=== PATIENT | male | born 1970 | race Caucasian/White ===

== ENCOUNTER 2022-03-02 10:39 | Inpatient (IN) | payer OTHER, SELFPAY ==
[2022-03-02] VITALS (14 sets, daily range): BP systolic 88–133; BP diastolic 62–82; PULSE 95–111; RESP 15–23; TEMP 36.1–37.2; O2SAT 92–97; BMI 29.5
--- NOTE | 2022-03-02 10:46 | W.ED.AMS ---
HPI - Altered Mental Status General: Stated Complaint: AMS Time Seen by Provider: 03/02/22 10:45 Discharge Plan Discharge Condition: Stable Prescriptions: No Action lorazepam 1 mg tablet 1 mg PO TID PRN (Reason: anxiety) Qty: 90 1RF Referrals: Troy Ambrosio DO [Primary Care Provider] - Coding Level of Care Code ED Director Of Curriculum And Instruction for [place]
--- NOTE | 2022-03-02 10:47 | CT_ITS ---
WS: [id number] CT HEAD TECHNIQUE: Noncontrast CT of the head obtained from the skullbase to the vertex. CLINICAL INFORMATION: ams COMPARISON: None. DLP: 1379.[address] scans at [facility] use at least one of these dose optimization techniques: automated e xposure control; mA and/or kV adjustment per patient size (includes targeted exams where dose is matc hed to clinical indication); or iterative reconstruction. FINDINGS: No evidence of intracranial hemorrhage or mass effect. Ventricular system and basal cisterns are briseno nt. Mild parenchymal volume loss. Espinoza-white differentiation appears preserved. No significant edema. No hydrocephalus. Mild cavernous carotid calcification. Mastoid air cells well aerated. Paranasal sinuses are well aerated. Retention cyst LEFT sphenoid sinu s measuring [address]/CT head wo con* [id number] IMPRESSION: 1. No evidence of intracranial hemorrhage or mass effect. 2. Mild parenchymal volume loss. 3. Espinoza-white differentiation appears preserved. No significant edema. No hydr ocephalus. 4. Mild cavernous carotid calcification. 5. Small 11 mm retention cyst LEFT sphenoid sinus. 6. No other acute findings.
--- NOTE | 2022-03-02 10:47 | XR_ITS ---
WS: [id number] Portable AP semiupright chest, 03/02/2022 Clinical Data: ams Comparison: PA and lateral chest, 10/30/2017. Findings: No nodules, masses or effusions are seen. The heart is normal. The pulmonary vascularity is not increased. No pneumonia or pneumothorax is seen. The right diaphragm is moderately elevated and there is minimal atelectasis over the surface. Monitor leads are on the chest wall. There is osteoart hritis of the left glenohumeral articulation. XR/XR chest 1V portable [id number] Impression: Negative chest.
--- NOTE | 2022-03-02 10:48 | ECG_ITS ---
[facility] Test Date: 2022-03-02 Pat Name: Dustin De Leon Department: Room: Gender: Male Health Information Specialist: : 1970 Requested By: Jeanie Martines Order Number: [id number] Kalpana MD: Dieudonne Cooper M.D. Measurements Intervals [place] Rate: 109 P: 54 SC: 153 QRS: -5 QRSD: 96 T: 80 QT: 314 QTc: 423 Interpretive Statements SINUS TACHYCARDIA LEFT ATRIAL ENLARGEMENT [-0.15mV P-WAVE IN V1/V2] LEFT VENTRICULAR HYPERTROPHY AND ST-T CHANGE [VOLTAGE CRITERIA PLUS ST/T ABNORMALITY] No previous ECG available for comparison Electronically Signed On 03-02-2022 19:44:51 CDT by Dieudonne Cooper M.D. [id number]
--- NOTE | 2022-03-02 10:58 | W.ED.GENADLT ---
HPI - General Adult General: Chief complaint: Altered Mental Status Stated complaint: AMS Time Seen by Provider: 03/02/22 10:45 History of Present Illness: Patient is a 51-year-old male with history alcohol dependence presenting to the emergency room after patient was found down since Monday. Patient rolled his bed since Monday has been on the ground. Patient's father checked on him and noticed patient was still on the ground decide to call EMS. She has been on the ground since Monday. On arrival, patient has been that he can move his arms or legs. Patient denies any pain anywhere. Patient is AAO x1, confused, oriented only to self. Rest of hx limited. Onset:2 days ago Duration:2 days Location:home Severity:severe Review of Systems General: Reports: ROS unobtainable due to mental status Musc: Reports: other (+weakness in the arms and legs b/l) Neuro: Reports: other (+confusion) [facility] ED PFSH: Medical History Alcohol dependence Social History Smoking and tobacco status: never smoked Alcohol intake: current Substance/Drug Use: never Physical Exam Const: COMMON NORMALS: alert HENMT: COMMON NORMALS: atraumatic HEAD & SCALP: atraumatic MOUTH: moist mucous membranes abnormal Eye: COMMON NORMALS: EOMs intact bilaterally and conjunctivae normal CONJUNCTIVA: Yes conjunctivae normal Neck/C-Spine: COMMON NORMALS: full ROM and supple Resp: COMMON NORMALS: normal respiratory effort and clear to auscultation bilaterally AUSCULTATION: clear to auscultation bilaterally Cardio: COMMON NORMALS: regular rate RATE: regular rate GI: COMMON NORMALS: Soft to palpation and non-tender PALPATION: Yes Soft to palpation OTHER: No focal TTP. NO guarding rebound, guarding, rigidity. No CVA tenderness to percussion. Neg Martinez/Neg McBurney's point tenderness, no suprabupic tenderness to palpation. Extremity: OTHER: +occasional movements of the extremities Neuro: SENSORIUM/ORIENTATION: Yes alert OTHER: AAOx1 (self only), confused, occasionally answering questions, occasionally moving all extremities, +unable to fully assess neurological exam Psych: COMMON NORMALS: speech normal SPEECH: Yes normal speech MOOD & AFFECT: Yes euthymic mood Course Vital Signs: Vital signs: Vital Signs Temperature 97.0 F L 03/02/22 15:35 Pulse Rate 108 H 03/02/22 16:45 Respiratory Rate 22 H 03/02/22 16:45 Blood Pressure 99/69 03/02/22 16:45 Pulse Oximetry 95 03/02/22 16:45 Oxygen Delivery Me thod 03/02/22 16:45 Oxygen Flow Rate 2 03/02/22 11:46 MDM - General Adult Medical Decision Making Patient is a 51-year-old male with history alcohol dependence presenting to the emergency room after patient was found down since Monday. On arrival, patient is confused and altered. Patient reports that he can move his arms or legs. Patient has intermittent movements of the arms or legs. No focal midline back tenderness to palpation. Patient received 500 mg of IV thiamine with IVF and now is more awake and alert. Patient noted to be mildly tachycardic on arrival. Lab work-up showed white count 28.5. Creatinine of 5 with troponin of 8.82. Patient still able to make urine with [place]. Consulted Dr. Borges who will follow patient for kidney failure. Lactic acid blood culture sent. CPK pending. Patient received vancomycin and cefepime in the ER. MRI of the back negative for any acute findings. Tachycardia and AMS improving. Disposition: admisison Lab Data : 03/02/22 11:15 03/02/22 15:14 Radiology Impressions Chest X-Ray 03/02/22 10:47 Impression: Negative chest. Head CT 03/02/22 10:47 IMPRESSION: 1. No evidence of intracranial hemorrhage or mass effect. 2. Mild parenchymal volume loss. 3. Espinoza-white differentiation appears preserved. No significant edema. No hydrocephalus. 4. Mild cavernous carotid calcification. 5. Small 11 mm retention cyst LEFT sphenoid sinus. 6. No other acute findings. Cervical Spine MRI 03/02/22 11:52 IMPRESSION: 1. Abnormal signal with enhancement involving the C6-7 vertebral body and facets with soft tissues edema and mild enhancement surrounding the nerve roots. On the prior MRI the cervical spine there is probably very small T2 lesion in the C6-7 LEFT facet. This has significantly increased in size. This is a mildly expansile bone lesion. May not be related to the patient's trauma and clinical presentation. This should be further evaluated by bone scan and possible CT. Benign bone lesion versus metastatic lesion. No cord compression. 2. No epidural abscess. 3. Increased T2 signal surrounding the soft tissues of the RIGHT shoulder may be due to poor fat suppression. Lumbar Spine MRI 03/02/22 11:52 IMPRESSION: 1. No epidural abscess or encroachment upon the conus. 2. Mild LEFT foraminal narrowing at L3-4 with disc contact on the exiting L3 nerve root. 3. Moderate RIGHT foraminal stenosis and mild LEFT foraminal stenosis at L4-5 due to disc disease. Disc contacts the traversing L5 nerve root on the RIGHT. 4. Mild bilateral foraminal stenosis at L5-S1. 5. Mild inflammatory changes involving the RIGHT L5 and S1 posterior elements with facet joint fluid. No enhancement. Consistent with synovitis and a small amount of marrow edema. Thoracic Spine MRI 03/02/22 11:52 IMPRESSION: 1. Limited evaluation of the thoracic spine. Motion artifact and lack of contrast. Patient was unable to tolerate postcontrast imaging. 2. Mild compression fractures at T2, T3, T4 and T6. Very small amount of increased T2 signal within the compression fractures. May be subacute. No retropulsion. 3. Indeterminate for very tiny focus of increased signal in the RIGHT lateral thoracic cord. This is likely external to the cord. 4. No cord compression. Laboratory Results WBC 28.5 10^3/uL (4.0-10.0) H 03/02/22 11:15 RBC 5.07 10^6/uL (4.1-5.3) 03/02/22 11:15 Hgb 16.2 g/dL (11.7-16.6) 03/02/22 11:15 Hct 45.4 % (42.0-52.0) 03/02/22 11:15 MCV 89.5 fl (80-94) 03/02/22 11:15 MCH 32.0 pg (28.0-34.0) 03/02/22 11:15 MCHC 35.7 g/dL (30.0-36.0) 03/02/22 11:15 RDW 13.2 % (12.1-15.1) 03/02/22 11:15 Plt Count 273 10^3/cmm (130-400) 03/02/22 11:15 MPV 9.1 fL (7.4-10.4) 03/02/22 11:15 Neut % (Auto) Environmental Emergencies Planner 03/02/22 11:15 Lymph % (Auto) Environmental Emergencies Planner 03/02/22 11:15 Dawes % (Auto) Environmental Emergencies Planner 03/02/22 11:15 Eos % (Auto) Environmental Emergencies Planner 03/02/22 11:15 Baso % (Auto) Environmental Emergencies Planner 03/02/22 11:15 Neut # (Auto) Environmental Emergencies Planner 03/02/22 11:15 Lymph # (Auto) Environmental Emergencies Planner 03/02/22 11:15 Dawes # (Auto) Environmental Emergencies Planner 03/02/22 11:15 Eos # (Auto) Environmental Emergencies Planner 03/02/22 11:15 Baso # (Auto) Environmental Emergencies Planner 03/02/22 11:15 Nucleated RBC % (auto) Environmental Emergencies Planner 03/02/22 11:15 Total Counted 100 (0-100) 03/02/22 11:15 Atypical Lymphs % 0.0 % (0-5) 03/02/22 11:15 Absolute Neutrophils 25.7 10^3/cmm (1.4-6.5) H 03/02/22 11:15 Segmented Neutrophils 90 % 03/02/22 11:15 Abs Segm Neuts (Man) 25.7 10/cmm (1.6-7.1) H 03/02/22 11:15 Band Neutrophils 0.0 % 03/02/22 11:15 Abs Band Neuts (Man) 0.0 10^3/cmm (0.0-1.2) 03/02/22 11:15 Absolute Lymphocytes 1.1 10^3/cmm (1.2-3.4) L 03/02/22 11:15 Lymphocytes (Manual) 4 % 03/02/22 11:15 Monocytes (Manual) 6.0 % 03/02/22 11:15 Absolute Monocytes 1.7 10^3/cmm (0.1-0.6) H 03/02/22 11:15 Eosinophils (Manual) 0 % 03/02/22 11:15 Absolute Eosinophils 0.0 10^3/cmm (0.0-0.7) 03/02/22 11:15 Basophils (Manual) 0.0 % 03/02/22 11:15 Absolute Basophils 0.0 10^3/cmm (0.0-0.2) 03/02/22 11:15 Nucleated RBCs # Environmental Emergencies Planner 03/02/22 11:15 Platelet Estimate Normal (Normal) 03/02/22 11:15 Sodium 123 mmol/L (136-145) L 03/02/22 15:14 Potassium 3.4 mmol/L (3.5-5.1) L 03/02/22 15:14 Chloride 80 mmol/L (98-107) L 03/02/22 15:14 Carbon Dioxide 20 mmol/L (22-29) L 03/02/22 15:14 Anion Gap 26.4 (5-19) H 03/02/22 15:14 BUN 34 mg/dL (6-20) H 03/02/22 15:14 Creatinine 5.0 mg/dL (0.7-1.2) H 03/02/22 15:14 GFR Calculation 12.2 mL/min (90-130) L 03/02/22 15:14 Glucose 125 mg/dL (65-115) H 03/02/22 15:14 Calculated Osmolality 265 mOsm/kg (285-295) L 03/02/22 15:14 Lactate 3.4 mmol/L (0.5-2.2) H 03/02/22 11:17 Calcium 8.2 mg/dL (8.5-10.5) L 03/02/22 15:14 Total Bilirubin 1.5 mg/dL (0.15-1.2) H 03/02/22 15:14 AST 109 U/L (0-40) H 03/02/22 15:14 ALT 30 U/L (0-41) 03/02/22 15:14 Alkaline Phosphatase 74 U/L (40-130) 03/02/22 15:14 Ammonia 41 umol/L (16-60) 03/02/22 11:15 Creatine Kinase Cancelled 03/02/22 11:15 Troponin T Baseline 82 ng/L (0-15) H 03/02/22 11:15 Troponin T 120 Minute 108.7 ng/L (0-15) H 03/02/22 15:14 Delta Troponin T 26.7 ABS# (0-10) H* 03/02/22 15:14 Total Protein 6.8 g/dL (6.6-8.7) 03/02/22 15:14 Albumin 3.8 g/dL (3.5-5.2) 03/02/22 15:14 Globulin 3.0 g/dL (1.3-4.6) 03/02/22 15:14 Lipase Cancelled 03/02/22 11:15 Urine Color Yellow (Yellow) 03/02/22 12:40 Urine Appearance Clear (CLEAR) 03/02/22 12:40 Urine pH 5 (5-7) 03/02/22 12:40 Ur Specific [place] 1.015 (1.005-1.030) 03/02/22 12:40 Urine Protein 1+ (Negative) H 03/02/22 12:40 Urine Glucose (UA) Norm (Normal) 03/02/22 12:40 Urine Ketones 1+ (Negative) H 03/02/22 12:40 Urine Blood Trace (Negative) H 03/02/22 12:40 Urine Nitrate Negative (Negative) 03/02/22 12:40 Urine Bilirubin 1+ (Negative) H 03/02/22 12:40 Urine Urobilinogen 1 mg/dL (Negative) H 03/02/22 12:40 Ur Leukocyte Esterase Negative (Negative) 03/02/22 12:40 Urine RBC 0-4 /hpf (0-2) H 03/02/22 12:40 Urine WBC 0-4 /hpf (0-5) H 03/02/22 12:40 Ur Squamous Epith Cells 0-4 /hpf (0-5) H 03/02/22 12:40 Amorphous Sediment Not Reportable 03/02/22 12:40 Urine Bacteria None /hpf (NONE) 03/02/22 12:40 Hyaline Casts 0-4 /lpf H 03/02/22 12:40 Salicylates Cancelled 03/02/22 11:15 Urine Opiates Screen Negative ng/mL (Negative) 03/02/22 12:40 Acetaminophen Cancelled 03/02/22 11:15 Ur Barbiturates Screen Negative ng/mL (Negative) 03/02/22 12:40 Ur Phencyclidine Scrn Negative ng/mL (Negative) 03/02/22 12:40 Ur Amphetamines Screen Negative ng/mL (Negative) 03/02/22 12:40 U Benzodiazepines Scrn Positive ng/mL (Negative) H 03/02/22 12:40 Urine Cocaine Screen Negative ng/mL (Negative) 03/02/22 12:40 U Marijuana (THC) Screen Negative ng/mL (Negative) 03/02/22 12:40 Imaging Data Other Imaging: Radiologist's impression: [facility] [address] [place] [address] Magnetic Resonance Report Signed Patient: Dustin De Leon Unit #: [id number] : 1970 Age/Sex: 51 / M ADM Date: 03/02/22 Loc: ER Room/Bed: Attending Dr: Ordering Provider/Ordering MD: Jeanie Martines MD Date of Service: 03/02/22 Procedure(s): MR thoracic spin wo con* [id number] Accession Number(s): [id number] Report Number: [id number] WS: [email or web address] MRI THORACIC SPINE noncontrast. HISTORY: possible epidural COMPARISON: None available. TECHNIQUE: Multiplanar sequences are performed in sagittal and axial planes. Patient was unable to complete postcontrast evaluation. Study is limited by motion artifact. Mild anterior wedging of T2, T3, T4 and T6. There is limited increased T2 and FLAIR signal within the T2, T4 and T6 vertebral bodies. May be subacute fractures. No contact on the thoracic cord. Very subtle area of increased T2 signal at the T4 level? which may be within the thoracic cord. Vertebral body fractures do not appear acute. MR/MR thoracic spin wo con* [id number] IMPRESSION: ? 1.? Limited evaluation of the thoracic spine. Motion artifact and lack of contrast. Patient was unable to tolerate postcontrast imaging. 2.? Mild compression fractures at T2, T3, T4 and T6. Very small amount of increased T2 signal within the compression fractures. May be subacute. No retropulsion. 3.? Indeterminate for very tiny focus of increased signal in the RIGHT lateral thoracic cord. This is likely external to the cord. 4.? No cord compression. ? Dictated By: Gisela Martinez DO Signed By: Gisela Martinez DO Signed Date/Time: 03/02/22 1628 DD/ 1551 [facility] [address] [place] [address] Magnetic Resonance Report Signed Patient: Dustin De Leon Unit #: [id number] : 1970 [id number] Age/Sex: 51 / M ADM Date: 03/02/22 Loc: ER Room/Bed: Attending Dr: Ordering Provider/Ordering MD: Jeanie Martines MD Date of Service: 03/02/22 Procedure(s): MR lumbar spine wo/w con [id number] Accession Number(s): [id number] Report Number: [id number] WS: [email or web address] MRI LUMBAR SPINE WITH AND WITHOUT CONTRAST HISTORY: Possible epidural abscess. Bowel and urinary incontinence. COMPARISON: 12/28/2009 TECHNIQUE: Sagittal and axial multisequence imaging is submitted. Sagittal and axial T1 fat sat sequences post-MultiHance 20 cc IV. Lumbar vertebral bodies are normally aligned. Stable hemangioma within L2. No acute fracture or marrow edema. Mild loss of the superior endplate of L2. Increased T1 and T2 signal lesion in the T12 LEFT posterior lateral vertebral body extending into the pedicle. This does not enhance and was present in 2009 consistent with a hemangioma. No compression upon the thecal sac. Nerve roots are well distributed in the thecal sac. No epidural abscess. No vertebral body enhancement. No paravertebral areas of inflammation. There is a small amount of edema in the RIGHT L5 pedicle and lamina and also the posterior RIGHT S1 vertebral body and posterior elements. No significant enhancement. There is fluid in the facet joint. Conus terminates normally at L1-2 disc level. L1-L2: Normal. L2-L3: Mild asymmetric disc bulging slightly greater to the LEFT with no stenosis. L3-L4: Mild asymmetric disc bulging. LEFT foraminal disc osteophyte and fissure. There is mild encroachment and narrowing of the LEFT foramen and contact on the exiting LEFT L3 nerve root. L4-L5: Mild facet arthritis. Mild disc contact on the RIGHT traversing L5 nerve root. Moderate RIGHT foraminal stenosis. Mild LEFT foraminal stenosis. L5-S1: Mild annular disc bulging resulting in mild foraminal stenosis, RIGHT greater than LEFT. Paravertebral soft tissues are normal. MR/MR lumbar spine wo/w con [id number] IMPRESSION: ? 1.? No epidural abscess or encroachment upon the conus. 2.? Mild LEFT foraminal narrowing at L3-4 with disc contact on the exiting L3 nerve root. 3.? Moderate RIGHT foraminal stenosis and mild LEFT foraminal stenosis at L4-5 due to disc disease. Disc contacts the traversing L5 nerve root on the RIGHT. 4.? Mild bilateral foraminal stenosis at L5-S1. 5.? Mild inflammatory changes involving the RIGHT L5 and S1 posterior elements with facet joint fluid. No enhancement. Consistent with synovitis and a small amount of marrow edema. ? Dictated By: Gisela Martinez DO Signed By: Gisela Martinez DO Signed Date/Time: 03/02/22 1539 DD/ 1521 [place] [address] Magnetic Resonance Report Signed Patient: Dustin De Leon Unit #: [id number] : 1970 Age/Sex: 51 / M ADM Date: 03/02/22 Loc: ER Room/Bed: Attending Dr: Ordering Provider/Ordering MD: Jeanie Martines MD Date of Service: 03/02/22 Procedure(s): MR cervical spine wo/w [id number] Accession Number(s): [id number] Report Number: [id number] WS: [email or web address] MRI CERVICAL SPINE? with and without contrast. HISTORY: Possible epidural abscess. Pain. COMPARISON: 11/04/2010 Technique: Multiplanar, multisequence noncontrast imaging of the cervical spine. Post contrast imaging with 20 cc MultiHance. Normal cervical alignment with no compression fracture or significant disc space narrowing. Stable hemangioma C4. Disc spaces are well preserved. Signal within the cervical cord is normal. Visualized posterior fossa is unremarkable. Craniocervical junction, C1 and C2 relationship, odontoid process and soft tissues are normal. Limited evaluation of the cervical spine. There is no significant encroachment or compromise of the central canal. Disc spaces are mildly narrowed. Incidental note is made of mild anterior wedging of T2 and T3. This will be further evaluated on follow-up exams. There is a small amount of fluid and increased T2 signal at the C6-7 disc level surrounding the nerve roots and extending into the foramina. There is also increased T2 signal in the soft tissues of the RIGHT shoulder surrounding the muscles. This abnormal signal involving the RIGHT shoulder and the soft tissues is incompletely visualized. On the postcontrast images there is abnormal signal with enhancement involving the C7 LEFT lateral vertebral body extending into the superior and inferior articular facets. This is the same location where there is abnormal enhancement involving the facet joints and paravertebral soft tissues. Mild bony expansion. Nonaggressive in appearance. Area of abnormal signal on the LEFT measures approximately 4.5 x 2.7 cm and a smaller area of similar abnormal signal on the RIGHT. MR/MR cervical spine wo/w [id number] IMPRESSION: ? 1.? Abnormal signal with enhancement involving the C6-7 vertebral body and facets with soft tissues edema and mild enhancement surrounding the nerve roots. On the prior MRI the cervical spine there is probably very small T2 lesion in the C6-7 LEFT facet. This has significantly increased in size. This is a mildly expansile bone lesion. May not be related to the patient's trauma and clinical presentation. This should be further evaluated by bone scan and possible CT.? Benign bone lesion versus metastatic lesion. No cord compression. 2.? No epidural abscess. 3.? Increased T2 signal surrounding the soft tissues of the RIGHT shoulder may be due to poor fat suppression. ? Dictated By: Gisela Martinez DO Signed By: Gisela Martinez DO Signed Date/Time: 03/02/22 162 DD/ 1539 [place] [address] CT Scan Report Signed Patient: Dustin De Leon Unit #: [id number] : 1970 Age/Sex: 51 / M ADM Date: 03/02/22 Loc: ER Room/Bed: Attending Dr: Ordering Provider/Ordering MD: Jeanie Martines MD Date of Service: 03/02/22 Procedure(s): CT head wo con* [id number] Accession Number(s): [id number] Report Number: [id number] WS: [email or web address] CT HEAD TECHNIQUE: Noncontrast CT of the head obtained from the skullbase to the vertex. CLINICAL INFORMATION: ams COMPARISON: None. DLP: 1379.[address] scans at [facility] use at least one of these dose optimization techniques: automated exposure control; mA and/or kV adjustment per patient size (includes targeted exams where dose is matched to clinical indication); or iterative reconstruction. FINDINGS: No evidence of intracranial hemorrhage or mass effect. Ventricular system and basal cisterns are patent. Mild parenchymal volume loss. Espinoza-white differentiation appears preserved. No significant edema. No hydrocephalus. Mild cavernous carotid calcification. Mastoid air cells well aerated. Paranasal sinuses are well aerated. Retention cyst LEFT sphenoid sinus measuring [address]/CT head wo con* [id number] IMPRESSION: ? 1.? No evidence of intracranial hemorrhage or mass effect. 2.? Mild parenchymal volume loss. 3.? Espinoza-white differentiation appears preserved. No significant edema. No hydrocephalus. 4.? Mild cavernous carotid calcification. 5.? Small 11 mm retention cyst LEFT sphenoid sinus. 6.? No other acute findings. ? ? Dictated By: Edinson Ba MD Signed By: Edinson Ba MD Signed Date/Time: 03/02/22 1202 DD/ [address] [address] XRay Report Signed Patient: Dustin De Leon Unit #: [id number] : 1970 Age/Sex: 51 / M ADM Date: 03/02/22 Loc: ER Room/Bed: Attending Dr: Ordering Provider/Ordering MD: Jeanie Martines MD Date of Service: 03/02/22 Procedure(s): XR chest 1V portable [id number] Accession Number(s): [id number] Report Number: [id number] WS: [email or web address] Portable AP semiupright chest, 03/02/2022 Clinical Data: ams Comparison: PA and lateral chest, 10/30/2017. Findings: No nodules, masses or effusions are seen. The heart is normal. The pulmonary vascularity is not increased. No pneumonia or pneumothorax is seen. The right diaphragm is moderately elevated and there is minimal atelectasis over the surface. Monitor leads are on the chest wall. 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 XR/XR chest 1V portable [id number] Impression: Negative chest. ? Dictated By: Betina Sosa MD Signed By: Betina Sosa MD Signed Date/Time: 03/02/22 1139 DD/ 1137 Discharge Plan Discharge Patient Disposition: Admitted As Inpatient Clinical Impression: Altered mental status Condition: Stable Coding Level of Care Code ED Distributor Of Directories for Chg Fwd Exam Comprehensive
[2022-03-02] MEDS: sodium chloride 0.9% 1,000 ML 999 ML IV ×2 (11:22→15:29)
[2022-03-02 11:26] LABS: Hematocrit 45.4 % (42.0-52.0); Hemoglobin 16.2 g/dL (11.7-16.6); Mean Corpuscular HGB Conc 35.7 g/dL (30.0-36.0); Mean Corpuscular Volume 89.5 fl (80-94); Mean Platelet Volume 9.1 fL (7.4-10.4); Platelet Count 273 10^3/cmm (130-400); Red Blood Count 5.07 10^6/uL (4.1-5.3); Red Cell Distribution Width 13.2 % (12.1-15.1); White Blood Count 28.5 10^3/uL (4.0-10.0)
--- NOTE | 2022-03-02 11:26 | PC.NURSE ---
Patient here after being found down in his bedroom by his dad, unknown down time, per dad patient had sent text to his mom Monday am and no one he usually talks to had heard from him. Patient lives alone. He does have a 16 year old son that lives with him Monday through Monday. Patient awake, [place], poor historian, no recall of events, does know he is in [place] [facility]
--- NOTE | 2022-03-02 11:32 | PC.NURSE ---
Per patient's dad patient did have a doctor's appointment with Dr. Ambrosio but it is unknown if he kept the appointment, per dad patient had been sick to his stomach over the weekend.
--- NOTE | 2022-03-02 11:36 | PC.PHAR ---
unable to verify medications with pt or with pts family that was in the room-medications entered are meds that ext med history shows has been filled recently
[2022-03-02 11:42] LABS: Troponin(5th) Baseline 82 ng/L (0-15)
--- NOTE | 2022-03-02 11:52 | MR_ITS ---
WS: [id number] MRI CERVICAL SPINE with and without contrast. HISTORY: Possible epidural abscess. Pain. COMPARISON: 11/04/2010 Technique: Multiplanar, multisequence noncontrast imaging of the cervical spine. Post contrast imagin g with 20 cc MultiHance. Normal cervical alignment with no compression fracture or significant disc space narrowing. Stable he mangioma C4. Disc spaces are well preserved. Signal within the cervical cord is normal. Visualized posterior fossa is unremarkable. Craniocervical junction, C1 and C2 relationship, odontoid process and soft tissues are normal. Limited evaluation of the cervical spine. There is no significant encroachment or compromise of the c entral canal. Disc spaces are mildly narrowed. Incidental note is made of mild anterior wedging of T2 and T3. This will be further evaluated on follow-up exams. There is a small amount of fluid and increased T2 signal at the C6-7 disc level surrounding the nerve roots and extending into the foramina. There is also increased T2 signal in the soft tissues of the RIGHT shoulder surrounding the muscles. This abnormal signal involving the RIGHT shoulder and the sof t tissues is incompletely visualized. On the postcontrast images there is abnormal signal with enhancement involving the C7 LEFT lateral ve rtebral body extending into the superior and inferior articular facets. This is the same location whe re there is abnormal enhancement involving the facet joints and paravertebral soft tissues. Mild bony expansion. Nonaggressive in appearance. Area of abnormal signal on the LEFT measures approximately 4.5 x 2.7 cm and a smaller area of similar abnormal signal on the RIGHT. MR/MR cervical spine wo/w [id number] IMPRESSION: 1. Abnormal signal with enhancement involving the C6-7 vertebral body and face ts with soft tissues edema and mild enhancement surrounding the nerve roots. On the prior MRI the cervical spine there is probably very small T2 lesion in the C6-7 LEFT facet. This has significantly increased in size. This is a mildly ex pansile bone lesion. May not be related to the patient's trauma and clinical pr esentation. This should be further evaluated by bone scan and possible CT. Adithya ign bone lesion versus metastatic lesion. No cord compression. 2. No epidural abscess. 3. Increased T2 signal surrounding the soft tissues of the RIGHT shoulder may be due to poor fat suppression.
--- NOTE | 2022-03-02 11:52 | MR_ITS ---
WS: [id number] MRI THORACIC SPINE noncontrast. HISTORY: possible epidural COMPARISON: None available. TECHNIQUE: Multiplanar sequences are performed in sagittal and axial planes. Patient was unable to co mplete postcontrast evaluation. Study is limited by motion artifact. Mild anterior wedging of T2, T3, T4 and T6. There is limited increased T2 and FLAIR signal within the T2, T4 and T6 vertebral bodies. May be subacute fractures. No contact on the thoracic cord. Very subtle area of increased T2 signal at the T4 level which may be within the thoracic cord. Verte bral body fractures do not appear acute. MR/MR thoracic spin wo con* [id number] IMPRESSION: 1. Limited evaluation of the thoracic spine. Motion artifact and lack of contr ast. Patient was unable to tolerate postcontrast imaging. 2. Mild compression fractures at T2, T3, T4 and T6. Very small amount of incre ased T2 signal within the compression fractures. May be subacute. No retropulsi on. 3. Indeterminate for very tiny focus of increased signal in the RIGHT lateral thoracic cord. This is likely external to the cord. 4. No cord compression.
--- NOTE | 2022-03-02 11:52 | MR_ITS ---
WS: [id number] MRI LUMBAR SPINE WITH AND WITHOUT CONTRAST HISTORY: Possible epidural abscess. Bowel and urinary incontinence. COMPARISON: 12/28/2009 TECHNIQUE: Sagittal and axial multisequence imaging is submitted. Sagittal and axial T1 fat sat seque nces post-MultiHance 20 cc IV. Lumbar vertebral bodies are normally aligned. Stable hemangioma within L2. No acute fracture or marro w edema. Mild loss of the superior endplate of L2. Increased T1 and T2 signal lesion in the T12 LEFT posterior lateral vertebral body extending into the pedicle. This does not enhance and was present in 2009 consistent with a hemangioma. No compression upon the thecal sac. Nerve roots are well distributed in the thecal sac. No epidural a bscess. No vertebral body enhancement. No paravertebral areas of inflammation. There is a small amoun t of edema in the RIGHT L5 pedicle and lamina and also the posterior RIGHT S1 vertebral body and post erior elements. No significant enhancement. There is fluid in the facet joint. Conus terminates normally at L1-2 disc level. L1-L2: Normal. L2-L3: Mild asymmetric disc bulging slightly greater to the LEFT with no stenosis. L3-L4: Mild asymmetric disc bulging. LEFT foraminal disc osteophyte and fissure. There is mild encroa chment and narrowing of the LEFT foramen and contact on the exiting LEFT L3 nerve root. L4-L5: Mild facet arthritis. Mild disc contact on the RIGHT traversing L5 nerve root. Moderate RIGHT foraminal stenosis. Mild LEFT foraminal stenosis. L5-S1: Mild annular disc bulging resulting in mild foraminal stenosis, RIGHT greater than LEFT. Paravertebral soft tissues are normal. MR/MR lumbar spine wo/w con [id number] IMPRESSION: 1. No epidural abscess or encroachment upon the conus. 2. Mild LEFT foraminal narrowing at L3-4 with disc contact on the exiting L3 n erve root. 3. Moderate RIGHT foraminal stenosis and mild LEFT foraminal stenosis at L4-5 due to disc disease. Disc contacts the traversing L5 nerve root on the RIGHT. 4. Mild bilateral foraminal stenosis at L5-S1. 5. Mild inflammatory changes involving the RIGHT L5 and S1 posterior elements with facet joint fluid. No enhancement. Consistent with synovitis and a small a mount of marrow edema.
[2022-03-02 12:13] LABS: Lactate (Lactic Acid level) 3.4 mmol/L (0.5-2.2)
[2022-03-02] MEDS: cefepime 1,000 MG in sodium chloride 0.9% (plus) 50 ML 100 MG IV (12:22)
[2022-03-02 12:27] LABS: Absolute Neutrophil 25.7 10^3/cmm (1.4-6.5); Absolute Segmented Neutrophil 25.7 10/cmm (1.6-7.1); Eosinophils 0 %; Lymphocytes 4 %; Lymphocytes Absolute 1.1 10^3/cmm (1.2-3.4); Monocytes Absolute 1.7 10^3/cmm (0.1-0.6); Platelet Estimate Normal (Normal); Segmented Neutrophils 90 %; Total Cells Counted 100 (0-100)
[2022-03-02] MEDS: vancomycin 1,000 MG in sodium chloride 0.9% 250 ML 250 MG IV (12:35)
[2022-03-02 12:36] LABS: Ammonia 41 umol/L (16-60)
[2022-03-02] MEDS: morphine 4 mg/mL SDV 1 mL IVP (12:42)
--- NOTE | 2022-03-02 12:47 | PC.NURSE ---
San cath placed, patient tolerated well, BC's drawn and antibiotics started, patient to MRI att
--- NOTE | 2022-03-02 12:48 | ECG_ITS ---
[facility] Test Date: 2022-03-02 Pat Name: Dustin De Leon Department: Room: Gender: Male Afterschool: : 1970 Requested By: Jeanie Martines Order Number: [id number] Kalpana MD: Dieudonne Cooper M.D. Measurements Intervals Joaquin Rate: 108 P: 32 CT: 132 QRS: -10 QRSD: 96 T: 71 QT: 338 QTc: 454 Interpretive Statements SINUS TACHYCARDIA LEFT ATRIAL ENLARGEMENT [-0.15mV P-WAVE IN V1/V2] LEFT VENTRICULAR HYPERTROPHY AND ST-T CHANGE [VOLTAGE CRITERIA PLUS ST/T ABNORMALITY] Compared to ECG 03/02/2022 11:46:04 No significant changes Electronically Signed On 03-02-2022 19:51:06 CDT by Dieudonne Cooper M.D. [email or web address]
[2022-03-02 13:01] LABS: Amphetamines Screen Urine Negative (Negative); Barbiturates Screen Urine Negative (Negative); Benzodiazepines Screen Urine Positive (Negative); Cocaine Screen Urine Negative (Negative); Opiate Screen Urine Negative (Negative); PCP Screen Urine Negative (Negative); THC Screen Urine Negative (Negative)
[2022-03-02 13:04] LABS: Bilirubin Urine 1+ (Negative); Blood Urine Trace (Negative); Glucose Urine UA Norm (Normal); Ketones Urine 1+ (Negative); Nitrate Urine Negative (Negative); Protein Urine 1+ (Negative); Specific Gravity, Urine 1.015 (1.005-1.030); Urine Appearance Clear (CLEAR); Urine Color Yellow (Yellow); Urobilinogen Urine 1 mg/dL (Negative); pH Urine 5 (5-7)
[2022-03-02 13:05] LABS: Add Urine Culture? No; Add Urine Microscopic? YES; Hyaline Casts Urine 0-4 /lpf; Leukocyte Esterase Urine Negative (Negative); RBC Urine 0-4 /hpf (0-2); Squamous Epithelial Cell Urine 0-4 /hpf (0-5); WBC Urine 0-4 /hpf (0-5)
[2022-03-02] MEDS: gadobenate dimeglumine 20 mL vial IV (14:57)
[2022-03-02 15:50] LABS: Troponin 5 2HR 108.7 ng/L (0-15); Troponin 5 2HR Delta 26.7 ABS# (0-10)
[2022-03-02 16:12] LABS: Alanine Aminotransferase 30 U/L (0-41); Albumin Level 3.8 g/dL (3.5-5.2); Alkaline Phosphatase 74 U/L (40-130); Anion Gap 26.4 (5-19); Aspartate Amino Transferase 109 U/L (0-40); Blood Urea Nitrogen 34 mg/dL (6-20); Calcium 8.2 mg/dL (8.5-10.5); Carbon Dioxide 20 mmol/L (22-29); Chloride 80 mmol/L (98-107); Glomerular Filtration Rate 12.2 mL/min (90-130); Glucose 125 mg/dL (65-115); Osmolality Calculated 265 mOsm/kg (285-295); Potassium 3.4 mmol/L (3.5-5.1); Sodium 123 mmol/L (136-145); Total Bilirubin 1.5 mg/dL (0.15-1.2); Total Protein 6.8 g/dL (6.6-8.7)
--- NOTE | 2022-03-02 16:59 | PM.CONSULT ---
Providers/Reason For Consult Consulting Physician/Specialty*: pati pardo md / telenephrology Reason for Consult*: august, hyponatremia, hypokalemia, inc AGMA Requesting Physician: Dr Martines Primary Care Provider: Troy Ambrosio DO History of Present Illness History of Present Illness Dustin De Leon is a 51 year old male h/o htn and ETOH use. pt has been feeling sick and weak this past weekend. not eating well and diarrhea, also AMS/ confusion. family has not been able to get in touch w/ him for 2 days. This am- EMS went to house and found him on floor, confused, in feces and urine. Pt denies drug use or using anything to hurt himself. pt is confused, but knows that he is in ER and knows his father. Review of Systems Narrative: weak, confused, leg pain. no aguilar. +poor hearing, no aguilar. + diarrhea, no swelling. denies urinary complaints. no cp. + abd pain Medications/Allergies Home Medications Medication Instructions Recorded Confirmed Last Taken Type lorazepam 1 mg tablet 1 mg PO TID PRN anxiety #90 tabs 02/27/22 03/02/22 Unknown Rx metoprolol tartrate 50 mg tablet 50 mg PO BID 03/02/22 03/02/22 Unknown History valsartan 320 1 tab PO DAILY 03/02/22 03/02/22 Unknown History mg-hydrochlorothiazide 25 mg tablet Allergies Allergy/AdvReac Type Severity Reaction Status Date / Time No Known Allergies Allergy Verified 01/25/22 16:50 Current Medications Generic Name Dose Route Start Last Admin Trade Name Freq PRN Reason Stop Dose Admin Sodium Chloride 1,000 mls @ 999 mls/hr 03/02/22 15:15 03/02/22 16:50 Sodium Chloride 0.9% IV 03/02/22 17:15 Not Given .Q1H1M ISAAC PFSH Acute PFSH: Medical History Alcohol dependence Social History Smoking and tobacco status: never smoked Alcohol intake: current Substance/Drug Use: never Vitals/I&O/Wt Last Vital Signs Temp 97.0 F L 03/02/22 15:35 Pulse 108 H 03/02/22 16:45 Resp 22 H 03/02/22 16:45 BP 99/69 03/02/22 16:45 Pulse Ox 95 03/02/22 16:45 O2 Del Method 03/02/22 16:45 O2 Flow Rate 2 03/02/22 11:46 03/02/22 03/02/22 03/02/22 06:59 14:59 22:59 Intake Total 1300 / 1300 1000 / 2300 Balance 1300 / 1300 1000 / 2300 Physical Exam Narrative: confused in bed, hypotensive, weak vs noted hent- nc/at, eomi neck supple lungs clear heart reg, no rub abd soft, nt, nd, + 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 AMS, leukocytosis, and viral symptoms- agree w/ infection eval. please check for COVID-19 -cervical MRI- ? Abnormal signal with enhancement involving the C6-7 vertebral body and facets with soft tissues edema and mild enhancement surrounding the nerve roots. On the prior MRI the cervical spine there is probably very small T2 lesion in the C6-7 LEFT facet. This has significantly increased in size. This is a mildly expansile bone lesion. May not be related to the patient's trauma and clinical presentation. This should be further evaluated by bone scan and possible CT.? Benign bone lesion versus metastatic lesion. No cord compression 2. AUGUST- u/a 1+ prot, 1+ ketone -check ur na, osm, cr, pr -check renal us -agree w/ ivf check ck check hep serologies -check covid test -bp low, on ARB and hctz at home- inc risk for ATN 3. hyponatremia- check ur lytes and tsh 4. hypokalemia- gentle repletion w/ august 5. inc AGMA- lactate 3.4 and AUGUST, and + urine ketons- Q starvation keto acidosis -check osm and ethylene glycol levle- though unlikely -check abg 6. monitor for ETOH withdrawal will follow w/ you seen and examined w/ rN -telehealth visist time spent 55 min informed consent for telehealth and HD obtained from pt and his father Status: Acute Plan see above Consult Attestations Medical Necessity Statement: august, ams, electrolytes abnormalities, ETOH use Time Spent in Patient Care: Greater than 35 minutes (>than 50% of time spent in counselling and/or direct pt care on unit). Coding Level of Care Code Acute Safety Spec for [place] Diagnoses AUGUST (acute kidney injury) N17.9
--- NOTE | 2022-03-02 17:14 | USR_ITS ---
PROCEDURE INFORMATION: Exam: US Retroperitoneal; Complete; Kidneys and Bladder Exam date and time: 03/02/2022 5:38 PM Age: 51 years old Clinical indication: Condition or disease; Other: Anam TECHNIQUE: Imaging protocol: Real-time ultrasound of the retroperitoneum with image documentation. Complete exam focused on the kidneys and bladder. COMPARISON: MR thoracic spin wo con* [id number] 03/02/2022 2:39 PM FINDINGS: Right kidney: Normal. No stones. No hydronephrosis. Left kidney: Normal. No stones. No hydronephrosis. Urinary bladder: San catheter in the urinary bladder. US/US renal BI* [id number] IMPRESSION: 1. Unremarkable kidneys and bladder. 2. San catheter in the urinary bladder.
[2022-03-02 18:36] LABS: Lactate (Lactic Acid level) 1.5 mmol/L (0.5-2.2)
[2022-03-02] MEDS: multivitamin therapeutic Tablet 1 TAB PO (18:38)
[2022-03-02] MEDS: thiamine 100 mg Tablet PO (18:38)
[2022-03-02] MEDS: lactated ringers 1,000 ML 999 ML IV ×2 (18:38→22:34)
[2022-03-02 18:57] LABS: Creatine Phosphokinase 2759 U/L (39-308)
--- NOTE | 2022-03-02 19:17 | PM.HP ---
Providers/Chief Complaint Admitting Physician: eliud mac Primary Care Provider: Troy Ambrosio DO Chief Complaint: AMS History of Present Illness Dustin De Leon is a 51 year old male with history of alcoholism has been drinking heavily for about 5 years. He states he drinks 12 beers such as natural light and half a bottle of wine daily. He was last known to be awake and on his feet Monday. Today his dad went by to check on him and found him laying on his left side stuck between a corner of the wall in bed patient had been down a long time with incontinence of stool and urine and ambulance was called. Brought to the hospital he had acute renal failure and significant weakness MRI of the cervical thoracic and lumbar spine was done with some abnormalities but not clearly operative problems. 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 Additionally he had told his mother that all he was taking was ibuprofen for his pain few days ago they anticipate that he has been down since Monday Review of Systems Narrative: No fevers chills weight gain weight loss Cardiovascular no chest pain palpitations or edema Respiratory no shortness of breath cough wheezing GI no nausea vomiting diarrhea constipation melena hematochezia no dysuria hematuria incontinence Neuro no history of seizures or stroke Heme no history of bleeding or bruising problems Malignancy negative Psych negative Medications/Allergies Home Medications Medication Instructions Recorded Confirmed Last Taken Type lorazepam 1 mg tablet 1 mg PO TID PRN anxiety #90 tabs 02/27/22 03/02/22 Unknown Rx metoprolol tartrate 50 mg tablet 50 mg PO BID 03/02/22 03/02/22 Unknown History valsartan 320 1 tab PO DAILY 03/02/22 03/02/22 Unknown History mg-hydrochlorothiazide 25 mg tablet Allergies Allergy/AdvReac Type Severity Reaction Status Date / Time No Known Allergies Allergy Verified 01/25/22 16:50 PFSH Acute PFSH: Medical History (Updated 03/02/22 @ 19:27 by Eliud Mac MD) Alcohol dependence (~01/2017) Altered mental status Social History Smoking and tobacco status: never smoked Alcohol intake: current Substance/Drug Use: never Vitals/I&O/Wt Last Vital Signs Temp 97.0 F L 03/02/22 15:35 Pulse 108 H 03/02/22 16:45 Resp 22 H 03/02/22 16:45 BP 99/69 03/02/22 16:45 Pulse Ox 95 03/02/22 16:45 O2 Del Method 03/02/22 16:45 O2 Flow Rate 2 03/02/22 11:46 03/02/22 03/02/22 03/02/22 06:59 14:59 22:59 Intake Total 1300 / 1300 1000 / 2300 Balance 1300 / 1300 1000 / 2300 Physical Exam Narrative: General well-developed well-nourished male in no acute cardiopulmonary stress he is alert and oriented to person place CV regular rate and rhythm with a 4/6 systolic ejection murmur best heard at the left sternal Lungs clear to auscultation bilaterally Abdomen positive bowel sounds soft nontender no ascites no liver tenderness or enlargement Calves no tenderness there is trace edema Motor patient with poor control and weakness of his extremities but he does move all his extremities. On flexion extension the ankle he had to be coached multiple times General musculoskeletal survey he is without obvious gross deformity or angulation of bone general palpation diffusely mildly tender no point tenderness Oral Mallampati 2 Mood and affect appropriate Urinary Catheter Management: 2-way Urethral: Cath Placed During This Visit: yes Urinary Catheter Date of Insertion: 03/02/22 Urinary Catheter Time of Insertion: 12:45 Data : 03/02/22 11:15 03/02/22 15:14 Micro: Microbiology 03/02/22 12:17 Blood Culture - Preliminary Blood SPECIMEN COLLECTED 03/02/22 12:10 Blood Culture - Preliminary Blood SPECIMEN COLLECTED A&P Assessment and plan (1) Rhabdomyolysis: CPK only 2759 patient was dehydrated also alcoholic, septic and recently taking NSAID Hydrate and maintain urine output greater than 50 cc an hour Status: Acute (2) JUANCHO (acute kidney injury): Continue with hydration Status: Acute (3) Alcohol dependence: [facility] protocol Status: Acute (4) Altered mental status: Improved patient is a poor historian Status: Acute Attestations Medical Necessity Statement*: Patient will likely need to be in the hospital for 4 days Time Spent in Patient Care: 70 minutes spent in evaluation coronation care for this patient today Coding Level of Care Code Acute Assistant Branch Operations Manager for Maggieg Fwjohann History Comprehensive Exam Comprehensive Medical Decision Making High Complexity Diagnoses Rhabdomyolysis M62.82 JUANCHO (acute kidney injury) N17.9 Alcohol dependence F10.20 Altered mental status R41.82
[2022-03-02 19:26] LABS: Anion Gap 21.3 (5-19); Blood Urea Nitrogen 34 mg/dL (6-20); Calcium 7.3 mg/dL (8.5-10.5); Carbon Dioxide 20 mmol/L (22-29); Chloride 88 mmol/L (98-107); Glomerular Filtration Rate 13.1 mL/min (90-130); Glucose 106 mg/dL (65-115); Osmolality Calculated 270 mOsm/kg (285-295); Potassium 3.3 mmol/L (3.5-5.1); Sodium 126 mmol/L (136-145)
[2022-03-02 19:56] LABS: Magnesium 2.2 mg/dL (1.7-2.3); Phosphorus 6.5 mg/dL (2.5-4.5)
[2022-03-02 19:58] LABS: Potassium, Radom Urine 50 mmol/L
[2022-03-02 19:59] LABS: Urine Random Chloride 16 mmol/L; Urine Random Sodium 15 mmol/L
[2022-03-02 20:03] LABS: D Dimer 2.52 ug/mIFEU (0-0.59)
--- NOTE | 2022-03-02 20:31 | USCV_ITS ---
Dustin DeL eon Age: 51 Gender: M : 1970 Exam Date: 03/02/2022 22:02 Ordering Phys: Edinson Mac MD Technologist: KARRIE Exam Location: [facility] [place] Indication: heart murmur; elevated WBD, lactic acidosis. No history of cardiac intervention per patient. BP: 108 / 68 HR: 107 Rhythm: Sinus tachycardia Technical Quality: Adequate MEASUREMENTS (Male / Female) Normal Values 2D ECHO LV Diastolic Diameter PLAX 3.7 cm 4.2 - 5.9 / 3.9 - 5.3 cm LV Systolic Diameter PLAX 2.4 cm IVS Diastolic Thickness 2.0 cm 0.6 - 1.0 / 0.6 - 0.9 cm IVS Systolic Thickness 2.0 cm LVPW Diastolic Thickness 1.6 cm 0.6 - 1.0 / 0.6 - 0.9 cm LVPW Systolic Thickness 2.0 cm LVOT Diameter 2.1 cm LV Ejection Fraction 2D Teich 64.7 % LV Ejection Fraction MOD 2C 67.9 % LV Ejection Fraction 2C AL 68.1 % LA Diameter 3.8 cm LA Width 3.7 cm LA Height 5.6 cm RA Width 2.5 cm RA Height 3.8 cm Aorta at Sinotubular Diameter 3.3 cm IVC Diameter 0.9 cm M-MODE Aortic Annulus Diameter 3.6 cm LA Ao Ratio MM 1.1 MV E Point Septal Separation 0.6 cm DOPPLER AV Peak Velocity 169.0 cm/s LVOT Peak Velocity 108.0 cm/s AV Area Cont Eq vti 2.1 cm squared AV Area Cont Eq pk 2.2 cm squared MV Area PHT 4.4 cm squared Mitral E to A Ratio 1.0 MV E' Velocity 56.5 cm/s Mitral E to MV E' Ratio 12.2 Mitral E to LV E' Lateral Ratio 10.4 Mitral E to LV E' Septal Ratio 14.9 TR Peak Velocity 205.0 cm/s TR Peak Gradient 16.8 mmHg TV Peak E Velocity 50.0 cm/s Right Atrial Pressure 5.0 mmHg Pulmonary Artery Systolic Pressu 21.8 mmHg PV Peak Velocity 130.0 cm/s RV Acceleration Time 0.1 s RV Ejection Time 0.3 s RV AcT/ET 0.3 FINDINGS Left Ventricle Normal left ventricular size, systolic function and wall thickness, with no regional wall motion abnormalities. Left ventricular ejection fraction is estimated at 70 %. Grade II diastolic dysfunction, moderately elevated filling pressures. Right Ventricle Normal right ventricular size and systolic function. Right ventricular systolic pressure 21.8 mmHg. Right Atrium Normal right atrial size. Left Atrium Upper normal leaft atrial size. Mitral Valve Structurally normal mitral valve. No mitral valve stenosis. Trace mitral valve regurgitation. Aortic Valve Structurally normal trileaflet aortic valve. No aortic valve stenosis. No aortic valve regurgitation. Tricuspid Valve Structurally normal tricuspid valve. No tricuspid valve stenosis. Trace tricuspid valve regurgitation. Pulmonic Valve Pulmonic valve not well visualized. Pericardium No pericardial effusion. Aorta Normal size aortic root and proximal ascending aorta. IVC Inferior vena cava not visualized. CONCLUSIONS 1. Normal left ventricular size, systolic function and wall thickness, with no regional wall motion abnormalities. Left ventricular ejection fraction is estimated at 70 %. Grade II diastolic dysfunction, moderately elevated filling pressures. 2. Normal right ventricular size and systolic function. 3. No significant valvular abnormality. 4. Normal pulmonary artery pressure. 5. When compared to previous study dated 04/14/17, mitral regurgitation seems to have improved. Zully Medina MD (Electronically Signed) Final Date: 03 March 2022 14:22 S
[2022-03-02] MEDS: morphine 4 mg/mL SDV 1 mL 2 MG IVP (20:54)
[2022-03-02] MEDS: famotidine 20 mg/2 mL INJ IVP (20:54)
[2022-03-02 20:58] LABS: SARS Covid-2 Antigen Negative (Negative)
[2022-03-02 21:10] LABS: Hepatitis C Virus Antibody Non-Reactive (Nonreactive)
[2022-03-02 21:20] LABS: Thyroid Stimulating Hormone 2.34 uIU/mL (0.27-4.20)
[2022-03-02] MEDS: dextrose 5%-ns + KCl 20 20 MEQ/1,000 ML BAG 125 MEQ IV (23:06)
[2022-03-03] VITALS (8 sets, daily range): BP systolic 120–157; BP diastolic 68–82; PULSE 78–111; RESP 16–20; TEMP 36.7–37.3; O2SAT 93–97
[2022-03-03 02:31] LABS: Basophils % 0.1 %; Hematocrit 32.9 % (42.0-52.0); Hemoglobin 11.6 g/dL (11.7-16.6); Lymphocytes # 1.1 10^3/uL (0.8-4.8); Lymphocytes % 6.2 %; Mean Corpuscular HGB Conc 35.3 g/dL (30.0-36.0); Mean Corpuscular Hemoglobin 31.8 pg (28.0-34.0); Mean Corpuscular Volume 90.1 fl (80-94); Monocytes # 1.5 10^3/uL (0.2-0.9); Monocytes % 8.2 %; Neutrophils # 15.42 10^3/uL (1.8-7.7); Neutrophils % 84.7 %; Nucleated Red Blood Cells % 0 %; Platelet Count 200 10^3/cmm (130-400); Red Blood Count 3.65 10^6/uL (4.1-5.3); Red Cell Distribution Width 13.1 % (12.1-15.1); White Blood Count 18.2 10^3/uL (4.0-10.0)
[2022-03-03 02:54] LABS: Ammonia 47 umol/L (16-60)
[2022-03-03 02:57] LABS: Troponin T (5th) Once 85 ng/L (0-15)
[2022-03-03] MEDS: HYDROcodone-acetaminophen 5-325 mg Tablet 1 TAB PO ×3 (04:24→15:48)
[2022-03-03 06:21] LABS: Alanine Aminotransferase 26 U/L (0-41); Albumin Level 3.1 g/dL (3.5-5.2); Alkaline Phosphatase 58 U/L (40-130); Anion Gap 19.8 (5-19); Aspartate Amino Transferase 103 U/L (0-40); Blood Urea Nitrogen 37 mg/dL (6-20); Calcium 7.2 mg/dL (8.5-10.5); Carbon Dioxide 18 mmol/L (22-29); Chloride 84 mmol/L (98-107); Globulin 2.3 g/dL (1.3-4.6); Glomerular Filtration Rate 15.3 mL/min (90-130); Glucose 110 mg/dL (65-115); Osmolality Calculated 257 mOsm/kg (285-295); Phosphorus 5.2 mg/dL (2.5-4.5); Total Bilirubin 1.1 mg/dL (0.15-1.2); Total Protein 5.4 g/dL (6.6-8.7)
[2022-03-03 06:22] LABS: Calcium 7.2 mg/dL (8.5-10.5)
[2022-03-03 06:29] LABS: Parathyroid Hormone 220.6 pg/mL (15-65)
[2022-03-03 06:33] LABS: Potassium 2.8 mmol/L (3.5-5.1); Sodium 119 mmol/L (136-145)
[2022-03-03 06:37] LABS: 25 Hydroxy Vitamin D 16 ng/mL (30-100)
[2022-03-03] MEDS: dextrose 5%-ns + KCl 20 20 MEQ/1,000 ML BAG 125 MEQ IV (06:42)
[2022-03-03] MEDS: famotidine 20 mg/2 mL INJ IVP ×2 (06:46→18:23)
[2022-03-03 07:49] LABS: Creatine Phosphokinase 2827 U/L (39-308)
--- NOTE | 2022-03-03 08:58 | PM.PN ---
Subjective Subjective: ore awake. back pain and limited back mobility. no n/v/d/cp/aguilar/sob. + edema Medications: Reviewed: Yes Medication Review Details: Current Medications Hydrocodone Bitart/Acetaminophen (Hydrocodone-Acetaminophen 5-325 Mg Tablet) 1 tab PO Q4H PRN PRN Reason: MODERATE TO SEVERE PAIN Last Admin: 03/03/22 04:24 Dose: 1 tab Famotidine (Famotidine 20 Mg/2 Ml Inj) 20 mg IVP Q12H ISAAC Last Admin: 03/03/22 06:46 Dose: 20 mg Folic Acid (Folic Acid 1 Mg Tablet) 1 mg PO DAILY [facility] Potassium Chloride/Dextrose/Sod Cl (Dextrose 5%-Ns + Kcl 20) 20 meq in 1,000 mls @ 125 mls/hr IV .Q8H [facility] Last Admin: 03/03/22 06:42 Dose: 125 mls/hr Lorazepam (Lorazepam 2 Mg/Ml Inj 1 Ml) 2 mg IM Q4H PRN; Protocol PRN Reason: ALCOWD Lorazepam (Lorazepam 2 Mg/Ml Inj 1 Ml) 2 mg IVP PRN PRN; Protocol PRN Reason: WITHDRAWAL Lorazepam (Lorazepam 2 Mg Tablet) 2 mg PO Q4H PRN; Protocol PRN Reason: WITHDRAWAL Lorazepam (Lorazepam 1 Mg Tablet) 1 mg PO TID PRN PRN Reason: anxiety Morphine Sulfate (Morphine 4 Mg/Ml Sdv 1 Ml) 2 mg IVP Q4H PRN PRN Reason: SEVERE PAIN Last Admin: 03/02/22 20:54 Dose: 2 mg Multivitamins Therapeutic (Multivitamin Therapeutic Tablet) 1 tab PO DAILY [facility] Ondansetron HCl (Ondansetron 2 Mg/Ml Sdv 2 Ml) 4 mg IVP Q8H PRN PRN Reason: vomiting, or N/V if npo Potassium Chloride (Potassium Chloride Er 20 Meq Tablet) 40 meq PO Q6H [facility] Stop: 03/03/22 14:16 Thiamine Mononitrate (Thiamine 100 Mg Tablet) 100 mg PO DAILY [facility] Vitals/I&O/Wt Last Vital Signs Temp 98.4 F 03/03/22 08:00 Pulse 78 03/03/22 08:30 Resp 18 03/03/22 08:00 BP 142/72 03/03/22 08:00 Pulse Ox 95 03/03/22 08:30 O2 Del Method 03/03/22 08:30 O2 Flow Rate 2 03/02/22 18:00 03/02/22 03/03/22 03/03/22 22:59 06:59 14:59 Intake Total 2240 / 3540 4830 / 8370 Output Total 700 / 700 Balance 2240 / 3540 4130 / 7670 Weight last 48 hrs Weight 98.94 kg Weight 90.52 kg Physical Exam Narrative: obese man, comfortable in bed,NARD vs noted hent- nc/at, eomi neck supple lungs clear heart reg, no rub abd soft, nt, nd, + bs ext 1+ edema skin no rash poor pulses poor hearing neuro- a,a, o x 2, limited mobility Urinary Catheter Management: 2-way Urethral: Cath Placed During This Visit: yes Reason for Continuing Indwelling Catheter: Acute Urinary Retention or Obstruction Urinary Catheter Date of Insertion: 03/02/22 Urinary Catheter Time of Insertion: 12:45 Data : 03/03/22 02:09 03/03/22 02:09 Micro: Microbiology 03/02/22 12:17 Blood Culture - Preliminary Blood SPECIMEN COLLECTED 03/02/22 12:10 Blood Culture - Preliminary Blood SPECIMEN COLLECTED A&P Assessment and plan (1) JUANCHO (acute kidney injury): 51 yr old man who per family was sick for a few days and then was found down and w/ AMS 1. AMS, leukocytosis, and viral symptoms- agree w/ infection eval. please check for COVID-19 -cervical MRI- ? Abnormal signal with enhancement involving the C6-7 vertebral body and facets with soft tissues edema and mild enhancement surrounding the nerve roots. On the prior MRI the cervical spine there is probably very small T2 lesion in the C6-7 LEFT facet. This has significantly increased in size. This is a mildly expansile bone lesion. May not be related to the patient's trauma and clinical presentation. This should be further evaluated by bone scan and possible CT.? Benign bone lesion versus metastatic lesion. No cord compression -has difficulty moving back per medicine -consider a neuro consult -benzos + in urine 2. JUANCHO- u/a 1+ prot, 1+ ketone -low ur na- c/w prerenal and cr improving w/ ivf -normal renal us -agree w/ ivf ck 2827- monitor w/ ivf- ck not high enough to cause JUANCHO hepc ab neg. await hep b serologies -bp low, on ARB and hctz at home- inc risk for ATN 3. hyponatremia- low ur na, normal tsh -free water restrict and give ns ivf 4. hypokalemia- replete and monitor -given juancho, hyponatremia and hypokalemia- check bnp, mag q 8 hrs 5. inc AGMA- lactate improved to 1.5- AG remains 17 -await serum osm and ethylene glycol levels- though unlikely cause -check abg 6. monitor for ETOH withdrawal 7. pth 220- c/w ckd- repeat in 4 weeks -vit d 16- replete will follow w/ you seen and examined w/ rN -telehealth visist time spent 30 min informed consent for telehealth and HD obtained from pt and his father Status: Acute Plan see above Attestations Medical Necessity Statement*: juancho, back pain, hyponatremia and hypokalemia, ams Time Spent in Patient Care: 16 - 35 minutes (>than 50% of time spent in counselling and/or direct pt care on unit). 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
[2022-03-03] MEDS: ergocalciferol (vitamin D2) 50,000 Unit Capsule 50000 UNIT PO (09:56)
[2022-03-03] MEDS: potassium chloride ER 20 mEq Tablet 40 MEQ PO ×2 (09:56→14:27)
[2022-03-03] MEDS: folic acid 1 mg Tablet PO (09:56)
[2022-03-03] MEDS: multivitamin therapeutic Tablet 1 TAB PO (09:56)
[2022-03-03] MEDS: thiamine 100 mg Tablet PO (09:57)
[2022-03-03] MEDS: dextrose 5%-ns + KCl 20 20 MEQ/1,000 ML BAG 150 MEQ IV ×3 (09:58→23:34)
--- NOTE | 2022-03-03 10:14 | PC.CHAP ---
Pastoral Care Encounter/Spiritual Assessment Type of Contact [r] Declined township supervisor visit [] Patient/Family/Request visit [] Outpatient visit [] Follow-up visit [] Physician referral [] Code/Alert [] Routine visit [] Staff referral [] Actively dying [] Patient sleeping [] Family support [] [] Out of room [] Palliative care [] [] Receiving care in room [] Pre-surgical visit [] Trauma [] Long length of stay [] ICU visit [] Other: Relational/Emotional Strength [] Patient feels connected with others/family/visitors/staff [] Distress [] Loneliness/isolation [] Abandonment Spirituality of Patient [] Person of Abigail [] Attends Zoroastrianism of their Abigail [] Believes in Prayer [] Reads Bible or Gnosticism materials [] There are Spiritual issues to be addressed Assembly Supervisor Interventions [] Prayer [] Active listening [] Non-anxious presence [] Spiritual/emotional support [] Crisis/trauma care [] Spiritual counseling [] Bereavement support [] Provided bereavement packet [] Provided Bible/devotional materials [] Provided toy/stuffed animal, coloring book to patient or family member [] Provided Communion [] Anointing/[place] [] Salvation [] Completed spiritual assessment [] Other: Impact on Illness or Injury [] Angry [] Fearful [] Anxious [] Often cries [] Exhaustion [] Unable to work [] Unable to attend adventism [] Unable to walk/stand [] Unable to read [] Unable to drive [] Unable to eat/drink [] Unable to sleep [] Unable to be with family [] Patient intubated [] Other: Summary Declined township supervisor visit Time spent with patient 5 mins
[2022-03-03 10:36] LABS: Hepatitis B Surface Antigen Non-Reactive (Nonreactive)
[2022-03-03 11:08] LABS: Hepatitis B Surface AB > 1000.0 (11.5-1000)
--- NOTE | 2022-03-03 11:48 | XR_ITS ---
WS: [id number] Left shoulder, AP view, 03/03/2022 Clinical Data: pain and not able to raise arm passive or active Comparison: None. Findings: There is a fracture through the left humeral head. The humeral head remains in position adjacent to t he glenoid fossa. The AC joint is normal. The adjacent left clavicle, scapula and ribs are unremarkab le. There is a monitor lead on the left chest. XR/XR shoulder LT 1V [id number] Impression: Fracture of the left humeral head.
[2022-03-03 11:50] LABS: Basophils % 0.1 %; Hematocrit 31.1 % (42.0-52.0); Hemoglobin 11.2 g/dL (11.7-16.6); Lymphocytes # 0.9 10^3/uL (0.8-4.8); Lymphocytes % 5.3 %; Mean Corpuscular Volume 88.9 fl (80-94); Mean Platelet Volume 8.6 fL (7.4-10.4); Monocytes # 1.3 10^3/uL (0.2-0.9); Monocytes % 7.7 %; Neutrophils # 14.21 10^3/uL (1.8-7.7); Neutrophils % 86.2 %; Nucleated Red Blood Cells % 0 %; Platelet Count 186 10^3/cmm (130-400); Red Cell Distribution Width 13.1 % (12.1-15.1); White Blood Count 16.5 10^3/uL (4.0-10.0)
--- NOTE | 2022-03-03 11:50 | PM.PN ---
Subjective Subjective: Overnight the patient is more alert and oriented. He tells me he remembers taking ibuprofen 3-5 a day for back pain but denies taking up to 10 a day. He states they are [id number] medications not prescription strength Additionally he did ask about his blood pressure medications noticing that they have been skipped today. I explained this is due to lab abnormality Medications: Reviewed: Yes Vitals/I&O/Wt Last Vital Signs Temp 99.1 F 03/03/22 11:33 Pulse 111 H 03/03/22 11:33 Resp 18 03/03/22 11:33 BP 126/70 03/03/22 11:33 Pulse Ox 94 03/03/22 11:33 O2 Del Method 03/03/22 11:33 O2 Flow Rate 2 03/02/22 18:00 03/02/22 03/03/22 03/03/22 22:59 06:59 14:59 Intake Total 2240 / 3540 4830 / 8370 240 / 240 Output Total 700 / 700 Balance 2240 / 3540 4130 / 7670 240 / 240 Weight last 48 hrs Weight 98.94 kg Weight 90.52 kg Physical Exam Narrative: General well-developed well-nourished male in no acute cardiopulmonary stress he is alert and oriented to person place CV regular rate and rhythm with a 4/6 to 5/6 systolic murmur best heard at the left sternal border Lungs clear to auscultation bilaterally Abdomen positive bowel sounds soft nontender Calves and arms puffy but without pitting edema Skin is warm Right arm he is able to raise with help and then can hold it up. Left arm he has pain within the shoulder joint both with attempted active and passive range of motion puffy prominent left proximal humerus Range of motion of the neck actively and passively are nontender Gross sensation of the left arm patient reports mildly numb compared to right he states both arms are weak left when he favors and does not move due to pain Urinary Catheter Management: 2-way Urethral: Cath Placed During This Visit: yes Reason for Continuing Indwelling Catheter: Acute Urinary Retention or Obstruction Urinary Catheter Date of Insertion: 03/02/22 Urinary Catheter Time of Insertion: 12:45 Data : 03/03/22 02:09 03/03/22 02:09 Micro: Microbiology 03/02/22 12:17 Blood Culture - Preliminary Blood SPECIMEN COLLECTED 03/02/22 12:10 Blood Culture - Preliminary Blood SPECIMEN COLLECTED A&P Assessment and plan (1) Rhabdomyolysis: CPK only 2759 patient was dehydrated also alcoholic, septic and recently taking NSAID but not excessive doses based on his recollection 3-5 200 mg tablets daily Hydrate and maintain urine output greater than 50 cc an hour Repeat CPK was not done Status: Acute (2) JUANCHO (acute kidney injury): Continue with hydration. Sodium is low. Repeat every 6 hours labs were somehow not done I ordered stat lab. If hyponatremic based on patient's puffiness we will loop diuretic Status: Acute (3) Alcohol dependence: CIWA protocol Patient is alert oriented not tremulous Status: Acute (4) Altered mental status: Improved patient is a poor historian Mentation seems to be clearing Status: Acute (5) Cervical disc disease: As above. X-rays to look at left shoulder and proximal humerus for fracture dislocation Cervical imaging shows no surgical need however he did lay in awkward position for greater than 24 hours Status: Acute Attestations Medical Necessity Statement*: Patient being treated for rhabdomyolysis acute renal failure and work-up for left shoulder pain Time Spent in Patient Care: 35 minutes spent in evaluation coronation care for this patient today care plan also discussed with patient and physical therapist Coding Level of Care Code Acute Patient Safety Coordinator for [facility] Fwd History Comprehensive Exam Comprehensive Medical Decision Making High Complexity Diagnoses Rhabdomyolysis M62.82 JUANCHO (acute kidney injury) N17.9 Alcohol dependence F10.20 Altered mental status R41.82 Cervical disc disease M50.90
[2022-03-03 12:15] LABS: Troponin T (5th) Once 71 ng/L (0-15)
--- NOTE | 2022-03-03 14:09 | CTR_ITS ---
PROCEDURE INFORMATION: Exam: CT Left Upper Extremity Without Contrast, Shoulder Exam date and time: 03/03/2022 4:48 PM Age: 51 years old Clinical indication: Injury or trauma; Fall; Blunt trauma (contusions or hematomas); Shoulder; Left; Additional info: Humeral head fracture/ S/P fall TECHNIQUE: Imaging protocol: Computed tomography of the Left upper extremity without contrast. Exam focused on the shoulder. Radiation optimization: All CT scans at this facility use at least one of these dose optimization techniques: automated exposure control; mA and/or kV adjustment per patient size (includes targeted exams where dose is matched to clinical indication); or iterative reconstruction. COMPARISON: CR XR shoulder LT 1V [id number] 03/03/2022 12:34 PM RADIATION DOSE METRICS: Total DLP (mGy-cm): 769.76 FINDINGS: Bones/joints: Soft tissue density in an expansile mass effect in the area of the left transverse process and facets of C7, with fracture lines in this area not excluded. Comminuted acute fracture of the left humeral head and neck; impaction of the posterior glenoid rim on the somewhat posteriorly subluxed head. Questionable hairline fracture in the inferior glenoid. No apparent acute fracture elsewhere. Soft tissues: Patchy haziness and stranding in the soft tissues of the left shoulder and upper arm. Lymph nodes: Calcified lymph nodes in the mediastinum and left hilum. Lungs: Areas of slight atelectasis in the left lung. CT/CT shoulder LT wo con* [id number] IMPRESSION: 1. Expansile mass effect in the area of the left transverse process and facets of C7, with fracture lines in this area not excluded. 2. Comminuted acute fracture of the left humeral head and neck associated with mild posterior subluxation of the head and impaction of the posterior glenoid rim on the head. Hairline fracture in the inferior glenoid not excluded.
[2022-03-03 15:03] LABS: ABG PCO2 31.9 mmHg (35-45); Arterial Blood Gas Hematocrit 40.7 % (42-52); Blood Gas Allen Test Pos; Blood Gas Operator Identificat ED; Blood Gas Sample Site Radial, left; Blood Gas Sample Type Arterial; Carboxyhemoglobin 1.8 %THgb (0.4-20.1); HCO3 ABG 19.8 mmol/L (22-26); HGB O2 Sat 89.8 % (95-100); Methemoglobin 0.6 % (0.4-1.5); Oxygen Device ROOM AIR; Oxygen Saturation ABG 91.9; PO2 ABG 63.8 mmHg (80.0-100.0); Total Hemoglobin 13.3 g/dL (14-18)
[2022-03-03 17:54] LABS: Anion Gap 13.5 (5-19); Blood Urea Nitrogen 29 mg/dL (6-20); Calcium 7.9 mg/dL (8.5-10.5); Carbon Dioxide 21 mmol/L (22-29); Chloride 94 mmol/L (98-107); Glomerular Filtration Rate 28.5 mL/min (90-130); Glucose 104 mg/dL (65-115); Magnesium 1.9 mg/dL (1.7-2.3); Osmolality Calculated 266 mOsm/kg (285-295); Potassium 3.5 mmol/L (3.5-5.1); Sodium 125 mmol/L (136-145)
[2022-03-03 18:15] LABS: Anion Gap 17.9 (5-19); Blood Urea Nitrogen 35 mg/dL (6-20); Calcium 7.5 mg/dL (8.5-10.5); Carbon Dioxide 17 mmol/L (22-29); Chloride 87 mmol/L (98-107); Glomerular Filtration Rate 23.8 mL/min (90-130); Glucose 108 mg/dL (65-115); Magnesium 1.8 mg/dL (1.7-2.3); Osmolality Calculated 257 mOsm/kg (285-295)
[2022-03-03 18:23] LABS: Potassium 2.9 mmol/L (3.5-5.1); Sodium 119 mmol/L (136-145)
--- NOTE | 2022-03-03 18:38 | PM.CONSULT ---
Providers/Reason For Consult Consulting Physician/Specialty*: Kaur Bobby MD Reason for Consult*: Left shoulder injury Requesting Physician: Dr. Chris Mac Attending Physician: Edinson Mac MD Primary Care Provider: Troy Ambrosio DO History of Present Illness History of Present Illness Dustin De Leon is a 51 year old male who presented to the emergency department yesterday after being found down by his father. Reportedly, the patient has a history of alcoholism and has been drinking quite heavily for approximately 5 years. Per patient history, he drinks approximately 12 beers and a half a bottle of wine each day. The last time he was known to be awake and upright was on February 27 or . He presented to the emergency department on March 02. His dad went by to check on him the day of his admission to the emergency department, and found him laying on his side between a corner wall and the bed. It appeared the patient had been down quite a while as he had incontinence of stool and urine. An ambulance was called and the patient was admitted with a diagnosis of acute renal failure and significant weakness. Today, he complained of pain in the left arm with movement. Patient also states he had a fall a couple weeks ago, and he seems confused as to which arm was sore at that point in time. Review of Systems General: Reports: Other (Patient is only minimally communicative.) Narrative: No fevers chills weight gain weight loss Cardiovascular no chest pain palpitations or edema Respiratory no shortness of breath cough wheezing GI no nausea vomiting diarrhea constipation melena hematochezia no dysuria hematuria incontinence Neuro no history of seizures or stroke Heme no history of bleeding or bruising problems Malignancy negative Psych negative Musc: Reports: other (+weakness in the arms and legs b/l) Neuro: Reports: other (+confusion) Medications/Allergies Home Medications Medication Instructions Recorded Confirmed Last Taken Type lorazepam 1 mg tablet 1 mg PO TID PRN anxiety #90 tabs 02/27/22 03/02/22 Unknown Rx metoprolol tartrate 50 mg tablet 50 mg PO BID 03/02/22 03/02/22 Unknown History valsartan 320 1 tab PO DAILY 03/02/22 03/02/22 Unknown History mg-hydrochlorothiazide 25 mg tablet Allergies Allergy/AdvReac Type Severity Reaction Status Date / Time No Known Allergies Allergy Verified 01/25/22 16:50 Current Medications Generic Name Dose Route Start Last Admin Trade Name Freq PRN Reason Stop Dose Admin Hydrocodone Bitart/Acetaminophen 1 tab 03/02/22 19:04 03/03/22 15:48 Hydrocodone-Acetaminophen 5-325 Mg Tablet PO 1 tab Q4H PRN Administration MODERATE TO SEVERE PAIN Ergocalciferol 50,000 unit 03/03/22 09:30 03/03/22 09:56 Ergocalciferol (Vitamin D2) 50,000 Unit Capsule PO 50,000 unit Q7D ISAAC Administration Famotidine 20 mg 03/02/22 19:15 03/03/22 18:23 Famotidine 20 Mg/2 Ml Inj IVP 20 mg Q12H ISAAC Administration Folic Acid 1 mg 03/03/22 09:00 03/03/22 09:56 Folic Acid 1 Mg Tablet PO 1 mg DAILY ISAAC Administration Potassium Chloride/Dextrose/Sod Cl 20 meq in 1,000 mls @ 150 mls/hr 03/03/22 10:00 03/03/22 15:47 Dextrose 5%-Ns + Kcl 20 IV 150 mls/hr .Q6H40M ISAAC Administration Morphine Sulfate 2 mg 03/02/22 19:04 03/02/22 20:54 Morphine 4 Mg/Ml Sdv 1 Ml IVP 2 mg Q4H PRN Administration SEVERE PAIN Multivitamins Therapeutic 1 tab 03/03/22 09:00 03/03/22 09:56 Multivitamin Therapeutic Tablet PO 1 tab DAILY ISAAC Administration Thiamine Mononitrate 100 mg 03/03/22 09:00 03/03/22 09:57 Thiamine 100 Mg Tablet PO 100 mg DAILY ISAAC Administration Additional Medication Information Current Medications Hydrocodone Bitart/Acetaminophen (Hydrocodone-Acetaminophen 5-325 Mg Tablet) 1 tab PO Q4H PRN PRN Reason: MODERATE TO SEVERE PAIN Last Admin: 03/03/22 04:24 Dose: 1 tab Famotidine (Famotidine 20 Mg/2 Ml Inj) 20 mg IVP Q12H ISAAC Last Admin: 03/03/22 06:46 Dose: 20 mg Folic Acid (Folic Acid 1 Mg Tablet) 1 mg PO DAILY [facility] Potassium Chloride/Dextrose/Sod Cl (Dextrose 5%-Ns + Kcl 20) 20 meq in 1,000 mls @ 125 mls/hr IV .Q8H ISA[facility] Last Admin: 03/03/22 06:42 Dose: 125 mls/hr Lorazepam (Lorazepam 2 Mg/Ml Inj 1 Ml) 2 mg IM Q4H PRN; Protocol PRN Reason: ALCOWD Lorazepam (Lorazepam 2 Mg/Ml Inj 1 Ml) 2 mg IVP PRN PRN; Protocol PRN Reason: WITHDRAWAL Lorazepam (Lorazepam 2 Mg Tablet) 2 mg PO Q4H PRN; Protocol PRN Reason: WITHDRAWAL Lorazepam (Lorazepam 1 Mg Tablet) 1 mg PO TID PRN PRN Reason: anxiety Morphine Sulfate (Morphine 4 Mg/Ml Sdv 1 Ml) 2 mg IVP Q4H PRN PRN Reason: SEVERE PAIN Last Admin: 03/02/22 20:54 Dose: 2 mg Multivitamins Therapeutic (Multivitamin Therapeutic Tablet) 1 tab PO DAILY [facility] Ondansetron HCl (Ondansetron 2 Mg/Ml Sdv 2 Ml) 4 mg IVP Q8H PRN PRN Reason: vomiting, or N/V if npo Potassium Chloride (Potassium Chloride Er 20 Meq Tablet) 40 meq PO Q6H [facility] Stop: 03/03/22 14:16 Thiamine Mononitrate (Thiamine 100 Mg Tablet) 100 mg PO DAILY [facility] PFSH Acute PFSH: Medical History (Updated 03/03/22 @ 18:50 by Kaur Bobby MD) Alcohol dependence (~01/2017) Altered mental status Social History Smoking and tobacco status: never smoked Alcohol intake: current Substance/Drug Use: never Vitals/I&O/Wt Last Vital Signs Temp 98.3 F 03/03/22 15:50 Pulse 109 H 03/03/22 15:50 Resp 18 03/03/22 15:50 BP 129/71 03/03/22 15:50 Pulse Ox 93 03/03/22 15:50 O2 Del Method 03/03/22 15:50 O2 Flow Rate 2 03/02/22 18:00 03/03/22 03/03/22 03/03/22 06:59 14:59 22:59 Intake Total 4830 / 8370 480 / 480 872.5 / 1352.5 Output Total 700 / 700 Balance 4130 / 7670 480 / 480 872.5 / 1352.5 Weight last 48 hrs Weight 218 lb 2 oz Weight 199 lb 9 oz Physical Exam Const: COMMON NORMALS: no acute distress, average body habitus and alert GENERAL APPEARANCE: cooperative and comfortable ORIENTATION/CONSCIOUSNESS: Yes awake HENMT: COMMON NORMALS: normocephalic and atraumatic HEAD & SCALP: normocephalic and atraumatic Eye: GENERAL EYE: appearance normal, both eyes and all related structures Chest: COMMONS NORMALS: normal inspection of the chest Resp: COMMON NORMALS: normal respiratory effort EFFORT & INSPECTION: Yes able to speak in complete sentences and Yes symmetric chest movement Extremity: LEFT UPPER EXTREMITY: Yes shoulder joint (There is some swelling but no ecchymosis about the shoulder) Left shoulder joint: Yes palpation (Minimal tenderness.), Yes ROM (Pain with any range of motion.) and Yes neurovascular exam (Intact distally.) and Yes elbow joint (He is reluctant to move his elbow or hand.) Neuro: SENSORIUM/ORIENTATION: Yes alert Psych: APPEARANCE: Yes grossly normal ATTITUDE: Yes calm ATTENTION/CONCENTRATION: Yes attention grossly intact Skin: COMMON NORMALS: no rashes or lesions noted GENERAL SKIN EXAM: no rashes or lesions noted Urinary Catheter Management: 2-way Urethral: Cath Placed During This Visit: yes Reason for Continuing Indwelling Catheter: Other Urinary Catheter Date of Insertion: 03/02/22 Urinary Catheter Time of Insertion: 12:45 Data : 03/03/22 11:40 03/03/22 17:10 Micro: Microbiology 03/02/22 12:17 Blood Culture - Preliminary Blood NEGATIVE TO DATE 03/02/22 12:10 Blood Culture - Preliminary Blood NEGATIVE TO DATE Xray Ortho: My impression: Patient's shoulder x-ray is evaluated. There does appear to be a humeral head fracture. There is only one image demonstrating this. Other CT: My impression: CT of the shoulder was obtained. There does appear to be posterior subluxation of the humeral head with impaction into the glenoid. The fracture is comminuted. Additionally, radiology notes there is a possible fracture in the transverse process and facets of C7. I have alerted the hospitalist to this finding on my review of the report. A&P Assessment and plan (1) Fracture of humeral head, left, closed: In addition to the patient's multiple concurrent medical issues, he has a comminuted humeral head fracture with impaction on the posterior glenoid. Currently, he is in a shoulder immobilizer. There is also some question of a C7 fracture which will need further evaluation. An MRI will be ordered of the patient's left shoulder to further characterize the age of the fracture and possible other associated fractures. Status: Acute Qualifiers: Encounter type: initial encounter Qualified Code(s): S42.292A - Other displaced fracture of upper end of left humerus, initial encounter for closed fracture Coding Level of Care Code Acute Manager Equity for [facility] Diagnoses Fracture of humeral head, left, closed S42.292A Encounter type: initial encounter
[2022-03-03 18:39] LABS: Creatine Phosphokinase 2612 U/L (39-308)
--- NOTE | 2022-03-03 19:13 | PM.PN ---
Subjective Subjective: Patient found to have left shoulder pain. X-ray followed by CT scan of the patient's shoulder showed expansile process at C7. Patient has intermittent weakness in his body. I interviewed him additionally and it sounds like he had a fall on cement about a week ago prompting him to stop drinking. This may have resulted in additional weakness that resulted in the fall Monday. Vitals/I&O/Wt Last Vital Signs Temp 98.3 F 03/03/22 15:50 Pulse 109 H 03/03/22 15:50 Resp 18 03/03/22 15:50 BP 129/71 03/03/22 15:50 Pulse Ox 93 03/03/22 15:50 O2 Del Method 03/03/22 15:50 O2 Flow Rate 2 03/02/22 18:00 03/03/22 03/03/22 03/03/22 06:59 14:59 22:59 Intake Total 4830 / 8370 480 / 480 1112.5 / 1592.5 Output Total 700 / 700 Balance 4130 / 7670 480 / 480 1112.5 / 1592.5 Weight last 48 hrs Weight 98.94 kg Weight 90.52 kg Physical Exam Urinary Catheter Management: 2-way Urethral: Cath Placed During This Visit: yes Reason for Continuing Indwelling Catheter: Other Urinary Catheter Date of Insertion: 03/02/22 Urinary Catheter Time of Insertion: 12:45 Data : 03/03/22 11:40 03/03/22 17:10 Micro: Microbiology 03/02/22 12:17 Blood Culture - Preliminary Blood NEGATIVE TO DATE 03/02/22 12:10 Blood Culture - Preliminary Blood NEGATIVE TO DATE A&P Assessment and plan (1) Cervical disc disorder: Patient with C7 expansile mass and weakness suspicious for central cord injury. This may have occurred from the fall or from laying in awkward position for 2 days. Mentation was poor yesterday and I also spoke with his mother Monie and father Van both of whom did not mention that the patient has had the fall l 2 weeks ago. Patient was counseled that he will need to be seen by orthospine Dr. Perez. 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
[2022-03-03] MEDS: dexamethasone 10 mg/mL INJ IVP (21:29)
[2022-03-03 23:40] LABS: Anion Gap 11.4 (5-19); Blood Urea Nitrogen 25 mg/dL (6-20); Calcium 7.8 mg/dL (8.5-10.5); Carbon Dioxide 21 mmol/L (22-29); Chloride 96 mmol/L (98-107); Glomerular Filtration Rate 42.4 mL/min (90-130); Glucose 111 mg/dL (65-115); Osmolality Calculated 265 mOsm/kg (285-295); Potassium 3.4 mmol/L (3.5-5.1); Sodium 125 mmol/L (136-145)
[2022-03-04] VITALS (11 sets, daily range): BP systolic 123–184; BP diastolic 71–98; PULSE 72–100; RESP 15–116; TEMP 36.7–37.2; O2SAT 94–97
[2022-03-04] MEDS: HYDROcodone-acetaminophen 5-325 mg Tablet 1 TAB PO ×3 (00:06→21:54)
[2022-03-04] MEDS: potassium chloride ER 20 mEq Tablet 40 MEQ PO (00:31)
[2022-03-04] MEDS: dexamethasone 10 mg/mL INJ IVP ×2 (02:26→11:40)
[2022-03-04 06:11] LABS: Basophils % 0.1 %; Hematocrit 29.5 % (42.0-52.0); Hemoglobin 10.2 g/dL (11.7-16.6); Lymphocytes # 0.3 10^3/uL (0.8-4.8); Lymphocytes % 4.5 %; Mean Corpuscular HGB Conc 34.6 g/dL (30.0-36.0); Mean Corpuscular Hemoglobin 31.7 pg (28.0-34.0); Mean Corpuscular Volume 91.6 fl (80-94); Mean Platelet Volume 8.8 fL (7.4-10.4); Monocytes # 0.2 10^3/uL (0.2-0.9); Monocytes % 2.2 %; Neutrophils # 6.67 10^3/uL (1.8-7.7); Neutrophils % 91.8 %; Nucleated Red Blood Cells % 0 %; Platelet Count 177 10^3/cmm (130-400); Red Blood Count 3.22 10^6/uL (4.1-5.3); White Blood Count 7.3 10^3/uL (4.0-10.0)
[2022-03-04 06:30] LABS: Alanine Aminotransferase 26 U/L (0-41); Albumin Level 3.1 g/dL (3.5-5.2); Alkaline Phosphatase 52 U/L (40-130); Anion Gap 15.5 (5-19); Aspartate Amino Transferase 101 U/L (0-40); Blood Urea Nitrogen 22 mg/dL (6-20); Calcium 8.2 mg/dL (8.5-10.5); Carbon Dioxide 19 mmol/L (22-29); Chloride 96 mmol/L (98-107); Glomerular Filtration Rate 57.7 mL/min (90-130); Glucose 123 mg/dL (65-115); Magnesium 1.8 mg/dL (1.7-2.3); Osmolality Calculated 267 mOsm/kg (285-295); Potassium 4.5 mmol/L (3.5-5.1); Sodium 126 mmol/L (136-145); Total Bilirubin 1.2 mg/dL (0.15-1.2); Total Protein 5.1 g/dL (6.6-8.7)
[2022-03-04] MEDS: famotidine 20 mg/2 mL INJ IVP ×2 (06:47→18:33)
[2022-03-04 07:42] LABS: CKMB 19.8 ng/mL (0-10.4)
[2022-03-04 07:43] LABS: CKMB Relative Index 0.7 % (0.0-5.3)
--- NOTE | 2022-03-04 09:07 | PM.CONSULT ---
Providers/Reason For Consult Consulting Physician/Specialty*: Ortho Spine Reason for Consult*: Mid Back Pain Attending Physician: Edinson Mac MD Primary Care Provider: Troy Ambrosio DO History of Present Illness History of Present Illness Dustin De Leon is a 51 year old male with history presents to [facility] after being found unconscious by his father x-rays have shown compression fractures in the thoracic spine as well as left proximal humerus. Orthopedics spine was consulted for evaluation of the fractures in the upper thoracic. He was evaluated in room 251 with no family present patient was very somnolent with altered mental status but did complain of back and shoulder pain. Reports moving his right arm increases his pain. Movement of his neck increases his pain as well. He denies any low back or leg pain. He describes the pain as sharp stabbing in nature. Movement definitely makes his condition much worse. He is unsure of how long the pain has been present. He denies any pain worse at night denies any night sweats. He is a very poor historian as he frequently is falling asleep during the exam and repeatedly has to be reminded to stay awake. An extensive review of the patient's past medical history, surgical history, allergies, medications, family history, social history, and review of systems was completed Review of Systems General: Reports: Other (Patient is only minimally communicative.) Narrative: No fevers chills weight gain weight loss Cardiovascular no chest pain palpitations or edema Respiratory no shortness of breath cough wheezing GI no nausea vomiting diarrhea constipation melena hematochezia no dysuria hematuria incontinence Neuro no history of seizures or stroke Heme no history of bleeding or bruising problems Malignancy negative Psych negative Musc: Reports: other (+weakness in the arms and legs b/l) Neuro: Reports: other (+confusion) Medications/Allergies Home Medications Medication Instructions Recorded Confirmed Last Taken Type lorazepam 1 mg tablet 1 mg PO TID PRN anxiety #90 tabs 02/27/22 03/02/22 Unknown Rx metoprolol tartrate 50 mg tablet 50 mg PO BID 03/02/22 03/02/22 Unknown History valsartan 320 1 tab PO DAILY 03/02/22 03/02/22 Unknown History mg-hydrochlorothiazide 25 mg tablet Allergies Allergy/AdvReac Type Severity Reaction Status Date / Time No Known Allergies Allergy Verified 01/25/22 16:50 Current Medications Generic Name Dose Route Start Last Admin Trade Name Freq PRN Reason Stop Dose Admin Hydrocodone Bitart/Acetaminophen 1 tab 03/02/22 19:04 03/04/22 00:06 Hydrocodone-Acetaminophen 5-325 Mg Tablet PO 1 tab Q4H PRN Administration MODERATE TO SEVERE PAIN Dexamethasone 10 mg 03/03/22 19:15 03/04/22 02:26 Dexamethasone 10 Mg/Ml Inj IVP 10 mg Q6H ISAAC Administration Ergocalciferol 50,000 unit 03/03/22 09:30 03/03/22 09:56 Ergocalciferol (Vitamin D2) 50,000 Unit Capsule PO 50,000 unit Q7D ISAAC Administration Famotidine 20 mg 03/02/22 19:15 03/04/22 06:47 Famotidine 20 Mg/2 Ml Inj IVP 20 mg Q12H ISAAC Administration Folic Acid 1 mg 03/03/22 09:00 03/03/22 09:56 Folic Acid 1 Mg Tablet PO 1 mg DAILY ISAAC Administration Morphine Sulfate 2 mg 03/02/22 19:04 03/02/22 20:54 Morphine 4 Mg/Ml Sdv 1 Ml IVP 2 mg Q4H PRN Administration SEVERE PAIN Multivitamins Therapeutic 1 tab 03/03/22 09:00 03/03/22 09:56 Multivitamin Therapeutic Tablet PO 1 tab DAILY ISAAC Administration Thiamine Mononitrate 100 mg 03/03/22 09:00 03/03/22 09:57 Thiamine 100 Mg Tablet PO 100 mg DAILY ISAAC Administration PFSH Acute PFSH: Medical History (Updated 03/04/22 @ 09:13 by Larisa Meza DO) Alcohol dependence (~01/2017) Altered mental status Social History Smoking and tobacco status: never smoked Alcohol intake: current Substance/Drug Use: never Vitals/I&O/Wt Last Vital Signs Temp 98.0 F 03/04/22 07:44 Pulse 76 03/04/22 08:04 Resp 15 03/04/22 07:44 BP 148/78 03/04/22 07:44 Pulse Ox 94 03/04/22 08:04 O2 Del Method 03/04/22 08:04 O2 Flow Rate 2 03/02/22 18:00 03/03/22 03/04/22 03/04/22 22:59 06:59 14:59 Intake Total 2232.5 / 2712.5 2062.5 / 4775.0 Output Total 1200 / 1200 Balance 2232.5 / 2712.5 862.5 / 3575.0 Weight last 48 hrs Weight 217 lb 3.2 oz Weight 218 lb 2 oz Weight 199 lb 9 oz Physical Exam Narrative: Patient is very somnolent repeatedly had to be reminded to stay awake and during the exam. He is tender with palpation in the cervical and upper thoracic region he moves his right arm appears to have normal sensation to light touch in the shoulder elbow and wrist. He has a shoulder immobilizer on the left due to proximal humerus fracture. He is able to wiggle his fingers normal sensation to light touch. They are warm to the touch with good cap refill. He wiggles both feet appears to have good sensation in both lower extremities. They are warm to the touch with good cap refill. Does not appear to have palpable pain in the low back. Negative logroll bilaterally. Const: COMMON NORMALS: no acute distress HENMT: COMMON NORMALS: normocephalic and atraumatic HEAD & SCALP: normocephalic and atraumatic Resp: COMMON NORMALS: normal respiratory effort Cardio: COMMON NORMALS: regular rate and regular rhythm RATE: regular rate RHYTHM: regular rhythm GI: COMMON NORMALS: Soft to palpation PALPATION: Yes Soft to palpation : COMMON NORMALS: Yes no CVA tenderness BLADDER/KIDNEY EXAM: Yes no CVA tenderness Back/Pelvis: COMMON NORMALS: no CVA tenderness Psych: OTHER: Patient very somnolent Urinary Catheter Management: 2-way Urethral: Cath Placed During This Visit: yes Reason for Continuing Indwelling Catheter: Other Urinary Catheter Date of Insertion: 03/02/22 Urinary Catheter Time of Insertion: 12:45 Data : 03/04/22 06:00 03/04/22 05:07 Micro: Microbiology 03/02/22 12:17 Blood Culture - Preliminary Blood NEGATIVE TO DATE 03/02/22 12:10 Blood Culture - Preliminary Blood NEGATIVE TO DATE MRI: Radiologist's impression: MR/MR cervical spine wo/w [id number] IMPRESSION: ? 1.? Abnormal signal with enhancement involving the C6-7 vertebral body and facets with soft tissues edema and mild enhancement surrounding the nerve roots. On the prior MRI the cervical spine there is probably very small T2 lesion in the C6-7 LEFT facet. This has significantly increased in size. This is a mildly expansile bone lesion. May not be related to the patient's trauma and clinical presentation. This should be further evaluated by bone scan and possible CT.? Benign bone lesion versus metastatic lesion. No cord compression. 2.? No epidural abscess. 3.? Increased T2 signal surrounding the soft tissues of the RIGHT shoulder may be due to poor fat suppression. MR/MR thoracic spin wo con* [id number] IMPRESSION: ? 1.? Limited evaluation of the thoracic spine. Motion artifact and lack of contrast. Patient was unable to tolerate postcontrast imaging. 2.? Mild compression fractures at T2, T3, T4 and T6. Very small amount of increased T2 signal within the compression fractures. May be subacute. No retropulsion. 3.? Indeterminate for very tiny focus of increased signal in the RIGHT lateral thoracic cord. This is likely external to the cord. 4.? No cord compression. ? MR/MR lumbar spine wo/w con [id number] IMPRESSION: ? 1.? No epidural abscess or encroachment upon the conus. 2.? Mild LEFT foraminal narrowing at L3-4 with disc contact on the exiting L3 nerve root. 3.? Moderate RIGHT foraminal stenosis and mild LEFT foraminal stenosis at L4-5 due to disc disease. Disc contacts the traversing L5 nerve root on the RIGHT. 4.? Mild bilateral foraminal stenosis at L5-S1. 5.? Mild inflammatory changes involving the RIGHT L5 and S1 posterior elements with facet joint fluid. No enhancement. Consistent with synovitis and a small amount of marrow edema. ? A&P Assessment and plan (1) Cervical disc disorder: Status: Acute (2) Fracture of humeral head, left, closed: Status: Acute Qualifiers: Encounter type: initial encounter Qualified Code(s): S42.292A - Other displaced fracture of upper end of left humerus, initial encounter for closed fracture Plan C6-7 vertebral body involvement and thoracic T2-T3-T4 and T6 pathologic fractures and will recommend a CT scan with and without contrast if he is able to tolerate it due to his kidney condition as well as full body bone scan to better identify the vertebral body lesions in the cervical and thoracic spine. Physical therapy to consult for a cervical thoracic support corset with a SOMI extension. We will await the findings of the CT scan and bone scan. More than 50% of the time spent with the patient today involved coordination of care, counseling and discussion of conservative versus surgical treatment options. Total amount of time spent with the patient was 30 minutes. Coding Level of Care Code New Pt Acute Clinical Counselor for g Fwd Patient Type New History Detailed Exam Detailed Medical Decision Making Moderate Complexity Diagnoses Cervical disc disorder M50.90 Fracture of humeral head, left, closed S42.292A Encounter type: initial encounter Time Spent (min) 30
--- NOTE | 2022-03-04 09:10 | P.PN_ITS ---
Subjective Subjective: no new issues Vitals/I&O/Wt Last Vital Signs Temp 98.0 F 03/04/22 07:44 Pulse 76 03/04/22 08:04 Resp 15 03/04/22 07:44 BP 148/78 03/04/22 07:44 Pulse Ox 94 03/04/22 08:04 O2 Del Method 03/04/22 08:04 O2 Flow Rate 2 03/02/22 18:00 03/03/22 03/04/22 03/04/22 22:59 06:59 14:59 Intake Total 2232.5 / 2712.5 2062.5 / 4775.0 Output Total 1200 / 1200 Balance 2232.5 / 2712.5 862.5 / 3575.0 Weight last 48 hrs Weight 98.52 kg Weight 98.94 kg Weight 90.52 kg Physical Exam Const: COMMON NORMALS: no acute distress and alert Neuro: SENSORIUM/ORIENTATION: Yes alert Urinary Catheter Management: 2-way Urethral: Cath Placed During This Visit: yes Reason for Continuing Indwelling Catheter: Other Urinary Catheter Date of Insertion: 03/02/22 Urinary Catheter Time of Insertion: 12:45 Data : 03/04/22 06:00 03/04/22 05:07 Micro: Microbiology 03/02/22 12:17 Blood Culture - Preliminary Blood NEGATIVE TO DATE 03/02/22 12:10 Blood Culture - Preliminary Blood NEGATIVE TO DATE Other data: seen via telehealth with assistance of RN at bedside A&P Assessment and plan (1) Hyponatremia: Status: Acute Plan 1. Hyponatremia, serum sodium stable, I/O + 3L in 24h 2. JUANCHO, improving 3. 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
[2022-03-04 09:37] LABS: Anti-streptolysin O 60 IU/mL (<200)
--- NOTE | 2022-03-04 10:00 | MR_ITS ---
WS: [id number] MRI LEFT SHOULDER HISTORY: Further fracture characterization and age determination COMPARISON: CT shoulder 03/03/2022 TECHNIQUE: Multiplanar sequences of the shoulder joint are submitted. Quality of this examination is markedly suboptimal. Significant motion artifact despite multiple atte mpts at repeating imaging. There is significant increased T2 signal abnormality throughout the muscles surrounding the LEFT shou lder including the muscles of the rotator cuff and also the trapezius and deltoid. There is fluid jacek ng the surface of the deltoid. Findings likely due to rhabdomyolysis. Abnormal appearance of the glenohumeral joint. There is loss of the normal glenohumeral joint with po sterior subluxation of the humeral head. There is impaction of the humeral head upon the posterior gl enoid. There is edema extending through the humeral neck and head from a recent fracture. Complex com minuted fracture. There is still edema along the fracture lines. Biceps tendon appears subluxed also. Humeral head is mildly high riding. This study is inadequate to evaluate the rotator cuff muscles fo r tear. MR/MR shoulder LT wo con* [id number] IMPRESSION: 1. Posterior subluxation of the LEFT humeral head perched upon the posterior g lenoid. 2. Comminuted humeral head fracture with edema still noted along the fracture lines suggesting this is acute to subacute. 3. Extensive soft tissue edema surrounding the muscles and soft tissues of the LEFT shoulder consistent with rhabdomyolysis. 4. Due to the motion artifact this study is inadequate to evaluate the rotator cuff muscles and the labrum.
[2022-03-04] MEDS: multivitamin therapeutic Tablet 1 TAB PO (11:38)
[2022-03-04] MEDS: thiamine 100 mg Tablet PO (11:39)
[2022-03-04] MEDS: folic acid 1 mg Tablet PO (11:40)
[2022-03-04 11:59] LABS: Blood Urea Nitrogen 22 mg/dL (6-20); Calcium 8.3 mg/dL (8.5-10.5); Carbon Dioxide 18 mmol/L (22-29); Chloride 96 mmol/L (98-107); Glomerular Filtration Rate 78.2 mL/min (90-130); Glucose 125 mg/dL (65-115); Magnesium 1.7 mg/dL (1.7-2.3); Osmolality Calculated 265 mOsm/kg (285-295); Sodium 125 mmol/L (136-145)
[2022-03-04 13:12] LABS: Anti-Double Strand DNA AB <1 IU/mL
--- NOTE | 2022-03-04 13:25 | P.PN_ITS ---
Subjective Subjective: 51-year-old male recently abstaining from alcohol for inconsistently reported time of either 2 weeks, 1 week or 4-day. Patient showed an clear history giving that was not consistent with what his father Van who was sober gave on admission. Patient is accompanied by his son Daniele who is at bedside and states that he heard the same story that the patient was missing from contact for 1 to 2 days and was found down in his own house bedroom between mattress and the wall corner. He says he was told this by his grandfather Patient says that additionally the patient told him that he had been moving things to the garage at his father's house and fell few weeks ago decided to stop drinking and fell again. Patient has told me that he had right shoulder pain the first fall and left sh oulder pain the second fall Patient was seen by Dr. Vieyra and is being evaluated for left proximal humerus fracture Patient was seen by Dr. Perez and is being evaluated for C7 fracture versus mass. Patient is being treated with steroids, fluids for acute kidney injury from rhabdomyolysis and dehydration. Medications: Reviewed: Yes Medication Review Details: Current Medications Hydrocodone Bitart/Acetaminophen (Hydrocodone-Acetaminophen 5-325 Mg Tablet) 1 tab PO Q4H PRN PRN Reason: MODERATE TO SEVERE PAIN Last Admin: 03/03/22 04:24 Dose: 1 tab Famotidine (Famotidine 20 Mg/2 Ml Inj) 20 mg IVP Q12H ISAAC Last Admin: 03/03/22 06:46 Dose: 20 mg Folic Acid (Folic Acid 1 Mg Tablet) 1 mg PO DAILY ISAAC Potassium Chloride/Dextrose/Sod Cl (Dextrose 5%-Ns + Kcl 20) 20 meq in 1,000 mls @ 125 mls/hr IV .Q8H ISAAC Last Admin: 03/03/22 06:42 Dose: 125 mls/hr Lorazepam (Lorazepam 2 Mg/Ml Inj 1 Ml) 2 mg IM Q4H PRN; Protocol PRN Reason: ALCOWD Lorazepam (Lorazepam 2 Mg/Ml Inj 1 Ml) 2 mg IVP PRN PRN; Protocol PRN Reason: WITHDRAWAL Lorazepam (Lorazepam 2 Mg Tablet) 2 mg PO Q4H PRN; Protocol PRN Reason: WITHDRAWAL Lorazepam (Lorazepam 1 Mg Tablet) 1 mg PO TID PRN PRN Reason: anxiety Morphine Sulfate (Morphine 4 Mg/Ml Sdv 1 Ml) 2 mg IVP Q4H PRN PRN Reason: SEVERE PAIN Last Admin: 03/02/22 20:54 Dose: 2 mg Multivitamins Therapeutic (Multivitamin Therapeutic Tablet) 1 tab PO DAILY [facility] Ondansetron HCl (Ondansetron 2 Mg/Ml Sdv 2 Ml) 4 mg IVP Q8H PRN PRN Reason: vomiting, or N/V if npo Potassium Chloride (Potassium Chloride Er 20 Meq Tablet) 40 meq PO Q6H ISAAC Stop: 03/03/22 14:16 Thiamine Mononitrate (Thiamine 100 Mg Tablet) 100 mg PO DAILY [facility] Vitals/I&O/Wt Last Vital Signs Temp 98.5 F 03/04/22 12:00 Pulse 77 03/04/22 12:00 Resp 16 03/04/22 12:00 BP 177/84 03/04/22 12:00 Pulse Ox 97 03/04/22 12:00 O2 Del Method 03/04/22 12:00 O2 Flow Rate 2 03/02/22 18:00 03/03/22 03/04/22 03/04/22 22:59 06:59 14:59 Intake Total 2232.5 / 2712.5 2062.5 / 4775.0 120 / 120 Output Total 1200 / 1200 Balance 2232.5 / 2712.5 862.5 / 3575.0 120 / 120 Weight last 48 hrs Weight 98.52 kg Weight 98.94 kg Weight 90.52 kg Physical Exam Narrative: General well-developed well-nourished male in no acute cardiopulmonary stress he is alert and oriented to person place CV regular rate and rhythm with a 4/6 to 5/6 systolic murmur best heard at the left sternal border Lungs clear to auscultation bilaterally Abdomen positive bowel sounds soft nontender Calves and arms puffy but without pitting edema Skin is warm Right arm he is able to raise with help and then can hold it up. Left shoulder in immobilizer Motor strength patient is able to flex and extend his quadriceps and knees he is able to move his right arm independently. Left arm he is able to move his well but is immobilized with a shoulder Gross sensation intact Urinary Catheter Management: 2-way Urethral: Cath Placed During This Visit: yes Reason for Continuing Indwelling Catheter: Other Urinary Catheter Date of Insertion: 03/02/22 Urinary Catheter Time of Insertion: 12:45 Data : 03/04/22 06:00 03/04/22 11:21 Micro: Microbiology 03/02/22 12:17 Blood Culture - Preliminary Blood NEGATIVE TO DATE 03/02/22 12:10 Blood Culture - Preliminary Blood NEGATIVE TO DATE A&P Assessment and plan (1) Cervical disc disorder: Patient with C7 expansile mass and weakness suspicious for central cord injury. This may have occurred from the fall or from laying in awkward position for 2 days. Mentation was poor yesterday and I also spoke with his mother Monie and father Van both of whom did not mention that the patient has had the fall l 2 weeks ago. I have also started him on dexamethasone 10 mg every 6 hours Will decrease steroids to every 6 hours 4 mg. Continue with physical therapy. Further diagnostic work-up and intervention per Dr. Perez as deemed Status: Acute (2) Closed left humeral fracture: MRI done and further treatment plan or surgery as per Dr. Bobby Status: Acute (3) Rhabdomyolysis: Stable elevated CPK and improving renal function Status: Acute (4) Alcohol dependence: Patient's mental status is improving. Continue thiamine Status: Acute (5) Hyponatremia: Sodium 125 and stable changed to BMP every 12 hour Status: Acute (6) JUANCHO (acute kidney injury): Improving Status: Acute Plan Patient gave me permission to speak to his father and gather as well as share any information regarding his health and treatment plan Attestations Medical Necessity Statement*: Patient will need additional 3 days for treatment for his rhabdomyolysis resolution of hyponatremia and physical therapy to determine if surgery is needed or he can recover nonoperatively Time Spent in Patient Care: 45 minutes spent evaluation and coordination of care for this patient today Coding Level of Care Code 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
[2022-03-04] MEDS: FUROsemide 10 mg/mL SDV 2mL 20 MG IVP (14:40)
--- NOTE | 2022-03-04 14:55 | PC.OT ---
OT eval order received. OT eval held this date regarding further tests to diagnose shoulder injury. Will attempt OT eval tomorrow.
[2022-03-04 15:57] LABS: Osmolality Serum 273 mOsm/kg (278-305)
[2022-03-04] MEDS: cloNIDine 0.1 mg Tablet PO ×2 (16:28→21:54)
[2022-03-04] MEDS: metoprolol tartrate 25 mg Tablet PO (16:28)
[2022-03-04] MEDS: dexamethasone 4 mg/mL INJ IVP (18:33)
--- NOTE | 2022-03-04 18:43 | PM.PN ---
Subjective Subjective: Patient was seen and evaluated yesterday, and he remains in his room. He is still reluctant to move his left arm, but he is wearing the shoulder immobilizer. Additionally, he is in a cervical collar secondary to findings on CT of the shoulder. He is also been evaluated by Dr. Perez with regards to his neck. Medications: Reviewed: Yes Medication Review Details: Current Medications Hydrocodone Bitart/Acetaminophen (Hydrocodone-Acetaminophen 5-325 Mg Tablet) 1 tab PO Q4H PRN PRN Reason: MODERATE TO SEVERE PAIN Last Admin: 03/03/22 04:24 Dose: 1 tab Famotidine (Famotidine 20 Mg/2 Ml Inj) 20 mg IVP Q12H ISAAC Last Admin: 03/03/22 06:46 Dose: 20 mg Folic Acid (Folic Acid 1 Mg Tablet) 1 mg PO DAILY ISAAC Potassium Chloride/Dextrose/Sod Cl (Dextrose 5%-Ns + Kcl 20) 20 meq in 1,000 mls @ 125 mls/hr IV .Q8H ISAAC Last Admin: 03/03/22 06:42 Dose: 125 mls/hr Lorazepam (Lorazepam 2 Mg/Ml Inj 1 Ml) 2 mg IM Q4H PRN; Protocol PRN Reason: ALCOWD Lorazepam (Lorazepam 2 Mg/Ml Inj 1 Ml) 2 mg IVP PRN PRN; Protocol PRN Reason: WITHDRAWAL Lorazepam (Lorazepam 2 Mg Tablet) 2 mg PO Q4H PRN; Protocol PRN Reason: WITHDRAWAL Lorazepam (Lorazepam 1 Mg Tablet) 1 mg PO TID PRN PRN Reason: anxiety Morphine Sulfate (Morphine 4 Mg/Ml Sdv 1 Ml) 2 mg IVP Q4H PRN PRN Reason: SEVERE PAIN Last Admin: 03/02/22 20:54 Dose: 2 mg Multivitamins Therapeutic (Multivitamin Therapeutic Tablet) 1 tab PO DAILY ISAAC Ondansetron HCl (Ondansetron 2 Mg/Ml Sdv 2 Ml) 4 mg IVP Q8H PRN PRN Reason: vomiting, or N/V if npo Potassium Chloride (Potassium Chloride Er 20 Meq Tablet) 40 meq PO Q6H ISAAC Stop: 03/03/22 14:16 Thiamine Mononitrate (Thiamine 100 Mg Tablet) 100 mg PO DAILY ISAAC Vitals/I&O/Wt Last Vital Signs Temp 98.0 F 03/04/22 15:29 Pulse 81 03/04/22 15:29 Resp 116 H 03/04/22 15:29 BP 182/96 03/04/22 15:29 Pulse Ox 96 03/04/22 15:29 O2 Del Method 03/04/22 15:29 O2 Flow Rate 2 03/02/22 18:00 03/04/22 03/04/22 03/04/22 06:59 14:59 22:59 Intake Total 2062.5 / 4775.0 120 / 120 Output Total 1200 / 1200 1200 / 1200 Balance 862.5 / 3575.0 -1080 / -1080 Weight last 48 hrs Weight 217 lb 3.2 oz Weight 218 lb 2 oz Weight 199 lb 9 oz Physical Exam Const: COMMON NORMALS: no acute distress, average body habitus and alert GENERAL APPEARANCE: cooperative and comfortable ORIENTATION/CONSCIOUSNESS: Yes awake HENMT: COMMON NORMALS: normocephalic and atraumatic HEAD & SCALP: normocephalic and atraumatic Eye: GENERAL EYE: appearance normal, both eyes and all related structures Neck/C-Spine: OTHER: Patient is in a cervical collar. Chest: COMMONS NORMALS: normal inspection of the chest Resp: COMMON NORMALS: normal respiratory effort EFFORT & INSPECTION: Yes able to speak in complete sentences and Yes symmetric chest movement Extremity: LEFT UPPER EXTREMITY: Yes shoulder joint (Complains of pain in the shoulder with any range of motion throughout the a) Left shoulder joint: Yes inspection (No significant ecchymosis.) and Yes ROM (Unable to move the shoulder without significant pain) Neuro: SENSORIUM/ORIENTATION: Yes alert Psych: APPEARANCE: Yes grossly normal ATTITUDE: Yes calm ATTENTION/CONCENTRATION: Yes attention grossly intact Skin: COMMON NORMALS: no rashes or lesions noted GENERAL SKIN EXAM: no rashes or lesions noted Urinary Catheter Management: 2-way Urethral: Cath Placed During This Visit: yes Reason for Continuing Indwelling Catheter: Other Urinary Catheter Date of Insertion: 03/02/22 Urinary Catheter Time of Insertion: 12:45 Data : 03/04/22 06:00 03/04/22 11:[address]: My impression: CT of the patient's left shoulder was obtained yesterday afternoon. This CT identified a comminuted acute fracture of the left humeral head and neck associated with posterior subluxation and impaction on the posterior glenoid. I have personally reviewed these images and agree with that finding. Additionally, the radiologist noted an expansile mass-effect in the area of the left transverse process and facets of C7 with fracture lines unable to be excluded based on the shoulder CT. MRI: My impression: Shoulder MRI was ordered to supplement findings from the CT scan. There continues to be posterior subluxation of the left humeral head with a comminuted humeral head fracture. There is noted to be edema still noted along the fracture line suggesting acute to subacute. There is also extensive soft tissue edema consistent with rhabdomyolysis. A&P Assessment and plan (1) Fracture of humeral head, left, closed: With regard to the patient's fracture dislocation of the left humeral head, I have discussed treatment plans with the patient and with his father. I have recommended open reduction with a limited arthrotomy. I discussed with them the possibility of open reduction with internal fixation, but I am not recommending this or prosthetic replacement at this time. They understand that given the patient's overall health and the type of fracture, he may require eventual prosthesis. Currently, sodium is still low precluding surgical intervention. He is on fluid restriction and this will be rechecked tomorrow. I will discuss with the family their preferred manner in proceeding forward. Status: Acute Qualifiers: Encounter type: initial encounter Qualified Code(s): S42.292A - Other displaced fracture of upper end of left humerus, initial encounter for closed fracture (2) Cervical disc disorder: Evaluated by Dr. Perez Status: Acute Attestations Medical Necessity Statement*: Patient continues to require inpatient hospitalization for medical treatment and per the medical service. 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
[2022-03-05] VITALS (11 sets, daily range): BP systolic 140–159; BP diastolic 79–89; PULSE 67–76; RESP 12–18; TEMP 36.7–36.9; O2SAT 95–98
[2022-03-05] MEDS: dexamethasone 4 mg/mL INJ IVP ×3 (00:04→09:37)
[2022-03-05 05:18] LABS: Basophils % 0.1 %; Hematocrit 32.8 % (42.0-52.0); Hemoglobin 10.7 g/dL (11.7-16.6); Lymphocytes # 0.7 10^3/uL (0.8-4.8); Lymphocytes % 7.6 %; Mean Corpuscular HGB Conc 32.6 g/dL (30.0-36.0); Mean Corpuscular Hemoglobin 31.1 pg (28.0-34.0); Mean Corpuscular Volume 95.3 fl (80-94); Monocytes # 0.6 10^3/uL (0.2-0.9); Monocytes % 6.7 %; Neutrophils # 7.73 10^3/uL (1.8-7.7); Neutrophils % 84.1 %; Nucleated Red Blood Cells % 0 %; Platelet Count 230 10^3/cmm (130-400); Red Blood Count 3.44 10^6/uL (4.1-5.3); Red Cell Distribution Width 12.8 % (12.1-15.1); White Blood Count 9.2 10^3/uL (4.0-10.0)
[2022-03-05 05:36] LABS: Alanine Aminotransferase 34 U/L (0-41); Albumin Level 3.1 g/dL (3.5-5.2); Alkaline Phosphatase 53 U/L (40-130); Anion Gap 16.8 (5-19); Aspartate Amino Transferase 86 U/L (0-40); Blood Urea Nitrogen 29 mg/dL (6-20); Calcium 9.1 mg/dL (8.5-10.5); Carbon Dioxide 23 mmol/L (22-29); Chloride 95 mmol/L (98-107); Globulin 3.1 g/dL (1.3-4.6); Glomerular Filtration Rate 88.3 mL/min (90-130); Glucose 113 mg/dL (65-115); Magnesium 1.6 mg/dL (1.7-2.3); Osmolality Calculated 279 mOsm/kg (285-295); Phosphorus 3.3 mg/dL (2.5-4.5); Potassium 3.8 mmol/L (3.5-5.1); Sodium 131 mmol/L (136-145); Total Bilirubin 1.1 mg/dL (0.15-1.2); Total Protein 6.2 g/dL (6.6-8.7)
[2022-03-05] MEDS: famotidine 20 mg/2 mL INJ IVP ×2 (06:26→21:23)
[2022-03-05] MEDS: folic acid 1 mg Tablet PO (09:35)
[2022-03-05] MEDS: cloNIDine 0.1 mg Tablet PO ×3 (09:36→21:10)
[2022-03-05] MEDS: metoprolol tartrate 25 mg Tablet PO ×2 (09:36→21:10)
[2022-03-05] MEDS: multivitamin therapeutic Tablet 1 TAB PO (09:36)
[2022-03-05] MEDS: thiamine 100 mg Tablet PO (09:36)
--- NOTE | 2022-03-05 10:00 | CTR_ITS ---
PROCEDURE INFORMATION: Exam: CT Thoracic Spine Without and With Contrast Exam date and time: 03/05/2022 3:37 PM Age: 51 years old Clinical indication: Injury or trauma; Fall; Blunt trauma (contusions or hematomas); Additional info: Vertebral body lesions t2-6 TECHNIQUE: Imaging protocol: Computed tomography of the thoracic spine without and with contrast. Radiation optimization: All CT scans at this facility use at least one of these dose optimization techniques: automated exposure control; mA and/or kV adjustment per patient size (includes targeted exams where dose is matched to clinical indication); or iterative reconstruction. Contrast material: OMNI 350; Contrast volume: 50 ml; Contrast route: INTRAVENOUS (IV); COMPARISON: MR thoracic spin wo con* [id number] 03/02/2022 2:39 PM RADIATION DOSE METRICS: Total DLP (mGy-cm): 2235.8 FINDINGS: Bones/joints: Again seen are compression fractures of T2, T3, T4 and T6, similar to recent MRI exam without retropulsion of bony fragments. C7 vertebral body lytic bony lesion with a sclerotic margin measuring up to 15 mm extending to the left pedicle and transverse process which demonstrates some bony expansion, as seen on comparison MRI cervical spine from 03/02/2022, finding is potentially concerning for a focus of mixed lytic and sclerotic metastatic disease especially given the bony expansion, a nuclear medicine bone scan could further characterize this. T1-T2: No significant disc protrusion. No severe spinal canal stenosis. No significant neural foraminal narrowing. T2-T3: No significant disc protrusion. No severe spinal canal stenosis. No significant neural foraminal narrowing. T3-T4: No significant disc protrusion. No severe spinal canal stenosis. No significant neural foraminal narrowing. T4-T5: No significant disc protrusion. No severe spinal canal stenosis. No significant neural foraminal narrowing. T5-T6: No significant disc protrusion. No severe spinal canal stenosis. No significant neural foraminal narrowing. T6-T7: No significant disc protrusion. No severe spinal canal stenosis. No significant neural foraminal narrowing. T7-T8: No significant disc protrusion. No severe spinal canal stenosis. No significant neural foraminal narrowing. T8-T9: No significant disc protrusion. No severe spinal canal stenosis. No significant neural foraminal narrowing. T9-T10: No significant disc protrusion. No severe spinal canal stenosis. No significant neural foraminal narrowing. T10-T11: No significant disc protrusion. No severe spinal canal stenosis. No significant neural foraminal narrowing. T11-T12: No significant disc protrusion. No severe spinal canal stenosis. No significant neural foraminal narrowing. T12-L1: No significant disc protrusion. No severe spinal canal stenosis. No significant neural foraminal narrowing. Heart: Cardiomegaly. Lungs: Bilateral dependent atelectasis. Vasculature: Coronary artery atherosclerotic calcifications. CT/CT thoracic spine wo/w [id number] IMPRESSION: 1. Again seen are compression fractures of T2, T3, T4 and T6, similar to recent MRI exam without retropulsion of bony fragments. 2. C7 vertebral body lytic bony lesion with a sclerotic margin measuring up to 15 mm extending to the left pedicle and transverse process which demonstrates some bony expansion, as seen on comparison MRI cervical spine from 03/02/2022, finding is potentially concerning for a focus of mixed lytic and sclerotic metastatic disease especially given the bony expansion, a nuclear medicine bone scan could further characterize this. 3. Bilateral dependent atelectasis. 4. Cardiomegaly. 5. Coronary artery atherosclerotic calcifications.
--- NOTE | 2022-03-05 10:00 | CTR_ITS ---
PROCEDURE INFORMATION: Exam: CT Cervical Spine Without and With Contrast Exam date and time: 03/05/2022 3:37 PM Age: 51 years old Clinical indication: Injury or trauma; Fall; Blunt trauma; Additional info: Cervical spine lesion TECHNIQUE: Imaging protocol: Computed tomography of the cervical spine without and with contrast. Radiation optimization: All CT scans at this facility use at least one of these dose optimization techniques: automated exposure control; mA and/or kV adjustment per patient size (includes targeted exams where dose is matched to clinical indication); or iterative reconstruction. Contrast material: OMNI 350; Contrast volume: 50 ml; Contrast route: INTRAVENOUS (IV); COMPARISON: MR cervical spine wo/w [id number] 03/02/2022 2:27 PM RADIATION DOSE METRICS: Total DLP (mGy-cm): 654.1 FINDINGS: Bones/joints: C7 vertebral body lytic bony lesion with a sclerotic margin measuring up to 15 mm extending to the left pedicle and transverse process which demonstrates some bony expansion, as seen on comparison MRI cervical spine from 03/02/2022, finding is potentially concerning for a focus of mixed lytic and sclerotic metastatic disease especially given the bony expansion, a nuclear medicine bone scan could further characterize this. C2-C3: No significant disc protrusion. No severe spinal canal stenosis. No significant neural foraminal narrowing. C3-C4: No significant disc protrusion. No severe spinal canal stenosis. No significant neural foraminal narrowing. C4-C5: No significant disc protrusion. No severe spinal canal stenosis. No significant neural foraminal narrowing. C5-C6: No significant disc protrusion. No severe spinal canal stenosis. No significant neural foraminal narrowing. C6-C7: No significant disc protrusion. No severe spinal canal stenosis. No significant neural foraminal narrowing. C7-T1: No significant disc protrusion. No severe spinal canal stenosis. No significant neural foraminal narrowing. Paranasal sinuses: Paranasal sinus opacifications Lungs: Lung apices are normal. Soft tissues: Unremarkable. CT/CT cervical spine wo/w [id number] IMPRESSION: 1. C7 vertebral body lytic bony lesion with a sclerotic margin measuring up to 15 mm extending to the left pedicle and transverse process which demonstrates some bony expansion, as seen on comparison MRI cervical spine from 03/02/2022, finding is potentially concerning for a focus of mixed lytic and sclerotic metastatic disease especially given the bony expansion, a nuclear medicine bone scan could further characterize this. 2. Please for to same-day CT thoracic spine for findings in this region.
--- NOTE | 2022-03-05 11:15 | P.PN_ITS ---
Subjective Subjective: now wearing rigid neck collar Vitals/I&O/Wt Last Vital Signs Temp 98.3 F 03/05/22 07:40 Pulse 76 03/05/22 07:40 Resp 16 03/05/22 07:40 BP 159/85 03/05/22 09:36 Pulse Ox 97 03/05/22 07:40 O2 Del Method 03/05/22 04:00 O2 Flow Rate 2 03/02/22 18:00 03/04/22 03/05/22 03/05/22 22:59 06:59 14:59 Intake Total 120 / 240 Output Total 1999 / 3200 Balance 120 / -960 -2000 / -2960 Weight last 48 hrs Weight 97.704 kg Weight 98.52 kg Physical Exam Urinary Catheter Management: 2-way Urethral: Cath Placed During This Visit: yes Reason for Continuing Indwelling Catheter: Other Urinary Catheter Date of Insertion: 03/02/22 Urinary Catheter Time of Insertion: 12:45 Data : 03/05/22 04:10 03/05/22 04:10 Other data: seen via telehealth with assistance of RN at bedside A&P Assessment and plan (1) Hyponatremia: seen via telehealth with assistance of RN at bedside Status: Acute Plan 1. Hyponatremia, serum sodium improved 2. 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
--- NOTE | 2022-03-05 11:45 | PC.OT ---
OT orders received to evaluate and treat. Pt. declines to move to edge of bed. OT evaluation to be attempted when pt. is more willing to participate in the evaluation process.
--- NOTE | 2022-03-05 12:11 | PM.PN ---
Subjective Subjective: I spoke with the patient and his family by phone. We discussed the surgical intervention that is planned. We discussed the possibility of surgery tomorrow as his sodium has corrected. They are in agreement and consents will be signed. I spoke with the patient and his family by phone. We discussed the surgical intervention that is planned. We discussed the possibility of surgery tomorrow as his sodium has corrected. They are in agreem Medications: Reviewed: Yes Medication Review Details: Current Medications Hydrocodone Bitart/Acetaminophen (Hydrocodone-Acetaminophen 5-325 Mg Tablet) 1 tab PO Q4H PRN PRN Reason: MODERATE TO SEVERE PAIN Last Admin: 03/03/22 04:24 Dose: 1 tab Famotidine (Famotidine 20 Mg/2 Ml Inj) 20 mg IVP Q12H ISAAC Last Admin: 03/03/22 06:46 Dose: 20 mg Folic Acid (Folic Acid 1 Mg Tablet) 1 mg PO DAILY ISAAC Potassium Chloride/Dextrose/Sod Cl (Dextrose 5%-Ns + Kcl 20) 20 meq in 1,000 mls @ 125 mls/hr IV .Q8H ISAAC Last Admin: 03/03/22 06:42 Dose: 125 mls/hr Lorazepam (Lorazepam 2 Mg/Ml Inj 1 Ml) 2 mg IM Q4H PRN; Protocol PRN Reason: ALCOWD Lorazepam (Lorazepam 2 Mg/Ml Inj 1 Ml) 2 mg IVP PRN PRN; Protocol PRN Reason: WITHDRAWAL Lorazepam (Lorazepam 2 Mg Tablet) 2 mg PO Q4H PRN; Protocol PRN Reason: WITHDRAWAL Lorazepam (Lorazepam 1 Mg Tablet) 1 mg PO TID PRN PRN Reason: anxiety Morphine Sulfate (Morphine 4 Mg/Ml Sdv 1 Ml) 2 mg IVP Q4H PRN PRN Reason: SEVERE PAIN Last Admin: 03/02/22 20:54 Dose: 2 mg Multivitamins Therapeutic (Multivitamin Therapeutic Tablet) 1 tab PO DAILY ISAAC Ondansetron HCl (Ondansetron 2 Mg/Ml Sdv 2 Ml) 4 mg IVP Q8H PRN PRN Reason: vomiting, or N/V if npo Potassium Chloride (Potassium Chloride Er 20 Meq Tablet) 40 meq PO Q6H ISAAC Stop: 03/03/22 14:16 Thiamine Mononitrate (Thiamine 100 Mg Tablet) 100 mg PO DAILY ISAAC Vitals/I&O/Wt Last Vital Signs Temp 98.1 F 03/05/22 11:39 Pulse 67 03/05/22 11:39 Resp 18 03/05/22 11:39 BP 140/79 03/05/22 11:39 Pulse Ox 95 03/05/22 11:39 O2 Del Method 03/05/22 04:00 O2 Flow Rate 2 03/02/22 18:00 03/04/22 03/05/22 03/05/22 22:59 06:59 14:59 Intake Total 120 / 240 Output Total 1999 / 3200 Balance 120 / -960 -2000 / -2960 Weight last 48 hrs Weight 215 lb 6.4 oz Weight 217 lb 3.2 oz Physical Exam Urinary Catheter Management: 2-way Urethral: Cath Placed During This Visit: yes Reason for Continuing Indwelling Catheter: Other Urinary Catheter Date of Insertion: 03/02/22 Urinary Catheter Time of Insertion: 12:45 Data : 03/05/22 04:10 03/05/22 04:10 A&P Assessment and plan (1) Fracture of humeral head, left, closed: With regard to the patient's fracture dislocation of the left humeral head, I discussed treatment plans with the patient and with his father last evening. Today, I also spoke with his son in the room on speakerphone with the father and the patient there. As previously discussed, I have recommended open reduction with a limited arthrotomy. I discussed with them the possibility of open reduction with internal fixation, but I am not recommending this or prosthetic replacement at this time. They understand that given the patient's overall health and the type of fracture, he may require eventual prosthesis. Patient sodium has corrected, and I have spoken with anesthesia. We will plan for surgical intervention tomorrow at 8 AM. Surgical consent including rest and complications as discussed over the phone a Status: Acute Qualifiers: Encounter type: initial encounter Qualified Code(s): S42.292A - Other displaced fracture of upper end of left humerus, initial encounter for closed fracture (2) Cervical disc disorder: Evaluated by Dr. Perez Status: Acute Plan Patient sodium has corrected, and I have spoken with anesthesia. We will plan for surgical intervention tomorrow at 8 AM. Surgical consent including rest and complications as discussed over the phone and will be obtained by Nursing. 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
--- NOTE | 2022-03-05 14:53 | PM.PN ---
Subjective Subjective: 51-year-old admitted with rhabdomyolysis acute kidney injury, hyponatremia found to have left proximal humerus fracture and also C7 fracture as well as T2-3-4 compression fractures. The patient has been long-term alcoholic and not a good historian regarding when the past falls happen or if there have been past falls with injury . He had told me that he fell in the father's garage however father told me that he had fallen in his own room and today the patient tells me that he had been confused and that is what happened. I spoke with the patient earlier today and he told me that he had more imaging to be done for his back. I explained to him that the imaging for the back and spine fracture is separate from the imaging already done for his shoulder. I told him that his sodium is now corrected enough for him to go to surgery in the morning. Patient then expressed to the nurses that he did not want to do his CAT scan and that he did not want to do the surgery either reporting that he is upset that he was put off from surgery this morning. I explained to him that the family discussion was to occur this morning but the surgery was always planned for tomorrow morning with Dr. Bobby. Earlier today I counseled the patient that he should go to alcohol rehab and he was agreeable stating that he and his father are both seeking to get that done. Vitals/I&O/Wt Last Vital Signs Temp 98.1 F 03/05/22 11:39 Pulse 67 03/05/22 11:39 Resp 18 03/05/22 11:39 BP 140/79 03/05/22 11:39 Pulse Ox 95 03/05/22 11:39 O2 Del Method 03/05/22 04:00 O2 Flow Rate 2 03/02/22 18:00 03/04/22 03/05/22 03/05/22 22:59 06:59 14:59 Intake Total 120 / 240 Output Total 1999 / 3200 Balance 120 / -960 -2000 / -2960 Weight last 48 hrs Weight 97.704 kg Weight 98.52 kg Physical Exam Narrative: General well-developed well-nourished overweight male in no acute cardiopulmonary stress he is alert and oriented to person place but not exact date CV regular rate and rhythm Lungs clear to auscultation bilaterally Abdomen positive bowel sounds soft Calves no tenderness pedal edema Motor strength 5/5 bilateral handgrips he is able to flex and extend both legs and raise them off the bed. The left elbow he does not bend much states that trying to flex at his elbow causes pain in the upper arm Urinary Catheter Management: 2-way Urethral: Cath Placed During This Visit: yes Reason for Continuing Indwelling Catheter: Other Urinary Catheter Date of Insertion: 03/02/22 Urinary Catheter Time of Insertion: 12:45 Data : 03/05/22 04:10 03/05/22 04:10 A&P Assessment and plan (1) Closed left humeral fracture: Patient to undergo reduction of the posterior displacement the left proximal humerus fracture will likely heal by sling and immobilized sedation Hyponatremia improved so that proceeding with anesthesia is appropriate for planned surgery in the Status: Acute (2) Cervical disc disorder: Cervical and thoracic CT scan has been ordered by Dr. Perez and I counseled the patient that this is a separate problem and needs to be evaluated for appropriate diagnosis and treatment plan. Patient continues to voice refusal to go to CT scan at this time. He says this was decided by he and his father this morning but I am not sure. I think he is confused but patient states he is not confused simply making a choice Due to good neurologic function and patient's agitation and when to stop the Decadron. Status: Acute (3) Hyponatremia: Sodium 131 IV fluids stopped Status: Acute (4) Rhabdomyolysis: Status: Acute (5) Alcohol dependence: Continue with CIWA Continue with clonidine Recommend the patient be given the as needed lorazepam Status: Acute (6) JUANCHO (acute kidney injury): Much improved creatinine down to 0.9 GFR calculated 88.3 today Status: Acute Plan Stop steroids continue to orientate patient continue with clonidine and lorazepam proceed with surgery as patient allows Attestations Medical Necessity Statement*: Patient remains in the hospital for planned surgical treatment regarding his left shoulder dislocation and proximal humerus fracture Time Spent in Patient Care: 40 minutes spent in evaluation and coordination of care for this patient today 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
[2022-03-05] MEDS: iohexol 350 mg/mL 100 mL Btl IV ×2 (16:00→16:08)
[2022-03-06] VITALS (23 sets, daily range): BP systolic 104–175; BP diastolic 66–96; PULSE 67–90; RESP 12–20; TEMP 36.1–37.2; O2SAT 92–100
[2022-03-06] MEDS: acetaminophen 1,000 MG/100 ML PIGGYBACK 400 MG IV ×3 (05:29→20:15)
[2022-03-06] MEDS: ceFAZolin 2,000 MG in sodium chloride 0.9% (plus) 50 ML 100 MG IV ×2 (06:02→18:07)
[2022-03-06] MEDS: CELEcoxib 200 mg Capsule 400 MG PO (06:05)
[2022-03-06] MEDS: sodium chloride 0.9% 1,000 ML 30 ML IV (07:30)
[2022-03-06] MEDS: ceFAZolin 2,000 mg SDV 2000 MG IVP (08:25)
--- NOTE | 2022-03-06 08:35 | P.ANESASSM_ITS ---
Pre-Anesthetic Assessment Height/Weight: Height 1.75 m Weight 92.533 kg Temp Pulse Resp BP Pulse Ox O2 Del Method O2 Flow Rate 97.9 F 72 18 145/84 98 2 03/06/22 07:18 03/06/22 07:18 03/06/22 07:18 03/06/22 07:18 03/06/22 07:18 03/06/22 07:18 03/02/22 18:00 Preop Diagnosis: Closed Fracture Dislocation Left Humeral Head Operation Date: 03/06/22 08:10 Proposed Procedures p Closed Reduction Shoulder possible ORIF Proximal Humerus(Left) - Kaur Bobby MD Familial anesthetic complications: None Was Beta Gurwinder taken within 24 hours: Yes Was Clonidine taken within 24 hours: N/A Last intake: Intake Last Liquid Date 03/05/22 Last Liquid Time 23:45 Last Solid Date 03/05/22 Last Solid Time 18:00 Social Alcohol and No tobacco Exam alert, oriented x 3, clear to auscultation bilaterally and regular rate & rhythm Airway Submandibular: within normal limits Cervical ROM: Other (C-collar in place) Mallampati: Class III Dentition: chipped CV/HEM Hypertension EF 70% on recent Echo Acute renal insuff, rhabdo Metabolic Morbid Obesity hyponatremia Musc/skel Lower Back Pain cervical spine abnormalities (not unstable), thoracic compression frxs--left hum eral frx Neuropsych Anxiety and Dementia Anesthetic Plan ASA status: 3 Anesthesia: General Other: Given C-collar in place, but c-spine stable (per surgeon) will plan in-line stabilization and glide scope intubation Medications/Allergies Home Medications Medication Instructions Recorded Confirmed Last Taken Type lorazepam 1 mg tablet 1 mg PO TID PRN anxiety #90 tabs 02/27/22 03/02/22 Unknown Rx metoprolol tartrate 50 mg tablet 50 mg PO BID 03/02/22 03/02/22 Unknown History valsartan 320 1 tab PO DAILY 03/02/22 03/02/22 Unknown History mg-hydrochlorothiazide 25 mg tablet Allergies Allergy/AdvReac Type Severity Reaction Status Date / Time No Known Allergies Allergy Verified 01/25/22 16:50 Current Medications Generic Name Dose Route Start Last Admin Trade Name Freq PRN Reason Stop Dose Admin Hydrocodone Bitart/Acetaminophen 1 tab 03/02/22 19:04 03/04/22 21:54 Hydrocodone-Acetaminophen 5-325 Mg Tablet PO 1 tab Q4H PRN Administration MODERATE TO SEVERE PAIN Clonidine HCl 0.1 mg 03/04/22 15:35 03/05/22 21:10 Clonidine 0.1 Mg Tablet PO 0.1 mg TID ISAAC Administration Ergocalciferol 50,000 unit 03/03/22 09:30 03/03/22 09:56 Ergocalciferol (Vitamin D2) 50,000 Unit Capsule PO 50,000 unit Q7D ISAAC Administration Famotidine 20 mg 03/02/22 19:15 03/05/22 21:23 Famotidine 20 Mg/2 Ml Inj IVP 20 mg Q12H ISAAC Administration Folic Acid 1 mg 03/03/22 09:00 03/05/22 09:35 Folic Acid 1 Mg Tablet PO 1 mg DAILY ISAAC Administration Sodium Chloride 1,000 mls @ 30 mls/hr 03/06/22 08:00 03/06/22 07:30 Sodium Chloride 0.9% IV 03/07/22 07:59 30 mls/hr .Q24H ISAAC Administration Metoprolol Tartrate 25 mg 03/04/22 15:35 03/05/22 21:10 Metoprolol Tartrate 25 Mg Tablet PO 25 mg BID@0900,2100 ISAAC Administration Morphine Sulfate 2 mg 03/02/22 19:04 03/02/22 20:54 Morphine 4 Mg/Ml Sdv 1 Ml IVP 2 mg Q4H PRN Administration SEVERE PAIN Multivitamins Therapeutic 1 tab 03/03/22 09:00 03/05/22 09:36 Multivitamin Therapeutic Tablet PO 1 tab DAILY ISAAC Administration Thiamine Mononitrate 100 mg 03/03/22 09:00 03/05/22 09:36 Thiamine 100 Mg Tablet PO 100 mg DAILY ISAAC Administration [facility] Anesthesia Medical History (Updated 03/04/22 @ 13:30 by Edinson Mac MD) Alcohol dependence (~01/2017) Altered mental status Social History Smoking and tobacco status: never smoked Alcohol intake: current Substance/Drug Use: never Data Anesthesia : 03/05/22 04:10 03/05/22 04:10 Short CBC 03/05/22 Range/Units 04:10 WBC 9.2 (4.0-10.0) 10^3/uL Hgb 10.7 L (11.7-16.6) g/dL Hct 32.8 L (42.0-52.0) % MCV 95.3 H (80-94) fl Plt Count 230 (130-400) 10^3/cmm Neut % (Auto) 84.1 % Neut # (Auto) 7.73 H (1.8-7.7) 10^3/uL BMP 03/04/22 03/05/22 11:21 04:10 Sodium 125 L 131 L Potassium 4.0 3.8 Chloride 96 L 95 L Carbon Dioxide 18 L 23 BUN 22 H 29 H Creatinine 1.0 0.9 Glucose 125 H 113 Calcium 8.3 L 9.1 Liver Function 03/05/22 Range/Units 04:10 Total Bilirubin 1.1 (0.15-1.2) mg/dL AST 86 H (0-40) U/L ALT 34 (0-41) U/L Alkaline Phosphatase 53 (40-130) U/L Albumin 3.1 L (3.5-5.2) g/dL Cardiac Studies: Echocardiogram 03/02/22
[2022-03-06] MEDS: ceFAZolin 1,000 mg SDV 1000 MG IRRIGATION (09:29)
--- NOTE | 2022-03-06 11:22 | PM.OP ---
Operative Report Date of procedure: March 06, 2022 Pre-op diagnosis: Left humeral head fracture dislocation with fracture of left humeral anatomic neck Post-op diagnosis: Left humeral head fracture dislocation with fracture of left humeral anatomic neck Post-op findings: Posteriorly dislocated humeral head with intra head fracturing and comminution. Procedure done: Attempted closed reduction followed by open reduction and internal fixation left humeral head fracture dislocation, biceps tenotomy Implants: FiberWire fixation of humeral head to neck Specimens removed/disposition: Intra-articular bony fragment with cartilage Surgeon: Kaur Bobby Manager Linux: [facility] operating room technicians Anesthesia: General (Intubated, ASA 3) Estimated blood loss (mL): 200 IV fluids (mL): 1,200 Urine output (mL): 50 Complications: None Findings: Severely comminuted left humeral head fracture with posterior dislocation impacted on the posterior glenoid. Condition: stable Disposition: PACU (Then return to floor for postoperative care) Brief History: Dustin De Leon is a 51 year old male who presented to the emergency department 03/02 after being found down by his father.? Reportedly, the patient has a history of alcoholism and has been drinking quite heavily for approximately 5 years.? Per patient history, he drinks approximately 12 beers and a half a bottle of wine each day.? The last time he was known to be awake and upright was on February 27 or .? He presented to the emergency department on March 02. His father further notes that he has been able to work routinely and was working on the Monday prior to presentation. His dad went by to check on him the day of his admission to the emergency department, and found him laying on his side between a corner wall and the bed.? It appeared the patient had been down quite a while as he had incontinence of stool and urine.? An ambulance was called and the patient was admitted with a diagnosis of acute renal failure and significant weakness.? At the time of my consultation, he complained of pain in the left arm with movement.? He was also unable to externally rotate. Patient also states he had a fall a couple weeks ago, and he seems confused as to which arm was sore at that point in time. As noted, however, the patient has been working even following this event a couple weeks ago. Extended discussions were undertaken with the patient, separately with his father, via conference call primarily with his son, and the results of these conversations was a plan for surgical intervention in the form of the attempted closed reduction followed by open reduction if necessary. We had discussed the possibility of internal fixation with metal hardware, however, I had concerns about the viability of that. He was not felt to be a candidate for immediate prosthetic replacement. Procedure: The patient was brought to the operating theater and underwent general, intubated, ASA 3 anesthesia. Prior to positioning, the patient's neck collar remained in position with the vest being removed. Shoulder immobilizer was also removed. Following this, the patient was placed in a beachchair position and subsequently the left upper extremity was prepped and draped in the usual fashion utilizing DuraPrep. The arm was draped free. A surgical pause was performed prior to commencement of the surgical procedure. At the time of the surgical pause, we confirmed the site and side of surgery as well as administration of appropriate preoperative antibiotics, Ancef 2 g. Prior to prepping and draping, but following surgical pause, attempted closed reduction under fluoroscopic guidance was made. It was obvious that the posteriorly dislocated humeral head was fixed and unable to be closed reduced or manipulated. Therefore, the decision was made to proceed with open reduction. We were hoping to avoid internal fixation with hardware. At this point,, an incision was made at approximately the level of the interval between the coracoid and acromion consistent with a deltopectoral type incision, and this was extended distally as necessary. Dissection continued through skin and soft tissues using a scalpel. Hemostasis was obtained using electrocautery. The deltopectoral groove was identified and was split. Retractors were placed. The anterior aspect of the joint capsule was identified along with the anterior rotator cuff. This was noted to be quite attenuated, and inferiorly as well as superiorly, there were defects into the shoulder joint. Suture was placed on each side of the arthrotomy incision. This arthrotomy incision was made and it was evidence of the biceps tendon was with in the fracture. There was no way to maintain it in a nonsubluxed position. Therefore, a biceps tenotomy was accomplished. Following this, the subscapularis interval was extended, and inferiorly, we also extended incision along the lower subscapularis to allow access to the shoulder joint. Upon entry into the shoulder joint there were multiple fragments of bone impacted into the proximal humerus. There was 1 large fragment which was removed and sent to pathology. Palpation of the joint at that time demonstrated that the humeral head was indeed impacted behind the glenoid. It initially was immobile and had to be mobilized with elevators etc. We were able to mobilize the humeral head out of the pocket posteriorly. We were then able to position it in the glenoid. Any range of motion of the shoulder at this point caused the humeral head to pop back posteriorly into a pocket which gave concern for previous posterior dislocations. Once we had brought the humeral head back into the glenoid, it was evident that it was not going to stay without some sort of fixation. Initially, an anchor style fixation was attempted, but the anchor pulled right out of the bone indicating that it also would likely not be sufficient for holding metal hardware and would cause significant complication. Therefore, I elected to tie the head back onto the proximal humerus utilizing FiberWire. This did put the head in a more inferior position, but there was cancellous bone to cancellous bone to possibly allow healing and hopefully level of functionality from the shoulder. Shoulder was placed through gentle range of motion once it was tied in place. It did appear stable. Intraoperative imaging demonstrated that the humeral head sat very low on the proximal humeral shaft, but this was felt to be the only position that could be maintained due to the bone loss in the area. The rotator cuff and capsule reattached with 0 Ethibond. The intervals developed to allow access to the shoulder joint were also closed with 0 Ethibond. Once again, fluoroscopy was utilized and the shoulder was felt to be located. I was able to externally rotate to 90 without dislocation. Range of motion was not pushed beyond this secondary to the tenuous nature of the internal fixation and repair of the rotator cuff. At that point, plans were made for closure. The wound was irrigated and closure was accomplished with 0 Vicryl in the deltoid. 2-0 Monocryl was used to close the subcutaneous tissues followed by 4-0 Monocryl subcuticular closure. This was followed by Mic Arrington.. The patient was placed back in his shoulder immobilizer and was returned to the recovery room in satisfactory condition. Patient will return to the floor for further medical care. Related Problem List Diagnoses (1) Fracture of humeral head, left, closed: (2) Dislocation of left shoulder joint: (3) Fracture of anatomical neck of humerus:
--- NOTE | 2022-03-06 11:36 | SUR.PHASEI ---
1100 [facility] and working.
--- NOTE | 2022-03-06 11:42 | PC.OT ---
OT order to evaluate and tx still active; however, pt. had surgery today. Evaluation to be attempted at a later date.
--- NOTE | 2022-03-06 12:19 | ANE.PACU2 ---
Inpatient post-anesthesia follow up: Airway intact: Yes Vital signs: Temperature 97.5 F Pulse Rate 74 Respiratory Rate 12 Blood Pressure 138/68 Pulse Oximetry 93 Oxygen Delivery Me thod [ Room Air Current Rate & Del gabriele] Oxygen Delivery Me thod Room Air Oxygen Flow Rate 6 Fraction of Inspir ed Oxygen Hydration adequate: Yes Nausea and vomiting: No Pain level: 4 Mental status: Baseline
[2022-03-06] MEDS: cholecalciferol (vitamin D3) 1,000 unit Tablet 1000 UNIT PO (14:27)
[2022-03-06] MEDS: cloNIDine 0.1 mg Tablet PO ×2 (14:27→20:16)
--- NOTE | 2022-03-06 14:27 | PM.PN ---
Subjective Subjective: 51-year-old admitted with rhabdomyolysis acute kidney injury, hyponatremia found to have left proximal humerus fracture and also C7 fracture as well as T2-3-4 compression fractures. The patient has been long-term alcoholic and not a good historian regarding when the past falls happen or if there have been past falls with injury On day 3 patient had told me that he fell in the father's garage however father told me that he had fallen in his own room and today the patient tells me that he had been confused and that is what happened but day 4 he told me that that never happened. With steroids for C-spine 7 swelling and history of alcoholism patient was irritable and spent some time yesterday refusing thoracic CT spine and also verbally refused surgery for morning 03/06/2022. I stopped the steroids and he calmed down and did the C-spine and thoracic spine studies for Dr. Perez and also proceeded with his shoulder surgery with Dr. Bobby this morning 03/06/2022 Patient is accompanied by his sons Daniele, Karl and Talat. Talat says he last saw Bo's father on Monday morning and at that time he was doing fine Medications: Reviewed: Yes Vitals/I&O/Wt Last Vital Signs Temp 97.8 F 03/06/22 13:40 Pulse 73 03/06/22 13:40 Resp 16 03/06/22 13:40 BP 130/76 03/06/22 13:40 Pulse Ox 97 03/06/22 13:40 O2 Del Method 03/06/22 13:40 O2 Flow Rate 6 03/06/22 11:07 03/05/22 03/06/22 03/06/22 22:59 06:59 14:59 Intake Total 240 / 240 150 / 390 1300 / 1300 Output Total 1650 / 1650 850 / 2500 300 / 300 Balance -1410 / -1410 -700 / -2110 1000 / 1000 Weight last 48 hrs Weight 92.533 kg Weight 97.704 kg Physical Exam Narrative: General well-developed well-nourished overweight male in no acute cardiopulmonary stress he is alert and oriented to person place but not exact date. Patient was sleeping no signs of apnea and no significant snoring he awakens and is appropriate and conversant CV regular rate and rhythm Lungs clear to auscultation bilaterally Abdomen positive bowel sounds soft Calves no tenderness pedal edema Motor strength 5/5 left handgrip he is able to flex and extend both legs at the knee Urinary Catheter Management: 2-way Urethral: Cath Placed During This Visit: yes Reason for Continuing Indwelling Catheter: Acute Urinary Retention or Obstruction Urinary Catheter Date of Insertion: 03/02/22 Urinary Catheter Time of Insertion: 12:45 Data : 03/05/22 04:10 03/05/22 04:10 A&P Assessment and plan (1) Closed left humeral fracture: Patient to undergo reduction of the posterior displacement the left proximal humerus fracture will likely heal by sling and immobilized sedation Hyponatremia improved so that proceeding with anesthesia is appropriate for planned surgery in the Status: Acute (2) Cervical disc disorder: Cervical and thoracic CT scan has been ordered by Dr. Perez and were completed though patient had agitation and temporary refusal yesterday thought to be in part due to alcohol withdrawal and Decadron Decadron was stopped 03/05/2022 Status: Acute (3) Hyponatremia: Repeat morning labs Status: Acute (4) Rhabdomyolysis: Repeat CPK Status: Acute (5) Alcohol dependence: Continue with CIWA Continue with clonidine Recommend the patient be given the as needed lorazepam Status: Acute (6) JUANCHO (acute kidney injury): Resolved Status: Acute Plan Stop steroids continue to orientate patient continue with clonidine and lorazepam proceed with surgery as patient allows Attestations Medical Necessity Statement*: Patient is in the postoperative recovery. For his left shoulder surgery. 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
[2022-03-06] MEDS: calcium carbonate 500 mg Chew Tablet 1000 MG PO (18:08)
[2022-03-06] MEDS: mupirocin oint 22 gm 1 APPLIC NASAL (18:08)
[2022-03-06] MEDS: sennosides-docusate Tablet 2 TAB PO (18:09)
[2022-03-06] MEDS: iron polysaccharide complex 150 mg Capsule PO (18:09)
[2022-03-06] MEDS: chlorhexidine gluconate 0.12% Btl 473 mL 30 ML MUCOUS MEM ×2 (18:14→20:39)
[2022-03-06] MEDS: metoprolol tartrate 25 mg Tablet PO (20:16)
[2022-03-06] MEDS: famotidine 20 mg/2 mL INJ IVP (20:16)
[2022-03-07] VITALS (10 sets, daily range): BP systolic 134–164; BP diastolic 72–85; PULSE 69–83; RESP 16–20; TEMP 36.7–37; O2SAT 95–99
[2022-03-07] MEDS: ceFAZolin 2,000 MG in sodium chloride 0.9% (plus) 50 ML 100 MG IV ×2 (01:25→09:36)
[2022-03-07] MEDS: HYDROcodone-acetaminophen 5-325 mg Tablet 1 TAB PO ×3 (01:32→15:22)
[2022-03-07] MEDS: oxyCODONE 5 mg IR Tab/Cap PO ×2 (04:06→20:39)
--- NOTE | 2022-03-07 04:15 | PC.NURSE ---
Dr. Martinez notified of exceeding Tylenol dose for third post-op dose of Tylenol. Ordered to not give third dose that is due at this time.
[2022-03-07 05:10] LABS: Basophils % 0.1 %; Eosinophils % 0.2 %; Hematocrit 27.8 % (42.0-52.0); Hemoglobin 9.6 g/dL (11.7-16.6); Lymphocytes # 1.4 10^3/uL (0.8-4.8); Lymphocytes % 12.7 %; Mean Corpuscular HGB Conc 34.5 g/dL (30.0-36.0); Mean Corpuscular Hemoglobin 31.7 pg (28.0-34.0); Mean Corpuscular Volume 91.7 fl (80-94); Mean Platelet Volume 8.8 fL (7.4-10.4); Monocytes # 1.3 10^3/uL (0.2-0.9); Monocytes % 11.3 %; Neutrophils # 8.33 10^3/uL (1.8-7.7); Neutrophils % 74.8 %; Nucleated Red Blood Cells % 0 %; Platelet Count 251 10^3/cmm (130-400); Red Blood Count 3.03 10^6/uL (4.1-5.3); Red Cell Distribution Width 12.6 % (12.1-15.1); White Blood Count 11.1 10^3/uL (4.0-10.0)
[2022-03-07 05:25] LABS: Alanine Aminotransferase 43 U/L (0-41); Albumin Level 3.1 g/dL (3.5-5.2); Alkaline Phosphatase 51 U/L (40-130); Anion Gap 11.3 (5-19); Aspartate Amino Transferase 50 U/L (0-40); Blood Urea Nitrogen 28 mg/dL (6-20); Calcium 8.3 mg/dL (8.5-10.5); Carbon Dioxide 26 mmol/L (22-29); Chloride 93 mmol/L (98-107); Globulin 2.1 g/dL (1.3-4.6); Glucose 88 mg/dL (65-115); Osmolality Calculated 269 mOsm/kg (285-295); Potassium 3.3 mmol/L (3.5-5.1); Sodium 127 mmol/L (136-145); Total Bilirubin 0.9 mg/dL (0.15-1.2); Total Protein 5.2 g/dL (6.6-8.7)
--- NOTE | 2022-03-07 06:48 | P.PN_ITS ---
Subjective Subjective: Patient more alert this morning. Further discussion regarding his injury was that he fell out of bed was found 2 or 3 days after the fall. He reports neck and upper back pain along with left shoulder pain. Denies any shortness of breath, chest pain. Vitals/I&O/Wt Last Vital Signs Temp 98.5 F 03/07/22 04:34 Pulse 78 03/07/22 04:34 Resp 20 H 03/07/22 04:34 BP 134/76 03/07/22 04:34 Pulse Ox 99 03/07/22 04:34 O2 Del Method 03/07/22 04:34 O2 Flow Rate 6 03/06/22 11:07 03/06/22 03/06/22 03/07/22 14:59 22:59 06:59 Intake Total 1300 / 1300 1170 / 2470 50 / 2520 Output Total 300 / 300 1625 / 1925 Balance 1000 / 1000 1170 / 2170 -1575 / 595 Weight last 48 hrs Weight 217 lb 6.4 oz Weight 204 lb Physical Exam Narrative: He is alert orient x3 has good general appearance normal mood and affect. He has a thoracic corset with a SOMI extension. He is moving his right upper extremity over his head without any complaints of pain. He has good sensation light touch with good motor strength. He has no palpable pain in the shoulder elbow or wrist. Fingers are warm good cap refill. Radial pulses palpable. Left upper extremity has a shoulder immobilizer present with a dressing from a repair on the left humeral head fracture. He is wiggling his fingers on the left hand he has good sensation light touch they are warm to the touch radial pulses are palpable. He is wiggling both lower extremities negative logroll bilaterally normal station light touch in his feet. Dorsalis pedis and posterior tibial pulses are palpable. HENMT: COMMON NORMALS: normocephalic and atraumatic HEAD & SCALP: normocephalic and atraumatic Resp: COMMON NORMALS: normal respiratory effort Cardio: COMMON NORMALS: regular rate and regular rhythm RATE: regular rate RHYTHM: regular rhythm GI: COMMON NORMALS: non-tender : COMMON NORMALS: Yes no CVA tenderness BLADDER/KIDNEY EXAM: Yes no CVA tenderness Back/Pelvis: COMMON NORMALS: no CVA tenderness Psych: COMMON NORMALS: cooperative Urinary Catheter Management: 2-way Urethral: Cath Placed During This Visit: yes, but has since been removed by the nurse Reason for Continuing Indwelling Catheter: Decision to DC Catheter Urinary Catheter Date of Insertion: 03/02/22 Urinary Catheter Time of Insertion: 12:45 Date Urinary Catheter Removed: 03/07/22 Time Urinary Catheter Discontinued: 06:10 Data : 03/07/22 04:07 03/07/22 04:[address]: Radiologist's impression: CT/CT cervical spine wo/w [id number] IMPRESSION: 1. C7 vertebral body lytic bony lesion with a sclerotic margin measuring up to 15 mm extending to the left pedicle and transverse process which demonstrates some bony expansion, as seen on comparison MRI cervical spine from 03/02/2022, finding is potentially concerning for a focus of mixed lytic and sclerotic metastatic disease especially given the bony expansion, a nuclear medicine bone scan could further characterize this. 2. Please for to same-day CT thoracic spine for findings in this region. CT/CT thoracic spine wo/w [id number] IMPRESSION: 1. Again seen are compression fractures of T2, T3, T4 and T6, similar to recent MRI exam without retropulsion of bony fragments. 2. C7 vertebral body lytic bony lesion with a sclerotic margin measuring up to 15 mm extending to the left pedicle and transverse process which demonstrates some bony expansion, as seen on comparison MRI cervical spine from 03/02/2022, finding is potentially concerning for a focus of mixed lytic and sclerotic metastatic disease especially given the bony expansion, a nuclear medicine bone scan could further characterize this. 3. Bilateral dependent atelectasis. 4. Cardiomegaly. 5. Coronary artery atherosclerotic calcifications. A&P Assessment and plan (1) Lesion of cervical vertebra: After reviewing the MRIs and CT scans extensively with Dr. Perez recommendation would be for a full body bone scan. Would also recommend interventional radiology CT-guided bone aspiration. Discussed this at length with the patient. He will continue the thoracic corset with SOMI extension. Following those studies further recommendation of treatment course. Status: Acute (2) Traumatic compression fracture of second thoracic vertebra: Status: Acute (3) Traumatic compression fracture of fourth thoracic vertebra: Status: Acute (4) Traumatic compression fracture of third thoracic vertebra: Status: Acute (5) Traumatic compression fracture of sixth thoracic vertebra: Status: Acute (6) Fracture of anatomical neck of humerus: Status: Acute Qualifiers: Encounter type: initial encounter Fracture type: closed Laterality: left Qualified Code(s): S42.292A - Other displaced fracture of upper end of left humerus, initial encounter for closed fracture Attestations Medical Necessity Statement*: defer to medical team. 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
--- NOTE | 2022-03-07 07:01 | NM_ITS ---
WS: [id number] NUCLEAR MEDICINE BONE SCAN Radiopharmaceutical: 27.3 Tc-99m MDP mCi IV Postinjection imaging delay: 1 hr CLINICAL INFORMATION: C7 lesion with T2, T3, T4, T6 compression fractures COMPARISON: Multiple recent studies including CT cervical spine March 05, 2022 and MRI March 02, 2022 FINDINGS: Bone lesions: Lytic lesion involving C7 posterior elements eccentric to the LEFT does not demonstrate radiotracer uptake on this study. Thoracic vertebral uptake compatible with recent compression fractures previously described at T2, T3 , T4. Degenerative uptake both shoulders and AC joints. Uptake in the LEFT humeral head compatible with pre viously described humeral head fracture dislocation. Single punctate focus of uptake in the RIGHT lower rib approximately T9 nonspecific but likely due to recent trauma. Uptake involving the LEFT scapula tip and about the RIGHT scapula spine. This may be due to recent fa ll with bony/soft tissue contusion and/or rhabdomyolysis. Soft tissue contours: Normal. Kidneys: Normal. Other findings: Degenerative uptake LEFT knee. NM/NM bone scan whole body* [id number] IMPRESSION: 1. Lytic lesion involving the C7 posterior elements eccentric to the LEFT does not demonstrate radiotracer uptake on this study. Consider 2-3 month interval follow-up with cervical spine CT and/or referral for CT-guided bony sampling. 2. Uptake involving the LEFT scapula tip and about the RIGHT scapula spine is nonspecific. This may be due to recent fall with bony/soft tissue contusion and /or rhabdomyolysis. 3. Single punctate focus of uptake in the RIGHT lower rib approximately 9th ri b, nonspecific but likely due to recent trauma.
[2022-03-07] MEDS: multivitamin therapeutic Tablet 1 TAB PO ×2 (09:34→09:49)
[2022-03-07] MEDS: famotidine 20 mg/2 mL INJ IVP ×2 (09:34→20:25)
[2022-03-07] MEDS: sennosides-docusate Tablet 2 TAB PO ×2 (09:34→17:17)
[2022-03-07] MEDS: thiamine 100 mg Tablet PO (09:34)
[2022-03-07] MEDS: calcium carbonate 500 mg Chew Tablet 1000 MG PO ×2 (09:34→17:17)
[2022-03-07] MEDS: iron polysaccharide complex 150 mg Capsule PO ×2 (09:34→17:17)
[2022-03-07] MEDS: cloNIDine 0.1 mg Tablet PO ×3 (09:35→20:25)
[2022-03-07] MEDS: cholecalciferol (vitamin D3) 1,000 unit Tablet 1000 UNIT PO (09:35)
[2022-03-07] MEDS: chlorhexidine gluconate 0.12% Btl 473 mL 30 ML MUCOUS MEM ×3 (09:35→20:25)
[2022-03-07] MEDS: folic acid 1 mg Tablet PO (09:35)
[2022-03-07] MEDS: metoprolol tartrate 25 mg Tablet PO ×2 (09:38→20:24)
[2022-03-07] MEDS: lidocaine 1% 5 ML in potassium chloride premix 100 ML 25 ML IV (09:38)
[2022-03-07] MEDS: mupirocin oint 22 gm 1 APPLIC NASAL ×2 (09:49→17:18)
[2022-03-07 11:33] LABS: Anti-Nuclear Antibody Screen POSITIVE (NEGATIVE); Anti-Nuclear Antibody Titer 1:40 titer
--- NOTE | 2022-03-07 15:05 | PM.PN ---
Subjective Subjective: discussed doing surgery on C7. discussed concerns for futer instability and need for a biopsy with patient. I can do as outpatient or this monday. Patient is going to think about it Vitals/I&O/Wt Last Vital Signs Temp 98.1 F 03/07/22 12:00 Pulse 78 03/07/22 12:00 Resp 16 03/07/22 12:00 BP 153/82 03/07/22 12:00 Pulse Ox 95 03/07/22 12:00 O2 Del Method 03/07/22 12:00 O2 Flow Rate 6 03/06/22 11:07 03/07/22 03/07/22 03/07/22 06:59 14:59 22:59 Intake Total 50 / 2520 155 / 155 Output Total 1625 / 1925 750 / 750 Balance -1575 / 595 -595 / -595 Weight last 48 hrs Weight 217 lb 6.4 oz Weight 204 lb Physical Exam Urinary Catheter Management: 2-way Urethral: Cath Placed During This Visit: yes, but has since been removed by the nurse Reason for Continuing Indwelling Catheter: Decision to DC Catheter Urinary Catheter Date of Insertion: 03/02/22 Urinary Catheter Time of Insertion: 12:45 Date Urinary Catheter Removed: 03/07/22 Time Urinary Catheter Discontinued: 06:10 Data : 03/07/22 04:07 03/07/22 04:07 Micro: Microbiology 03/02/22 12:17 Blood Culture - Final Blood NO GROWTH AFTER 5 DAYS 03/02/22 12:10 Blood Culture - Final Blood NO GROWTH AFTER 5 DAYS Attestations Medical Necessity Statement*: per primary 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
[2022-03-07] MEDS: acetaminophen 500 mg Tablet 1000 MG PO ×2 (15:22→20:24)
--- NOTE | 2022-03-07 15:33 | P.PN_ITS ---
Subjective Subjective: Patient was seen and examined this morning, he was complaining chest pain, which is spontaneously resolved, spine surgeon is on board, for possible C7 surgery and need for biopsy, it can be done either outpatient, or this Monday. Patient is thinking about it. Medications: Reviewed: Yes Medication Review Details: Generic Name Dose Route Start Last Admin Trade Name Freq PRN Reason Stop Dose Admin Acetaminophen 1,000 mg 03/07/22 14:00 03/07/22 15:22 Acetaminophen 50 0 Mg Tablet PO 1,000 mg Q8H ISAAC Administration Hydrocodone Bitart /Acetaminophen 1 tab 03/02/22 19:04 03/07/22 15:22 Hydrocodone-Acet aminophen 5-325 Mg Tablet PO 1 tab Q4H PRN Administration MODERATE TO SEVER E PAIN Calcium Carbonate 1,000 mg 03/06/22 18:00 03/07/22 09:34 Calcium Carbonat e 500 Mg Chew Tabl et PO 1,000 mg BID ISAAC Administration Chlorhexidine Gluc victoria 30 ml 03/06/22 13:00 03/07/22 13:17 Chlorhexidine Gl uconate 0.12% Btl 473 Ml MUCOUS MEM Not Given QID ISAAC Clonidine HCl 0.1 mg 03/04/22 15:35 03/07/22 15:24 Clonidine 0.1 Mg Tablet PO 0.1 mg TID ISAAC Administration Ergocalciferol 50,000 unit 03/03/22 09:30 03/03/22 09:56 Ergocalciferol ( Vitamin D2) 50,000 Unit Capsule PO 50,000 unit Q7D ISAAC Administration Famotidine 20 mg 03/02/22 19:15 03/07/22 09:34 Famotidine 20 Mg /2 Ml Inj IVP 20 mg Q12H ISAAC Administration Folic Acid 1 mg 03/03/22 09:00 03/07/22 09:35 Folic Acid 1 Mg Tablet PO 1 mg DAILY ISAAC Administration Metoprolol Tartrat e 25 mg 03/04/22 15:35 03/07/22 09:38 Metoprolol Tartr ate 25 Mg Tablet PO 25 mg BID@0900,2100 ISAAC Administration Morphine Sulfate 2 mg 03/02/22 19:04 03/02/22 20:54 Morphine 4 Mg/Ml Sdv 1 Ml IVP 2 mg Q4H PRN Administration SEVERE PAIN Multivitamins Ther apeutic 1 tab 03/03/22 09:00 03/07/22 09:34 Multivitamin The rapeutic Tablet PO 1 tab DAILY ISAAC Administration Multivitamins Ther apeutic 1 tab 03/07/22 09:00 03/07/22 09:49 Multivitamin The rapeutic Tablet PO 1 tab DAILY ISAAC Administration Mupirocin 1 applic 03/06/22 18:00 03/07/22 09:49 Mupirocin Oint 2 2 Gm NASAL 03/11/22 17:59 1 applic BID ISAAC Administration Oxycodone HCl 5 mg 03/06/22 11:49 03/07/22 04:06 Oxycodone 5 Mg I r Tab/Cap PO 5 mg Q4H PRN Administration MODERATE PAIN Polysaccharide Iro n Complex 150 mg 03/06/22 18:00 03/07/22 09:34 Iron Polysacchar tuyet Complex 150 Mg Capsule PO 150 mg BIDWM ISAAC Administration Senna/Docusate Sod ium 2 tab 03/06/22 18:00 03/07/22 09:34 Sennosides-Docus ate Tablet PO 2 tab BID ISAAC Administration Thiamine Mononitra te 100 mg 03/03/22 09:00 03/07/22 09:34 Thiamine 100 Mg Tablet PO 100 mg DAILY ISAAC Administration Vitamin D 1,000 unit 03/06/22 11:49 03/07/22 09:35 Cholecalciferol (Vitamin D3) 1,000 Unit Tablet PO 1,000 unit DAILY ISAAC Administration Vitals/I&O/Wt Last Vital Signs Temp 98.1 F 03/07/22 12:00 Pulse 78 03/07/22 12:00 Resp 16 03/07/22 12:00 BP 153/82 03/07/22 15:24 Pulse Ox 95 03/07/22 12:00 O2 Del Method 03/07/22 12:00 O2 Flow Rate 6 03/06/22 11:07 03/07/22 03/07/22 03/07/22 06:59 14:59 22:59 Intake Total 50 / 2520 155 / 155 Output Total 1625 / 1925 750 / 750 Balance -1575 / 595 -595 / -595 Weight last 48 hrs Weight 98.611 kg Weight 92.533 kg Physical Exam Const: COMMON NORMALS: patient oriented x3 HENMT: COMMON NORMALS: normocephalic and atraumatic HEAD & SCALP: normocephalic and atraumatic Eye: COMMON NORMALS: no scleral icterus GENERAL EYE: appearance normal, both eyes and all related structures Resp: COMMON NORMALS: normal respiratory effort, No retractions, No use of accessory muscles and clear to auscultation bilaterally EFFORT & INSPECTION: Yes symmetric chest movement AUSCULTATION: clear to auscultation bilaterally Cardio: COMMON NORMALS: regular rate, regular rhythm, S1 normal heart sound present, S2 normal heart sound present, No gallops present (Cardio), No murmurs present (Cardio), No rub (Cardio) and Peripheral pulses 2+ throughout RATE: regular rate RHYTHM: regular rhythm HEART SOUNDS: S1 normal heart sound present and S2 normal heart sound present PERIPHERAL PULSES: Peripheral pulses 2+ throughout GI: COMMON NORMALS: Normal to inspection, nondistended, normoactive bowel sounds present, Soft to palpation, non-tender, No hepatosplenomegaly present and no masses AUSCULTATION: Yes normoactive bowel sounds PALPATION: Yes Soft to palpation and Yes No hepatosplenomegaly present RECTAL EXAM: Yes deferred Extremity: COMMON NORMALS: no clubbing, cyanosis or edema and no pedal edema Neuro: COMMON NORMALS: patient oriented x3 Urinary Catheter Management: 2-way Urethral: Cath Placed During This Visit: yes, but has since been removed by the nurse Reason for Continuing Indwelling Catheter: Decision to DC Catheter Urinary Catheter Date of Insertion: 03/02/22 Urinary Catheter Time of Insertion: 12:45 Date Urinary Catheter Removed: 03/07/22 Time Urinary Catheter Discontinued: 06:10 Data : 03/07/22 04:07 03/07/22 04:07 Micro: Microbiology 03/02/22 12:17 Blood Culture - Final Blood NO GROWTH AFTER 5 DAYS 03/02/22 12:10 Blood Culture - Final Blood NO GROWTH AFTER 5 DAYS A&P Assessment and plan (1) Closed left humeral fracture: Patient to undergo reduction of the posterior displacement the left proximal humerus fracture will likely heal by sling and immobilized sedation Hyponatremia improved so that proceeding with anesthesia is appropriate for planned surgery in the Status: Acute (2) Cervical disc disorder: Cervical and thoracic CT scan has been ordered by Dr. Perez and were completed though patient had agitation and temporary refusal yesterday thought to be in part due to alcohol withdrawal and Decadron Decadron was stopped 03/05/2022 Status: Acute (3) Hyponatremia: Repeat morning labs Status: Acute (4) Rhabdomyolysis: Repeat CPK Status: Acute (5) Alcohol dependence: Continue with CIWA Continue with clonidine Recommend the patient be given the as needed lorazepam Status: Acute (6) JUANCHO (acute kidney injury): Resolved Status: Acute Plan Stop steroids continue to orientate patient continue with clonidine and lorazepam proceed with surgery as patient allows Attestations Medical Necessity Statement*: Patient is to be in hospital for management of hyponatremia. Coding Level of Care Code Acute Manufacturing Engineering Intern for g Fwd Diagnoses Closed left humeral fracture S42.302A Cervical disc disorder M50.90 Hyponatremia E87.1 Rhabdomyolysis M62.82 Alcohol dependence F10.20 JUANCHO (acute kidney injury) N17.9
[2022-03-07 15:48] LABS: Ethylene Glycol <10.0 mg/L (***)
--- NOTE | 2022-03-07 16:53 | PM.PN ---
Subjective Subjective: Patient is unavailable as he is in nuclear medicine at the time of my visit. According to nurses, he is able to flex and extend his elbow and move his arm. Medications: Reviewed: Yes Vitals/I&O/Wt Last Vital Signs Temp 98.0 F 03/07/22 16:00 Pulse 82 03/07/22 16:00 Resp 18 03/07/22 16:00 BP 164/85 03/07/22 16:00 Pulse Ox 97 03/07/22 16:00 O2 Del Method 03/07/22 16:00 O2 Flow Rate 6 03/06/22 11:07 03/07/22 03/07/22 03/07/22 06:59 14:59 22:59 Intake Total 50 / 2520 155 / 155 Output Total 1625 / 1925 750 / 750 Balance -1575 / 595 -595 / -595 Weight last 48 hrs Weight 217 lb 6.4 oz Weight 204 lb Physical Exam Urinary Catheter Management: 2-way Urethral: Cath Placed During This Visit: yes, but has since been removed by the nurse Reason for Continuing Indwelling Catheter: Decision to DC Catheter Urinary Catheter Date of Insertion: 03/02/22 Urinary Catheter Time of Insertion: 12:45 Date Urinary Catheter Removed: 03/07/22 Time Urinary Catheter Discontinued: 06:10 Data : 03/07/22 04:07 03/07/22 04:07 Micro: Microbiology 03/02/22 12:17 Blood Culture - Final Blood NO GROWTH AFTER 5 DAYS 03/02/22 12:10 Blood Culture - Final Blood NO GROWTH AFTER 5 DAYS A&P Assessment and plan (1) Fracture of anatomical neck of humerus: Patient is status post closed reduction and suture fixation of humeral head fracture dislocation. He is unavailable today as he is in nuclear medicine for his cervical spine lesion evaluation. Status: Acute Qualifiers: Encounter type: initial encounter Fracture type: closed Laterality: left Qualified Code(s): S42.292A - Other displaced fracture of upper end of left humerus, initial encounter for closed fracture (2) Dislocation of left shoulder joint: Status: Acute Qualifiers: Encounter type: initial encounter Qualified Code(s): S43.005A - Unspecified dislocation of left shoulder joint, initial encounter (3) Closed left humeral fracture: Status: Acute Attestations Medical Necessity Statement*: Ongoing medical care and evaluation for rhabdomyolysis Coding Level of Care Code Acute Party Supply Specialist for [facility] F[facility] Diagnoses Fracture of anatomical neck of humerus S42.292A Encounter type: initial encounter Fracture type: closed Laterality: left Dislocation of left shoulder joint S43.005A Encounter type: initial encounter Closed left humeral fracture S42.302A
[2022-03-07] MEDS: sodium chloride 1 gm Tablet PO (17:17)
[2022-03-08] VITALS (16 sets, daily range): BP systolic 122–154; BP diastolic 75–90; PULSE 60–87; RESP 14–17; TEMP 36.6–37.3; O2SAT 95–100
[2022-03-08] MEDS: oxyCODONE 5 mg IR Tab/Cap PO ×2 (01:53→06:16)
[2022-03-08 02:24] LABS: Basophils % 0.2 %; Eosinophils # 0.1 10^3/uL (0.0-0.8); Eosinophils % 0.6 %; Hematocrit 28.6 % (42.0-52.0); Hemoglobin 9.7 g/dL (11.7-16.6); Lymphocytes # 1.2 10^3/uL (0.8-4.8); Lymphocytes % 8.7 %; Mean Corpuscular HGB Conc 33.9 g/dL (30.0-36.0); Mean Corpuscular Hemoglobin 31.6 pg (28.0-34.0); Mean Corpuscular Volume 93.2 fl (80-94); Mean Platelet Volume 8.8 fL (7.4-10.4); Monocytes # 1.2 10^3/uL (0.2-0.9); Monocytes % 8.7 %; Neutrophils # 10.73 10^3/uL (1.8-7.7); Neutrophils % 80.9 %; Nucleated Red Blood Cells % 0 %; Platelet Count 250 10^3/cmm (130-400); Red Blood Count 3.07 10^6/uL (4.1-5.3); Red Cell Distribution Width 12.8 % (12.1-15.1); White Blood Count 13.3 10^3/uL (4.0-10.0)
[2022-03-08 02:54] LABS: Anion Gap 13.7 (5-19); Blood Urea Nitrogen 18 mg/dL (6-20); Calcium 8.4 mg/dL (8.5-10.5); Carbon Dioxide 24 mmol/L (22-29); Chloride 94 mmol/L (98-107); Glomerular Filtration Rate 140.9 mL/min (90-130); Glucose 77 mg/dL (65-115); Osmolality Calculated 267 mOsm/kg (285-295); Potassium 3.7 mmol/L (3.5-5.1); Sodium 128 mmol/L (136-145)
[2022-03-08] MEDS: acetaminophen 500 mg Tablet 1000 MG PO ×3 (06:16→21:01)
--- NOTE | 2022-03-08 07:39 | PM.PN ---
Subjective Subjective: Patient resting comfortably. Peers in no apparent distress. Patient has no questions regarding his upcoming surgical intervention tomorrow. Vitals/I&O/Wt Last Vital Signs Temp 97.9 F 03/08/22 04:00 Pulse 75 03/08/22 04:24 Resp 16 03/08/22 06:16 BP 138/81 03/08/22 04:00 Pulse Ox 96 03/08/22 04:00 O2 Del Method 03/07/22 16:00 O2 Flow Rate 6 03/06/22 11:07 03/07/22 03/08/22 03/08/22 22:59 06:59 14:59 Intake Total 420 / 575 300 / 875 Output Total 750 / 1500 Balance 420 / -175 -450 / -625 Weight last 48 hrs Weight 215 lb 12.8 oz Weight 217 lb 6.4 oz Physical Exam Narrative: He is alert orient x3 has good general appearance normal mood and affect. Bruising with obvious swelling and ecchymosis over the left shoulder. He is moving the right upper extremity without any limitations. Has good sensation light touch in both hands. Wiggles all digits they are warm to the touch with good cap refill. Radial pulses are palpable. HENMT: COMMON NORMALS: normocephalic HEAD & SCALP: normocephalic Resp: COMMON NORMALS: normal respiratory effort Cardio: COMMON NORMALS: regular rate and regular rhythm RATE: regular rate RHYTHM: regular rhythm GI: COMMON NORMALS: Soft to palpation PALPATION: Yes Soft to palpation : COMMON NORMALS: Yes no CVA tenderness BLADDER/KIDNEY EXAM: Yes no CVA tenderness Back/Pelvis: COMMON NORMALS: no CVA tenderness Psych: COMMON NORMALS: mental status grossly normal and cooperative Urinary Catheter Management: 2-way Urethral: Cath Placed During This Visit: yes, but has since been removed by the nurse Reason for Continuing Indwelling Catheter: Decision to DC Catheter Urinary Catheter Date of Insertion: 03/02/22 Urinary Catheter Time of Insertion: 12:45 Date Urinary Catheter Removed: 03/07/22 Time Urinary Catheter Discontinued: 06:10 Data : 03/08/22 01:34 03/08/22 01:34 Micro: Microbiology 03/02/22 12:17 Blood Culture - Final Blood NO GROWTH AFTER 5 DAYS 03/02/22 12:10 Blood Culture - Final Blood NO GROWTH AFTER 5 DAYS A&P Assessment and plan (1) Lesion of cervical vertebra: Discussed operative intervention with the patient involves a C7 corpectomy with anterior cervical plating from C6-T1. Discussed the risks and benefits of the procedure which include but not limited to bleeding, infection, nerve damage, paralysis, reaction anesthesia, continued neck pain patient understands his risks and wished to proceed. Discussed this at length with Dr. Perez agrees above-stated plan. We will make him n.p.o. after midnight. Status: Acute (2) Traumatic compression fracture of sixth thoracic vertebra: Status: Acute (3) Traumatic compression fracture of third thoracic vertebra: Status: Acute (4) Traumatic compression fracture of fourth thoracic vertebra: Status: Acute (5) Traumatic compression fracture of second thoracic vertebra: Status: Acute Attestations Medical Necessity Statement*: Requires operative intervention on Monday03/09/22 Coding Level of Care Code Acute Supervisor Process Testing for g Fwd Diagnoses Lesion of cervical vertebra M89.9 Traumatic compression fracture of sixth thoracic vertebra S22.050A Traumatic compression fracture of third thoracic vertebra S22.030A Traumatic compression fracture of fourth thoracic vertebra S22.040A Traumatic compression fracture of second thoracic vertebra S22.020A
[2022-03-08] MEDS: calcium carbonate 500 mg Chew Tablet 1000 MG PO ×2 (08:31→17:20)
[2022-03-08] MEDS: famotidine 20 mg/2 mL INJ IVP ×2 (08:31→21:00)
[2022-03-08] MEDS: multivitamin therapeutic Tablet 1 TAB PO ×2 (08:31→08:32)
[2022-03-08] MEDS: cholecalciferol (vitamin D3) 1,000 unit Tablet 1000 UNIT PO (08:31)
[2022-03-08] MEDS: folic acid 1 mg Tablet PO (08:32)
[2022-03-08] MEDS: thiamine 100 mg Tablet PO (08:32)
[2022-03-08] MEDS: sennosides-docusate Tablet 2 TAB PO ×2 (08:32→17:21)
[2022-03-08] MEDS: cloNIDine 0.1 mg Tablet PO ×3 (08:32→20:59)
[2022-03-08] MEDS: iron polysaccharide complex 150 mg Capsule PO ×2 (08:32→17:20)
[2022-03-08] MEDS: sodium chloride 1 gm Tablet PO (08:32)
[2022-03-08] MEDS: chlorhexidine gluconate 0.12% Btl 473 mL 30 ML MUCOUS MEM ×4 (08:33→21:01)
[2022-03-08] MEDS: mupirocin oint 22 gm 1 APPLIC NASAL ×2 (08:34→17:22)
[2022-03-08] MEDS: morphine 4 mg/mL SDV 1 mL 2 MG IVP (08:38)
[2022-03-08] MEDS: metoprolol tartrate 25 mg Tablet PO ×2 (08:39→20:59)
[2022-03-08 12:08] LABS: Vit D 1,25 (Oh)2, Total 37 pg/mL (18-72); Vit D2 1,25 (Oh)2 <8 pg/mL; Vit D3 1,25 (Oh)2 37 pg/mL
[2022-03-08] MEDS: HYDROcodone-acetaminophen 5-325 mg Tablet 1 TAB PO ×2 (13:25→17:28)
--- NOTE | 2022-03-08 14:59 | P.PN_ITS ---
Subjective Subjective: Patient was seen and examined this morning, resting comfortably, due for spine surgery in am. Medications: Reviewed: Yes Medication Review Details: Generic Name Dose Route Start Last Admin Trade Name Linette PRN Reason Stop Dose Admin Acetaminophen 1,000 mg 03/07/22 14:00 03/08/22 13:25 Acetaminophen 50 0 Mg Tablet PO 1,000 mg Q8H ISAAC Administration Hydrocodone Bitart /Acetaminophen 1 tab 03/02/22 19:04 03/08/22 13:25 Hydrocodone-Acet aminophen 5-325 Mg Tablet PO 1 tab Q4H PRN Administration MODERATE TO SEVER E PAIN Calcium Carbonate 1,000 mg 03/06/22 18:00 03/08/22 08:31 Calcium Carbonat e 500 Mg Chew Tabl et PO 1,000 mg BID ISAAC Administration Chlorhexidine Gluc victoria 30 ml 03/06/22 13:00 03/08/22 13:24 Chlorhexidine Gl uconate 0.12% Btl 473 Ml MUCOUS MEM 30 ml QID ISAAC Administration Clonidine HCl 0.1 mg 03/04/22 15:35 03/08/22 08:32 Clonidine 0.1 Mg Tablet PO 0.1 mg TID ISAAC Administration Ergocalciferol 50,000 unit 03/03/22 09:30 03/03/22 09:56 Ergocalciferol ( Vitamin D2) 50,000 Unit Capsule PO 50,000 unit Q7D ISAAC Administration Famotidine 20 mg 03/02/22 19:15 03/08/22 08:31 Famotidine 20 Mg /2 Ml Inj IVP 20 mg Q12H ISAAC Administration Folic Acid 1 mg 03/03/22 09:00 03/08/22 08:32 Folic Acid 1 Mg Tablet PO 1 mg DAILY ISAAC Administration Metoprolol Tartrat e 25 mg 03/04/22 15:35 03/08/22 08:39 Metoprolol Tartr ate 25 Mg Tablet PO 25 mg BID@0900,2100 ISAAC Administration Morphine Sulfate 2 mg 03/02/22 19:04 03/08/22 08:38 Morphine 4 Mg/Ml Sdv 1 Ml IVP 2 mg Q4H PRN Administration SEVERE PAIN Multivitamins Ther apeutic 1 tab 03/03/22 09:00 03/08/22 08:31 Multivitamin The rapeutic Tablet PO 1 tab DAILY ISAAC Administration Multivitamins Ther apeutic 1 tab 03/07/22 09:00 03/08/22 08:32 Multivitamin The rapeutic Tablet PO 1 tab DAILY ISAAC Administration Mupirocin 1 applic 03/06/22 18:00 03/08/22 08:34 Mupirocin Oint 2 2 Gm NASAL 03/11/22 17:59 1 applic BID ISAAC Administration Oxycodone HCl 5 mg 03/06/22 11:49 03/08/22 06:16 Oxycodone 5 Mg I r Tab/Cap PO 5 mg Q4H PRN Administration MODERATE PAIN Polysaccharide Iro n Complex 150 mg 03/06/22 18:00 03/08/22 08:32 Iron Polysacchar tuyet Complex 150 Mg Capsule PO 150 mg BIDWM ISAAC Administration Senna/Docusate Sod ium 2 tab 03/06/22 18:00 03/08/22 08:32 Sennosides-Docus ate Tablet PO 2 tab BID ISAAC Administration Sodium Chloride 1 gm 03/07/22 18:00 03/08/22 08:32 Sodium Chloride 1 Gm Tablet PO 1 gm BID ISAAC Administration Thiamine Mononitra te 100 mg 03/03/22 09:00 03/08/22 08:32 Thiamine 100 Mg Tablet PO 100 mg DAILY ISAAC Administration Vitamin D 1,000 unit 03/06/22 11:49 03/08/22 08:31 Cholecalciferol (Vitamin D3) 1,000 Unit Tablet PO 1,000 unit DAILY ISAAC Administration Vitals/I&O/Wt Last Vital Signs Temp 98.1 F 03/08/22 12:00 Pulse 81 03/08/22 12:00 Resp 14 03/08/22 12:00 BP 154/90 03/08/22 12:00 Pulse Ox 100 03/08/22 12:00 O2 Del Method 03/08/22 12:00 O2 Flow Rate 6 03/08/22 08:00 03/07/22 03/08/22 03/08/22 22:59 06:59 14:59 Intake Total 420 / 575 300 / 875 30 / 30 Output Total 750 / 1500 Balance 420 / -175 -450 / -625 30 / 30 Weight last 48 hrs Weight 97.885 kg Weight 98.611 kg Physical Exam Const: COMMON NORMALS: patient oriented x3 HENMT: COMMON NORMALS: normocephalic and atraumatic HEAD & SCALP: normocephalic and atraumatic Eye: COMMON NORMALS: no scleral icterus GENERAL EYE: appearance normal, both eyes and all related structures Resp: COMMON NORMALS: normal respiratory effort, No retractions, No use of accessory muscles and clear to auscultation bilaterally EFFORT & INSPECTION: Yes symmetric chest movement AUSCULTATION: clear to auscultation bilaterally Cardio: COMMON NORMALS: regular rate, regular rhythm, S1 normal heart sound present, S2 normal heart sound present, No gallops present (Cardio), No murmurs present (Cardio), No rub (Cardio) and Peripheral pulses 2+ throughout RATE: regular rate RHYTHM: regular rhythm HEART SOUNDS: S1 normal heart sound present and S2 normal heart sound present PERIPHERAL PULSES: Peripheral pulses 2+ throughout GI: COMMON NORMALS: Normal to inspection, nondistended, normoactive bowel sounds present, Soft to palpation, non-tender, No hepatosplenomegaly present and no masses AUSCULTATION: Yes normoactive bowel sounds PALPATION: Yes Soft to palpation and Yes No hepatosplenomegaly present RECTAL EXAM: Yes deferred Extremity: COMMON NORMALS: no clubbing, cyanosis or edema and no pedal edema Neuro: COMMON NORMALS: patient oriented x3 Urinary Catheter Management: 2-way Urethral: Cath Placed During This Visit: yes, but has since been removed by the nurse Reason for Continuing Indwelling Catheter: Decision to DC Catheter Urinary Catheter Date of Insertion: 03/02/22 Urinary Catheter Time of Insertion: 12:45 Date Urinary Catheter Removed: 03/07/22 Time Urinary Catheter Discontinued: 06:10 Data : 03/08/22 01:34 03/08/22 01:34 Micro: Microbiology 03/02/22 12:17 Blood Culture - Final Blood NO GROWTH AFTER 5 DAYS 03/02/22 12:10 Blood Culture - Final Blood NO GROWTH AFTER 5 DAYS A&P Assessment and plan (1) Closed left humeral fracture: Patient to undergo reduction of the posterior displacement the left proximal humerus fracture will likely heal by sling and immobilized sedation Hyponatremia improved so that proceeding with anesthesia is appropriate for planned surgery in the Status: Acute (2) Cervical disc disorder: Cervical and thoracic CT scan has been ordered by Dr. Perez and were completed though patient had agitation and temporary refusal yesterday thought to be in part due to alcohol withdrawal and Decadron Decadron was stopped 03/05/2022 Status: Acute (3) Hyponatremia: Repeat morning labs Status: Acute (4) Rhabdomyolysis: Repeat CPK Status: Acute (5) Alcohol dependence: Continue with CIWA Continue with clonidine Recommend the patient be given the as needed lorazepam Status: Acute (6) JUANCHO (acute kidney injury): Resolved Status: Acute Plan Stop steroids continue to orientate patient continue with clonidine and lorazepam proceed with surgery as patient allows Attestations Medical Necessity Statement*: In hospital for spine surgery in am. Coding Level of Care Code Acute Extractor Operator for [facility] Fwd Diagnoses Closed left humeral fracture S42.302A Cervical disc disorder M50.90 Hyponatremia E87.1 Rhabdomyolysis M62.82 Alcohol dependence F10.20 JUANCHO (acute kidney injury) N17.9
[2022-03-08 15:17] LABS: ANCA Screen NEGATIVE (NEGATIVE)
[2022-03-08] MEDS: sodium chloride 1 gm Tablet 2 GM PO (17:21)
--- NOTE | 2022-03-08 21:35 | P.PN_ITS ---
Subjective Subjective: Patient was seen late in the evening. He was resting comfortably in bed. He is still reluctant to move his left upper extremity. He tells me he has surgery scheduled for tomorrow with Dr. Perez. With regards to the shoulder, the dressing is dry and intact. There is no evidence of drainage. Medications: Reviewed: Yes Medication Review Details: Generic Name Dose Route Start Last Admin Trade Name Freq PRN Reason Stop Dose Admin Acetaminophen 1,000 mg 03/07/22 14:00 03/09/22 10:47 Acetaminophen 50 0 Mg Tablet PO 1,000 mg Q8H ISAAC Administration Hydrocodone Bitart /Acetaminophen 1 tab 03/02/22 19:04 03/09/22 07:46 Hydrocodone-Acet aminophen 5-325 Mg Tablet PO 1 tab Q4H PRN Administration MODERATE TO SEVER E PAIN Calcium Carbonate 1,000 mg 03/06/22 18:00 03/09/22 08:42 Calcium Carbonat e 500 Mg Chew Tabl et PO 1,000 mg BID ISAAC Administration Chlorhexidine Gluc victoria 30 ml 03/06/22 13:00 03/09/22 08:43 Chlorhexidine Gl uconate 0.12% Btl 473 Ml MUCOUS MEM 30 ml QID ISAAC Administration Clonidine HCl 0.1 mg 03/04/22 15:35 03/09/22 08:41 Clonidine 0.1 Mg Tablet PO 0.1 mg TID ISAAC Administration Ergocalciferol 50,000 unit 03/03/22 09:30 03/03/22 09:56 Ergocalciferol ( Vitamin D2) 50,000 Unit Capsule PO 50,000 unit Q7D ISAAC Administration Famotidine 20 mg 03/02/22 19:15 03/09/22 08:52 Famotidine 20 Mg /2 Ml Inj IVP 20 mg Q12H ISAAC Administration Folic Acid 1 mg 03/03/22 09:00 03/09/22 08:43 Folic Acid 1 Mg Tablet PO 1 mg DAILY ISAAC Administration Sodium Chloride 1,000 mls @ 30 ml s/hr 03/09/22 10:30 03/09/22 10:48 Sodium Chloride 0.9% IV 03/10/22 10:29 30 mls/hr .Q24H ISAAC Administration Metoprolol Tartrat e 25 mg 03/04/22 15:35 03/09/22 08:42 Metoprolol Tartr ate 25 Mg Tablet PO 25 mg BID@0900,2100 ISAAC Administration Morphine Sulfate 2 mg 03/02/22 19:04 03/08/22 08:38 Morphine 4 Mg/Ml Sdv 1 Ml IVP 2 mg Q4H PRN Administration SEVERE PAIN Multivitamins Ther apeutic 1 tab 03/03/22 09:00 03/09/22 08:42 Multivitamin The rapeutic Tablet PO 1 tab DAILY ISAAC Administration Multivitamins Ther apeutic 1 tab 03/07/22 09:00 03/09/22 08:42 Multivitamin The rapeutic Tablet PO 1 tab DAILY ISAAC Administration Mupirocin 1 applic 03/06/22 18:00 03/09/22 08:43 Mupirocin Oint 2 2 Gm NASAL 03/11/22 17:59 1 applic BID ISAAC Administration Oxycodone HCl 5 mg 03/06/22 11:49 03/08/22 06:16 Oxycodone 5 Mg I r Tab/Cap PO 5 mg Q4H PRN Administration MODERATE PAIN Polysaccharide Iro n Complex 150 mg 03/06/22 18:00 03/09/22 08:42 Iron Polysacchar tuyet Complex 150 Mg Capsule PO 150 mg BIDWM ISAAC Administration Senna/Docusate Sod ium 2 tab 03/06/22 18:00 03/09/22 08:43 Sennosides-Docus ate Tablet PO 2 tab BID ISAAC Administration Sodium Chloride 2 gm 03/08/22 18:00 03/09/22 08:43 Sodium Chloride 1 Gm Tablet PO 2 gm BID ISAAC Administration Thiamine Mononitra te 100 mg 03/03/22 09:00 03/09/22 08:42 Thiamine 100 Mg Tablet PO 100 mg DAILY ISAAC Administration Vitamin D 1,000 unit 03/06/22 11:49 03/09/22 08:41 Cholecalciferol (Vitamin D3) 1,000 Unit Tablet PO 1,000 unit DAILY ISAAC Administration Vitals/I&O/Wt Last Vital Signs Temp 99.1 F 03/08/22 19:44 Pulse 87 03/08/22 19:44 Resp 17 03/08/22 19:44 BP 146/80 03/08/22 20:59 Pulse Ox 95 03/08/22 19:44 O2 Del Method 03/08/22 19:44 O2 Flow Rate 6 03/08/22 08:00 03/08/22 03/08/22 03/08/22 06:59 14:59 22:59 Intake Total 300 / 875 Output Total 750 / 1500 800 / 800 Balance -450 / -625 -800 / -770 Weight last 48 hrs Weight 215 lb 12.8 oz Weight 217 lb 6.4 oz Physical Exam Const: COMMON NORMALS: no acute distress, average body habitus and alert GENERAL APPEARANCE: cooperative and comfortable ORIENTATION/CONSCIOUSNESS: Yes awake HENMT: COMMON NORMALS: normocephalic and atraumatic HEAD & SCALP: normocephalic and atraumatic Eye: GENERAL EYE: appearance normal, both eyes and all related structures Neck/C-Spine: OTHER: Patient is in a cervical collar. Chest: COMMONS NORMALS: normal inspection of the chest Resp: COMMON NORMALS: normal respiratory effort EFFORT & INSPECTION: Yes able to speak in complete sentences and Yes symmetric chest movement Extremity: LEFT UPPER EXTREMITY: Yes shoulder joint (Dressing is dry and i ntact.) Left shoulder joint: Yes inspection (Swelling throughout the left upper extremity which remains unchanged.), Yes ROM (Not evaluated.) and Yes other (Patient remains reluctant to move arm.) Neuro: SENSORIUM/ORIENTATION: Yes alert Psych: APPEARANCE: Yes grossly normal ATTITUDE: Yes calm ATTENTION/CONCENTRATION: Yes attention grossly intact Skin: COMMON NORMALS: no rashes or lesions noted GENERAL SKIN EXAM: no rashes or lesions noted Urinary Catheter Management: 2-way Urethral: Cath Placed During This Visit: yes, but has since been removed by the nurse Reason for Continuing Indwelling Catheter: Decision to DC Catheter Urinary Catheter Date of Insertion: 03/02/22 Urinary Catheter Time of Insertion: 12:45 Date Urinary Catheter Removed: 03/07/22 Time Urinary Catheter Discontinued: 06:10 Data : 03/09/22 02:20 03/09/22 02:20 A&P Assessment and plan (1) Dislocation of left shoulder joint: Patient remains in the shoulder immobilizer. He appears comfortable this evening, but he is reluctant to flex and extend his elbow. He is able to wiggle the fingers. He has some swelling in the arm, but this has been consistent. His dressing is dry and intact. There is no drainage. He is to undergo operative intervention for his cervical spine tomorrow. 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
[2022-03-09] VITALS (24 sets, daily range): BP systolic 103–157; BP diastolic 57–92; PULSE 60–120; RESP 14–25; TEMP 36.5–37.3; O2SAT 92–100
--- NOTE | 2022-03-09 | XR_ITS ---
WS: [id number] XR cervical spine 1V [id number] REASON FOR EXAM: c6-T1 fusion FINDINGS: No lateral view to assist with localization. Presumed posterior pedicle screws C6, C7 and T1, T2. Connecting rods C6-T2. On the limited views it appears that the surgical appliances are in proper position and alignment. XR/XR cervical spine 1V [id number] IMPRESSION: Instrumentation of the cervicothoracic junction as above.
--- NOTE | 2022-03-09 | SCC_ITS ---
Procedure: 1. C5-T2 instrumentation 2. C5-T2 fusion 3. Biopsy C7 lesion 4. use of allograt for fusion 20.9 seconds of fluoroscopic guidance, for a cumulative dose of 6.53 mGy, was provided to Dr. Perez by the radiology department. C-arm images of the cervical spine were saved for the patient's permanent record. [facility]
[2022-03-09 03:24] LABS: Basophils % 0.1 %; Eosinophils # 0.1 10^3/uL (0.0-0.8); Eosinophils % 0.6 %; Hematocrit 28.7 % (42.0-52.0); Hemoglobin 9.6 g/dL (11.7-16.6); Lymphocytes % 5.6 %; Mean Corpuscular HGB Conc 33.4 g/dL (30.0-36.0); Mean Corpuscular Hemoglobin 31.3 pg (28.0-34.0); Mean Corpuscular Volume 93.5 fl (80-94); Mean Platelet Volume 8.7 fL (7.4-10.4); Monocytes # 1.1 10^3/uL (0.2-0.9); Monocytes % 6.4 %; Neutrophils % 86.1 %; Nucleated Red Blood Cells % 0 %; Platelet Count 272 10^3/cmm (130-400); Red Blood Count 3.07 10^6/uL (4.1-5.3); Red Cell Distribution Width 12.7 % (12.1-15.1); White Blood Count 17.4 10^3/uL (4.0-10.0)
[2022-03-09 03:51] LABS: Anion Gap 16.9 (5-19); Blood Urea Nitrogen 14 mg/dL (6-20); Calcium 8.5 mg/dL (8.5-10.5); Carbon Dioxide 22 mmol/L (22-29); Chloride 93 mmol/L (98-107); Glomerular Filtration Rate 140.9 mL/min (90-130); Glucose 77 mg/dL (65-115); Osmolality Calculated 265 mOsm/kg (285-295); Potassium 3.9 mmol/L (3.5-5.1); Sodium 128 mmol/L (136-145)
--- NOTE | 2022-03-09 06:55 | NUR.SHIFT ---
Pt had tylonel scheduled this morning. The MAR said he was over on doseage when I scanned the tylonel. I called pharmacy and he said not to give. Bed is low and locked and call light in reach
[2022-03-09] MEDS: HYDROcodone-acetaminophen 5-325 mg Tablet 1 TAB PO (07:46)
[2022-03-09] MEDS: cloNIDine 0.1 mg Tablet PO ×2 (08:41→20:34)
[2022-03-09] MEDS: cholecalciferol (vitamin D3) 1,000 unit Tablet 1000 UNIT PO (08:41)
[2022-03-09] MEDS: calcium carbonate 500 mg Chew Tablet 1000 MG PO ×2 (08:42→17:31)
[2022-03-09] MEDS: thiamine 100 mg Tablet PO (08:42)
[2022-03-09] MEDS: metoprolol tartrate 25 mg Tablet PO ×2 (08:42→20:34)
[2022-03-09] MEDS: multivitamin therapeutic Tablet 1 TAB PO ×2 (08:42)
[2022-03-09] MEDS: iron polysaccharide complex 150 mg Capsule PO ×2 (08:42→17:31)
[2022-03-09] MEDS: sennosides-docusate Tablet 2 TAB PO ×2 (08:43→17:32)
[2022-03-09] MEDS: folic acid 1 mg Tablet PO (08:43)
[2022-03-09] MEDS: sodium chloride 1 gm Tablet 2 GM PO ×2 (08:43→17:31)
[2022-03-09] MEDS: mupirocin oint 22 gm 1 APPLIC NASAL ×2 (08:43→17:32)
[2022-03-09] MEDS: chlorhexidine gluconate 0.12% Btl 473 mL 30 ML MUCOUS MEM ×3 (08:43→20:36)
[2022-03-09] MEDS: famotidine 20 mg/2 mL INJ IVP ×2 (08:52→20:33)
--- NOTE | 2022-03-09 10:04 | P.ANESASSM_ITS ---
Pre-Anesthetic Assessment Height/Weight: Height 1.75 m Weight 95.527 kg Temp Pulse Resp BP Pulse Ox O2 Del Method O2 Flow Rate 98.0 F 99 15 157/91 96 6 03/09/22 07:57 03/09/22 07:57 03/09/22 07:57 03/09/22 08:41 03/09/22 07:57 03/09/22 07:57 03/08/22 20:00 Preop Diagnosis: Closed Fracture Dislocation Left Humeral Head Operation Date: 03/06/22 08:10 Proposed Procedures p Closed Reduction Shoulder possible ORIF Proximal Humerus(Left) - Kaur Bobby MD Operation Date: 03/09/22 11:30 Proposed Procedures p Cervical Posterior Fusion(Not Applicable) - Addison Perez DO Familial anesthetic complications: None Was Beta Gurwinder taken within 24 hours: Yes Was Clonidine taken within 24 hours: Yes Last intake: Intake Last Liquid Date 03/05/22 Last Liquid Time 23:45 Last Solid Date 03/05/22 Last Solid Time 18:00 Social Alcohol and No tobacco Exam alert, oriented x 3, clear to auscultation bilaterally and regular rate & rhythm Airway Submandibular: within normal limits Cervical ROM: Other (Limited extension ) Mallampati: Class III Dentition: chipped Pulmonary None reported Denies COPD, NORBERT CV/HEM Anemia (Hgb 9.6) and Hypertension Denies CAD Elevated WBC TTE 03/02/22 ?CONCLUSIONS ?1. Normal left ventricular size, systolic function and wall ?thickness, with no regional wall motion abnormalities. Left ?ventricular ejection fraction is estimated at 70 %. Grade II ?diastolic dysfunction, moderately elevated filling pressures. ?2. Normal right ventricular size and systolic function. ?3. No significant valvular abnormality. ?4. Normal pulmonary artery pressure. ?5. When compared to previous study dated 04/14/17, mitral ?regurgitation seems to have improved. EKG 03/02/22 Interpretive Statements SINUS TACHYCARDIA LEFT ATRIAL ENLARGEMENT? [-0.15mV P-WAVE IN V1/V2] LEFT VENTRICULAR HYPERTROPHY AND ST-T CHANGE? [VOLTAGE CRITERIA PLUS ST/T ABNORMALITY] Compared to ECG 03/02/2022 11:46:04 No significant changes Electronically Signed On 03-02-2022 19:51:06 CDT by Dieudonne Cooper M.D. [email or web address] Rhabdomyolysis with JUANCHO Na 128 Chloride 93 Hepatic None reported GI Denies GERD Metabolic None reported [facility] [place] Multiple traumatic fractures Neuropsych None reported Anesthetic Plan ASA status: 3 Anesthesia: Anesthesia Evaluation and General Other: We discussed risk and benefits of general anesthesia including PONV, sore throat (sometimes severe), corneal abrasion, positioning and peripheral nerve injuries, life threatening allergic reaction, post operative ICU admission requiring prolonged intubation, aspiration, stroke, heart attack, , and rare incid ences of recall. Patient consents to proceed with general anesthesia. Plan general with arterial line. Risk of > 500 ml blood loss (7ml/kg in children): Yes, adequate IV access and fluids planned Other Pertinent Information Type and screen ordered pre op Medications/Allergies Home Medications Medication Instructions Recorded Confirmed Last Taken Type lorazepam 1 mg tablet 1 mg PO TID PRN anxiety #90 tabs 02/27/22 03/02/22 Unknown Rx metoprolol tartrate 50 mg tablet 50 mg PO BID 03/02/22 03/02/22 Unknown History valsartan 320 1 tab PO DAILY 03/02/22 03/02/22 Unknown History mg-hydrochlorothiazide 25 mg tablet Allergies Allergy/AdvReac Type Severity Reaction Status Date / Time No Known Allergies Allergy Verified 01/25/22 16:50 Current Medications Generic Name Dose Route Start Last Admin Trade Name Freq PRN Reason Stop Dose Admin Acetaminophen 1,000 mg 03/07/22 14:00 03/09/22 06:46 Acetaminophen 500 Mg Tablet PO Not Given Q8H ISAAC Hydrocodone Bitart/Acetaminophen 1 tab 03/02/22 19:04 03/09/22 07:46 Hydrocodone-Acetaminophen 5-325 Mg Tablet PO 1 tab Q4H PRN Administration MODERATE TO SEVERE PAIN Calcium Carbonate 1,000 mg 03/06/22 18:00 03/09/22 08:42 Calcium Carbonate 500 Mg Chew Tablet PO 1,000 mg BID ISAAC Administration Chlorhexidine Gluconate 30 ml 03/06/22 13:00 03/09/22 08:43 Chlorhexidine Gluconate 0.12% Btl 473 Ml MUCOUS MEM 30 ml QID ISAAC Administration Clonidine HCl 0.1 mg 03/04/22 15:35 03/09/22 08:41 Clonidine 0.1 Mg Tablet PO 0.1 mg TID ISAAC Administration Ergocalciferol 50,000 unit 03/03/22 09:30 03/03/22 09:56 Ergocalciferol (Vitamin D2) 50,000 Unit Capsule PO 50,000 unit Q7D ISAAC Administration Famotidine 20 mg 03/02/22 19:15 03/09/22 08:52 Famotidine 20 Mg/2 Ml Inj IVP 20 mg Q12H ISAAC Administration Folic Acid 1 mg 03/03/22 09:00 03/09/22 08:43 Folic Acid 1 Mg Tablet PO 1 mg DAILY ISAAC Administration Metoprolol Tartrate 25 mg 03/04/22 15:35 03/09/22 08:42 Metoprolol Tartrate 25 Mg Tablet PO 25 mg BID@0900,2100 ISAAC Administration Morphine Sulfate 2 mg 03/02/22 19:04 03/08/22 08:38 Morphine 4 Mg/Ml Sdv 1 Ml IVP 2 mg Q4H PRN Administration SEVERE PAIN Multivitamins Therapeutic 1 tab 03/03/22 09:00 03/09/22 08:42 Multivitamin Therapeutic Tablet PO 1 tab DAILY ISAAC Administration Multivitamins Therapeutic 1 tab 03/07/22 09:00 03/09/22 08:42 Multivitamin Therapeutic Tablet PO 1 tab DAILY ISAAC Administration Mupirocin 1 applic 03/06/22 18:00 03/09/22 08:43 Mupirocin Oint 22 Gm NASAL 03/11/22 17:59 1 applic BID ISAAC Administration Oxycodone HCl 5 mg 03/06/22 11:49 03/08/22 06:16 Oxycodone 5 Mg Ir Tab/Cap PO 5 mg Q4H PRN Administration MODERATE PAIN Polysaccharide Iron Complex 150 mg 03/06/22 18:00 03/09/22 08:42 Iron Polysaccharide Complex 150 Mg Capsule PO 150 mg BIDWM ISAAC Administration Senna/Docusate Sodium 2 tab 03/06/22 18:00 03/09/22 08:43 Sennosides-Docusate Tablet PO 2 tab BID ISAAC Administration Sodium Chloride 2 gm 03/08/22 18:00 03/09/22 08:43 Sodium Chloride 1 Gm Tablet PO 2 gm BID ISAAC Administration Thiamine Mononitrate 100 mg 03/03/22 09:00 03/09/22 08:42 Thiamine 100 Mg Tablet PO 100 mg DAILY [facility] Administration Vitamin D 1,000 unit 03/06/22 11:49 03/09/22 08:41 Cholecalciferol (Vitamin D3) 1,000 Unit Tablet PO 1,000 unit DAILY ISAAC Administration Additional Medication Information Generic Name Dose Route Start Last Admin Trade Name Linette PRN Reason Stop Dose Admin Acetaminophen 1,000 mg 03/07/22 14:00 03/08/22 13:25 Acetaminophen 500 Mg Tablet PO 1,000 mg Q8H ISAAC Administration Hydrocodone Bitart/Acetaminophen 1 tab 03/02/22 19:04 03/08/22 13:25 Hydrocodone-Acetaminophen 5-325 Mg Tablet PO 1 tab Q4H PRN Administration MODERATE TO SEVERE PAIN Calcium Carbonate 1,000 mg 03/06/22 18:00 03/08/22 08:31 Calcium Carbonate 500 Mg Chew Tablet PO 1,000 mg BID [facility] Administration Chlorhexidine Gluconate 30 ml 03/06/22 13:00 03/08/22 13:24 Chlorhexidine Gluconate 0.12% Btl 473 Ml MUCOUS MEM 30 ml QID [facility] Administration Clonidine HCl 0.1 mg 03/04/22 15:35 03/08/22 08:32 Clonidine 0.1 Mg Tablet PO 0.1 mg TID [facility] Administration Ergocalciferol 50,000 unit 03/03/22 09:30 03/03/22 09:56 Ergocalciferol (Vitamin D2) 50,000 Unit Capsule PO 50,000 unit Q7D [facility] Administration Famotidine 20 mg 03/02/22 19:15 03/08/22 08:31 Famotidine 20 Mg/2 Ml Inj IVP 20 mg Q12H [facility] Administration Folic Acid 1 mg 03/03/22 09:00 03/08/22 08:32 Folic Acid 1 Mg Tablet PO 1 mg DAILY [facility] Administration Metoprolol Tartrate 25 mg 03/04/22 15:35 03/08/22 08:39 Metoprolol Tartrate 25 Mg Tablet PO 25 mg BID@0900,2100 [facility] Administration Morphine Sulfate 2 mg 03/02/22 19:04 03/08/22 08:38 Morphine 4 Mg/Ml Sdv 1 Ml IVP 2 mg Q4H PRN Administration SEVERE PAIN Multivitamins Therapeutic 1 tab 03/03/22 09:00 03/08/22 08:31 Multivitamin Therapeutic Tablet PO 1 tab DAILY ISAAC Administration Multivitamins Therapeutic 1 tab 03/07/22 09:00 03/08/22 08:32 Multivitamin Therapeutic Tablet PO 1 tab DAILY ISAAC Administration Mupirocin 1 applic 03/06/22 18:00 03/08/22 08:34 Mupirocin Oint 22 Gm NASAL 03/11/22 17:59 1 applic BID ISAAC Administration Oxycodone HCl 5 mg 03/06/22 11:49 03/08/22 06:16 Oxycodone 5 Mg Ir Tab/Cap PO 5 mg Q4H PRN Administration MODERATE PAIN Polysaccharide Iron Complex 150 mg 03/06/22 18:00 03/08/22 08:32 Iron Polysaccharide Complex 150 Mg Capsule PO 150 mg BIDWM ISAAC Administration Senna/Docusate Sodium 2 tab 03/06/22 18:00 03/08/22 08:32 Sennosides-Docusate Tablet PO 2 tab BID ISAAC Administration Sodium Chloride 1 gm 03/07/22 18:00 03/08/22 08:32 Sodium Chloride 1 Gm Tablet PO 1 gm BID ISAAC Administration Thiamine Mononitrate 100 mg 03/03/22 09:00 03/08/22 08:32 Thiamine 100 Mg Tablet PO 100 mg DAILY ISAAC Administration Vitamin D 1,000 unit 03/06/22 11:49 03/08/22 08:31 Cholecalciferol (Vitamin D3) 1,000 Unit Tablet PO 1,000 unit DAILY ISAAC Administration PFSH Anesthesia Medical History Alcohol dependence (~01/2017) Altered mental status Social History Smoking and tobacco status: never smoked Alcohol intake: current Substance/Drug Use: never Data Anesthesia : 03/09/22 02:20 03/09/22 02:20 Short CBC 03/08/22 03/09/22 Range/Units 01:34 02:20 WBC 13.3 H 17.4 H (4.0-10.0) 10^3/uL Hgb 9.7 L 9.6 L (11.7-16.6) g/dL Hct 28.6 L 28.7 L (42.0-52.0) % MCV 93.2 93.5 (80-94) fl Plt Count 250 272 (130-400) 10^3/cmm Neut % (Auto) 80.9 86.1 % Neut # (Auto) 10.73 H 15.00 H (1.8-7.7) 10^3/uL BMP 03/08/22 03/09/22 01:34 02:20 Sodium 128 L 128 L Potassium 3.7 3.9 Chloride 94 L 93 L Carbon Dioxide 24 22 BUN 18 14 Creatinine 0.6 L 0.6 L Glucose 77 77 Calcium 8.4 L 8.5 Cardiac Studies: 2 Echocardiogram 03/02/22
[2022-03-09] MEDS: acetaminophen 500 mg Tablet 1000 MG PO (10:47)
[2022-03-09] MEDS: sodium chloride 0.9% 1,000 ML 30 ML IV (10:48)
--- NOTE | 2022-03-09 10:48 | W.PM.OPSUD ---
Surgery/Procedure H&P Update DATE OF PROCEDURE: March 09, 2022 DATE H&P PERFORMED: 03/04/22 H&P UPDATE INFORMATION: I have reviewed H&P completed within last 30 days, I have examined patient prior to procedure and No changes to prior documentation PREOP DIAGNOSIS: Lytic lesion C7, traumatic compression fractures T 2, 3, 4, 6 PLANNED PROCEDURE: Operation Date: 03/06/22 08:10 Proposed Procedures p Closed Reduction Shoulder possible ORIF Proximal Humerus(Left) - Kaur Bobby MD Operation Date: 03/09/22 11:30 Proposed Procedures p Cervical Posterior Fusion(Not Applicable) - Addison Perez DO
[2022-03-09] MEDS: ceFAZolin 2,000 MG in sodium chloride 0.9% (plus) 50 ML 100 MG IV ×2 (11:21→20:33)
--- NOTE | 2022-03-09 11:56 | PM.PN ---
Subjective Subjective: Patient is due for spine surgery today. Medications: Reviewed: Yes Medication Review Details: Generic Name Dose Route Start Last Admin Trade Name Freq PRN Reason Stop Dose Admin Acetaminophen 1,000 mg 03/07/22 14:00 03/09/22 10:47 Acetaminophen 50 0 Mg Tablet PO 1,000 mg Q8H ISAAC Administration Hydrocodone Bitart /Acetaminophen 1 tab 03/02/22 19:04 03/09/22 07:46 Hydrocodone-Acet aminophen 5-325 Mg Tablet PO 1 tab Q4H PRN Administration MODERATE TO SEVER E PAIN Calcium Carbonate 1,000 mg 03/06/22 18:00 03/09/22 08:42 Calcium Carbonat e 500 Mg Chew Tabl et PO 1,000 mg BID ISAAC Administration Chlorhexidine Gluc victoria 30 ml 03/06/22 13:00 03/09/22 08:43 Chlorhexidine Gl uconate 0.12% Btl 473 Ml MUCOUS MEM 30 ml QID ISAAC Administration Clonidine HCl 0.1 mg 03/04/22 15:35 03/09/22 08:41 Clonidine 0.1 Mg Tablet PO 0.1 mg TID ISAAC Administration Ergocalciferol 50,000 unit 03/03/22 09:30 03/03/22 09:56 Ergocalciferol ( Vitamin D2) 50,000 Unit Capsule PO 50,000 unit Q7D ISAAC Administration Famotidine 20 mg 03/02/22 19:15 03/09/22 08:52 Famotidine 20 Mg /2 Ml Inj IVP 20 mg Q12H ISAAC Administration Folic Acid 1 mg 03/03/22 09:00 03/09/22 08:43 Folic Acid 1 Mg Tablet PO 1 mg DAILY ISAAC Administration Sodium Chloride 1,000 mls @ 30 ml s/hr 03/09/22 10:30 03/09/22 10:48 Sodium Chloride 0.9% IV 03/10/22 10:29 30 mls/hr .Q24H ISAAC Administration Metoprolol Tartrat e 25 mg 03/04/22 15:35 03/09/22 08:42 Metoprolol Tartr ate 25 Mg Tablet PO 25 mg BID@0900,2100 ISAAC Administration Morphine Sulfate 2 mg 03/02/22 19:04 03/08/22 08:38 Morphine 4 Mg/Ml Sdv 1 Ml IVP 2 mg Q4H PRN Administration SEVERE PAIN Multivitamins Ther apeutic 1 tab 03/03/22 09:00 03/09/22 08:42 Multivitamin The rapeutic Tablet PO 1 tab DAILY ISAAC Administration Multivitamins Ther apeutic 1 tab 03/07/22 09:00 03/09/22 08:42 Multivitamin The rapeutic Tablet PO 1 tab DAILY ISAAC Administration Mupirocin 1 applic 03/06/22 18:00 03/09/22 08:43 Mupirocin Oint 2 2 Gm NASAL 03/11/22 17:59 1 applic BID ISAAC Administration Oxycodone HCl 5 mg 03/06/22 11:49 03/08/22 06:16 Oxycodone 5 Mg I r Tab/Cap PO 5 mg Q4H PRN Administration MODERATE PAIN Polysaccharide Iro n Complex 150 mg 03/06/22 18:00 03/09/22 08:42 Iron Polysacchar tuyet Complex 150 Mg Capsule PO 150 mg BIDWM ISAAC Administration Senna/Docusate Sod ium 2 tab 03/06/22 18:00 03/09/22 08:43 Sennosides-Docus ate Tablet PO 2 tab BID ISAAC Administration Sodium Chloride 2 gm 03/08/22 18:00 03/09/22 08:43 Sodium Chloride 1 Gm Tablet PO 2 gm BID ISAAC Administration Thiamine Mononitra te 100 mg 03/03/22 09:00 03/09/22 08:42 Thiamine 100 Mg Tablet PO 100 mg DAILY ISAAC Administration Vitamin D 1,000 unit 03/06/22 11:49 03/09/22 08:41 Cholecalciferol (Vitamin D3) 1,000 Unit Tablet PO 1,000 unit DAILY ISAAC Administration Vitals/I&O/Wt Last Vital Signs Temp 99.1 F 03/09/22 10:49 Pulse 89 03/09/22 10:49 Resp 18 03/09/22 10:49 BP 139/82 03/09/22 10:49 Pulse Ox 98 03/09/22 10:49 O2 Del Method 03/09/22 10:58 O2 Flow Rate 6 03/09/22 08:00 03/08/22 03/09/22 03/09/22 22:59 06:59 14:59 Output Total 950 / 950 750 / 1700 Balance -950 / -920 -750 / -1670 Weight last 48 hrs Weight 95.527 kg Weight 97.885 kg Physical Exam Const: COMMON NORMALS: patient oriented x3 HENMT: COMMON NORMALS: normocephalic and atraumatic HEAD & SCALP: normocephalic and atraumatic Eye: COMMON NORMALS: no scleral icterus GENERAL EYE: appearance normal, both eyes and all related structures Resp: COMMON NORMALS: normal respiratory effort, No retractions, No use of accessory muscles and clear to auscultation bilaterally EFFORT & INSPECTION: Yes symmetric chest movement AUSCULTATION: clear to auscultation bilaterally Cardio: COMMON NORMALS: regular rate, regular rhythm, S1 normal heart sound present, S2 normal heart sound present, No gallops present (Cardio), No murmurs present (Cardio), No rub (Cardio) and Peripheral pulses 2+ throughout RATE: regular rate RHYTHM: regular rhythm HEART SOUNDS: S1 normal heart sound present and S2 normal heart sound present PERIPHERAL PULSES: Peripheral pulses 2+ throughout GI: COMMON NORMALS: Normal to inspection, nondistended, normoactive bowel sounds present, Soft to palpation, non-tender, No hepatosplenomegaly present and no masses AUSCULTATION: Yes normoactive bowel sounds PALPATION: Yes Soft to palpation and Yes No hepatosplenomegaly present RECTAL EXAM: Yes deferred Extremity: COMMON NORMALS: no clubbing, cyanosis or edema and no pedal edema Neuro: COMMON NORMALS: patient oriented x3 Urinary Catheter Management: 2-way Urethral: Cath Placed During This Visit: yes, but has since been removed by the nurse Reason for Continuing Indwelling Catheter: Decision to DC Catheter Urinary Catheter Date of Insertion: 03/02/22 Urinary Catheter Time of Insertion: 12:45 Date Urinary Catheter Removed: 03/07/22 Time Urinary Catheter Discontinued: 06:10 Data : 03/09/22 02:20 03/09/22 02:20 A&P Assessment and plan (1) Closed left humeral fracture: Patient to undergo reduction of the posterior displacement the left proximal humerus fracture will likely heal by sling and immobilized sedation Hyponatremia improved so that proceeding with anesthesia is appropriate for planned surgery in the Status: Acute (2) Cervical disc disorder: Cervical and thoracic CT scan has been ordered by Dr. Perez and were completed though patient had agitation and temporary refusal yesterday thought to be in part due to alcohol withdrawal and Decadron Decadron was stopped 03/05/2022 Status: Acute (3) Hyponatremia: Repeat morning labs Status: Acute (4) Rhabdomyolysis: Repeat CPK Status: Acute (5) Alcohol dependence: Continue with CIWA Continue with clonidine Recommend the patient be given the as needed lorazepam Status: Acute (6) JUANCHO (acute kidney injury): Resolved Status: Acute Plan Stop steroids continue to orientate patient continue with clonidine and lorazepam proceed with surgery as patient allows Attestations Medical Necessity Statement*: Patient is in hospital for spine surgery. Coding Level of Care Code Acute Hospice Home Health Aide for [facility] Fwd Diagnoses Closed left humeral fracture S42.302A Cervical disc disorder M50.90 Hyponatremia E87.1 Rhabdomyolysis M62.82 Alcohol dependence F10.20 JUANCHO (acute kidney injury) N17.9
[2022-03-09] MEDS: vancomycin 1,000 MG SDV 1000 MG XX (13:12)
--- NOTE | 2022-03-09 14:21 | PM.OP ---
Operative Report Date of procedure: March 09, 2022 Pre-op diagnosis: Preop Diagnosis Lytic lesion C7, traumatic compression fractures T 2, 3, 4, 6 Left humeral head fracture dislocation with fracture of left humeral anatomic neck Post-op diagnosis: same Procedure done: 1. C5-T2 instrumentation 2. C5-T2 fusion 3. Biopsy C7 lesion 4. use of allograt for fusion Surgeon: Addison Perez [employer] Plant Supervisor: Jonathan Orantes Estimated blood loss (mL): 200 Procedure: 1. C5-T2 instrumentation 2. C5-T2 fusion 3. Biopsy C7 lesion 4. use of allograt for fusion Patient is brought to the operative suite after undergoing anesthesia was placed in the prone position. All areas impingement were well-padded. Skin incision was made from C5-T2. Dissection was made down to the cervical fascia. Subperiosteal dissection was made out to the lateral masses of C5-C6 and C7 bilaterally. Subperiosteal dissection was made out to the transverse processes of T1 and T2 as well bilaterally. Once exposure was complete attention was then brought to placing the lateral mass screws. Lateral mass screws were placed at C5 bilaterally and C6 bilaterally. This was done by using a drill bur. And then the drill set to 12 mm and then the pedicle feeler to ensure that the screws are in the prone position. And then the screws placed. For 14 mm screws were placed. Next attention was brought to placing the pedicle screws these were placed at T1 and T2 bilaterally. This is again done by using the drill bur to get starting point confirmed under C-arm. The gearshift awl was then inserted followed by the pedicle feeler and then 30 mm 4 oh pedicle screws were placed from [place]. Once the screws were placed and attention was brought to placing the rods on the right side. Rods were locked into position using the end caps. The rods went from C5 down to T2. Locking with into position. Next attention was brought to getting the biopsy from the C7 lateral mass. The microscope was brought in and a high-speed bur was then used to open up the area where the biopsy or was going to be in the tumor side. Once the opening was made Curette was used to undermine the bone and a Kerrison rongeur was used to open up further the entire lateral mass was opened up and inside was tumor this tumor was then sent for pathology as a fresh section to pathology. Abundance of tumor the tumor tracked anteriorly around the vertebral artery at this point I did not proceed to take any more tumor coagulating bleeding use Surgiflo to help with the bleeding. And then the bobbi was then attached on the left side get end caps were placed from C5-C6 to T1-T2 bilaterally. Rods were torqued and locked in position. Next a high-speed bur was used to decorticate the bone from C5 down to T2. And then the ostium bone graft was then packed along the lamina and lateral masses to help with the fusion. Wound was then irrigated and vancomycin powder was placed was closed in layered fashion with 0 Vicryl 2-0 Vicryl and nylon suture. Sterile dressings were applied patient was placed back in his collar and transferred to the PACU in stable condition.
--- NOTE | 2022-03-09 14:23 | SUR.PHASEI ---
1358 PT TO PACU 5 PT SLEEPING WITH ORAL AND NASAL AIRWAY IN PLACE, GOOD RESP EFFORT NOTED PT WITH C COLLAR WITH CHEST STRAP FOR CHIN IMMOBILIZATION, PT WITH CHEST IMMOBILIZER WELL LT ARM FREE AT THIS TIME, DRESSING TO LT SHOULDER D/I SOME BRUISING TO LT SHOULDER. 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
[2022-03-09] MEDS: fentaNYL 50 mcg/mL INJ 2mL IVP (14:30)
--- NOTE | 2022-03-09 14:39 | SUR.PHASEI ---
1425 PT ON 2LNC SATS 100% , PT AWAKE ALERT, LPT LOG ROLLED TO RT SIDE, DRESSING D/I STILLK, HEMOVAC DRAIN COMPRESSED WITH SMALL AMT RED DRAINAGE. PT C/O OF PAIN NOW SEE PAIN MED GIVEN.
--- NOTE | 2022-03-09 14:54 | SUR.PHASEI ---
ART LINE REMOVED INTACT AND PRESSURE HELD X 10 MINUTES, MONITOR SR NO ECDTOPY NOTED PT DRESSING TO POSTERIOR NECK D/I C COLLAR IN PLACE, PT WITH GOOD RESP NOTED PT AWAKES EASILY, THEN QUICKLY BACK TO SLEEP VSS.
--- NOTE | 2022-03-09 15:13 | PM.MISC ---
Miscellaneous Note Purpose of Documentation: Attempted follow-up in hospital Note: I went to see the patient today, but he was unavailable as he was undergoing spinal surgery. He was seen late last evening and was doing well.
--- NOTE | 2022-03-09 15:35 | SUR.PHASEI ---
1520 PT TO ROOM 251 PT AWAKE ALERT HANDOFF AT BEDSIDE, WITH FLOOR RN, DRESSING D/I C COLLAR IN PLACE, PT MOVES FEET EQUALLY AND STRONGLY, PT REQUESTS SPRITE TO SIP ON, PT FAMILY AT BEDSIDE.CLARK PATENT OF YELLOW URINE IN TUBING AND BAG.
[2022-03-09] MEDS: HYDROcodone-acetaminophen 5-325 mg Tablet PO (15:50)
--- NOTE | 2022-03-09 17:09 | ANE.PACU2 ---
Inpatient post-anesthesia follow up: Airway intact: Yes Vital signs: Temperature 98.8 F Pulse Rate 90 Respiratory Rate 17 Blood Pressure 132/82 Pulse Oximetry 100 Oxygen Delivery Me thod [ Room Air Current Rate & Del gabriele] Oxygen Delivery Me thod Nasal Cannula Oxygen Flow Rate 2 Fraction of Inspir ed Oxygen Hydration adequate: Yes Nausea and vomiting: No Pain level: 5 Mental status: Baseline
[2022-03-09] MEDS: docusate sodium 100 mg Capsule PO (17:31)
[2022-03-10] VITALS (8 sets, daily range): BP systolic 142–152; BP diastolic 76–94; PULSE 89–110; RESP 16–18; TEMP 36.6–38.3; O2SAT 98–100
[2022-03-10] MEDS: lactated ringers 1,000 ML 90 ML IV ×2 (03:32→15:51)
[2022-03-10] MEDS: ceFAZolin 2,000 MG in sodium chloride 0.9% (plus) 50 ML 100 MG IV (03:33)
[2022-03-10] MEDS: acetaminophen 500 mg Tablet 1000 MG PO ×3 (06:16→20:57)
--- NOTE | 2022-03-10 07:40 | P.PN_ITS ---
Subjective Subjective: POD 1 for C-Spine Patient resting comfortably with thoracic corset and so me extension currently on. Denies any arm pain this morning. Denies any headaches, shortness of breath. Reports left shoulder pain. Vitals/I&O/Wt Last Vital Signs Temp 98 F 03/10/22 00:00 Pulse 96 03/10/22 00:00 Resp 16 03/10/22 00:00 BP 142/87 03/10/22 00:00 Pulse Ox 100 03/10/22 00:00 O2 Del Method 03/09/22 18:00 O2 Flow Rate 2 03/09/22 15:00 03/09/22 03/10/22 03/10/22 22:59 06:59 14:59 Intake Total 550 / 1900 50 / 50 Output Total 150 / 550 Balance 550 / 1500 -150 / 1350 50 / 50 Weight last 48 hrs Weight 223 lb 4.8 oz Weight 210 lb 9.6 oz Physical Exam Narrative: Patient is alert and oriented x3 with a good general appearance normal mood and affect. Mildly tender with palpation about the incisional site posteriorly. Incision appears to be lean and dry with Hemovac drain intact. Without signs of erythema or drainage. No signs of infection. Good motor strength throughout right upper extremity. Dressing with ecchymosis over the left proximal humerus. Appears to fire in all motor groups with 5/5 strength in the right upper extremity. Good sensation wiggles all digits in the left fingers and hand. Flex and extends at the wrist on the left. Hands are warm good cap refill in all digits. Normal sensation to light touch in all dermatomal areas. 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 At this point we will have physical therapy evaluate. From our orthopedic spine standpoint can discontinue San catheter after physical therapy there is minimal output less than 75 mL of the Hemovac can be discontinued. We will have consultation with oncology. From orthopedic standpoint can discharge when patient is stable we can follow outpatient in 1 weeks for wound evaluation. Encourage home with incentive sp irometry. Status: Acute (2) Traumatic compression fracture of sixth thoracic vertebra: Status: Acute (3) Traumatic compression fracture of third thoracic vertebra: Status: Acute (4) Traumatic compression fracture of fourth thoracic vertebra: Status: Acute (5) Traumatic compression fracture of second thoracic vertebra: Status: Acute (6) Fracture of anatomical neck of humerus: Status: Acute Qualifiers: Encounter type: initial encounter Fracture type: closed Laterality: left Qualified Code(s): S42.292A - Other displaced fracture of upper end of left humerus, initial encounter for closed fracture Attestations Medical Necessity Statement*: Defer to medical team Coding Level of Care Code 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
[2022-03-10 07:55] LABS: Basophils % 0.2 %; Eosinophils % 0.2 %; Hematocrit 26.8 % (42.0-52.0); Hemoglobin 9.1 g/dL (11.7-16.6); Lymphocytes % 4.9 %; Mean Corpuscular Hemoglobin 31.9 pg (28.0-34.0); Mean Platelet Volume 8.5 fL (7.4-10.4); Monocytes # 1.5 10^3/uL (0.2-0.9); Monocytes % 7.7 %; Neutrophils # 16.69 10^3/uL (1.8-7.7); Neutrophils % 85.3 %; Nucleated Red Blood Cells % 0 %; Platelet Count 330 10^3/cmm (130-400); Red Blood Count 2.85 10^6/uL (4.1-5.3); Red Cell Distribution Width 12.8 % (12.1-15.1); White Blood Count 19.5 10^3/uL (4.0-10.0)
[2022-03-10 08:16] LABS: Blood Urea Nitrogen 14 mg/dL (6-20); Carbon Dioxide 25 mmol/L (22-29); Chloride 96 mmol/L (98-107); Glomerular Filtration Rate 140.9 mL/min (90-130); Glucose 111 mg/dL (65-115); Osmolality Calculated 269 mOsm/kg (285-295); Sodium 129 mmol/L (136-145)
[2022-03-10] MEDS: calcium carbonate 500 mg Chew Tablet 1000 MG PO ×2 (08:57→17:59)
[2022-03-10] MEDS: ergocalciferol (vitamin D2) 50,000 Unit Capsule 50000 UNIT PO (08:57)
[2022-03-10] MEDS: mupirocin oint 22 gm 1 APPLIC NASAL ×2 (08:57→18:10)
[2022-03-10] MEDS: cholecalciferol (vitamin D3) 1,000 unit Tablet 1000 UNIT PO (08:58)
[2022-03-10] MEDS: multivitamin therapeutic Tablet 1 TAB PO ×2 (08:58)
[2022-03-10] MEDS: chlorhexidine gluconate 0.12% Btl 473 mL 30 ML MUCOUS MEM ×3 (08:58→18:00)
[2022-03-10] MEDS: thiamine 100 mg Tablet PO (08:58)
[2022-03-10] MEDS: docusate sodium 100 mg Capsule PO ×2 (08:58→18:00)
[2022-03-10] MEDS: famotidine 20 mg/2 mL INJ IVP ×2 (08:58→20:57)
[2022-03-10] MEDS: iron polysaccharide complex 150 mg Capsule PO ×2 (08:59→17:59)
[2022-03-10] MEDS: metoprolol tartrate 25 mg Tablet PO ×2 (08:59→20:58)
[2022-03-10] MEDS: cloNIDine 0.1 mg Tablet PO ×3 (08:59→20:57)
[2022-03-10] MEDS: sodium chloride 1 gm Tablet 2 GM PO ×2 (08:59→17:59)
[2022-03-10] MEDS: folic acid 1 mg Tablet PO (08:59)
[2022-03-10] MEDS: sennosides-docusate Tablet 2 TAB PO ×2 (09:00→17:59)
[2022-03-10] MEDS: HYDROcodone-acetaminophen 5-325 mg Tablet PO ×2 (09:39→15:51)
[2022-03-10] MEDS: ceFAZolin 2,000 MG in sodium chloride 0.9% (plus) 50 ML 50 MG IV (12:54)
[2022-03-10] MEDS: ketorolac 30 mg/mL INJ IVP (12:55)
--- NOTE | 2022-03-10 13:24 | P.PN_ITS ---
Subjective Subjective: Patient is seen with regards to his shoulder today. Dressing is removed. His wound is benign. He is to mobilize following his surgical intervention yesterday with Dr. Perez. Therapy has not worked with him yet today when he is seen. Medications: Reviewed: Yes Medication Review Details: Generic Name Dose Route Start Last Admin Trade Name Freq PRN Reason Stop Dose Admin Acetaminophen 1,000 mg 03/07/22 14:00 03/09/22 10:47 Acetaminophen 50 0 Mg Tablet PO 1,000 mg Q8H ISAAC Administration Hydrocodone Bitart /Acetaminophen 1 tab 03/02/22 19:04 03/09/22 07:46 Hydrocodone-Acet aminophen 5-325 Mg Tablet PO 1 tab Q4H PRN Administration MODERATE TO SEVER E PAIN Calcium Carbonate 1,000 mg 03/06/22 18:00 03/09/22 08:42 Calcium Carbonat e 500 Mg Chew Tabl et PO 1,000 mg BID ISAAC Administration Chlorhexidine Gluc victoria 30 ml 03/06/22 13:00 03/09/22 08:43 Chlorhexidine Gl uconate 0.12% Btl 473 Ml MUCOUS MEM 30 ml QID ISACA Administration Clonidine HCl 0.1 mg 03/04/22 15:35 03/09/22 08:41 Clonidine 0.1 Mg Tablet PO 0.1 mg TID ISAAC Administration Ergocalciferol 50,000 unit 03/03/22 09:30 03/03/22 09:56 Ergocalciferol ( Vitamin D2) 50,000 Unit Capsule PO 50,000 unit Q7D ISAAC Administration Famotidine 20 mg 03/02/22 19:15 03/09/22 08:52 Famotidine 20 Mg /2 Ml Inj IVP 20 mg Q12H ISAAC Administration Folic Acid 1 mg 03/03/22 09:00 03/09/22 08:43 Folic Acid 1 Mg Tablet PO 1 mg DAILY ISAAC Administration Sodium Chloride 1,000 mls @ 30 ml s/hr 03/09/22 10:30 03/09/22 10:48 Sodium Chloride 0.9% IV 03/10/22 10:29 30 mls/hr .Q24H ISAAC Administration Metoprolol Tartrat e 25 mg 03/04/22 15:35 03/09/22 08:42 Metoprolol Tartr ate 25 Mg Tablet PO 25 mg BID@0900,2100 ISAAC Administration Morphine Sulfate 2 mg 03/02/22 19:04 03/08/22 08:38 Morphine 4 Mg/Ml Sdv 1 Ml IVP 2 mg Q4H PRN Administration SEVERE PAIN Multivitamins Ther apeutic 1 tab 03/03/22 09:00 03/09/22 08:42 Multivitamin The rapeutic Tablet PO 1 tab DAILY ISAAC Administration Multivitamins Ther apeutic 1 tab 03/07/22 09:00 03/09/22 08:42 Multivitamin The rapeutic Tablet PO 1 tab DAILY ISAAC Administration Mupirocin 1 applic 03/06/22 18:00 03/09/22 08:43 Mupirocin Oint 2 2 Gm NASAL 03/11/22 17:59 1 applic BID ISAAC Administration Oxycodone HCl 5 mg 03/06/22 11:49 03/08/22 06:16 Oxycodone 5 Mg I r Tab/Cap PO 5 mg Q4H PRN Administration MODERATE PAIN Polysaccharide Iro n Complex 150 mg 03/06/22 18:00 03/09/22 08:42 Iron Polysacchar tuyet Complex 150 Mg Capsule PO 150 mg BIDWM ISAAC Administration Senna/Docusate Sod ium 2 tab 03/06/22 18:00 03/09/22 08:43 Sennosides-Docus ate Tablet PO 2 tab BID ISAAC Administration Sodium Chloride 2 gm 03/08/22 18:00 03/09/22 08:43 Sodium Chloride 1 Gm Tablet PO 2 gm BID ISAAC Administration Thiamine Mononitra te 100 mg 03/03/22 09:00 03/09/22 08:42 Thiamine 100 Mg Tablet PO 100 mg DAILY ISAAC Administration Vitamin D 1,000 unit 03/06/22 11:49 03/09/22 08:41 Cholecalciferol (Vitamin D3) 1,000 Unit Tablet PO 1,000 unit DAILY ISAAC Administration Vitals/I&O/Wt Last Vital Signs Temp 98.7 F 03/10/22 07:45 Pulse 89 03/10/22 11:52 Resp 18 03/10/22 11:52 BP 151/89 03/10/22 11:52 Pulse Ox 100 03/10/22 11:52 O2 Del Method 03/10/22 11:52 O2 Flow Rate 2 03/10/22 08:00 03/09/22 03/10/22 03/10/22 22:59 06:59 14:59 Intake Total 550 / 1900 50 / 50 Output Total 150 / 550 Balance 550 / 1500 -150 / 1350 50 / 50 Weight last 48 hrs Weight 223 lb 4.8 oz Weight 210 lb 9.6 oz Physical Exam Const: COMMON NORMALS: no acute distress, average body habitus and alert GENERAL APPEARANCE: cooperative and comfortable ORIENTATION/CONSCIOUSNESS: Yes awake HENMT: COMMON NORMALS: normocephalic and atraumatic HEAD & SCALP: normocephalic and atraumatic Eye: GENERAL EYE: appearance normal, both eyes and all related structures Neck/C-Spine: OTHER: Patient is in a cervical collar. Chest: COMMONS NORMALS: normal inspection of the chest Resp: COMMON NORMALS: normal respiratory effort EFFORT & INSPECTION: Yes able to speak in complete sentences and Yes symmetric chest movement Extremity: LEFT UPPER EXTREMITY: Yes shoulder joint (Dressing is dry with no drainage.) Left shoulder joint: Yes inspection (Arm is swollen, but range of motion appears easier for the patient.) and Yes ROM (Patient is willing to move his wrist and elbow today.) Neuro: SENSORIUM/ORIENTATION: Yes alert Psych: APPEARANCE: Yes grossly normal ATTITUDE: Yes calm ATTENTION/CONCENTRATION: Yes attention grossly intact Skin: COMMON NORMALS: no rashes or lesions noted GENERAL SKIN EXAM: no rashes or lesions noted Urinary Catheter Management: 2-way Urethral: Cath Placed During This Visit: yes, but has since been removed by the nurse Reason for Continuing Indwelling Catheter: Not indwelling catheter Urinary Catheter Date of Insertion: 03/09/22 Urinary Catheter Time of Insertion: 11:45 Date Urinary Catheter Removed: 03/07/22 Time Urinary Catheter Discontinued: 06:10 Data : 03/10/22 07:34 03/10/22 07:34 Micro: Microbiology 03/09/22 11:40 Stool Lactoferrin - Final Stool Occult Blood (FIT) - Final A&P Assessment and plan (1) Lesion of cervical vertebra: The patient is seen today with regards to his left shoulder. The left arm remains swollen, but it appears to be improving in pain level and range of motion. The dressing is removed from the patient's shoulder incision. This incision is benign with no evidence of drainage or erythema. The patient will begin to mobilize following his spine surgery yesterday. From the perspective of his shoulder, the patient can be discharged at any time and follow-up with an outpatient. He would need to be seen in 1 to 2 weeks for repeat x-rays in the office. This is discussed with him. He is to limit external rotation to 0. He may work to bring his arm into his stomach. These may be active assisted with his opposite arm. He may range his elbow including pronation supination flexion and extension as well as his wrist and and. Shoulder abduction is limited at this time to essentially 0. Status: Acute (2) Traumatic compression fracture of sixth thoracic vertebra: Status: Acute (3) Traumatic compression fracture of third thoracic vertebra: Status: Acute (4) Traumatic compression fracture of fourth thoracic vertebra: Status: Acute (5) Traumatic compression fracture of second thoracic vertebra: Status: Acute (6) Fracture of anatomical neck of humerus: Status: Acute Qualifiers: Encounter type: initial encounter Fracture type: closed Laterality: left Qualified Code(s): S42.292A - Other displaced fracture of upper end of left humerus, initial encounter for closed fracture Attestations Medical Necessity Statement*: Patient has ongoing care for medical issues, spine and shoulder. 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
[2022-03-10 15:24] LABS: Lymphoma Profile (BBPL) See Report
--- NOTE | 2022-03-10 18:09 | PM.PN ---
Subjective Subjective: Patient was seen and examined this morning overall he is doing fine, post spine surgery, had a large BM today, was black and tarry FOBT was negative, C. difficile was positive, has been started on p.o. vancomycin. Medications: Reviewed: Yes Medication Review Details: Generic Name Dose Route Start Last Admin Trade Name Freq PRN Reason Stop Dose Admin Acetaminophen 1,000 mg 03/07/22 14:00 03/09/22 10:47 Acetaminophen 50 0 Mg Tablet PO 1,000 mg Q8H ISAAC Administration Hydrocodone Bitart /Acetaminophen 1 tab 03/02/22 19:04 03/09/22 07:46 Hydrocodone-Acet aminophen 5-325 Mg Tablet PO 1 tab Q4H PRN Administration MODERATE TO SEVER E PAIN Calcium Carbonate 1,000 mg 03/06/22 18:00 03/09/22 08:42 Calcium Carbonat e 500 Mg Chew Tabl et PO 1,000 mg BID ISAAC Administration Chlorhexidine Gluc victoria 30 ml 03/06/22 13:00 03/09/22 08:43 Chlorhexidine Gl uconate 0.12% Btl 473 Ml MUCOUS MEM 30 ml QID ISAAC Administration Clonidine HCl 0.1 mg 03/04/22 15:35 03/09/22 08:41 Clonidine 0.1 Mg Tablet PO 0.1 mg TID ISAAC Administration Ergocalciferol 50,000 unit 03/03/22 09:30 03/03/22 09:56 Ergocalciferol ( Vitamin D2) 50,000 Unit Capsule PO 50,000 unit Q7D ISAAC Administration Famotidine 20 mg 03/02/22 19:15 03/09/22 08:52 Famotidine 20 Mg /2 Ml Inj IVP 20 mg Q12H ISAAC Administration Folic Acid 1 mg 03/03/22 09:00 03/09/22 08:43 Folic Acid 1 Mg Tablet PO 1 mg DAILY ISAAC Administration Sodium Chloride 1,000 mls @ 30 ml s/hr 03/09/22 10:30 03/09/22 10:48 Sodium Chloride 0.9% IV 03/10/22 10:29 30 mls/hr .Q24H ISAAC Administration Metoprolol Tartrat e 25 mg 03/04/22 15:35 03/09/22 08:42 Metoprolol Tartr ate 25 Mg Tablet PO 25 mg BID@0900,2100 ISAAC Administration Morphine Sulfate 2 mg 03/02/22 19:04 03/08/22 08:38 Morphine 4 Mg/Ml Sdv 1 Ml IVP 2 mg Q4H PRN Administration SEVERE PAIN Multivitamins Ther apeutic 1 tab 03/03/22 09:00 03/09/22 08:42 Multivitamin The rapeutic Tablet PO 1 tab DAILY ISAAC Administration Multivitamins Ther apeutic 1 tab 03/07/22 09:00 03/09/22 08:42 Multivitamin The rapeutic Tablet PO 1 tab DAILY ISAAC Administration Mupirocin 1 applic 03/06/22 18:00 03/09/22 08:43 Mupirocin Oint 2 2 Gm NASAL 03/11/22 17:59 1 applic BID ISAAC Administration Oxycodone HCl 5 mg 03/06/22 11:49 03/08/22 06:16 Oxycodone 5 Mg I r Tab/Cap PO 5 mg Q4H PRN Administration MODERATE PAIN Polysaccharide Iro n Complex 150 mg 03/06/22 18:00 03/09/22 08:42 Iron Polysacchar tuyet Complex 150 Mg Capsule PO 150 mg BIDWM ISAAC Administration Senna/Docusate Sod ium 2 tab 03/06/22 18:00 03/09/22 08:43 Sennosides-Docus ate Tablet PO 2 tab BID ISAAC Administration Sodium Chloride 2 gm 03/08/22 18:00 03/09/22 08:43 Sodium Chloride 1 Gm Tablet PO 2 gm BID ISAAC Administration Thiamine Mononitra te 100 mg 03/03/22 09:00 03/09/22 08:42 Thiamine 100 Mg Tablet PO 100 mg DAILY ISAAC Administration Vitamin D 1,000 unit 03/06/22 11:49 03/09/22 08:41 Cholecalciferol (Vitamin D3) 1,000 Unit Tablet PO 1,000 unit DAILY ISAAC Administration Vitals/I&O/Wt Last Vital Signs Temp 98.7 F 03/10/22 16:00 Pulse 105 H 03/10/22 16:00 Resp 18 03/10/22 16:00 BP 152/88 03/10/22 16:00 Pulse Ox 98 03/10/22 16:00 O2 Del Method 03/10/22 16:00 O2 Flow Rate 2 03/10/22 08:00 03/10/22 03/10/22 03/10/22 06:59 14:59 22:59 Intake Total 1050 / 1050 50 / 1100 Output Total 150 / 550 Balance -150 / 1350 1050 / 1050 50 / 1100 Weight last 48 hrs Weight 101.287 kg Weight 95.527 kg Physical Exam Const: COMMON NORMALS: patient oriented x3 HENMT: COMMON NORMALS: normocephalic and atraumatic HEAD & SCALP: normocephalic and atraumatic Resp: COMMON NORMALS: clear to auscultation bilaterally EFFORT & INSPECTION: Yes symmetric chest movement AUSCULTATION: clear to auscultation bilaterally Cardio: COMMON NORMALS: regular rate, regular rhythm, S1 normal heart sound present, S2 normal heart sound present, No gallops present (Cardio), No murmurs present (Cardio), No rub (Cardio) and Peripheral pulses 2+ throughout RATE: regular rate RHYTHM: regular rhythm HEART SOUNDS: S1 normal heart sound present and S2 normal heart sound present PERIPHERAL PULSES: Peripheral pulses 2+ throughout GI: COMMON NORMALS: Normal to inspection, nondistended, normoactive bowel sounds present, Soft to palpation, non-tender, No hepatosplenomegaly present and no masses AUSCULTATION: Yes normoactive bowel sounds PALPATION: Yes Soft to palpation and Yes No hepatosplenomegaly present RECTAL EXAM: Yes deferred Extremity: COMMON NORMALS: no clubbing, cyanosis or edema and no pedal edema Neuro: COMMON NORMALS: patient oriented x3 Urinary Catheter Management: 2-way Urethral: Cath Placed During This Visit: yes, but has since been removed by the nurse Reason for Continuing Indwelling Catheter: Not indwelling catheter Urinary Catheter Date of Insertion: 03/09/22 Urinary Catheter Time of Insertion: 11:45 Date Urinary Catheter Removed: 03/07/22 Time Urinary Catheter Discontinued: 06:10 Data : 03/10/22 07:34 03/10/22 07:34 Micro: Microbiology 03/09/22 11:40 Stool Lactoferrin - Final Stool Enteric Pathogens (PCR) - Final Parasite Antigen Panel - Final C.difficile Toxin B Gene (PCR) - Final Occult Blood (FIT) - Final A&P Assessment and plan (1) Closed left humeral fracture: Patient to undergo reduction of the posterior displacement the left proximal humerus fracture will likely heal by sling and immobilized sedation Hyponatremia improved so that proceeding with anesthesia is appropriate for planned surgery in the Status: Acute (2) Cervical disc disorder: Cervical and thoracic CT scan has been ordered by Dr. Perez and were completed though patient had agitation and temporary refusal yesterday thought to be in part due to alcohol withdrawal and Decadron Decadron was stopped 03/05/2022 Status: Acute (3) Hyponatremia: Repeat morning labs Status: Acute (4) Rhabdomyolysis: Repeat CPK Status: Acute (5) Alcohol dependence: Continue with CIWA Continue with clonidine Recommend the patient be given the as needed lorazepam Status: Acute (6) JUANCHO (acute kidney injury): Resolved Status: Acute (7) C. difficile diarrhea: Status: Acute Plan Stop steroids continue to orientate patient continue with clonidine and lorazepam proceed with surgery as patient allows Attestations Medical Necessity Statement*: Patient is to be hospital for postop recovery, possible placement. 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 difficile diarrhea A04.72
[2022-03-10] MEDS: LORazepam 1 mg Tablet PO (20:58)
[2022-03-11] VITALS (8 sets, daily range): BP systolic 139–151; BP diastolic 71–84; PULSE 84–102; RESP 11–18; TEMP 36.8–37.5; O2SAT 98–99
[2022-03-11] MEDS: HYDROcodone-acetaminophen 5-325 mg Tablet PO ×3 (02:30→23:37)
[2022-03-11] MEDS: famotidine 20 mg/2 mL INJ IVP ×2 (08:41→21:06)
[2022-03-11] MEDS: cholecalciferol (vitamin D3) 1,000 unit Tablet 1000 UNIT PO (08:42)
[2022-03-11] MEDS: cloNIDine 0.1 mg Tablet PO ×3 (08:42→21:05)
[2022-03-11] MEDS: calcium carbonate 500 mg Chew Tablet 1000 MG PO ×2 (08:42→17:14)
[2022-03-11] MEDS: iron polysaccharide complex 150 mg Capsule PO ×2 (08:42→17:15)
[2022-03-11] MEDS: multivitamin therapeutic Tablet 1 TAB PO ×2 (08:42→08:46)
[2022-03-11] MEDS: sennosides-docusate Tablet 2 TAB PO (08:43)
[2022-03-11] MEDS: folic acid 1 mg Tablet PO (08:43)
[2022-03-11] MEDS: metoprolol tartrate 25 mg Tablet PO ×2 (08:43→21:06)
[2022-03-11] MEDS: sodium chloride 1 gm Tablet 2 GM PO ×2 (08:43→17:15)
[2022-03-11] MEDS: docusate sodium 100 mg Capsule PO (08:43)
[2022-03-11] MEDS: thiamine 100 mg Tablet PO (08:43)
[2022-03-11] MEDS: mupirocin oint 22 gm 1 APPLIC NASAL (08:44)
[2022-03-11] MEDS: chlorhexidine gluconate 0.12% Btl 473 mL 30 ML MUCOUS MEM ×4 (08:44→21:06)
[2022-03-11 10:10] LABS: Basophils % 0.1 %; Eosinophils # 0.1 10^3/uL (0.0-0.8); Eosinophils % 0.6 %; Hematocrit 24.9 % (42.0-52.0); Hemoglobin 8.3 g/dL (11.7-16.6); Lymphocytes % 5.1 %; Mean Corpuscular HGB Conc 33.3 g/dL (30.0-36.0); Mean Corpuscular Hemoglobin 30.6 pg (28.0-34.0); Mean Corpuscular Volume 91.9 fl (80-94); Mean Platelet Volume 8.4 fL (7.4-10.4); Monocytes # 1.4 10^3/uL (0.2-0.9); Monocytes % 6.8 %; Neutrophils # 16.97 10^3/uL (1.8-7.7); Nucleated Red Blood Cells % 0 %; Platelet Count 345 10^3/cmm (130-400); Red Blood Count 2.71 10^6/uL (4.1-5.3)
[2022-03-11 10:17] LABS: Alanine Aminotransferase 21 U/L (0-41); Albumin Level 2.4 g/dL (3.5-5.2); Alkaline Phosphatase 92 U/L (40-130); Anion Gap 11.4 (5-19); Aspartate Amino Transferase 27 U/L (0-40); Blood Urea Nitrogen 9 mg/dL (6-20); Calcium 7.8 mg/dL (8.5-10.5); Carbon Dioxide 25 mmol/L (22-29); Chloride 93 mmol/L (98-107); Globulin 2.5 g/dL (1.3-4.6); Glomerular Filtration Rate 173.9 mL/min (90-130); Glucose 113 mg/dL (65-115); Osmolality Calculated 261 mOsm/kg (285-295); Potassium 3.4 mmol/L (3.5-5.1); Sodium 126 mmol/L (136-145); Total Bilirubin 0.7 mg/dL (0.15-1.2); Total Protein 4.9 g/dL (6.6-8.7)
[2022-03-11] MEDS: acetaminophen 500 mg Tablet 1000 MG PO ×2 (16:04→21:05)
[2022-03-11] MEDS: LORazepam 1 mg Tablet PO (16:11)
--- NOTE | 2022-03-11 17:56 | PM.PN ---
Subjective Subjective: Patient was seen and examined this morning , persistent leukocytosis, hemoglobin is also slowly trending down: Currently it is 8.3, FOBT is positive, possible explanation of persistent leukocytosis could be C. difficile. Patient is currently afebrile.His other vitals and labs have been reviewed. Medications: Reviewed: Yes Medication Review Details: Generic Name Dose Route Start Last Admin Trade Name Daydayq PRN Reason Stop Dose Admin Acetaminophen 1,000 mg 03/07/22 14:00 03/11/22 16:04 Acetaminophen 50 0 Mg Tablet PO 1,000 mg Q8H ISAAC Administration Hydrocodone Bitart /Acetaminophen 1 - 2 tab 03/09/22 13:58 03/11/22 09:50 Hydrocodone-Acet aminophen 5-325 Mg Tablet PO 2 tab Q4H PRN Administration MODERATE TO SEVER E PAIN Calcium Carbonate 1,000 mg 03/06/22 18:00 03/11/22 17:14 Calcium Carbonat e 500 Mg Chew Tabl et PO 1,000 mg BID ISAAC Administration Chlorhexidine Gluc victoria 30 ml 03/06/22 13:00 03/11/22 16:04 Chlorhexidine Gl uconate 0.12% Btl 473 Ml MUCOUS MEM 30 ml QID ISAAC Administration Clonidine HCl 0.1 mg 03/04/22 15:35 03/11/22 16:03 Clonidine 0.1 Mg Tablet PO 0.1 mg TID ISAAC Administration Docusate Sodium 100 mg 03/09/22 18:00 03/11/22 08:43 Docusate Sodium 100 Mg Capsule PO 100 mg BID ISAAC Administration Ergocalciferol 50,000 unit 03/03/22 09:30 03/10/22 08:57 Ergocalciferol ( Vitamin D2) 50,000 Unit Capsule PO 50,000 unit Q7D ISAAC Administration Famotidine 20 mg 03/02/22 19:15 03/11/22 08:41 Famotidine 20 Mg /2 Ml Inj IVP 20 mg Q12H ISAAC Administration Folic Acid 1 mg 03/03/22 09:00 03/11/22 08:43 Folic Acid 1 Mg Tablet PO 1 mg DAILY ISAAC Administration Ketorolac Trometha mine 30 mg 03/09/22 13:58 03/10/22 12:55 Ketorolac 30 Mg/ Ml Inj IVP 30 mg Q6H PRN Administration BREAKTHROUGH PAIN Lorazepam 1 mg 03/02/22 22:10 03/11/22 16:11 Lorazepam 1 Mg T ablet PO 1 mg TID PRN Administration anxiety Metoprolol Tartrat e 25 mg 03/04/22 15:35 03/11/22 08:43 Metoprolol Tartr ate 25 Mg Tablet PO 25 mg BID@0900,2100 ISAAC Administration Morphine Sulfate 2 mg 03/02/22 19:04 03/08/22 08:38 Morphine 4 Mg/Ml Sdv 1 Ml IVP 2 mg Q4H PRN Administration SEVERE PAIN Multivitamins Ther apeutic 1 tab 03/03/22 09:00 03/11/22 08:42 Multivitamin The rapeutic Tablet PO 1 tab DAILY ISAAC Administration Multivitamins Ther apeutic 1 tab 03/07/22 09:00 03/11/22 08:46 Multivitamin The rapeutic Tablet PO 1 tab DAILY ISAAC Administration Mupirocin 1 applic 03/06/22 18:00 03/11/22 08:44 Mupirocin Oint 2 2 Gm NASAL 03/11/22 17:59 1 applic BID ISAAC Administration Oxycodone HCl 5 mg 03/06/22 11:49 03/08/22 06:16 Oxycodone 5 Mg I r Tab/Cap PO 5 mg Q4H PRN Administration MODERATE PAIN Polysaccharide Iro n Complex 150 mg 03/06/22 18:00 03/11/22 17:15 Iron Polysacchar tuyet Complex 150 Mg Capsule PO 150 mg BIDWM ISAAC Administration Senna/Docusate Sod ium 2 tab 03/06/22 18:00 03/11/22 08:43 Sennosides-Docus ate Tablet PO 2 tab BID ISAAC Administration Sodium Chloride 2 gm 03/08/22 18:00 03/11/22 17:15 Sodium Chloride 1 Gm Tablet PO 2 gm BID ISAAC Administration Thiamine Mononitra te 100 mg 03/03/22 09:00 03/11/22 08:43 Thiamine 100 Mg Tablet PO 100 mg DAILY ISAAC Administration Vancomycin HCl 125 mg 03/10/22 17:00 03/11/22 16:03 Vancomycin 1,000 Mg Oral Yolanda (Btl) PO 1.25 ml QID ISAAC Administration Vitamin D 1,000 unit 03/06/22 11:49 03/11/22 08:42 Cholecalciferol (Vitamin D3) 1,000 Unit Tablet PO 1,000 unit DAILY ISAAC Administration Vitals/I&O/Wt Last Vital Signs Temp 98.9 F 03/11/22 16:00 Pulse 93 03/11/22 16:00 Resp 16 03/11/22 16:00 BP 144/74 03/11/22 16:03 Pulse Ox 99 03/11/22 16:00 O2 Del Method 03/11/22 16:00 O2 Flow Rate 2 03/11/22 08:00 03/11/22 03/11/22 03/11/22 06:59 14:59 22:59 Intake Total 60 / 60 Output Total 500 / 700 Balance -500 / 964 60 / 60 Weight last 48 hrs Weight 99.847 kg Weight 101.287 kg Physical Exam Const: COMMON NORMALS: patient oriented x3 HENMT: COMMON NORMALS: normocephalic and atraumatic HEAD & SCALP: normocephalic and atraumatic Eye: COMMON NORMALS: no scleral icterus GENERAL EYE: appearance normal, both eyes and all related structures Resp: COMMON NORMALS: normal respiratory effort, No retractions, No use of accessory muscles and clear to auscultation bilaterally EFFORT & INSPECTION: Yes symmetric chest movement AUSCULTATION: clear to auscultation bilaterally Cardio: COMMON NORMALS: regular rate, regular rhythm, S1 normal heart sound present, S2 normal heart sound present, No gallops present (Cardio), No murmurs present (Cardio), No rub (Cardio) and Peripheral pulses 2+ throughout RATE: regular rate RHYTHM: regular rhythm HEART SOUNDS: S1 normal heart sound present and S2 normal heart sound present PERIPHERAL PULSES: Peripheral pulses 2+ throughout GI: COMMON NORMALS: Normal to inspection, nondistended, normoactive bowel sounds present, Soft to palpation, non-tender, No hepatosplenomegaly present and no masses AUSCULTATION: Yes normoactive bowel sounds PALPATION: Yes Soft to palpation and Yes No hepatosplenomegaly present RECTAL EXAM: Yes deferred Extremity: COMMON NORMALS: no clubbing, cyanosis or edema and no pedal edema Neuro: COMMON NORMALS: patient oriented x3 Urinary Catheter Management: 2-way Urethral: Cath Placed During This Visit: yes, but has since been removed by the nurse Reason for Continuing Indwelling Catheter: Acute Urinary Retention or Obstruction Urinary Catheter Date of Insertion: 03/09/22 Urinary Catheter Time of Insertion: 11:45 Date Urinary Catheter Removed: 03/07/22 Time Urinary Catheter Discontinued: 06:10 Data : 03/11/22 09:48 03/11/22 09:48 Micro: Microbiology 03/10/22 14:02 Occult Blood (FIT) - Final Stool Routine Collection 03/09/22 11:40 Stool Lactoferrin - Final Stool Enteric Pathogens (PCR) - Final Parasite Antigen Panel - Final C.difficile Toxin B Gene (PCR) - Final Occult Blood (FIT) - Final A&P Assessment and plan (1) Closed left humeral fracture: Patient to undergo reduction of the posterior displacement the left proximal humerus fracture will likely heal by sling and immobilized sedation Hyponatremia improved so that proceeding with anesthesia is appropriate for planned surgery in the Status: Acute (2) Cervical disc disorder: Lytic lesion C7, traumatic compression fractures T 2, 3, 4, 6 ?S/P C5-T2 instrumentation, C5-T2 fusion, Biopsy C7 lesion. Status: Acute (3) Hyponatremia: Monitor BMP On fluid restriction Continue salt tablets Status: Acute (4) Rhabdomyolysis: Repeat CPK Status: Acute (5) Alcohol dependence: Continue with CIWA Continue with clonidine Recommend the patient be given the as needed lorazepam Status: Acute (6) JUANCHO (acute kidney injury): Resolved Status: Acute (7) C. difficile diarrhea: p.o. vancomycin 125 mg every 6H. We will continue for 7 days. Status: Acute Plan Disposition: Patient has been accepted at [facility] [place]ating discharge on Monday. Attestations Medical Necessity Statement*: Patient needs to be in hospital for postop recovery, leukocytosis, hemoglobin monitoring. Safe placement. Coding Level of Care Code Acute Solution Design And Analysis Manager for [facility] Fwd Diagnoses Closed left humeral fracture S42.302A Cervical disc disorder M50.90 Hyponatremia E87.1 Rhabdomyolysis M62.82 Alcohol dependence F10.20 JUANCHO (acute kidney injury) N17.9 C. difficile diarrhea A04.72
[2022-03-11] MEDS: potassium chloride oral liq 20 mEq/15 mL UDC 40 MEQ PO (21:04)
[2022-03-12] VITALS (8 sets, daily range): BP systolic 122–143; BP diastolic 75–90; PULSE 84–100; RESP 16–18; TEMP 36.4–37.2; O2SAT 96–99
--- NOTE | 2022-03-12 05:00 | XRR_ITS ---
PROCEDURE INFORMATION: Exam: XR Chest Exam date and time: 03/12/2022 8:02 AM Age: 51 years old Clinical indication: Shortness of breath; Additional info: Persistent leukocytosis TECHNIQUE: Imaging protocol: Radiologic exam of the chest. Views: 1 view. COMPARISON: CR XR chest 1V portable [id number] 03/02/2022 11:15 AM FINDINGS: Lungs: Unremarkable. No consolidation. Pleural spaces: Unremarkable. No pleural effusion. No pneumothorax. Heart/Mediastinum: Unremarkable. No cardiomegaly. Bones/joints: Pedicle screws and rods are present at the cervicothoracic junction from spinal fusion surgery. XR/XR chest 1V portable [id number] IMPRESSION: No acute cardiopulmonary abnormality.
[2022-03-12] MEDS: acetaminophen 500 mg Tablet 1000 MG PO ×2 (05:11→22:01)
[2022-03-12 05:48] LABS: Basophils % 0.1 %; Eosinophils # 0.1 10^3/uL (0.0-0.8); Eosinophils % 0.9 %; Hematocrit 24.1 % (42.0-52.0); Lymphocytes # 0.9 10^3/uL (0.8-4.8); Lymphocytes % 6.5 %; Mean Corpuscular HGB Conc 33.2 g/dL (30.0-36.0); Mean Corpuscular Volume 93.4 fl (80-94); Mean Platelet Volume 8.5 fL (7.4-10.4); Monocytes % 7.5 %; Neutrophils # 11.41 10^3/uL (1.8-7.7); Neutrophils % 81.8 %; Nucleated Red Blood Cells % 0 %; Platelet Count 336 10^3/cmm (130-400); Red Blood Count 2.58 10^6/uL (4.1-5.3); Red Cell Distribution Width 13.1 % (12.1-15.1)
[2022-03-12 06:12] LABS: Alanine Aminotransferase 25 U/L (0-41); Albumin Level 2.3 g/dL (3.5-5.2); Alkaline Phosphatase 102 U/L (40-130); Anion Gap 11.4 (5-19); Aspartate Amino Transferase 27 U/L (0-40); Blood Urea Nitrogen 8 mg/dL (6-20); Calcium 7.9 mg/dL (8.5-10.5); Carbon Dioxide 24 mmol/L (22-29); Chloride 94 mmol/L (98-107); Globulin 2.6 g/dL (1.3-4.6); Glucose 94 mg/dL (65-115); Osmolality Calculated 260 mOsm/kg (285-295); Potassium 3.4 mmol/L (3.5-5.1); Sodium 126 mmol/L (136-145); Total Bilirubin 0.7 mg/dL (0.15-1.2); Total Protein 4.9 g/dL (6.6-8.7)
[2022-03-12] MEDS: sodium chloride 1 gm Tablet 2 GM PO ×2 (09:12→17:59)
[2022-03-12] MEDS: metoprolol tartrate 25 mg Tablet PO ×2 (09:12→21:57)
[2022-03-12] MEDS: docusate sodium 100 mg Capsule PO ×2 (09:12→17:58)
[2022-03-12] MEDS: iron polysaccharide complex 150 mg Capsule PO ×2 (09:12→17:59)
[2022-03-12] MEDS: sennosides-docusate Tablet 2 TAB PO ×2 (09:12→17:59)
[2022-03-12] MEDS: folic acid 1 mg Tablet PO (09:13)
[2022-03-12] MEDS: calcium carbonate 500 mg Chew Tablet 1000 MG PO ×2 (09:13→17:59)
[2022-03-12] MEDS: cholecalciferol (vitamin D3) 1,000 unit Tablet 1000 UNIT PO (09:13)
[2022-03-12] MEDS: thiamine 100 mg Tablet PO (09:13)
[2022-03-12] MEDS: cloNIDine 0.1 mg Tablet PO ×3 (09:13→21:58)
[2022-03-12] MEDS: famotidine 20 mg/2 mL INJ IVP ×2 (09:13→22:00)
[2022-03-12] MEDS: multivitamin therapeutic Tablet 1 TAB PO (09:17)
[2022-03-12] MEDS: chlorhexidine gluconate 0.12% Btl 473 mL 30 ML MUCOUS MEM ×4 (09:18→21:58)
[2022-03-12] MEDS: sodium chloride 0.9% 1,000 ML 100 ML IV (09:33)
[2022-03-12] MEDS: ondansetron 2 mg/ML SDV 2 mL 4 MG IVP (10:27)
[2022-03-12] MEDS: HYDROcodone-acetaminophen 5-325 mg Tablet PO (10:27)
[2022-03-12] MEDS: LORazepam 1 mg Tablet PO (14:16)
[2022-03-12] MEDS: ketorolac 30 mg/mL INJ IVP (14:17)
--- NOTE | 2022-03-12 15:19 | P.PN_ITS ---
Subjective Subjective: Patient was seen and examined this morning, is not complaining of diarrhea, had 1 bowel movement overnight, since the serum sodium has trended down to 126, will give him a liter of normal saline, Will continue to follow repeat BMP, hemoglobin is slowly trending down, likely secondary to postop bleeding White blood cell count is also improving, pain is better controlled. Medications: Reviewed: Yes Medication Review Details: Generic Name Dose Route Start Last Admin Trade Name Freq PRN Reason Stop Dose Admin Acetaminophen 1,000 mg 03/07/22 14:00 03/12/22 14:40 Acetaminophen 50 0 Mg Tablet PO Not Given Q8H ISAAC Hydrocodone Bitart /Acetaminophen 1 - 2 tab 03/09/22 13:58 03/12/22 10:27 Hydrocodone-Acet aminophen 5-325 Mg Tablet PO 1 tab Q4H PRN Administration MODERATE TO SEVER E PAIN Calcium Carbonate 1,000 mg 03/06/22 18:00 03/12/22 09:13 Calcium Carbonat e 500 Mg Chew Tabl et PO 1,000 mg BID ISAAC Administration Chlorhexidine Gluc victoria 30 ml 03/06/22 13:00 03/12/22 14:50 Chlorhexidine Gl uconate 0.12% Btl 473 Ml MUCOUS MEM 30 ml QID ISAAC Administration Clonidine HCl 0.1 mg 03/04/22 15:35 03/12/22 14:49 Clonidine 0.1 Mg Tablet PO 0.1 mg TID ISAAC Administration Docusate Sodium 100 mg 03/09/22 18:00 03/12/22 09:12 Docusate Sodium 100 Mg Capsule PO 100 mg BID ISAAC Administration Ergocalciferol 50,000 unit 03/03/22 09:30 03/10/22 08:57 Ergocalciferol ( Vitamin D2) 50,000 Unit Capsule PO 50,000 unit Q7D ISAAC Administration Famotidine 20 mg 03/02/22 19:15 03/12/22 09:13 Famotidine 20 Mg /2 Ml Inj IVP 20 mg Q12H ISAAC Administration Folic Acid 1 mg 03/03/22 09:00 03/12/22 09:13 Folic Acid 1 Mg Tablet PO 1 mg DAILY ISAAC Administration Sodium Chloride 1,000 mls @ 100 m ls/hr 03/12/22 09:00 03/12/22 09:33 Sodium Chloride 0.9% IV 100 mls/hr .Q10H ISAAC Administration Ketorolac Trometha mine 30 mg 03/09/22 13:58 03/12/22 14:17 Ketorolac 30 Mg/ Ml Inj IVP 30 mg Q6H PRN Administration BREAKTHROUGH PAIN Lorazepam 1 mg 03/02/22 22:10 03/12/22 14:16 Lorazepam 1 Mg T ablet PO 1 mg TID PRN Administration anxiety Metoprolol Tartrat e 25 mg 03/04/22 15:35 03/12/22 09:12 Metoprolol Tartr ate 25 Mg Tablet PO 25 mg BID@0900,2100 ISAAC Administration Morphine Sulfate 2 mg 03/02/22 19:04 03/08/22 08:38 Morphine 4 Mg/Ml Sdv 1 Ml IVP 2 mg Q4H PRN Administration SEVERE PAIN Multivitamins Ther apeutic 1 tab 03/07/22 09:00 03/12/22 09:17 Multivitamin The rapeutic Tablet PO 1 tab DAILY ISAAC Administration Ondansetron HCl 4 mg 03/02/22 19:04 03/12/22 10:27 Ondansetron 2 Mg /Ml Sdv 2 Ml IVP 4 mg Q8H PRN Administration vomiting, or N/V if npo Oxycodone HCl 5 mg 03/06/22 11:49 03/08/22 06:16 Oxycodone 5 Mg I r Tab/Cap PO 5 mg Q4H PRN Administration MODERATE PAIN Polysaccharide Iro n Complex 150 mg 03/06/22 18:00 03/12/22 09:12 Iron Polysacchar tuyet Complex 150 Mg Capsule PO 150 mg BIDWM ISAAC Administration Senna/Docusate Sod ium 2 tab 03/06/22 18:00 03/12/22 09:12 Sennosides-Docus ate Tablet PO 2 tab BID ISAAC Administration Sodium Chloride 2 gm 03/08/22 18:00 03/12/22 09:12 Sodium Chloride 1 Gm Tablet PO 2 gm BID ISAAC Administration Thiamine Mononitra te 100 mg 03/03/22 09:00 03/12/22 09:13 Thiamine 100 Mg Tablet PO 100 mg DAILY ISAAC Administration Vancomycin HCl 125 mg 03/10/22 17:00 03/12/22 14:22 Vancomycin 1,000 Mg Oral Yolanda (Btl) PO 1.25 ml QID ISAAC Administration Vitamin D 1,000 unit 03/06/22 11:49 03/12/22 09:13 Cholecalciferol (Vitamin D3) 1,000 Unit Tablet PO 1,000 unit DAILY ISAAC Administration Vitals/I&O/Wt Last Vital Signs Temp 98.8 F 03/12/22 12:00 Pulse 97 03/12/22 12:00 Resp 16 03/12/22 12:00 BP 125/82 03/12/22 14:49 Pulse Ox 96 03/12/22 12:00 O2 Del Method 03/12/22 12:00 O2 Flow Rate 2 03/11/22 08:00 03/12/22 03/12/22 03/12/22 06:59 14:59 22:59 Intake Total 240 / 300 240 / 240 Output Total 375 / 1175 Balance -135 / -875 240 / 240 Weight last 48 hrs Weight 97.885 kg Weight 99.847 kg Physical Exam Const: COMMON NORMALS: patient oriented x3 HENMT: COMMON NORMALS: normocephalic and atraumatic HEAD & SCALP: normocephalic and atraumatic Eye: COMMON NORMALS: no scleral icterus GENERAL EYE: appearance normal, both eyes and all related structures Resp: COMMON NORMALS: normal respiratory effort, No retractions, No use of accessory muscles and clear to auscultation bilaterally EFFORT & INSPECTION: Yes symmetric chest movement AUSCULTATION: clear to auscultation bilaterally Cardio: COMMON NORMALS: regular rate, regular rhythm, S1 normal heart sound present, S2 normal heart sound present, No gallops present (Cardio), No murmurs present (Cardio), No rub (Cardio) and Peripheral pulses 2+ throughout RATE: regular rate RHYTHM: regular rhythm HEART SOUNDS: S1 normal heart sound present and S2 normal heart sound present PERIPHERAL PULSES: Peripheral pulses 2+ throughout GI: COMMON NORMALS: Normal to inspection, nondistended, normoactive bowel sounds present, Soft to palpation, non-tender, No hepatosplenomegaly present and no masses AUSCULTATION: Yes normoactive bowel sounds PALPATION: Yes Soft to palpation and Yes No hepatosplenomegaly present RECTAL EXAM: Yes deferred Extremity: COMMON NORMALS: no clubbing, cyanosis or edema and no pedal edema Neuro: COMMON NORMALS: patient oriented x3 Urinary Catheter Management: 2-way Urethral: Cath Placed During This Visit: yes, but has since been removed by the nurse Reason for Continuing Indwelling Catheter: Acute Urinary Retention or Obstruction Urinary Catheter Date of Insertion: 03/09/22 Urinary Catheter Time of Insertion: 11:45 Date Urinary Catheter Removed: 03/07/22 Time Urinary Catheter Discontinued: 06:10 Data : 03/12/22 05:25 03/12/22 05:25 Micro: Microbiology 03/12/22 05:30 Blood Culture - Preliminary Blood SPECIMEN COLLECTED 03/12/22 05:25 Blood Culture - Preliminary Blood SPECIMEN COLLECTED A&P Assessment and plan (1) Closed left humeral fracture: Patient to undergo reduction of the posterior displacement the left proximal humerus fracture will likely heal by sling and immobilized sedation Hyponatremia improved so that proceeding with anesthesia is appropriate for planned surgery in the Status: Acute (2) Cervical disc disorder: Lytic lesion C7, traumatic compression fractures T 2, 3, 4, 6 ?S/P C5-T2 instrumentation, C5-T2 fusion, Biopsy C7 lesion. Status: Acute (3) Hyponatremia: Monitor BMP On fluid restriction Continue salt tablets Status: Acute (4) Rhabdomyolysis: Repeat CPK Status: Acute (5) Alcohol dependence: Continue with CIWA Continue with clonidine Recommend the patient be given the as needed lorazepam Status: Acute (6) JUANCHO (acute kidney injury): Resolved Status: Acute (7) C. difficile diarrhea: p.o. vancomycin 125 mg every 6H. We will continue for 7 days. Status: Acute Plan Disposition: Patient has been accepted at [facility] [place] anticipating discharge on Monday. Attestations Medical Necessity Statement*: Patient needs to be in hospital, for postop recovery, awaiting safe discharge. Coding Level of Care Code Acute Convolute Tube Winder for [facility] Fwd Diagnoses Closed left humeral fracture S42.302A Cervical disc disorder M50.90 Hyponatremia E87.1 Rhabdomyolysis M62.82 Alcohol dependence F10.20 JUANCHO (acute kidney injury) N17.9 C. difficile diarrhea A04.72
[2022-03-13] VITALS (8 sets, daily range): BP systolic 120–147; BP diastolic 73–79; PULSE 83–89; RESP 15–18; TEMP 36.4–37.4; O2SAT 98–99
[2022-03-13] MEDS: acetaminophen 500 mg Tablet 1000 MG PO ×2 (04:47→13:24)
[2022-03-13 06:00] LABS: Basophils % 0.3 %; Eosinophils # 0.1 10^3/uL (0.0-0.8); Eosinophils % 1.4 %; Hematocrit 24.7 % (42.0-52.0); Hemoglobin 8.2 g/dL (11.7-16.6); Lymphocytes # 0.9 10^3/uL (0.8-4.8); Lymphocytes % 9.4 %; Mean Corpuscular HGB Conc 33.2 g/dL (30.0-36.0); Mean Corpuscular Hemoglobin 31.1 pg (28.0-34.0); Mean Corpuscular Volume 93.6 fl (80-94); Mean Platelet Volume 8.3 fL (7.4-10.4); Monocytes # 0.9 10^3/uL (0.2-0.9); Monocytes % 9.2 %; Neutrophils # 7.28 10^3/uL (1.8-7.7); Nucleated Red Blood Cells % 0 %; Platelet Count 422 10^3/cmm (130-400); Red Blood Count 2.64 10^6/uL (4.1-5.3); Red Cell Distribution Width 12.9 % (12.1-15.1); White Blood Count 9.8 10^3/uL (4.0-10.0)
[2022-03-13 06:25] LABS: Alanine Aminotransferase 30 U/L (0-41); Albumin Level 2.2 g/dL (3.5-5.2); Alkaline Phosphatase 114 U/L (40-130); Anion Gap 11.3 (5-19); Aspartate Amino Transferase 34 U/L (0-40); Blood Urea Nitrogen 7 mg/dL (6-20); Calcium 7.9 mg/dL (8.5-10.5); Carbon Dioxide 24 mmol/L (22-29); Chloride 97 mmol/L (98-107); Globulin 2.4 g/dL (1.3-4.6); Glomerular Filtration Rate 173.9 mL/min (90-130); Glucose 96 mg/dL (65-115); Osmolality Calculated 266 mOsm/kg (285-295); Potassium 3.3 mmol/L (3.5-5.1); Sodium 129 mmol/L (136-145); Total Bilirubin 0.6 mg/dL (0.15-1.2); Total Protein 4.6 g/dL (6.6-8.7)
[2022-03-13 06:48] LABS: Neutrophils % 79.7 %; Slide Review Slide Review Perform
[2022-03-13] MEDS: famotidine 20 mg/2 mL INJ IVP ×2 (09:25→20:42)
[2022-03-13] MEDS: potassium chloride ER 20 mEq Tablet 40 MEQ PO (09:25)
[2022-03-13] MEDS: sodium chloride 1 gm Tablet 2 GM PO ×2 (09:26→17:22)
[2022-03-13] MEDS: calcium carbonate 500 mg Chew Tablet 1000 MG PO ×2 (09:26→17:22)
[2022-03-13] MEDS: chlorhexidine gluconate 0.12% Btl 473 mL 30 ML MUCOUS MEM ×3 (09:26→17:23)
[2022-03-13] MEDS: thiamine 100 mg Tablet PO (09:27)
[2022-03-13] MEDS: folic acid 1 mg Tablet PO (09:27)
[2022-03-13] MEDS: cloNIDine 0.1 mg Tablet PO ×3 (09:27→20:42)
[2022-03-13] MEDS: multivitamin therapeutic Tablet 1 TAB PO (09:27)
[2022-03-13] MEDS: cholecalciferol (vitamin D3) 1,000 unit Tablet 1000 UNIT PO (09:27)
[2022-03-13] MEDS: docusate sodium 100 mg Capsule PO ×2 (09:27→17:22)
[2022-03-13] MEDS: metoprolol tartrate 25 mg Tablet PO ×2 (09:27→20:42)
[2022-03-13] MEDS: sennosides-docusate Tablet 2 TAB PO ×2 (09:28→17:23)
[2022-03-13] MEDS: iron polysaccharide complex 150 mg Capsule PO ×2 (09:29→17:22)
[2022-03-13] MEDS: ketorolac 30 mg/mL INJ IVP (09:38)
--- NOTE | 2022-03-13 16:20 | PM.PN ---
Subjective Subjective: Patient was seen and examined this morning, working with physical therapy, serum sodium is improved to 129. Potassium supplement done. Medications: Reviewed: Yes Medication Review Details: Generic Name Dose Route Start Last Admin Trade Name Freq PRN Reason Stop Dose Admin Acetaminophen 1,000 mg 03/07/22 14:00 03/13/22 13:24 Acetaminophen 50 0 Mg Tablet PO 1,000 mg Q8H ISAAC Administration Hydrocodone Bitart /Acetaminophen 1 - 2 tab 03/09/22 13:58 03/12/22 10:27 Hydrocodone-Acet aminophen 5-325 Mg Tablet PO 1 tab Q4H PRN Administration MODERATE TO SEVER E PAIN Calcium Carbonate 1,000 mg 03/06/22 18:00 03/13/22 09:26 Calcium Carbonat e 500 Mg Chew Tabl et PO 1,000 mg BID ISAAC Administration Chlorhexidine Gluc victoria 30 ml 03/06/22 13:00 03/13/22 13:23 Chlorhexidine Gl uconate 0.12% Btl 473 Ml MUCOUS MEM 30 ml QID ISAAC Administration Clonidine HCl 0.1 mg 03/04/22 15:35 03/13/22 14:38 Clonidine 0.1 Mg Tablet PO 0.1 mg TID ISAAC Administration Docusate Sodium 100 mg 03/09/22 18:00 03/13/22 09:27 Docusate Sodium 100 Mg Capsule PO 100 mg BID ISAAC Administration Ergocalciferol 50,000 unit 03/03/22 09:30 03/10/22 08:57 Ergocalciferol ( Vitamin D2) 50,000 Unit Capsule PO 50,000 unit Q7D ISAAC Administration Famotidine 20 mg 03/02/22 19:15 03/13/22 09:25 Famotidine 20 Mg /2 Ml Inj IVP 20 mg Q12H ISAAC Administration Folic Acid 1 mg 03/03/22 09:00 03/13/22 09:27 Folic Acid 1 Mg Tablet PO 1 mg DAILY ISAAC Administration Ketorolac Trometha mine 30 mg 03/09/22 13:58 03/13/22 09:38 Ketorolac 30 Mg/ Ml Inj IVP 30 mg Q6H PRN Administration BREAKTHROUGH PAIN Lorazepam 1 mg 03/02/22 22:10 03/12/22 14:16 Lorazepam 1 Mg T ablet PO 1 mg TID PRN Administration anxiety Metoprolol Tartrat e 25 mg 03/04/22 15:35 03/13/22 09:27 Metoprolol Tartr ate 25 Mg Tablet PO 25 mg BID@0900,2100 ISAAC Administration Morphine Sulfate 2 mg 03/02/22 19:04 03/08/22 08:38 Morphine 4 Mg/Ml Sdv 1 Ml IVP 2 mg Q4H PRN Administration SEVERE PAIN Multivitamins Ther apeutic 1 tab 03/07/22 09:00 03/13/22 09:27 Multivitamin The rapeutic Tablet PO 1 tab DAILY ISAAC Administration Ondansetron HCl 4 mg 03/02/22 19:04 03/12/22 10:27 Ondansetron 2 Mg /Ml Sdv 2 Ml IVP 4 mg Q8H PRN Administration vomiting, or N/V if npo Oxycodone HCl 5 mg 03/06/22 11:49 03/08/22 06:16 Oxycodone 5 Mg I r Tab/Cap PO 5 mg Q4H PRN Administration MODERATE PAIN Polysaccharide Iro n Complex 150 mg 03/06/22 18:00 03/13/22 09:29 Iron Polysacchar tuyet Complex 150 Mg Capsule PO 150 mg BIDWM ISAAC Administration Senna/Docusate Sod ium 2 tab 03/06/22 18:00 03/13/22 09:28 Sennosides-Docus ate Tablet PO 2 tab BID ISAAC Administration Sodium Chloride 2 gm 03/08/22 18:00 03/13/22 09:26 Sodium Chloride 1 Gm Tablet PO 2 gm BID ISAAC Administration Thiamine Mononitra te 100 mg 03/03/22 09:00 03/13/22 09:27 Thiamine 100 Mg Tablet PO 100 mg DAILY ISAAC Administration Vancomycin HCl 125 mg 03/10/22 17:00 03/13/22 13:23 Vancomycin 1,000 Mg Oral Yolanda (Btl) PO 1.25 ml QID ISAAC Administration Vitamin D 1,000 unit 03/06/22 11:49 03/13/22 09:27 Cholecalciferol (Vitamin D3) 1,000 Unit Tablet PO 1,000 unit DAILY ISAAC Administration Vitals/I&O/Wt Last Vital Signs Temp 98.4 F 03/13/22 15:53 Pulse 83 03/13/22 15:53 Resp 16 03/13/22 15:53 BP 130/76 03/13/22 15:53 Pulse Ox 99 03/13/22 15:53 O2 Del Method 03/13/22 15:53 O2 Flow Rate 2 03/11/22 08:00 03/13/22 03/13/22 03/13/22 06:59 14:59 22:59 Intake Total 807 / 807 Output Total 475 / 525 225 / 225 Balance -475 / -285 582 / 582 Weight last 48 hrs Weight 97.885 kg Physical Exam Const: COMMON NORMALS: patient oriented x3 HENMT: COMMON NORMALS: normocephalic and atraumatic HEAD & SCALP: normocephalic and atraumatic Eye: COMMON NORMALS: no scleral icterus GENERAL EYE: appearance normal, both eyes and all related structures Resp: COMMON NORMALS: normal respiratory effort, No retractions, No use of accessory muscles and clear to auscultation bilaterally EFFORT & INSPECTION: Yes symmetric chest movement AUSCULTATION: clear to auscultation bilaterally Cardio: COMMON NORMALS: regular rate, regular rhythm, S1 normal heart sound present, S2 normal heart sound present, No gallops present (Cardio), No murmurs present (Cardio), No rub (Cardio) and Peripheral pulses 2+ throughout RATE: regular rate RHYTHM: regular rhythm HEART SOUNDS: S1 normal heart sound present and S2 normal heart sound present PERIPHERAL PULSES: Peripheral pulses 2+ throughout GI: COMMON NORMALS: Normal to inspection, nondistended, normoactive bowel sounds present, Soft to palpation, non-tender, No hepatosplenomegaly present and no masses AUSCULTATION: Yes normoactive bowel sounds PALPATION: Yes Soft to palpation and Yes No hepatosplenomegaly present RECTAL EXAM: Yes deferred Extremity: COMMON NORMALS: no clubbing, cyanosis or edema and no pedal edema Neuro: COMMON NORMALS: patient oriented x3 Urinary Catheter Management: 2-way Urethral: Cath Placed During This Visit: yes, but has since been removed by the nurse Reason for Continuing Indwelling Catheter: Required Immobilization for Trauma or Surgery or Anesthesia Urinary Catheter Date of Insertion: 03/09/22 Urinary Catheter Time of Insertion: 11:45 Date Urinary Catheter Removed: 03/07/22 Time Urinary Catheter Discontinued: 06:10 Data : 03/13/22 05:29 03/13/22 05:29 Micro: Microbiology 03/12/22 05:25 Blood Culture - Preliminary Blood NEGATIVE TO DATE 03/12/22 05:30 Blood Culture - Preliminary Blood NEGATIVE TO DATE A&P Assessment and plan (1) Closed left humeral fracture: Patient to undergo reduction of the posterior displacement the left proximal humerus fracture will likely heal by sling and immobilized sedation Hyponatremia improved so that proceeding with anesthesia is appropriate for planned surgery in the Status: Acute (2) Cervical disc disorder: Lytic lesion C7, traumatic compression fractures T 2, 3, 4, 6 ?S/P C5-T2 instrumentation, C5-T2 fusion, Biopsy C7 lesion. Status: Acute (3) Hyponatremia: Monitor BMP On fluid restriction Continue salt tablets Status: Acute (4) Rhabdomyolysis: Repeat CPK Status: Acute (5) Alcohol dependence: Continue with CIWA Continue with clonidine Recommend the patient be given the as needed lorazepam Status: Acute (6) JUANCHO (acute kidney injury): Resolved Status: Acute (7) C. difficile diarrhea: p.o. vancomycin 125 mg every 6H. We will continue for 7 days. Status: Acute Plan 51-year-old male with past medical history of alcohol abuse he is a heavy drinker drinks around 12 beers a day as well as half a bottle of wine daily, was brought in with chief complaint of after being found down at home by his father, during this hospital stay he was managed for rhabdomyolysis, alcohol withdrawal, hyponatremia secondary to beer proteinemia, as well as dehydration, prerenal JUANCHO, C. difficile infection on p.o. vancomycin , proximal humerus fracture s/p: ?open reduction with a limited arthrotomy: S/p left humeral bone excisional biopsy: Benign bone and fibrocartilage: Negative for malignancy. 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 Patient has oncology appointment as outpatient with Dr. Kwon. Patient will also continue to see Dr. Perez as an outpatient, as well as orthopedic surgery as outpatient. Overall patient has responded well to above medical management, currently he is not in withdrawal. Pertinent imaging studies done during the hospital stay included: CT head wo con: No acute intracranial pathology. MR cervical spine wo/w: 1.? Abnormal signal with enhancement involving the C6-7 vertebral body and facets with soft tissues edema and mild enhancement surrounding the nerve roots. On the prior MRI the cervical spine there is probably very small T2 lesion in the C6-7 LEFT facet. This has significantly increased in size. This is a mildly expansile bone lesion. May not be related to the patient's trauma and clinical presentation. This should be further evaluated by bone scan and possible CT.? Benign bone lesion versus metastatic lesion. No cord compression. 2.? No epidural abscess. 3.? Increased T2 signal surrounding the soft tissues of the RIGHT shoulder may be due to poor fat suppression. MR lumbar spine wo/w con: 1.? No epidural abscess or encroachment upon the conus. 2.? Mild LEFT foraminal narrowing at L3-4 with disc contact on the exiting L3 nerve root. 3.? Moderate RIGHT foraminal stenosis and mild LEFT foraminal stenosis at L4-5 due to disc disease. Disc contacts the traversing L5 nerve root on the RIGHT. 4.? Mild bilateral foraminal stenosis at L5-S1. 5.? Mild inflammatory changes involving the RIGHT L5 and S1 posterior elements with facet joint fluid. No enhancement. Consistent with synovitis and a small amount of marrow edema. : MR thoracic spin wo con 1.? Limited evaluation of the thoracic spine. Motion artifact and lack of contrast. Patient was unable to tolerate postcontrast imaging. 2.? Mild compression fractures at T2, T3, T4 and T6. Very small amount of increased T2 signal within the compression fractures. May be subacute. No retropulsion. 3.? Indeterminate for very tiny focus of increased signal in the RIGHT lateral thoracic cord. This is likely external to the cord. 4.? No cord compression. ? CT shoulder LT wo con: 1. Expansile mass effect in the area of the left transverse process and facets of C7, with fracture lines in this area not excluded. 2. Comminuted acute fracture of the left humeral head and neck associated with mild posterior subluxation of the head and impaction of the posterior glenoid rim on the head. Hairline fracture in the inferior glenoid not excluded. MR shoulder LT wo con: 1.? Posterior subluxation of the LEFT humeral head perched upon the posterior glenoid. 2.? Comminuted humeral head fracture with edema still noted along the fracture lines suggesting this is acute to subacute. 3.? Extensive soft tissue edema surrounding the muscles and soft tissues of the LEFT shoulder consistent with rhabdomyolysis. 4.? Due to the motion artifact this study is inadequate to evaluate the rotator cuff muscles and the labrum. NM bone scan whole body: 1.? Lytic lesion involving the C7 posterior elements eccentric to the LEFT does not demonstrate radiotracer uptake on this study. Consider 2-3 month interval follow-up with cervical spine CT and/or referral for CT-guided bony sampling. 2.? Uptake involving the LEFT scapula tip and about the RIGHT scapula spine is nonspecific. This may be due to recent fall with bony/soft tissue contusion and/or rhabdomyolysis. 3.? Single punctate focus of uptake in the RIGHT lower rib approximately 9th rib, nonspecific but likely due to recent trauma. Disposition: Patient has been accepted at [facility] anticipating discharge on Monday. Attestations Medical Necessity Statement*: Awaiting placement to skilled nursing. Coding Level of Care Code Acute [employer] for [facility] Fwd Diagnoses Closed left humeral fracture S42.302A Cervical disc disorder M50.90 Hyponatremia E87.1 Rhabdomyolysis M62.82 Alcohol dependence F10.20 JUANCHO (acute kidney injury) N17.9 C. difficile diarrhea A04.72
[2022-03-13] MEDS: HYDROcodone-acetaminophen 5-325 mg Tablet PO (17:31)
[2022-03-14] VITALS (7 sets, daily range): BP systolic 120–154; BP diastolic 66–84; PULSE 70–96; RESP 16–18; TEMP 36.4–37.4; O2SAT 94–100
[2022-03-14 04:55] LABS: Basophils % 0.2 %; Eosinophils # 0.1 10^3/uL (0.0-0.8); Eosinophils % 0.9 %; Hematocrit 24.7 % (42.0-52.0); Hemoglobin 8.1 g/dL (11.7-16.6); Lymphocytes # 0.9 10^3/uL (0.8-4.8); Lymphocytes % 9.5 %; Mean Corpuscular HGB Conc 32.8 g/dL (30.0-36.0); Mean Corpuscular Hemoglobin 31.2 pg (28.0-34.0); Mean Platelet Volume 8.1 fL (7.4-10.4); Monocytes # 0.9 10^3/uL (0.2-0.9); Monocytes % 9.7 %; Neutrophils # 6.91 10^3/uL (1.8-7.7); Neutrophils % 73.9 %; Nucleated Red Blood Cells % 0 %; Platelet Count 458 10^3/cmm (130-400); White Blood Count 9.4 10^3/uL (4.0-10.0)
[2022-03-14] MEDS: LORazepam 1 mg Tablet PO ×2 (05:17→15:01)
[2022-03-14] MEDS: acetaminophen 500 mg Tablet 1000 MG PO ×2 (05:17→14:57)
[2022-03-14 05:21] LABS: Alanine Aminotransferase 36 U/L (0-41); Alkaline Phosphatase 129 U/L (40-130); Anion Gap 9.1 (5-19); Aspartate Amino Transferase 37 U/L (0-40); Blood Urea Nitrogen 5 mg/dL (6-20); Calcium 7.5 mg/dL (8.5-10.5); Carbon Dioxide 23 mmol/L (22-29); Chloride 99 mmol/L (98-107); Globulin 2.6 g/dL (1.3-4.6); Glomerular Filtration Rate 173.9 mL/min (90-130); Glucose 105 mg/dL (65-115); Osmolality Calculated 264 mOsm/kg (285-295); Potassium 3.1 mmol/L (3.5-5.1); Sodium 128 mmol/L (136-145); Total Bilirubin 0.8 mg/dL (0.15-1.2); Total Protein 4.6 g/dL (6.6-8.7)
[2022-03-14 05:25] LABS: Slide Review Slide Review Perform
[2022-03-14] MEDS: cloNIDine 0.1 mg Tablet PO ×2 (09:56→14:57)
[2022-03-14] MEDS: famotidine 20 mg/2 mL INJ IVP (09:56)
[2022-03-14] MEDS: iron polysaccharide complex 150 mg Capsule PO (09:57)
[2022-03-14] MEDS: multivitamin therapeutic Tablet 1 TAB PO (09:57)
[2022-03-14] MEDS: sodium chloride 1 gm Tablet 2 GM PO (09:57)
[2022-03-14] MEDS: cholecalciferol (vitamin D3) 1,000 unit Tablet 1000 UNIT PO (09:57)
[2022-03-14] MEDS: calcium carbonate 500 mg Chew Tablet 1000 MG PO (09:57)
[2022-03-14] MEDS: thiamine 100 mg Tablet PO (09:57)
[2022-03-14] MEDS: chlorhexidine gluconate 0.12% Btl 473 mL 30 ML MUCOUS MEM ×2 (09:58→14:58)
[2022-03-14] MEDS: folic acid 1 mg Tablet PO (09:58)
[2022-03-14] MEDS: HYDROcodone-acetaminophen 5-325 mg Tablet PO (10:06)
[2022-03-14] MEDS: metoprolol tartrate 25 mg Tablet PO (10:09)
--- NOTE | 2022-03-14 12:51 | P.DS_ITS ---
Discharge Providers Date of Admission: 03/02/22 17:27 Date of Discharge: March 14, 2022 Attending Provider at Admission: Edinson Mac MD Attending Provider at Discharge: Sofy Ge MD Primary Care Provider: Troy Ambrosio DO Diagnoses at Discharge Discharge Diagnosis (1) Closed left humeral fracture: Status: Acute (2) Cervical disc disorder: Status: Acute (3) Hyponatremia: Status: Acute (4) Rhabdomyolysis: Status: Acute (5) Alcohol dependence: Status: Acute (6) JUANCHO (acute kidney injury): Status: Acute (7) C. difficile diarrhea: Status: Acute (8) Traumatic compression fracture of sixth thoracic vertebra: Status: Acute (9) Osteosarcoma: Status: Acute Reason for Visit Reason for Visit: [facility] Hospital Course Hospital Course 51-year-old male with past medical history of alcohol abuse he is a heavy drinker drinks around 12 beers a day as well as half a bottle of wine daily, was brought in on 03/02/2022 with chief complaint of being found down at home by his father. During this hospital stay he was managed for rhabdomyolysis, alcohol withdrawal, hyponatremia secondary to beer proteinemia, as well as dehydration, prerenal JUANCHO, C. difficile infection on p.o. vancomycin , proximal humerus fracture s/p? open reduction with a limited arthrotomy: S/p left humeral bone excisional biopsy: Benign bone and fibrocartilage: Negative for malignancy. He also had a C7 fracture as well as T2,3-4 compression fractures. 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 Patient has oncology appointment as outpatient with Dr. Kwon for follow up and discuss further treatment options. Patient will also continue to see Dr. Perez and Dr. Bobby as an outpatient. Overall patient has responded well to above medical management, at time of discharge his sodium is improved at 128, from 119 upon admission. His pain is c urrently adequately controlled. He has been afebrile since March 10, 2022. Fever likely thought to be from C. difficile for which she is currently getting treatment with p.o. vancomycin. He is participating with physical therapy. No signs of alcohol withdrawal at the time of discharge. likely to benefit from continued PT in view of decreased endurance, decreased strength. Physical Exam Narrative: General: No acute distress, AO x3 HEENT: PERRLA, pupils bilaterally equal and reactive, pallors not present Chest: Normal vesicular breath sounds, no added sounds, equal good air entry bilaterally CVS: S1-S2 regular, no murmurs, no tachycardia, no gallops, no rubs Abdomen: Soft, nontender, no organomegaly, bowel sounds present Neuro: No focal deficits, no facial deformity, AO x3 Urinary Catheter Management: 2-way Urethral: Cath Placed During This Visit: yes, but has since been removed by the nurse Reason for Continuing Indwelling Catheter: Required Immobilization for Trauma or Surgery or Anesthesia Urinary Catheter Date of Insertion: 03/09/22 Urinary Catheter Time of Insertion: 11:45 Date Urinary Catheter Removed: 03/07/22 Time Urinary Catheter Discontinued: 06:10 Discharge Data Studies Completed and Pending Completed Studies During Hospitalization Category Date Time Status CT cervical spine wo/w 79597 Routine Cat Scan 03/05/22 10:[address] head wo con* [id number] Stat Cat Scan 03/02/22 10:[address] shoulder LT wo con* [id number] Routine Cat Scan 03/03/22 14:[address] thoracic spine wo/w [id number] Routine Cat Scan 03/05/22 10:00 Completed XR cervical spine 1V [id number] Routine Exams 03/09/22 Completed XR chest 1V portable [id number] Routine Exams 03/12/22 05:00 Completed XR chest 1V portable [id number] Stat Exams 03/02/22 10:47 Completed XR shoulder LT 1V [id number] Stat Exams 03/03/22 11:48 Completed MR cervical spine wo/w [id number] Stat MRI 03/02/22 11:52 Completed MR lumbar spine wo/w con [id number] Stat MRI 03/02/22 11:52 Completed MR shoulder LT wo con* [id number] Routine MRI 03/04/22 10:00 Completed MR thoracic spin wo con* [id number] Stat MRI 03/02/22 11:52 Completed NM bone scan whole body* [id number] Routine Nuc Med 03/07/22 07:01 Completed Pathology: Surgical [PTH] Routine Pth 03/06/22 10:54 Completed Pathology: Surgical [PTH] Routine Pth 03/09/22 13:53 Completed US echo complete [CV. echo complete* [id number]] Routine Ultrasound 03/02/22 20:31 Completed US renal BI* [id number] Stat Ultrasound 03/02/22 17:14 Completed Pending at discharge Category Date Time Status Blood Culture AM LABS Lab 03/12/22 05:30 Results stool Ova and Parasite [Enteric Parasite Panel by PCR] Lab 03/13/22 08:30 Received Routine Radiology Impressions Head CT 03/02/22 10:47 IMPRESSION: 1. No evidence of intracranial hemorrhage or mass effect. 2. Mild parenchymal volume loss. 3. Espinoza-white differentiation appears preserved. No significant edema. No hydrocephalus. 4. Mild cavernous carotid calcification. 5. Small 11 mm retention cyst LEFT sphenoid sinus. 6. No other acute findings. Cervical Spine MRI 03/02/22 11:52 IMPRESSION: 1. Abnormal signal with enhancement involving the C6-7 vertebral body and facets with soft tissues edema and mild enhancement surrounding the nerve roots. On the prior MRI the cervical spine there is probably very small T2 lesion in the C6-7 LEFT facet. This has significantly increased in size. This is a mildly expansile bone lesion. May not be related to the patient's trauma and clinical presentation. This should be further evaluated by bone scan and possible CT. Benign bone lesion versus metastatic lesion. No cord compression. 2. No epidural abscess. 3. Increased T2 signal surrounding the soft tissues of the RIGHT shoulder may be due to poor fat suppression. Lumbar Spine MRI 03/02/22 11:52 IMPRESSION: 1. No epidural abscess or encroachment upon the conus. 2. Mild LEFT foraminal narrowing at L3-4 with disc contact on the exiting L3 nerve root. 3. Moderate RIGHT foraminal stenosis and mild LEFT foraminal stenosis at L4-5 due to disc disease. Disc contacts the traversing L5 nerve root on the RIGHT. 4. Mild bilateral foraminal stenosis at L5-S1. 5. Mild inflammatory changes involving the RIGHT L5 and S1 posterior elements with facet joint fluid. No enhancement. Consistent with synovitis and a small amount of marrow edema. Thoracic Spine MRI 03/02/22 11:52 IMPRESSION: 1. Limited evaluation of the thoracic spine. Motion artifact and lack of contrast. Patient was unable to tolerate postcontrast imaging. 2. Mild compression fractures at T2, T3, T4 and T6. Very small amount of increased T2 signal within the compression fractures. May be subacute. No retropulsion. 3. Indeterminate for very tiny focus of increased signal in the RIGHT lateral thoracic cord. This is likely external to the cord. 4. No cord compression. Renal Ultrasound 03/02/22 17:14 IMPRESSION: 1. Unremarkable kidneys and bladder. 2. San catheter in the urinary bladder. Shoulder X-Ray 03/03/22 11:48 Impression: Fracture of the left humeral head. Shoulder CT 03/03/22 14:09 IMPRESSION: 1. Expansile mass effect in the area of the left transverse process and facets of C7, with fracture lines in this area not excluded. 2. Comminuted acute fracture of the left humeral head and neck associated with mild posterior subluxation of the head and impaction of the posterior glenoid rim on the head. Hairline fracture in the inferior glenoid not excluded. Shoulder MRI 03/04/22 10:00 IMPRESSION: 1. Posterior subluxation of the LEFT humeral head perched upon the posterior glenoid. 2. Comminuted humeral head fracture with edema still noted along the fracture lines suggesting this is acute to subacute. 3. Extensive soft tissue edema surrounding the muscles and soft tissues of the LEFT shoulder consistent with rhabdomyolysis. 4. Due to the motion artifact this study is inadequate to evaluate the rotator cuff muscles and the labrum. Cervical Spine CT 03/05/22 10:00 IMPRESSION: 1. C7 vertebral body lytic bony lesion with a sclerotic margin measuring up to 15 mm extending to the left pedicle and transverse process which demonstrates some bony expansion, as seen on comparison MRI cervical spine from 03/02/2022, finding is potentially concerning for a focus of mixed lytic and sclerotic metastatic disease especially given the bony expansion, a nuclear medicine bone scan could further characterize this. 2. Please for to same-day CT thoracic spine for findings in this region. Thoracic Spine CT 03/05/22 10:00 IMPRESSION: 1. Again seen are compression fractures of T2, T3, T4 and T6, similar to recent MRI exam without retropulsion of bony fragments. 2. C7 vertebral body lytic bony lesion with a sclerotic margin measuring up to 15 mm extending to the left pedicle and transverse process which demonstrates some bony expansion, as seen on comparison MRI cervical spine from 03/02/2022, finding is potentially concerning for a focus of mixed lytic and sclerotic metastatic disease especially given the bony expansion, a nuclear medicine bone scan could further characterize this. 3. Bilateral dependent atelectasis. 4. Cardiomegaly. 5. Coronary artery atherosclerotic calcifications. Bone Scan Nuclear Medicine 03/07/22 07:01 IMPRESSION: 1. Lytic lesion involving the C7 posterior elements eccentric to the LEFT does not demonstrate radiotracer uptake on this study. Consider 2-3 month interval follow-up with cervical spine CT and/or referral for CT-guided bony sampling. 2. Uptake involving the LEFT scapula tip and about the RIGHT scapula spine is nonspecific. This may be due to recent fall with bony/soft tissue contusion and/or rhabdomyolysis. 3. Single punctate focus of uptake in the RIGHT lower rib approximately 9th rib, nonspecific but likely due to recent trauma. Cervical Spine X-Ray 03/09/22 00:00 IMPRESSION: Instrumentation of the cervicothoracic junction as above. Chest X-Ray 03/12/22 05:00 IMPRESSION: No acute cardiopulmonary abnormality. Laboratory Results WBC 9.4 10^3/uL (4.0-10.0) 03/14/22 04:45 Corrected WBC Cancelled 03/04/22 05:07 RBC 2.60 10^6/uL (4.1-5.3) L 03/14/22 04:45 Hgb 8.1 g/dL (11.7-16.6) L 03/14/22 04:45 Hct 24.7 % (42.0-52.0) L 03/14/22 04:45 MCV 95.0 fl (80-94) H 03/14/22 04:45 MCH 31.2 pg (28.0-34.0) 03/14/22 04:45 MCHC 32.8 g/dL (30.0-36.0) 03/14/22 04:45 RDW 13.0 % (12.1-15.1) 03/14/22 04:45 Plt Count 458 10^3/cmm (130-400) H 03/14/22 04:45 MPV 8.1 fL (7.4-10.4) 03/14/22 04:45 Gran % Cancelled 03/04/22 05:07 Neut % (Auto) 73.9 % 03/14/22 04:45 Lymph % (Auto) 9.5 % 03/14/22 04:45 Grady % (Auto) 9.7 % 03/14/22 04:45 Eos % (Auto) 0.9 % 03/14/22 04:45 Baso % (Auto) 0.2 % 03/14/22 04:45 Neut # (Auto) 6.91 10^3/uL (1.8-7.7) 03/14/22 04:45 Lymph # (Auto) 0.9 10^3/uL (0.8-4.8) 03/14/22 04:45 Grady # (Auto) 0.9 10^3/uL (0.2-0.9) 03/14/22 04:45 Eos # (Auto) 0.1 10^3/uL (0.0-0.8) 03/14/22 04:45 Baso # (Auto) 0.0 10^3/uL (0.0-0.1) 03/14/22 04:45 Absolute Gran (auto) Cancelled 03/04/22 05:07 Nucleated RBC % (auto) 0 % 03/14/22 04:45 Total Counted 100 (0-100) 03/02/22 11:15 Atypical Lymphs % 0.0 % (0-5) 03/02/22 11:15 Absolute Neutrophils 25.7 10^3/cmm (1.4-6.5) H 03/02/22 11:15 Segmented Neutrophils 90 % 03/02/22 11:15 Abs Segm Neuts (Man) 25.7 10/cmm (1.6-7.1) H 03/02/22 11:15 Band Neutrophils 0.0 % 03/02/22 11:15 Abs Band Neuts (Man) 0.0 10^3/cmm (0.0-1.2) 03/02/22 11:15 Absolute Lymphocytes 1.1 10^3/cmm (1.2-3.4) L 03/02/22 11:15 Lymphocytes (Manual) 4 % 03/02/22 11:15 Monocytes (Manual) 6.0 % 03/02/22 11:15 Absolute Monocytes 1.7 10^3/cmm (0.1-0.6) H 03/02/22 11:15 Eosinophils (Manual) 0 % 03/02/22 11:15 Absolute Eosinophils 0.0 10^3/cmm (0.0-0.7) 03/02/22 11:15 Basophils (Manual) 0.0 % 03/02/22 11:15 Absolute Basophils 0.0 10^3/cmm (0.0-0.2) 03/02/22 11:15 Nucleated RBCs # 0.0 /100WBC 03/14/22 04:45 Platelet Estimate Normal (Normal) 03/02/22 11:15 D-Dimer 2.52 ug/mIFEU (0-0.59) H 03/02/22 18:06 Specimen Type Arterial 03/02/22 17:27 Sample Site Radial, left 03/02/22 17:27 ABG pH 7.40 (7.35-7.45) 03/02/22 17:27 ABG pCO2 31.9 mmHg (35-45) L 03/02/22 17:27 ABG pO2 63.8 mmHg (80.0-100.0) L 03/02/22 17:27 ABG HCO3 19.8 mmol/L (22-26) L 03/02/22 17:27 ABG O2 Saturation 91.9 03/02/22 17:27 ABG Base Excess -4.0 mmol/L (-2.0-2.0) L 03/02/22 17:27 Van Test Pos 03/02/22 17:27 A-a O2 Gradient 6.0 mmHg (5-10) 03/02/22 17:27 Hematocrit 40.7 % (42-52) L 03/02/22 17:27 Hgb O2 Saturation 89.8 % (95-100) L 03/02/22 17:27 Carboxyhemoglobin 1.8 %THgb (0.4-20.1) 03/02/22 17:27 Methemoglobin 0.6 % (0.4-1.5) 03/02/22 17:27 Total Hemoglobin 13.3 g/dL (14-18) L 03/02/22 17:27 Sodium 126.0 mmol/L (131-143) L 03/02/22 17:27 Potassium 3.0 mmol/L (3.5-5.0) L 03/02/22 17:27 Glucose 116.0 mg/dL (70-115) H 03/02/22 17:27 Ionized Calcium 1.0 mmol/L (1.1-1.4) L 03/02/22 17:27 O2 Delivery Device Room air 03/02/22 17:27 FiO2 21.0 % 03/02/22 17:27 Associate Professor Plant Pathology ID Ed 03/02/22 17:27 Sodium 128 mmol/L (136-145) L 03/14/22 04:45 Potassium 3.1 mmol/L (3.5-5.1) L 03/14/22 04:45 Chloride 99 mmol/L (98-107) 03/14/22 04:45 Carbon Dioxide 23 mmol/L (22-29) 03/14/22 04:45 Anion Gap 9.1 (5-19) 03/14/22 04:45 BUN 5 mg/dL (6-20) L 03/14/22 04:45 Creatinine 0.5 mg/dL (0.7-1.2) L 03/14/22 04:45 GFR Calculation 173.9 mL/min (90-130) H 03/14/22 04:45 Glucose 105 mg/dL (65-115) 03/14/22 04:45 Serum Osmolality 273 mOsm/kg (278-305) L 03/02/22 18:10 Calculated Osmolality 264 mOsm/kg (285-295) L 03/14/22 04:45 Lactate 1.5 mmol/L (0.5-2.2) 03/02/22 18:06 Uric Acid 14.0 mg/dL (3.4-7.0) H 03/02/22 18:06 Calcium 7.5 mg/dL (8.5-10.5) L 03/14/22 04:45 Phosphorus 3.3 mg/dL (2.5-4.5) 03/05/22 04:10 Magnesium 1.6 mg/dL (1.7-2.3) L 03/05/22 04:10 Total Bilirubin 0.8 mg/dL (0.15-1.2) 03/14/22 04:45 AST 37 U/L (0-40) 03/14/22 04:45 ALT 36 U/L (0-41) 03/14/22 04:45 Alkaline Phosphatase 129 U/L (40-130) 03/14/22 04:45 Ammonia 47 umol/L (16-60) 03/03/22 02:09 Creatine Kinase 2612 U/L (39-308) H* 03/03/22 11:40 CK-MB (CK-2) 19.8 ng/mL (0-10.4) H 03/03/22 11:40 CK-MB (CK-2) Rel Index 0.7 % (0.0-5.3) 03/03/22 11:40 Troponin T Gen 5 ng/L 71 ng/L (0-15) H 03/03/22 11:40 Troponin T Baseline 82 ng/L (0-15) H 03/02/22 11:15 Troponin T 120 Minute 108.7 ng/L (0-15) H 03/02/22 15:14 Delta Troponin T 26.7 ABS# (0-10) H* 03/02/22 15:14 Total Protein 4.6 g/dL (6.6-8.7) L 03/14/22 04:45 Albumin 2.0 g/dL (3.5-5.2) L 03/14/22 04:45 Globulin 2.6 g/dL (1.3-4.6) 03/14/22 04:45 Lipase Cancelled 03/02/22 11:15 25-OH Vitamin D Total 16 ng/mL (30-100) L 03/03/22 02:09 1,25 Dihydroxy Vit D2 <8 pg/mL 03/02/22 18:06 1,25 Dihydroxy Vit D3 37 pg/mL 03/02/22 18:06 TSH 2.34 uIU/mL (0.27-4.20) 03/02/22 18:06 PTH Intact 220.6 pg/mL (15-65) H 03/03/22 02:09 Calcium (PTH Intact) 7.2 mg/dL (8.5-10.5) L 03/03/22 02:09 Urine Color Yellow (Yellow) 03/02/22 12:40 Urine Appearance Clear (CLEAR) 03/02/22 12:40 Urine pH 5 (5-7) 03/02/22 12:40 Ur Specific [place] 1.015 (1.005-1.030) 03/02/22 12:40 Urine Protein 1+ (Negative) H 03/02/22 12:40 Urine Glucose (UA) Norm (Normal) 03/02/22 12:40 Urine Ketones 1+ (Negative) H 03/02/22 12:40 Urine Blood Trace (Negative) H 03/02/22 12:40 Urine Nitrate Negative (Negative) 03/02/22 12:40 Urine Bilirubin 1+ (Negative) H 03/02/22 12:40 Urine Urobilinogen 1 mg/dL (Negative) H 03/02/22 12:40 Ur Leukocyte Esterase Negative (Negative) 03/02/22 12:40 Urine RBC 0-4 /hpf (0-2) H 03/02/22 12:40 Urine WBC 0-4 /hpf (0-5) H 03/02/22 12:40 Ur Squamous Epith Cells 0-4 /hpf (0-5) H 03/02/22 12:40 Amorphous Sediment Not Reportable 03/02/22 12:40 Urine Bacteria None /hpf (NONE) 03/02/22 12:40 Hyaline Casts 0-4 /lpf H 03/02/22 12:40 Ur Random Sodium 15 mmol/L 03/02/22 19:05 Ur Random Potassium 50 mmol/L 03/02/22 19:05 Ur Random Chloride 16 mmol/L 03/02/22 19:05 Salicylates Cancelled 03/02/22 11:15 Urine Opiates Screen Negative ng/mL (Negative) 03/02/22 12:40 Acetaminophen Cancelled 03/02/22 11:15 Ur Barbiturates Screen Negative ng/mL (Negative) 03/02/22 12:40 Ur Phencyclidine Scrn Negative ng/mL (Negative) 03/02/22 12:40 Ur Amphetamines Screen Negative ng/mL (Negative) 03/02/22 12:40 U Benzodiazepines Scrn Positive ng/mL (Negative) H 03/02/22 12:40 Urine Cocaine Screen Negative ng/mL (Negative) 03/02/22 12:40 U Marijuana (THC) Screen Negative ng/mL (Negative) 03/02/22 12:40 Ethylene Glycol <10.0 mg/L () 03/02/22 18:06 JESSICA Screen Positive (NEGATIVE) A 03/02/22 18:10 JESSICA Titer 1:40 titer H 03/02/22 18:10 JESSICA Pattern A 03/02/22 18:10 ANCA Screen Negative (NEGATIVE) 03/02/22 18:10 ANCA Titer Not Reportable 03/02/22 18:10 Anti-ds DNA IgG Ab <1 IU/mL 03/02/22 18:10 Lymphoma Panel See report 03/09/22 13:05 Hep Bs Antigen Non-reactive (Nonreactive) 03/02/22 18:06 Hep Bs Antibody > 1000.0 (11.5-1000) H 03/02/22 18:06 Hepatitis C Antibody Non-reactive (Nonreactive) 03/02/22 18:06 SARS-CoV-2 Ag (Rapid) Negative (Negative) 03/02/22 20:34 Anti-Streptolysin O Ab 60 IU/mL (<200) 03/02/22 18:06 Vitals Last Vital Signs Temp 97.5 F L 03/14/22 08:00 Pulse 79 03/14/22 08:00 Resp 16 03/14/22 08:00 BP 130/70 03/14/22 09:56 Pulse Ox 100 03/14/22 08:00 O2 Del Method 03/14/22 08:00 O2 Flow Rate 2 03/13/22 20:00 Discharge Plan Discharge Patient Disposition: Xfer SNF Condition: Stable Prescriptions: New hydrocodone-acetaminophen 5-325 mg Tablet 1 tab PO Q4H PRN (Reason: Moderate To Severe Pain) 7 Days Qty: 28 0RF folic acid 1 mg Tablet 1 mg PO DAILY 30 Days Qty: 30 0RF thiamine mononitrate (vit B1) [Vitamin B-1 (mononitrate)] 100 mg Tablet 100 mg PO DAILY 30 Days Qty: 30 0RF ergocalciferol (vitamin D2) [Vitamin D2] 1,250 mcg (50,000 unit) Capsule 50,000 unit PO Q7D 30 Days Qty: 4 0RF cholecalciferol (vitamin D3) 25 mcg (1,000 unit) Tablet 1,000 unit PO DAILY Qty: 0 0RF polysaccharide iron complex [Ferrex 150] 150 mg iron Capsule 150 mg PO BIDWM 30 Days Qty: 30 0RF clonidine HCl 0.1 mg Tablet 0.1 mg PO TID 30 Days Qty: 90 0RF calcium carbonate 200 mg calcium (500 mg) Tablet,Chewable 1,000 mg PO BID Qty: 0 0RF sodium chloride 1 gram Tablet 2 g PO BID 7 Days Qty: 28 0RF vancomycin 125 mg capsule 125 mg PO QID 14 Days Qty: 56 0RF Continued lorazepam 1 mg tablet 1 mg PO TID PRN (Reason: anxiety) Qty: 90 1RF metoprolol tartrate 50 mg tablet 50 mg PO BID Discontinued valsartan-hydrochlorothiazide 320-25 mg tablet 1 tab PO DAILY Discharge Orders: Discharge Order (Routine); Ordered 03/14/22 Ordered By: Sofy Ge Referrals: Addison Perez DO [Physician] - 2 weeks Kaur Bobby MD [Physician] - 2 weeks Troy Ambrosio DO [Primary Care Provider] - Pat Kwon MD [Staff Physician] - 03/16/22 3:00 pm Discharge Diet: Usual diet Discharge Activity: Resume usual activity Activity Restrictions/Additional Instructions: Continue shoulder immobilizer. Do not externally rotate the arm greater than 0. You may internally rotate. Passive and active assisted range of motion exercises are okay. Flex and extend the elbow, wrist, and fingers as tolerated. F/U with Dr. Kwon (Heme/ Onc) on 03/16 check in at 2 pm and appointment is at 3 pm. Thank you for choosing [facility] for your care! The following is a list of instructions, from your provider, to follow upon your discharge to ensure you have the optimal recovery from your recent injury or surgery. Posterior cervical fusion: What to Expect at Home Your Recovery Follow-up care is a ferris part of your treatment and safety. Be sure to make and go to all appointments, and call your doctor if you are having problems. If you do not already have a follow-up appointment made, call office in the next 1-3 days to make follow up appointment for 1 weeks at [phone]. It is also a good idea to know your test results and keep a list of the medicines you take. You can expect your neck to feel stiff or sore after surgery. This should improve in the weeks after surgery. But it may take 4 to 6 months for you to get better completely. You may have trouble sitting or standing in one position for very long and may need pain medicine in the weeks after your surgery. It may take 4 to 6 weeks to get back to your usual activities, but it may depend on what kind of surgery you had. Your throat will feel sore and it may be difficult to swallow for the first 3 days after your surgery. As long as you can get liquids down without difficulty, this should slowly improve, otherwise call our office or seek medical attention if it becomes increasingly difficult to get anything down including liquids. Avoid hot liquids for first 3-5 days. Soothing foods/liquids such as jello, pudding, and luke warm soups are recommended until swallowing improves. Staying elevated will also help, it's advised you keep propped up at while sleeping to help reduce the swelling. You may use an ice pack directly on your incision or around it on the front of your neck, using a cloth to protect your skin; and a heating pad to the back of your neck as needed. Do not use over the counter anti-inflammatory medications (Ibuprofen, Motrin, Aleve, Advil, etc) Taking these meds after having a fusion can delay fusion rates, we recommend you avoid them for the first 3 months after your surgery[address] Dr. Perez may advise you to work with a physical therapist to strengthen the muscles around your neck and back - this will be discussed at your follow - up appointments. The pain or numbness you were having in your arms before surgery should get better or go away completely. This care sheet gives you a general idea about how long it will take for you to recover. But each person recovers at a different pace. Follow the steps below to get better as quickly as possible. How can you care for yourself at home? Activity ? Rest when you feel tired. Getting enough sleep will help you recover. ? Try to walk each day. Start by walking a little more than you did the day before. Bit by bit, increase the amount you walk. Walking boosts blood flow and helps prevent pneumonia and constipation. Walking may also decrease your muscle soreness after surgery. ? No lifting anything that is more that 5 pounds. This may include heavy grocery bags and milk containers, a heavy briefcase or backpack, cat litter or dog food bags, a child, or a vacuum sanitation truck cleaner. ? Avoid strenuous activities, such as bicycle riding, jogging, weightlifting, or aerobic exercise, until your doctor says it is okay. ? Do not drive until your follow-up visit after your surgery, or until your doctor says it isokay. ? Avoid taking long car trips for 2 to 4 weeks after surgery. Your neck may become tired and painful from sitting too long in one position. ? You will probably need to take 4 to 6 weeks off from work. It depends on the type of work you do and how you feel. ? You may have sex as soon as you feel able, but avoid positions that put stress on your neck or cause pain. Diet ? You can eat your normal diet. If your stomach is upset, try bland, low-fat foods like plain rice, broiled chicken, toast, and yogurt ? Drink plenty of fluids. If you have kidney, heart, or liver disease and have to limit fluids, talk with your doctor before you increase the amount of fluids you drink. ? You may notice that your bowel movements are not regular right after your surgery. This is common. Try to avoid constipation and straining with bowel movements. You may want to take a fiber supplement every day. If you have not aguilar d a bowel movement after a couple of days, ask your doctor about taking a mild laxative. Medicines ? Take pain medicines exactly as directed. 1. If Dr. Perez gave you a prescription medicine for pain, take lt as prescribed. 2. Do not take two or more pain medicines at the same time unless the doctor told you to. Many pain medicines have acetaminophen, which is Tylenol. Too much acetaminophen {Tylenol) can be harmful. 3. If you think your pain pill is making you sick to your stomach: 4. Take your pills after meals (unless your doctor has told you not to). 5. Ask your Dr. for a different pain pill. Incisioncare ? Remove your dressing 48 hours after your surgery. Ok to shower and get the incision wet. Do not overtly wash your incision. When done, pad dry, leave open to air thereafter. Avoid creams and ointments directly on your incision. ? Your sutures in the incision will dissolve and fall out on their own. ? Keep the area clean and dry. You may cover it with a gauze bandage if it weeps or rubs against clothing; if you choose to do this, change the dressing everyday. Other instructions ? Use a heating pad, hot water bottle, or gentle massage on your back to reduce stiffness. Avoid putting heat on your incision When should you call for help? ? Call 911 anytime you think you may need emergency care. For example, call if: ? You pass out (lose consciousness). ? You have sudden chest pain and shortness of breath, or you cough upblood. ? You cannot swallow. ? You have severe pain in your neck or back. ? Call your Dr. or seek immediate medical care if: ? You have pain that does not get better after you take pain pills. ? You have loose stitches, or your incision comes open. ? You have blood or fluid draining from the incision. ? You have signs of infection, such as: 1. Increased pain, swelling, warmth, or redness. 2. Red streaks leading from the site. 3. Pus draining from the site. 4. Swollen lymph nodes in your neck or armpits. 5. A fever. ? You have severe pain in your arms. ? You have new or increased weakness or numbness in your arms. ? Watch closely for any changes in your health, and be sure to contact your doctor if: ? You do not have a bowel movement after taking a laxative. Discharge Attestations Time Spent in Discharge Care*: greater than 30 min Quality Metrics Clinical Quality Measures [ No reported AMI, CVA or VTE this stay] Coding Level of Care Code Acute [facility] note Diagnoses Closed left humeral fracture S42.302A Cervical disc disorder M50.90 Hyponatremia E87.1 Rhabdomyolysis M62.82 Alcohol dependence F10.20 JUANCHO (acute kidney injury) N17.9 C. difficile diarrhea A04.72 Traumatic compression fracture of sixth thoracic vertebra S22.050A Osteosarcoma C41.9
[2022-04-05 10:33] LABS: Miscellaneous Test See Scanned Lab Rpt
== END 2022-03-14 17:00 | disposition skilled nursing facility (03) | DRG 457 ==
LOC: ER 11:15 → MEDSURG 19:43
PROVIDERS: Internal Medicine; Internal Medicine Nephrology; Orthopaedic Surgery; Specialist; Admitting Provider Internal Medicine; Emergency Provider Emergency Medicine; PCP Family Medicine; Visit Provider Student in an Organized Health Care Education/Training Program
PROC: 0PSD04Z Reposition Left Humeral Head with Internal Fixation Device, Open Approach (ICD-10-PCS; CPT 23615; principal; 2022-03-06 08:00)
PROC: 0PSD04Z Reposition Left Humeral Head with Internal Fixation Device, Open Approach (ICD-10-PCS; 2022-03-06 08:00)
PROC: 0RG60K1 Fusion of Thoracic Vertebral Joint with Nonautologous Tissue Substitute, Posterior Approach, Posterior Column, Open Approach (ICD-10-PCS; CPT 22600; principal; 2022-03-09 11:20)
DX: C41.2 Malignant neoplasm of vertebral column (principal); A04.72 Enterocolitis due to Clostridium difficile, not specified as recurrent; S42.292A Other displaced fracture of upper end of left humerus, initial encounter for closed fracture; S22.020A Wedge compression fracture of second thoracic vertebra, initial encounter for closed fracture; S22.030A Wedge compression fracture of third thoracic vertebra, initial encounter for closed fracture; S22.040A Wedge compression fracture of fourth thoracic vertebra, initial encounter for closed fracture; S22.050A Wedge compression fracture of T5-T6 vertebra, initial encounter for closed fracture; N17.9 Acute kidney failure, unspecified; F10.239 Alcohol dependence with withdrawal, unspecified; M62.82 Rhabdomyolysis; E87.1 Hypo-osmolality and hyponatremia; W06.XXXA Fall from bed, initial encounter; M48.061 Spinal stenosis, lumbar region without neurogenic claudication; E86.0 Dehydration; I10 Essential (primary) hypertension
CPT/HCPCS: 36415; 36592; 36600; 51702; 70450; 71045; 72020; 72127; 72130; 72146; 72156; 72157; 72158; 73020; 73200; 73221; 76000; 76770; 78306; 80048; 80051; 80053; 80306; 81001; 82140; 82274; 82306; 82310; 82330; 82436; 82550; 82553; 82652; 82693; 82805; 83605; 83630; 83735; 83930; 83970; 84100; 84133; 84300; 84443; 84484; 84550; 85007; 85025; 85378; 86036; 86038; 86060; 86225; 86706; 86803; 87040; 87340; 87426; 87493; 87506; 88184; 88185; 88307; 88311; 88331; 92610; 93005; 93306; 94664; 96365; 96367; 96372; 96375; 96376; 97110; 97116; 97161; 97166; 97168; 97530; 97760; 99285; A9561; A9577; C1713; J0330; J0690; J0692; J1100; J1170; J1885; J1940; J2250; J2270; J2370; J2405; J2704; J2710; J3010; J3370; J3411; J3480; J3490; J7030; J7050; L0174; L3670; Q3014; Q9967

== ENCOUNTER 2022-03-18 18:30 | Outpatient (CLI) | payer OTHER, SELFPAY ==
[2022-03-18 18:42] LABS: Basophils % 0.3 %; Eosinophils # 0.1 10^3/uL (0.0-0.8); Eosinophils % 1.6 %; Lymphocytes % 15.5 %; Mean Corpuscular HGB Conc 33.3 g/dL (30.0-36.0); Mean Corpuscular Hemoglobin 30.1 pg (28.0-34.0); Mean Corpuscular Volume 90.2 fl (80-94); Mean Platelet Volume 7.9 fL (7.4-10.4); Monocytes # 0.7 10^3/uL (0.2-0.9); Monocytes % 9.9 %; Neutrophils # 4.74 10^3/uL (1.8-7.7); Neutrophils % 70.9 %; Nucleated Red Blood Cells % 0 %; Platelet Count 326 10^3/cmm (130-400); Red Blood Count 2.66 10^6/uL (4.1-5.3); Red Cell Distribution Width 13.6 % (12.1-15.1); White Blood Count 6.7 10^3/uL (4.0-10.0)
== END 2022-03-18 18:31 | disposition home or self-care (01) ==
PROVIDERS: Visit Provider Nurse Practitioner Family
DX: I10 Essential (primary) hypertension (principal)
CPT/HCPCS: 85025

== ENCOUNTER → 2022-04-01 11:02 | Outpatient (BNVA) | payer OTHER, SELFPAY | PROVIDERS: PCP Family Medicine; Visit Provider Nurse Practitioner Family | DX: S43.005D Unspecified dislocation of left shoulder joint, subsequent encounter (principal); X58.XXXD Exposure to other specified factors, subsequent encounter; Z98.890 Other specified postprocedural states | CPT/HCPCS: 73030 ==

== ENCOUNTER → 2022-04-19 13:49 | Outpatient (BNVA) | payer OTHER, SELFPAY | PROVIDERS: PCP Family Medicine; Visit Provider Physician Assistant | DX: T84.216A Breakdown (mechanical) of internal fixation device of vertebrae, initial encounter (principal); Z47.89 Encounter for other orthopedic aftercare; Z98.1 Arthrodesis status | CPT/HCPCS: 72040 ==

== ENCOUNTER → 2022-04-26 09:23 | Outpatient (BNVA) | payer OTHER, SELFPAY | PROVIDERS: PCP Family Medicine; Visit Provider Nurse Practitioner Family | DX: Z98.890 Other specified postprocedural states (principal); S42.292D Other displaced fracture of upper end of left humerus, subsequent encounter for fracture with routine healing; X58.XXXD Exposure to other specified factors, subsequent encounter | CPT/HCPCS: 73030 ==

== ENCOUNTER → 2022-04-27 15:46 | Outpatient (BNVA) | payer OTHER, SELFPAY | PROVIDERS: PCP Family Medicine; Visit Provider Family Medicine | DX: H73.90 Unspecified disorder of tympanic membrane, unspecified ear (principal); Z98.1 Arthrodesis status; E87.1 Hypo-osmolality and hyponatremia; C41.9 Malignant neoplasm of bone and articular cartilage, unspecified; A04.72 Enterocolitis due to Clostridium difficile, not specified as recurrent | CPT/HCPCS: 80053 ==

== ENCOUNTER → 2022-05-04 10:48 | Outpatient (BNVA) | payer OTHER, SELFPAY | PROVIDERS: PCP Family Medicine; Visit Provider Family Medicine | DX: E87.6 Hypokalemia (principal) | CPT/HCPCS: 80048 ==

== ENCOUNTER → 2022-05-13 12:00 | Outpatient (BNVA) | payer OTHER, SELFPAY | PROVIDERS: PCP Family Medicine; Visit Provider Family Medicine | DX: E87.1 Hypo-osmolality and hyponatremia (principal); E87.6 Hypokalemia | CPT/HCPCS: 80053 ==

== ENCOUNTER → 2022-05-27 11:36 | Outpatient (BNVA) | payer OTHER, SELFPAY | PROVIDERS: PCP Family Medicine; Visit Provider Family Medicine | DX: E87.6 Hypokalemia (principal) | CPT/HCPCS: 80048 ==

== ENCOUNTER → 2022-05-31 10:23 | Outpatient (BNVA) | payer OTHER, SELFPAY | PROVIDERS: PCP Family Medicine; Visit Provider Orthopaedic Surgery | DX: T84.296A Other mechanical complication of internal fixation device of vertebrae, initial encounter (principal); Z98.1 Arthrodesis status; Z47.89 Encounter for other orthopedic aftercare | CPT/HCPCS: 72040 ==

== ENCOUNTER 2022-06-08 14:10 | Inpatient (IN) | payer OTHER, SELFPAY ==
[2022-06-03 08:44] VITALS: BMI 26.7
--- NOTE | 2022-06-03 09:24 | P.ANESASSM_ITS ---
Pre-Anesthetic Assessment Height/Weight: Height 1.75 m Weight 82.1 kg Preop Diagnosis: Lytic lesion C7, traumatic compression fractures T 2, 3, 4, 6 Operation Date: 06/08/22 09:15 Proposed Procedures p Cervical Posterior Fusion reinsertion of spinal fixation device [id number]/Z98.1(Not Applicable) - Addison Perze, Familial anesthetic complications: none Was Beta Gurwinder taken within 24 hours: Yes Was Clonidine taken within 24 hours: Yes Social No alcohol (long h/o etoh abuse) and No tobacco Exam alert, oriented x 3, clear to auscultation bilaterally and regular rate & rhythm Airway Submandibular: within normal limits Cervical ROM: Other (Very limited next extension) Mallampati: Class III Dentition: chipped CV/HEM Hypertension GI Gastroesophageal Reflux Disease Musc/skel Osteoarthritis/DJD Neuropsych Anxiety and Depression Anesthetic Plan ASA status: 3 Anesthesia: General Medications/Allergies Home Medications Medication Instructions Recorded Confirmed Last Taken Type metoprolol tartrate 50 mg tablet 50 mg PO BID 03/02/22 06/03/22 06/03/22 History hydrocodone 5 mg-acetaminophen 325 1 tab PO BID PRN pain 2 weeks #30 05/19/22 06/03/22 06/02/22 Rx mg tablet tabs lorazepam 1 mg tablet 1 mg PO TID PRN anxiety #90 tabs 05/19/22 06/03/22 06/03/22 Rx clonidine HCl 0.1 mg tablet 0.1 mg PO TID 06/03/22 06/03/22 06/03/22 History folic acid 1 mg tablet 1 mg PO DAILY 06/03/22 06/03/22 06/03/22 History omeprazole 40 mg capsule,delayed 40 mg PO DAILY 06/03/22 06/03/22 06/03/22 History release Allergies Allergy/AdvReac Type Severity Reaction Status Date / Time No Known Allergies Allergy Verified 06/03/22 08:37 [facility] Anesthesia Medical History Alcohol dependence (~01/2017) Altered mental status Cervical disc disease Cervical disc disorder Fracture of humeral head, left, closed Traumatic compression fracture of second thoracic vertebra Family History Father CAD (coronary artery disease) Other Hypertension Denies family history of Diabetes Clotting disorder Dementia Hyperlipidemia Psychiatric illness Chronic kidney disease (CKD) Suicide Anesthesia complication Bleeding disorder Lung disease Cancer Stroke Social History Smoking and tobacco status: never smoked Alcohol intake: current Data Anesthesia Cardiac Studies: Echocardiogram 03/02/22
[2022-06-08] VITALS (36 sets, daily range): BP systolic 117–165; BP diastolic 78–111; PULSE 67–78; RESP 6–23; TEMP 36.1–36.9; O2SAT 92–100
--- NOTE | 2022-06-08 | XR_ITS ---
WS: [id number] INTRAOPERATIVE TECHNIQUE: 4 Spot fluoroscopic images for intraoperative purposes. FLUOROSCOPY TIME: 6.5 seconds CLINICAL INFORMATION: or pic, revision of cervical fusion c3, or c4 extension COMPARISON: None. FINDINGS: Intraoperative changes posterior element fusion C4-C6 and T1-T2 with interconnecting rods. Partially visualized hardware appears in good position. Endotracheal tube. XR/XR cervical spine 3V* [id number] IMPRESSION: Images obtained for intraoperative purposes.
[2022-06-08 06:20] LABS: Basophils % 0.7 %; Eosinophils # 0.2 10^3/uL (0.0-0.8); Eosinophils % 3.9 %; Hematocrit 41.5 % (42.0-52.0); Hemoglobin 12.6 g/dL (11.7-16.6); Lymphocytes # 2.1 10^3/uL (0.8-4.8); Lymphocytes % 37.7 %; Mean Corpuscular HGB Conc 30.4 g/dL (30.0-36.0); Mean Corpuscular Volume 78.9 fl (80-94); Mean Platelet Volume 9.8 fL (7.4-10.4); Monocytes # 0.5 10^3/uL (0.2-0.9); Neutrophils # 2.76 10^3/uL (1.8-7.7); Neutrophils % 48.5 %; Nucleated Red Blood Cells % 0 %; Platelet Count 285 10^3/cmm (130-400); Red Blood Count 5.26 10^6/uL (4.1-5.3); Red Cell Distribution Width 14.9 % (12.1-15.1); White Blood Count 5.7 10^3/uL (4.0-10.0)
[2022-06-08] MEDS: sodium chloride 0.9% 1,000 ML 30 ML IV (06:20)
--- NOTE | 2022-06-08 06:30 | P.ANESUD_ITS ---
Pre-Anesthetic Update Pre-Anesthetic Assessment: Date of Surgery/Procedure: 06/08/22 Preop Shadia gnosis: failed hardware cervical spine Proposed Procedure: Operation Date: 06/08/22 07:00 Proposed Procedures p Cervical Posterior Fusion reinsertion of spinal fixation device [id number]/Z98.1(Not Applicable) - Addison Perez, DO Any changes to Pre-Anesthetic Assessment?: No Last Intake: Intake Last Liquid Date 06/07/22 Last Liquid Time 21:00 Last Solid Date 06/07/22 Last Solid Time 19:00 Labs Last 48hrs: Short CBC 06/08/22 Range/Units 06:15 WBC 5.7 (4.0-10.0) 10^3/ uL Hgb 12.6 (11.7-16.6) g/dL Hct 41.5 L (42.0-52.0) % MCV 78.9 L (80-94) fl Plt Count 285 (130-400) 10^3/c mm Neut % (Auto) 48.5 % Neut # (Auto) 2.76 (1.8-7.7) 10^3/u L Vitals: Temperature 97.3 F L 06/08/22 06:08 Temperature Source Temporal Artery S can 06/08/22 06:08 Pulse Rate 70 06/08/22 06:08 Respiratory Rate 16 06/08/22 06:08 Blood Pressure 149/111 06/08/22 06:08 Blood Pressure Radha n 123 06/08/22 06:08 Pulse Oximetry 98 06/08/22 06:08 Oxygen Delivery Me thod 06/08/22 06:08 Exam: Pre-Anes Outpt Exam: alert, oriented x 3, clear to auscultation bilaterally and regular rate & rhythm Additional Exam Findings (including area of procedure): murmur, no valvular abnormalities on 03/17 echo Cardiac Studies: Echocardiogram 03/02/22
[2022-06-08 06:37] LABS: Anion Gap 13.2 (5-19); Blood Urea Nitrogen 3 mg/dL (6-20); Calcium 8.4 mg/dL (8.5-10.5); Carbon Dioxide 26 mmol/L (22-29); Chloride 99 mmol/L (98-107); Creatinine Clr Calc Pharmacy 112.3674; Glomerular Filtration Rate 100.7 mL/min (90-130); Glucose 83 mg/dL (65-115); Osmolality Calculated 276 mOsm/kg (285-295); Potassium 3.2 mmol/L (3.5-5.1); Sodium 135 mmol/L (136-145)
--- NOTE | 2022-06-08 06:37 | W.PM.OPSUD ---
Surgery/Procedure H&P Update DATE OF PROCEDURE: June 08, 2022 DATE H&P PERFORMED: 05/31/22 H&P UPDATE INFORMATION: I have reviewed H&P completed within last 30 days, I have examined patient prior to procedure and No changes to prior documentation PREOP DIAGNOSIS: failed hardware cervical spine PLANNED PROCEDURE: Operation Date: 06/08/22 07:00 Proposed Procedures p Cervical Posterior Fusion reinsertion of spinal fixation device [id number]/Z98.1(Not Applicable) - Addison Perez DO
[2022-06-08] MEDS: ceFAZolin 2,000 MG in sodium chloride 0.9% (plus) 50 ML 100 MG IV ×3 (07:02→23:27)
[2022-06-08] MEDS: vancomycin 1,000 MG SDV 1000 MG XX (07:49)
--- NOTE | 2022-06-08 08:49 | CTR_ITS ---
PROCEDURE INFORMATION: Exam: CT Cervical Spine Without Contrast Exam date and time: 06/08/2022 11:12 AM Age: 52 years old Clinical indication: Condition or disease; Other: C7 tumor; Prior surgery; Surgery date: Post-operative (0-2 days); Surgery type: Cervical surgery for c7 lesion; Additional info: Check status of c7 tumor TECHNIQUE: Imaging protocol: Computed tomography of the cervical spine without contrast. Radiation optimization: All CT scans at this facility use at least one of these dose optimization techniques: automated exposure control; mA and/or kV adjustment per patient size (includes targeted exams where dose is matched to clinical indication); or iterative reconstruction. COMPARISON: CT cervical spine wo/w [id number] 03/05/2022 3:37 PM RADIATION DOSE METRICS: Total DLP (mGy-cm): 246.8 FINDINGS: Bones/joints: There are posterior fusion rods and pedicle screws from C4 through C6 and at T1 and T2. The rods and screws are adjacent to, but do not course through the C7 lytic lesion. The lytic lesion in the C7 vertebral body extending into the pedicle and transverse process has increased in size in the interval. It currently measures approximately 4.4 x 2.4 cm as seen on coronal image 40 (previously 3.8 x 1.8 cm). There is cortical breakthrough. C2-C3: No significant disc protrusion. No severe spinal canal stenosis. No significant neural foraminal narrowing. C3-C4: No significant disc protrusion. No severe spinal canal stenosis. No significant neural foraminal narrowing. C4-C5: No significant disc protrusion. No severe spinal canal stenosis. No significant neural foraminal narrowing. C5-C6: No significant disc protrusion. No severe spinal canal stenosis. No significant neural foraminal narrowing. C6-C7: No significant disc protrusion. No severe spinal canal stenosis. No significant neural foraminal narrowing. C7-T1: No significant disc protrusion. No severe spinal canal stenosis. No significant neural foraminal narrowing. Lungs: Lung apices are normal. Soft tissues: There is a posterior percutaneous catheter which courses along the left sided posterior fusion bobbi. There is gas and fluid at the operative site. CT/CT cervical spin wo con* [id number] IMPRESSION: In this patient with a lytic lesion at the C7 level, there is postsurgical change without complication.
--- NOTE | 2022-06-08 09:02 | PM.OP ---
Operative Report Date of procedure: June 08, 2022 Pre-op diagnosis: Preop Diagnosis failed hardware cervical spine Post-op diagnosis: same Procedure done: 1. C4-T2 instrumentation 2. C4-T2 fusion 3. Use of allograft 4. removal of hardware Surgeon: Addison Perez [employer] Head: Jonathan Orantes [employer] Head: The surgical services manager, Jonathan Orantes, PAC was needed for his expertise under the microscope. He was important and necessary throughout the procedure to complete in a safe and timely manner. He assisted with patient positioning prepping and draping tissue retraction suctioning of the operative field protection of the dural sac and tissue closure Estimated blood loss (mL): 200 Procedure: 1. C4-T2 instrumentation 2. C4-T2 fusion 3. Use of allograft 4. removal of hardware Patient brought the operative suite after undergoing anesthesia was placed in the prone position. All areas impingement well-padded patient was prepped and draped normal sterile fashion. Skin skin is made using previous skin and incision. Subperiosteal dissection was made out the C4 down to T2. The hardware was identified at C5 and C6. The screws on the right had ripped out. The C5 screw on the left was still present and C6 screw removed. The T1-T2 screws were given. Once the areas were identified the screws were removed. Both the C5-C6 screws bilaterally. And then attention was brought to placing screws in the lateral masses of C4-C5 and C6. There is brought to the left side. The C4 screws made hole was made with a drill followed by the drill for the actual screw. Pedicle feeler was used to reveal the lateral mass. And then a 14 mm x 3 5 screws placed in C4 the hole for C5 was in good shape operative fluoroscopy was used. On this left side. And then we drilled a another hole for the C6 lateral mass on the left. On the right side lateral mass screws were drilled in the same technique using a high-speed bur followed by the drill followed by pedicle feeler. 3 514 mm screws placed at C4 and then the C5 holes were drilled as was the C6 hole. In these were 3 540 mm screws placed here. Next attention was brought to attaching the rods. Rods were attached from a C4-T2 bilaterally. Caps were then torqued in position locked down. Wounds were then irrigated and then the bone was decorticated from C4-T2 and more allograft posterior bone graft was packed in the gutters was then closed in layered fashion with 0 Vicryl 2-0 Vicryl and nylon suture. A deep drain was placed and sterile dressings were applied patient was transferred to the PACU in stable addition.
--- NOTE | 2022-06-08 09:35 | PC.NURSE ---
awake. Airway removed
--- NOTE | 2022-06-08 10:24 | PC.NURSE ---
Van (patient's dad) updated
--- NOTE | 2022-06-08 10:41 | PC.NURSE ---
ice pack to neck
--- NOTE | 2022-06-08 11:00 | PC.NURSE ---
Transporting patient to CT then to GI holding
--- NOTE | 2022-06-08 11:25 | PC.NURSE ---
1122 CT completed and patient taken to GI holding.
[2022-06-08] MEDS: morphine 4 mg/mL SDV 1 mL 2 MG IVP ×4 (11:53→23:38)
[2022-06-08] MEDS: cloNIDine 0.1 mg Tablet PO ×2 (15:07→20:40)
[2022-06-08] MEDS: lactated ringers 1,000 ML 90 ML IV (15:07)
--- NOTE | 2022-06-08 16:31 | ANE.PACU2 ---
Inpatient post-anesthesia follow up: Airway intact: Yes Vital signs: Temperature 97.0 F Pulse Rate 68 Respiratory Rate 18 Blood Pressure 165/107 Pulse Oximetry 100 Oxygen Delivery Me thod Room Air Oxygen Flow Rate 1 Fraction of Inspir ed Oxygen 2 Hydration adequate: Yes Nausea and vomiting: No Pain level: 1 Mental status: Baseline
[2022-06-08] MEDS: metoprolol tartrate 50 mg Tablet PO (16:50)
[2022-06-08] MEDS: LORazepam 1 mg Tablet PO (17:09)
[2022-06-08] MEDS: ketorolac 30 mg/mL INJ IVP (18:19)
[2022-06-09] VITALS: BP 148/87; PULSE 66; RESP 20; TEMP 36.5; O2SAT 100
[2022-06-09] MEDS: lactated ringers 1,000 ML 90 ML IV (02:48)
[2022-06-09 04:00] VITALS: BP 132/86; PULSE 68; RESP 17; TEMP 36.6; O2SAT 100
[2022-06-09] MEDS: ceFAZolin 2,000 MG in sodium chloride 0.9% (plus) 50 ML 100 MG IV (06:22)
[2022-06-09] MEDS: LORazepam 1 mg Tablet PO (06:29)
[2022-06-09] MEDS: ketorolac 30 mg/mL INJ IVP (06:29)
[2022-06-09] MEDS: pantoprazole DR 40 mg Tablet PO (07:53)
[2022-06-09] MEDS: cloNIDine 0.1 mg Tablet PO (07:53)
[2022-06-09] MEDS: folic acid 1 mg Tablet PO (07:53)
[2022-06-09 07:57] VITALS: BP 142/92; PULSE 69; RESP 16; TEMP 36.6; O2SAT 100
[2022-06-09] MEDS: metoprolol tartrate 50 mg Tablet PO (08:00)
--- NOTE | 2022-06-09 08:15 | P.DS_ITS ---
Discharge Providers Date of Admission: 06/08/22 14:10 Date of Discharge: June 09, 2022 Attending Provider at Admission: Addison Perez DO Attending Provider at Discharge: Addison Perez DO Primary Care Provider: Troy Ambrosio DO Reason for Visit Reason for Visit: reinsertion of spinal fixation device [id number]/ Hospital Course Hospital Course Patient was admitted and had some bleeding and surgery 1 to put a drain in at this point patient is doing well will be discharged. Physical Exam Narrative: Patient has 5-5 strength pain is controlled able to ambulate. Urinary Catheter Management: San: Cath Placed During This Visit: yes Reason for Continuing Indwelling Catheter: Other Urinary Catheter Date of Insertion: 06/08/22 Urinary Catheter Time of Insertion: 07:20 Discharge Data Studies Completed and Pending Completed Studies During Hospitalization Category Date Time Status CT cervical spin wo con* [id number] Routine Cat Scan 06/08/22 08:49 Completed Pending at discharge Category Date Time Status C-arm Fluoroscopy [id number] Routine Exams 06/08/22 05:54 Taken XR cervical spine 3V* [id number] Routine Exams 06/08/22 Taken Radiology Impressions Cervical Spine CT 06/08/22 08:49 IMPRESSION: In this patient with a lytic lesion at the C7 level, there is postsurgical change without complication. Laboratory Results WBC 5.7 10^3/uL (4.0-10.0) 06/08/22 06:15 RBC 5.26 10^6/uL (4.1-5.3) 06/08/22 06:15 Hgb 12.6 g/dL (11.7-16.6) 06/08/22 06:15 Hct 41.5 % (42.0-52.0) L 06/08/22 06:15 MCV 78.9 fl (80-94) L 06/08/22 06:15 MCH 24.0 pg (28.0-34.0) L 06/08/22 06:15 MCHC 30.4 g/dL (30.0-36.0) 06/08/22 06:15 RDW 14.9 % (12.1-15.1) 06/08/22 06:15 Plt Count 285 10^3/cmm (130-400) 06/08/22 06:15 MPV 9.8 fL (7.4-10.4) 06/08/22 06:15 Neut % (Auto) 48.5 % 06/08/22 06:15 Lymph % (Auto) 37.7 % 06/08/22 06:15 Baker % (Auto) 9.0 % 06/08/22 06:15 Eos % (Auto) 3.9 % 06/08/22 06:15 Baso % (Auto) 0.7 % 06/08/22 06:15 Neut # (Auto) 2.76 10^3/uL (1.8-7.7) 06/08/22 06:15 Lymph # (Auto) 2.1 10^3/uL (0.8-4.8) 06/08/22 06:15 Baker # (Auto) 0.5 10^3/uL (0.2-0.9) 06/08/22 06:15 Eos # (Auto) 0.2 10^3/uL (0.0-0.8) 06/08/22 06:15 Baso # (Auto) 0.0 10^3/uL (0.0-0.1) 06/08/22 06:15 Nucleated RBC % (auto) 0 % 06/08/22 06:15 Nucleated RBCs # 0.0 /100WBC 06/08/22 06:15 Sodium 135 mmol/L (136-145) L 06/08/22 06:15 Potassium 3.2 mmol/L (3.5-5.1) L 06/08/22 06:15 Chloride 99 mmol/L (98-107) 06/08/22 06:15 Carbon Dioxide 26 mmol/L (22-29) 06/08/22 06:15 Anion Gap 13.2 (5-19) 06/08/22 06:15 BUN 3 mg/dL (6-20) L 06/08/22 06:15 Creatinine 0.8 mg/dL (0.7-1.2) 06/08/22 06:15 GFR Calculation 100.7 mL/min (90-130) 06/08/22 06:15 Glucose 83 mg/dL (65-115) 06/08/22 06:15 Calculated Osmolality 276 mOsm/kg (285-295) L 06/08/22 06:15 Calcium 8.4 mg/dL (8.5-10.5) L 06/08/22 06:15 Vitals Last Vital Signs Temp 97.9 F 06/09/22 07:57 Pulse 69 06/09/22 07:57 Resp 16 06/09/22 07:57 BP 142/92 06/09/22 07:57 Pulse Ox 100 06/09/22 07:57 O2 Del Method 06/09/22 07:57 O2 Flow Rate 3 06/08/22 20:00 FiO2 2 06/08/22 13:24 Discharge Plan Discharge Patient Disposition: Home Condition: Stable Prescriptions: New hydrocodone-acetaminophen 5-325 mg tablet 1 - 2 tab PO .Q4-6H Qty: 40 0RF Continued lorazepam 1 mg tablet 1 mg PO TID PRN (Reason: anxiety) Qty: 90 1RF hydrocodone-acetaminophen 5-325 mg tablet 1 tab PO BID PRN (Reason: pain) 14 Days Qty: 30 0RF (DME) Intraoperative neuromonitoring See Rx Instructions .ROUTE .MEDSUPPLY Qty: 1 0RF Rx Instructions: As directed clonidine HCl 0.1 mg tablet 0.1 mg PO TID omeprazole 40 mg capsule,delayed release(DR/EC) 40 mg PO DAILY folic acid 1 mg Tablet 1 mg PO DAILY metoprolol tartrate 50 mg tablet 50 mg PO BID Discharge Orders: Discharge Order (Routine); Ordered 06/09/22 Ordered By: Addison Perez Discharge Diet: Advance as tolerated Discharge Activity: Limit activity as instructed Patient Instructions: Opioid Safety Activity Restrictions/Additional Instructions: Thank you for choosing [facility] for your care! The following is a list of instructions, from your provider, to follow upon your discharge to ensure you have the optimal recovery from your recent injury or surgery. Anterior Cervical Discectomy and Fusion: What to Expect at Home Your Recovery Follow-up care is a ferris part of your treatment and safety. Be sure to make and go to all appointments, and call your doctor if you are having problems. If you do not already have a follow-up appointment made, call office in the next 1-3 days to make follow up appointment for 2 weeks at [phone]. It is also a good idea to know your test results and keep a list of the medicines you take. You can expect your neck to feel stiff or sore after surgery. This should improve in the weeks after surgery. But it may take 4 to 6 months for you to get better completely. You may have trouble sitting or standing in one position for very long and may need pain medicine in the weeks after your surgery. It may take 4 to 6 weeks to get back to your usual activities, but it may depend on what kind of surgery you had. Your throat will feel sore and it may be difficult to swallow for the first 3 days after your surgery. As long as you can get liquids down without difficulty, this should slowly improve, otherwise call our office or seek medical attention if it becomes increasingly difficult to get anything down including liquids. Avoid hot liquids for first 3-5 days. Soothing foods/liquids such as jello, pudding, and luke warm soups are recommended until swallowing improves. Staying elevated will also help, it's advised you keep propped up at while sleeping to help reduce the swelling. You may use an ice pack directly on your incision or around it on the front of your neck, using a cloth to protect your skin; and a heating pad to the back of your neck as needed. Do not use over the counter anti-inflammatory medications (Ibuprofen, Motrin, Aleve, Advil, etc) Taking these meds after having a fusion can delay fusion rates, we recommend you avoid them for the first 3 [address] after your surgery[address] Dr. Perez may advise you to work with a physical therapist to strengthen the muscles around your neck and back - this will be discussed at your follow - up appointments. The pain or numbness you were having in your arms before surgery should get better or go away completely. This care sheet gives you a general idea about how long it will take for you to recover. But each person recovers at a different pace. Follow the steps below to get better as quickly as possible. How can you care for yourself at home? Activity ? Rest when you feel tired. Getting enough sleep will help you recover. ? Try to walk each day. Start by walking a little more than you did the day before. Bit by bit, increase the amount you walk. Walking boosts blood flow and helps prevent pneumonia and constipation. Walking may also decrease your muscle soreness after surgery. ? No lifting anything that is more that 5 pounds. This may include heavy grocery bags and milk containers, a heavy briefcase or backpack, cat litter or dog food bags, a child, or a vacuum vacuum cleaner mechanic. ? Avoid strenuous activities, such as bicycle riding, jogging, weightlifting, or aerobic exercise, until your doctor says it is okay. ? Do not drive until your follow-up visit after your surgery, or until your doctor says it isokay. ? Avoid taking long car trips for 2 to 4 weeks after surgery. Your neck may become tired and painful from sitting too long in one position. ? You will probably need to take 4 to 6 weeks off from work. It depends on the type of work you do and how you feel. ? You may have sex as soon as you feel able, but avoid positions that put stress on your neck or cause pain. Diet ? You can eat your normal diet. If your stomach is upset, try bland, low-fat foods like plain rice, broiled chicken, toast, and yogurt ? Drink plenty of fluids. If you have kidney, heart, or liver disease and have to limit fluids, talk with your doctor before you increase the amount of fluids you drink. ? You may notice that your bowel movements are not regular right after your surgery. This is common. Try to avoid constipation and straining with bowel movements. You may want to take a fiber supplement every day. If you have not had a bowel movement after a couple of days, ask your doctor about taking a mild laxative. Medicines ? Take pain medicines exactly as directed. 1. If Dr. Perez gave you a prescription medicine for pain, take lt as prescribed. 2. Do not take two or more pain medicines at the same time unless the doctor told you to. Many pain medicines have acetaminophen, which is Tylenol. Too much acetaminophen {Tylenol) can be harmful. 3. If you think your pain pill is making you sick to your stomach: 4. Take your pills after meals (unless your doctor has told you not to). 5. Ask your Dr. for a different pain pill. Incisioncare ? Remove your dressing 48hours after your surgery. Ok to shower and get the incision wet. Do not overtly wash your incision. When done, pad dry, leave open to air thereafter. Avoid creams and ointments directly on your incision. ? Your sutures in the incision will dissolve and fall out on their own. ? Keep the area clean and dry. You may cover it with a gauze bandage if it weeps or rubs against clothing; if you choose to do this, change the dressing everyday. Other instructions ? Use a heating pad, hot water bottle, or gentle massage on your back to reduce stiffness. Avoid putting heat on your incision When should you call for help? ? Call 911 anytime you think you may need emergency care. For example, call if: ? You pass out (lose consciousness). ? You have sudden chest pain and shortness of breath, or you cough upblood. ? You cannot swallow. ? You have severe pain in your neck or back. ? Call your Dr. or seek immediate medical care if: ? You have pain that does not get better after you take pain pills. ? You have loose stitches, or your incision comes open. ? You have blood or fluid draining from the incision. ? You have signs of infection, such as: 1. Increased pain, swelling, warmth, or redness. 2. Red streaks leading from the site. 3. Pus draining from the site. 4. Swollen lymph nodes in your neck or armpits. 5. A fever. ? You have severe pain in your arms. ? You have new or increased weakness or numbness in your arms. ? Watch closely for any changes in your health, and be sure to contact your doctor if: ? You do not have a bowel movement after taking a laxative. Discharge Attestations Time Spent in Discharge Care*: less than 30 min Quality Metrics Clinical Quality Measures [ No reported AMI, CVA or VTE this stay] Coding Level of Care Code Acute g CAROLYN note
--- NOTE | 2022-06-09 09:20 | PC.NURSE ---
Hemovac discontinued per Dr. Perez.
== END 2022-06-09 09:50 | disposition home or self-care (01) | DRG 460 ==
LOC: MEDSURG 14:22
PROVIDERS: Anesthesiology; Admitting Provider Orthopaedic Surgery; PCP Family Medicine; Visit Provider Orthopaedic Surgery
PROC: 0RG Upper Joints, Fusion (ICD-10-PCS; CPT 22600; principal; 2022-06-08 07:00)
DX: T84.226A Displacement of internal fixation device of vertebrae, initial encounter (principal); Y79.1 Therapeutic (nonsurgical) and rehabilitative orthopedic devices associated with adverse incidents; F10.21 Alcohol dependence, in remission; Z79.891 Long term (current) use of opiate analgesic
CPT/HCPCS: 51702; 72040; 72125; 76000; 80048; 85025; 97110; 97161; C1713; C9359; J0330; J0690; J1100; J1170; J1885; J2250; J2270; J2405; J2704; J2710; J3010; J3370; J3490; J7030; J7120

== ENCOUNTER → 2022-06-28 08:57 | Outpatient (BNVA) | payer OTHER, SELFPAY | PROVIDERS: PCP Family Medicine; Visit Provider Nurse Practitioner Family | DX: Z98.890 Other specified postprocedural states (principal); S42.292D Other displaced fracture of upper end of left humerus, subsequent encounter for fracture with routine healing; X58.XXXD Exposure to other specified factors, subsequent encounter | CPT/HCPCS: 73030 ==

== ENCOUNTER → 2022-06-30 08:44 | Outpatient (BNVA) | payer OTHER, SELFPAY | PROVIDERS: PCP Family Medicine; Visit Provider Orthopaedic Surgery | DX: Z47.89 Encounter for other orthopedic aftercare (principal); Z98.1 Arthrodesis status; D49.9 Neoplasm of unspecified behavior of unspecified site | CPT/HCPCS: 72040 ==

== ENCOUNTER 2022-07-07 06:17 | Outpatient (CLI) | payer OTHER, SELFPAY ==
--- NOTE | 2022-07-07 06:15 | USCV_ITS ---
Dustin De Leon Age: 52 Gender: M : 1970 Exam Date: 07/07/2022 06:29 Ordering Phys: Troy Ambrosio DO Technologist: JACKLYN [place] [facility] [place]: WORSENING MURMUR, CHRONIC HEART FAILURE BP: 136 / 84 HR: 38 Rhythm: Sinus Technical Quality: Adequate MEASUREMENTS (Male / Female) Normal Values 2D ECHO LVOT Diameter 2.0 cm LV Ejection Fraction MOD 2C 73.0 % LV Ejection Fraction 2C AL 73.9 % LA Diameter 4.8 cm LA Width 5.3 cm LA Height 6.3 cm RA Width 3.7 cm RA Height 5.3 cm Aorta at Sinotubular Diameter 2.7 cm IVC Diameter 2.3 cm M-MODE Aortic Annulus Diameter 3.6 cm LA Ao Ratio MM 1.4 MV E Point Septal Separation 1.1 cm DOPPLER AV Peak Velocity 120.0 cm/s LVOT Peak Velocity 81.0 cm/s AV Area Cont Eq vti 2.4 cm squared AV Area Cont Eq pk 2.1 cm squared MV Peak Velocity 209.0 cm/s MV Area PHT 3.7 cm squared Mitral E to A Ratio 2.2 MV E' Velocity 99.0 cm/s Mitral E to MV E' Ratio 17.3 Mitral E to LV E' Lateral Ratio 15.4 Mitral E to LV E' Septal Ratio 19.6 TR Peak Velocity 260.8 cm/s TR Peak Gradient 27.2 mmHg TR Mean Velocity 211.2 cm/s TR Mean Gradient 18.3 mmHg TR Velocity Time Integral 110.9 cm TV Peak E Velocity 56.0 cm/s Right Atrial Pressure 8.0 mmHg Pulmonary Artery Systolic Pressu 35.2 mmHg PV Peak Velocity 192.0 cm/s RV Acceleration Time 0.1 s RV Ejection Time 0.3 s RV AcT/ET 0.3 FINDINGS Left Ventricle Normal left ventricular size, systolic function and wall thickness, with no regional wall motion abnormalities. Left ventricular ejection fraction is estimated at 60-65 %. Grade III diastolic dysfunction (restrictive filling pattern), severely elevated filling pressures. Right Ventricle Normal right ventricular size and systolic function. Right ventricular systolic pressure 35.2 mmHg. Right Atrium Normal right atrial size. Left Atrium Moderately increased left atrial size. Mitral Valve Moderately thickened mitral valve. Marked posterior leaflet prolapse. No mitral valve stenosis. Moderate to severe very eccentric anteriorly directed mtral valve ( possiblly underestimated due to coanda effect). Aortic Valve Structurally normal trileaflet aortic valve. No aortic valve stenosis. No aortic valve regurgitation. Tricuspid Valve Structurally normal tricuspid valve. No tricuspid valve stenosis. Trace to mild tricuspid valve regurgitation. Pulmonic Valve Structurally normal pulmonic valve. No pulmonary valve stenosis. Trace pulmonary valve regurgitation. Pericardium No pericardial effusion. Aorta Normal size aortic root and proximal ascending aorta. IVC Dilated IVC with normal respiratory variation. CONCLUSIONS 1. Normal left ventricular size, systolic function and wall thickness, with no regional wall motion abnormalities. Left ventricular ejection fraction is estimated at 60-65 %. Diastolic dysfunction with restrictive filling pattern, severely elevated filling pressures. 2. Marked posterior leaflet prolapse. Moderate to severe very eccentric anteriorly directed mtral valve ( possiblly underestimated due to coanda effect). 3. On the study dated 03/02/2022 mitral regurgitation was not well seen and when compared to JOE dated 07/21/2017; mitral regurgitation seems to have worsened. JOE is recommended for better evaluation of mitral regurgitation. Zully Medina MD (Electronically Signed) Final Date: 12 July 2022 09:27 S
== END 2022-07-07 06:18 | disposition home or self-care (01) ==
LOC: RAD 06:19
PROVIDERS: PCP Family Medicine; Visit Provider Family Medicine
DX: E87.1 Hypo-osmolality and hyponatremia (principal); E87.6 Hypokalemia; R06.00 Dyspnea, unspecified
CPT/HCPCS: 80053; 83880; 85025; 93306

== ENCOUNTER → 2022-07-12 10:32 | Outpatient (BNVA) | payer OTHER, SELFPAY | PROVIDERS: PCP Family Medicine; Visit Provider Family Medicine | DX: R06.00 Dyspnea, unspecified (principal); R60.9 Edema, unspecified; I05.9 Rheumatic mitral valve disease, unspecified; E87.1 Hypo-osmolality and hyponatremia; E87.6 Hypokalemia; S43.005A Unspecified dislocation of left shoulder joint, initial encounter; X58.XXXA Exposure to other specified factors, initial encounter | CPT/HCPCS: 80048; 83880 ==

== ENCOUNTER → 2022-07-21 08:09 | Outpatient (BNVA) | payer OTHER, SELFPAY | PROVIDERS: PCP Family Medicine; Visit Provider Orthopaedic Surgery | DX: Z47.89 Encounter for other orthopedic aftercare (principal); Z98.1 Arthrodesis status | CPT/HCPCS: 72040 ==

== ENCOUNTER → 2022-08-05 10:06 | Outpatient (BNVA) | payer OTHER, SELFPAY | PROVIDERS: PCP Family Medicine; Visit Provider Family Medicine | DX: E87.6 Hypokalemia (principal); E87.1 Hypo-osmolality and hyponatremia | CPT/HCPCS: 80048 ==

== ENCOUNTER → 2022-08-16 13:06 | Outpatient (BNVA) | payer OTHER, SELFPAY | PROVIDERS: PCP Family Medicine; Visit Provider Orthopaedic Surgery | DX: Z47.89 Encounter for other orthopedic aftercare (principal); Z98.1 Arthrodesis status; D49.2 Neoplasm of unspecified behavior of bone, soft tissue, and skin | CPT/HCPCS: 72040 ==

== ENCOUNTER → 2022-08-25 12:36 | Outpatient (BNVA) | payer OTHER, SELFPAY | PROVIDERS: PCP Family Medicine; Visit Provider Family Medicine | DX: I10 Essential (primary) hypertension (principal); E87.6 Hypokalemia; E87.1 Hypo-osmolality and hyponatremia | CPT/HCPCS: 80048 ==

== ENCOUNTER 2022-09-08 14:25 | Outpatient (RCR) | payer OTHER, SELFPAY | END 2022-09-23 23:59 | disposition home or self-care (01) | LOC: SPT 14:25 | PROVIDERS: PCP Family Medicine; Visit Provider Orthopaedic Surgery | DX: Z47.89 Encounter for other orthopedic aftercare (principal) | CPT/HCPCS: 97110; 97161 ==

== ENCOUNTER 2022-09-24 06:00 | Outpatient (RCR) | payer OTHER, SELFPAY | END 2022-10-23 23:59 | disposition home or self-care (01) | LOC: SPT 06:00 | PROVIDERS: PCP Family Medicine; Visit Provider Orthopaedic Surgery | DX: R29.3 Abnormal posture (principal); M62.81 Muscle weakness (generalized); M25.612 Stiffness of left shoulder, not elsewhere classified | CPT/HCPCS: 97110 ==

== ENCOUNTER → 2022-09-27 08:54 | Outpatient (BNVA) | payer OTHER, SELFPAY | PROVIDERS: PCP Family Medicine; Visit Provider Nurse Practitioner Family | DX: S42.292G Other displaced fracture of upper end of left humerus, subsequent encounter for fracture with delayed healing (principal); X58.XXXD Exposure to other specified factors, subsequent encounter | CPT/HCPCS: 73030 ==

== ENCOUNTER → 2022-09-29 13:39 | Outpatient (BNVA) | payer OTHER, SELFPAY | PROVIDERS: PCP Family Medicine; Visit Provider Family Medicine | DX: E87.1 Hypo-osmolality and hyponatremia (principal); E87.6 Hypokalemia; I10 Essential (primary) hypertension | CPT/HCPCS: 80048 ==

== ENCOUNTER 2022-10-24 06:00 | Outpatient (RCR) | payer OTHER, SELFPAY | END 2022-11-23 23:59 | disposition home or self-care (01) | LOC: SPT 06:00 | PROVIDERS: PCP Family Medicine; Visit Provider Orthopaedic Surgery | DX: Z47.89 Encounter for other orthopedic aftercare (principal) | CPT/HCPCS: 97110 ==

== ENCOUNTER → 2022-11-18 11:40 | Outpatient (BNVA) | payer OTHER, SELFPAY | PROVIDERS: PCP Family Medicine; Visit Provider Family Medicine | DX: I10 Essential (primary) hypertension (principal); I05.9 Rheumatic mitral valve disease, unspecified | CPT/HCPCS: 80053 ==

== ENCOUNTER 2022-11-25 11:42 | Outpatient (CLI) | payer OTHER, SELFPAY ==
--- NOTE | 2022-11-25 12:00 | CTR_ITS ---
PROCEDURE INFORMATION: Exam: CT Cervical Spine Without Contrast Exam date and time: 11/25/2022 12:11 PM Age: 52 years old Clinical indication: Mass, lump or swelling in neck; Prior surgery; Surgery date: 6+ months; Surgery type: Cervical; Additional info: Osteosarcoma TECHNIQUE: Imaging protocol: Computed tomography of the cervical spine without contrast. Radiation optimization: All CT scans at this facility use at least one of these dose optimization techniques: automated exposure control; mA and/or kV adjustment per patient size (includes targeted exams where dose is matched to clinical indication); or iterative reconstruction. REPORTING DATA: Count of CT and Cardiac NM exams in prior 12 months: This patient has received 5 known CTs and 0 known cardiac nuclear medicine studies in the 12 months prior to the current study. COMPARISON: CT cervical spin wo con* [id number] 06/08/2022 11:12 AM RADIATION DOSE METRICS: Total DLP (mGy-cm): 143.17 FINDINGS: Bones/joints: There is mild reversal of normal lordosis at the cervicothoracic junction that is progressed from previous exam. There is no spondylolisthesis. There is an osteolytic expansile bone lesion within C7 involving the left lateral aspect of the vertebral body left pedicle and left transverse process not appreciably changed in size measuring approximately 4 x 3 cm in greatest dimension (coronal plane). There are postsurgical changes involving the spinous processes of C6, C7 and T1 unchanged. There are posterolateral spinal instrumentation consisting of transpedicle screws and spinal rods extending from C4 through T2, unchanged. There are progressive osteolytic bone changes involving T1, T2 and T3 vertebral with mild wedge-shaped compression of tree 3 concerning for metastatic disease. Prevertebral and retropharyngeal spaces: There stable postoperative changes posterior to C7. There is no prevertebral soft tissue swelling. There is no soft tissue mass detected. Lungs: Lung apices are normal. Soft tissues: See Prevertebral and retropharyngeal spaces finding. CT/CT cervical spin wo con* [id number] IMPRESSION: 1. Stable appearance of osteolytic bone lesion C7 consistent with history of osteosarcoma and stabilized by posterolateral spinal instrumentation that is unchanged. 2. Progressive osteolytic bone changes involving T1 through T3 vertebral bodies with progressive anterior wedge compression fracture T3 concerning for bone metastasis that could be further assessed on bone scan or MRI exam if clinically warranted.
== END 2022-11-25 11:43 | disposition home or self-care (01) ==
LOC: RAD 11:49
PROVIDERS: PCP Family Medicine; Visit Provider Orthopaedic Surgery
DX: C41.9 Malignant neoplasm of bone and articular cartilage, unspecified (principal); Z98.1 Arthrodesis status; M48.54XA Collapsed vertebra, not elsewhere classified, thoracic region, initial encounter for fracture
CPT/HCPCS: 72125; 80048

== ENCOUNTER 2022-12-23 12:53 | Outpatient (CLI) | payer OTHER, SELFPAY ==
--- NOTE | 2022-12-23 13:00 | MR_ITS ---
WS: [email or web address] MRI CERVICAL SPINE NONCONTRAST TECHNIQUE: Sagittal T1, T2 and STIR imaging. Axial T2, gradient, and fiesta imaging. CLINICAL INFORMATION: neck pain, post op ACDF, osteosarcoma COMPARISON: CT 11/25/2022 and 06/08/2022 FINDINGS: Thoracic kyphosis in the upper thoracic spine. Postoperative changes ACDF C4-T2. Chronic anterior wed ging at T3 and T4. Dorsal interconnecting rods. No high-grade central canal stenosis. Cord signal is normal. Stable lytic lesion C7 vertebral body consistent with history of osteosarcoma. Stable appearing compression fractures T2, T3 and T4 worse at T3 T4 similar to the prior CT. Gadolin ium not administered. No definite evidence of osseous metastasis at these levels with relatively homo geneous bone marrow signal. C2-C3: Mild LEFT and no RIGHT foraminal narrowing. Mild facet arthropathy. C3-C4: Mild facet arthropathy. Mild LEFT greater than RIGHT bony foraminal narrowing. C4-C5: Spinal canal and foramen are patent. C5-C6: Mild LEFT greater than RIGHT bony foraminal narrowing. Spinal canal is patent. C6-C7: Mild LEFT and no significant RIGHT foraminal narrowing. Spinal canal is patent. C7-T1: Normal. Visualized brain stem structures: Normal. Prevertebral soft tissues: Normal. MR/MR cervical spin wo con* [id number] IMPRESSION: 1. Stable appearing osteolytic lesion at T7 vertebral body compatible with his tory of treated osteosarcoma. 2. Compression with anterior wedging at T3 and T4 with anterior wedging and re latively normal bone marrow signal. No evidence of metastasis this level. Gadol inium not administered. 3. Mild compression superior endplate T2 is chronic. 4. Prior postoperative changes posterior element fusion C4-T2 with posterior i nterconnecting rods 5. No significant central canal stenosis. Cord signal is normal.
--- NOTE | 2022-12-23 13:45 | MR_ITS ---
WS: [email or web address] MRI THORACIC SPINE WITHOUT CONTRAST TECHNIQUE: Sagittal T1, T2 and STIR imaging. Axial T2 imaging. Noncontrast imaging obtained. CLINICAL INFORMATION: neck pain, thoracic spine pain, hx of compression fracture COMPARISON: CT March 05, 2022 and MRI March 02, 2022 FINDINGS: Mild thoracic kyphosis in the upper thoracic spine. Chronic appearing compression involving the T2 linda perior endplate and T3 T4 vertebral bodies with anterior wedging. Mild chronic appearing biconcave co mpression at T6. Mild anterior wedging at L1 has a chronic appearance. No acute appearing compression fractures. Cord signal is normal. No significant central canal stenosis. Moderate facet arthropathy lower thorac ic spine. Normal caliber thoracic aorta. Adrenal glands are normal. MR/MR thoracic spin wo con* [id number] IMPRESSION: 1. Compression fractures T2, T3, and T4 similar in appearance to March 02, 2022. Slight more anterior wedging at T3 and T4 compared to previous measuring 1 to 2 mm. 2. Normal bone marrow signal T3 and T4 with endplate fragmentation. No suspici ous bone marrow replacing lesions. 3. Minimal compression T2 superior endplate. 4. Chronic biconcave compression at T6 is unchanged. 5. Cord signal is normal. 6. Mild chronic appearing compression superior endplate L1 appears new since [facility] 2021 but no significant edema.
== END 2022-12-23 12:54 | disposition home or self-care (01) ==
LOC: RAD 12:54
PROVIDERS: PCP Family Medicine; Visit Provider Orthopaedic Surgery
DX: C41.9 Malignant neoplasm of bone and articular cartilage, unspecified (principal); Z98.1 Arthrodesis status; M89.9 Disorder of bone, unspecified; S22.050A Wedge compression fracture of T5-T6 vertebra, initial encounter for closed fracture; S22.030A Wedge compression fracture of third thoracic vertebra, initial encounter for closed fracture; S22.040A Wedge compression fracture of fourth thoracic vertebra, initial encounter for closed fracture; M54.2 Cervicalgia; M54.6 Pain in thoracic spine; X58.XXXA Exposure to other specified factors, initial encounter; Y93.9 Activity, unspecified; Y92.9 Unspecified place or not applicable; Y99.9 Unspecified external cause status
CPT/HCPCS: 72141; 72146

== ENCOUNTER → 2022-12-30 12:46 | Outpatient (BNVA) | payer OTHER, SELFPAY | PROVIDERS: PCP Family Medicine; Visit Provider Family Medicine | DX: E87.6 Hypokalemia (principal); I10 Essential (primary) hypertension; E80.6 Other disorders of bilirubin metabolism; E87.1 Hypo-osmolality and hyponatremia | CPT/HCPCS: 80053 ==

== ENCOUNTER 2023-01-13 09:41 | Oncology outpatient (recurring) (ONCR) | payer OTHER, SELFPAY | END 2023-01-23 23:59 | disposition home or self-care (01) | PROVIDERS: PCP Family Medicine; Visit Provider Internal Medicine Medical Oncology | DX: C41.9 Malignant neoplasm of bone and articular cartilage, unspecified (principal); I05.9 Rheumatic mitral valve disease, unspecified ==

== ENCOUNTER 2023-01-27 14:58 | Outpatient (CLI) | payer OTHER, SELFPAY ==
--- NOTE | 2023-01-27 15:30 | CT_ITS ---
WS: [email or web address] CT chest w con* [id number] HISTORY: osteosarcoma TECHNIQUE: Axial imaging performed through the thorax. Coronal and sagittal reformats are submitted. All CT scans at [facility] use at least one of these dose optimization techniques: automated exposure control; mA and/or kV adjustment per patient size (includes targeted exams where dose is mat ched to clinical indication); or iterative reconstruction. CONTRAST: Omnipaque 350; 100 mL IV. DLP: 275.36 mGy.cm COMPARISON: None available. Lungs and central airway: Lungs are well-aerated. Very small bilateral nodules are identified. The la rgest is 3 mm at the LEFT upper lobe. There is a smaller more subtle nodule RIGHT middle lobe. No mas s. Pleura: Normal. No pleural effusion. Heart and pericardium: Mild cardiac enlargement. No pericardial effusion. Mediastinum and radha: No adenopathy. Vessels: Mild atherosclerosis aorta. Chest wall and lower neck: Postsurgical changes are noted in the cervical thoracic spine. Upper abdomen: Normal. Osseous structures: Postoperative fusion hardware cervical thoracic junction. There are chronic compr ession fractures at T2, T3 and T4 which were recently described. No associated soft tissue mass. Thes e were better evaluated on the prior MRI from 12/23/2022. Additional compression fractures at T6 and L 1. Chronic deformity involving the LEFT humeral head may be from prior fracture. Similar changes were described on 09/27/[address]/CT chest w con* [id number] IMPRESSION: 1. Very small LEFT upper and RIGHT middle lobe nodules. The largest is 3 mm in the LEFT upper lobe. These can be reevaluated in 3-[address] if cli nically thought necessary. 2. No mediastinal or hilar adenopathy. 3. Mild cardiac enlargement. 4. No adrenal mass. 5. Chronic fractures and post operative changes in the cervical and thoracic s pines are stable as compared to the recent MRI from 12/23/2022.
[2023-01-27] MEDS: iohexol 350 mg/mL 500 mL Btl (per mL) IV (15:31)
== END 2023-01-27 14:59 | disposition home or self-care (01) ==
PROVIDERS: PCP Family Medicine; Visit Provider Internal Medicine Medical Oncology
DX: C41.9 Malignant neoplasm of bone and articular cartilage, unspecified (principal); R91.8 Other nonspecific abnormal finding of lung field; M48.53XA Collapsed vertebra, not elsewhere classified, cervicothoracic region, initial encounter for fracture; I51.7 Cardiomegaly
CPT/HCPCS: 71260; Q9967

== ENCOUNTER 2023-02-20 11:37 | Outpatient (CLI) | payer OTHER, SELFPAY ==
--- NOTE | 2023-02-20 11:46 | CT_ITS ---
WS: [email or web address] CT CERVICAL SPINE HISTORY: follow up sarcoma TECHNIQUE: Contiguous 2.0 mm axial imaging performed through the entire cervical spine. Sagittal and coronal reformats also performed. All CT scans at [facility] use at least one of these dose o ptimization techniques: automated exposure control; mA and/or kV adjustment per patient size (include s targeted exams where dose is matched to clinical indication); or iterative reconstruction. DLP: 417.27 mGy.cm COMPARISON: 11/25/2022 Extensive cervical thoracic posterior fusion hardware. Pedicle screws and spinal rods extend from C4- T2. Position of the hardware is unchanged. Lucency surrounding the pedicle screws of C4. Slight rever mariah of the normal cervical thoracic junction similar to the prior study. Slight increase in the upper cervical lordosis. The osteolytic expansile bone lesion within C7 involving the LEFT lateral aspect of the vertebral body and the LEFT pedicle and transverse process is reidentified. No apparent interv al change. Margins of the lytic lesion are sclerotic. No new lytic or destructive areas are identifie d. There is mild asymmetric widening of the LEFT C7-T1 facet joint. Bone graft material is noted surrounding the surgical bed. Slight anterior wedging of T2 and T3. Lung apices are clear. IMPRESSION: 1. Status post posterior cervical thoracic fusion from C4-T2 similar to the prior study. Lucency surr ounding the C4 screws may indicate loosening. No interval change. 2. Lytic expansile bone lesion with sclerotic margins involving the LEFT lateral C7 vertebral body, L EFT pedicle and transverse process reidentified with no obvious progression. No new soft tissue mass is identified. Mild asymmetric widening of the LEFT C7-T1 facet joint. 3. Thoracic spine CT performed on the same date to reevaluate the osteolytic changes in the upper tho racic vertebral bodies.
--- NOTE | 2023-02-20 11:46 | CT_ITS ---
WS: [email or web address] CT THORACIC SPINE HISTORY: follow up TECHNIQUE: 2.0 mm axial images are reviewed to thoracic spine. Images are reformatted in sagittal and coronal planes. All CT scans at [facility] use at least one of these dose optimization techn iques: automated exposure control; mA and/or kV adjustment per patient size (includes targeted exams where dose is matched to clinical indication); or iterative reconstruction. DLP: 504.41 mGy.cm COMPARISON: 03/05/2022, MRI 12/23/2022 Prior cervical thoracic fusion. Pedicle screws and rods extend from C4-T2. Mild variable density with in T2, T3 and T4. Lytic changes within T2 through T4 vertebral bodies. No interval change. T6 biconca ve fracture has slightly increased since 03/05/2022. Similar to the MRI from 12/23/2022. No new or prog ressive bone destruction or lytic changes are identified. Mild increase in the upper thoracic kyphosi s. Normal appearance of the adjacent soft tissues. No progression of mass or compression upon the cord e vident by CT. No pulmonary mass or nodule. Mild dependent changes at the RIGHT lung base. IMPRESSION: 1. Postoperative cervical thoracic fusion appears stable since 11/25/2022. 2. Anterior chronic T2-T4, T6 endplate changes are stable. No new lytic areas or destructive process. No retropulsion or compression upon the cord.
== END 2023-02-20 11:38 | disposition home or self-care (01) ==
PROVIDERS: PCP Family Medicine; Visit Provider Internal Medicine Medical Oncology
DX: C41.9 Malignant neoplasm of bone and articular cartilage, unspecified (principal); Z98.1 Arthrodesis status; M89.9 Disorder of bone, unspecified
CPT/HCPCS: 72125; 72128

== ENCOUNTER 2023-02-23 14:02 | Oncology outpatient (recurring) (ONCR) | payer OTHER, SELFPAY | END 2023-02-23 23:59 | disposition home or self-care (01) | PROVIDERS: PCP Family Medicine; Visit Provider Internal Medicine Medical Oncology | DX: Z53.9 Procedure and treatment not carried out, unspecified reason (principal) ==

== ENCOUNTER 2023-07-24 14:16 | Outpatient (CLI) | payer OTHER, SELFPAY ==
--- NOTE | 2023-07-24 14:25 | XR_ITS ---
WS: [email or web address] SHOULDER LEFT TECHNIQUE: 3 views of the left shoulder CLINICAL INFORMATION: CERVICAL OSTEOSARCOMA COMPARISON: 09/27/2022 FINDINGS: LEFT shoulder is not significantly changed since 09/27/2022. No change in the ununited comminuted fract ure LEFT humeral head. No significant interval healing since 09/27/2022. Persistent foreshortening of t he humeral shaft. Loss of the subacromial space. Stable areas of sclerosis involving the humeral head with chronic callus formation. Partially visualized postoperative changes lower cervical and upper t horacic spine. IMPRESSION: No significant change in the ununited proximal LEFT humeral fracture. No significant interval healing .
--- NOTE | 2023-07-24 14:25 | XR_ITS ---
WS: [email or web address] THORACIC SPINE TECHNIQUE: 3 views of the thoracic spine CLINICAL INFORMATION: CERVICAL OSTEOSARCOMA COMPARISON: CT 02/20/2023 FINDINGS: Partially visualized postoperative changes lower cervical and upper thoracic spine. Thoracolumbar sco liosis convex RIGHT. Cardiomegaly. Chronic compression anterior wedging in the upper thoracic spine s imilar to the prior CT most prominent at T3, T4, and T6. Additional compression with anterior wedging L1 is similar to previous. Osteopenia. No other significant interval changes. Aortic calcification. IMPRESSION: See above
--- NOTE | 2023-07-24 14:25 | XR_ITS ---
WS: [email or web address] CERVICAL SPINE TECHNIQUE: 3 views of the cervical spine CLINICAL INFORMATION: CERVICAL OSTEOSARCOMA COMPARISON: 08/16/2022 FINDINGS: Stable postoperative changes dorsal cervical thoracic fusion from approximately C4-T2. Previously nury cribed bony lesions better visualized on the prior CT.Interconnecting rods and screws appear intact. Slight anterolisthesis C4 on C5. Chronic appearing compression anterior wedging in the upper thoracic spine similar to the prior CT. Stable appearing sclerotic lesion C7. Osteopenia. Visualized lung api obdulia are well aerated. IMPRESSION: 1. Stable postoperative dorsal cervical thoracic fusion from approximately C4-T2 2. Stable appearing sclerotic lesion in C7. This is better evaluated by CT. 3. Slight anterolisthesis C4 on C5. 4. Hardware appears intact. 5. Osteopenia.
== END 2023-07-24 14:17 | disposition home or self-care (01) ==
LOC: RAD 14:19
PROVIDERS: PCP Family Medicine; Visit Provider Dermatology
DX: Z02.71 Encounter for disability determination (principal); C41.2 Malignant neoplasm of vertebral column; Z98.1 Arthrodesis status; M85.88 Other specified disorders of bone density and structure, other site; S42.202K Unspecified fracture of upper end of left humerus, subsequent encounter for fracture with nonunion; X58.XXXD Exposure to other specified factors, subsequent encounter; M41.9 Scoliosis, unspecified; I51.7 Cardiomegaly; M48.55XA Collapsed vertebra, not elsewhere classified, thoracolumbar region, initial encounter for fracture
CPT/HCPCS: 72040; 72070; 73030

== ENCOUNTER 2023-08-07 15:31 | Outpatient (CLI) | payer OTHER, SELFPAY ==
--- NOTE | 2023-08-07 16:00 | CT_ITS ---
WS: [email or web address] CT CERVICAL SPINE, with and without contrast HISTORY: H/O Osteosarcoma - Surveilance TECHNIQUE: Contiguous 2.0 mm axial imaging performed through the entire cervical spine with and witho ut contrast. Sagittal and coronal reformats also performed. All CT scans at [facility] use at least one of these dose optimization techniques: automated exposure control; mA and/or kV adjustment per patient size (includes targeted exams where dose is matched to clinical indication); or iterativ e reconstruction. Omnipaque 350; 95 mL. DLP: 938.37 mGy.cm COMPARISON: 02/20/2023 Reidentified is extensive cervical thoracic posterior fusion hardware. Pedicle screws and spinal rods extend from C4-T2. Reidentified is lucency surrounding the pedicle screws at C4 which is unchanged. No additional lucency. No hardware fracture is identified. Reidentified is mild reversal the normal c ervical at the cervical thoracic junction. Mild anterior wedging of T2 and T3. Reidentified is the osteolytic expansile bone lesion involving C7. Lytic bone destruction with periph eral sclerosis surrounding the lytic lesion beginning within the lateral C7 vertebral body and extend ing into the transverse process and pedicle. There does not appear to be a significant interval root e in the destruction or lucency. There is significant involvement of the LEFT superior and inferior a rticular facet. No pathological fracture. No expansile soft tissue mass outside the bone lesion. Tabitha lar appearance of the LEFT C7-T1 facet joint with slight widening. No cervical chain lymphadenopathy. Lung apices are clear. IMPRESSION: 1. Status post posterior cervical thoracic fusion from C4-T2 is similar to the prior study. No progr ession of the lucency with peripheral sclerosis involving the C7 vertebral body and posterior element . 2. Reidentified is loosening surrounding the C4 pedicle screws which is unchanged. This may indicate loosening. 3. No change in the mild asymmetric widening of the LEFT C7-T1 facet joint.
[2023-08-07] MEDS: iohexol 350 mg/mL 500 mL Btl (per mL) IV (16:04)
== END 2023-08-07 15:32 | disposition home or self-care (01) ==
LOC: RAD 15:32
PROVIDERS: PCP Family Medicine; Visit Provider Internal Medicine Medical Oncology
DX: C41.9 Malignant neoplasm of bone and articular cartilage, unspecified (principal)
CPT/HCPCS: 72127; Q9967

== ENCOUNTER → 2023-08-08 13:57 | Outpatient (BNVA) | payer OTHER, SELFPAY | PROVIDERS: PCP Family Medicine; Visit Provider Family Medicine | DX: Z13.6 Encounter for screening for cardiovascular disorders (principal); F11.90 Opioid use, unspecified, uncomplicated; I10 Essential (primary) hypertension; I05.9 Rheumatic mitral valve disease, unspecified; E87.1 Hypo-osmolality and hyponatremia; C41.9 Malignant neoplasm of bone and articular cartilage, unspecified; E03.9 Hypothyroidism, unspecified; R79.89 Other specified abnormal findings of blood chemistry | CPT/HCPCS: 80053; 80061; 82040; 82607; 84270; 84403; 84443; 85025 ==

== ENCOUNTER 2023-08-31 11:24 | Oncology outpatient (recurring) (ONCR) | payer OTHER, SELFPAY ==
[2023-08-31 11:42] LABS: Basophils # 0.1 10^3/uL (0.0-0.1); Basophils % 0.9 %; Eosinophils # 0.1 10^3/uL (0.0-0.8); Eosinophils % 1.3 %; Hematocrit 48.3 % (37-53); Lymphocytes # 1.4 10^3/uL (0.8-4.8); Mean Corpuscular HGB Conc 34.4 g/dL (30-55); Mean Corpuscular Hemoglobin 31.1 pg (27-33); Mean Corpuscular Volume 90.6 fl (82-101); Mean Platelet Volume 9.5 fL (7.4-10.4); Monocytes # 0.4 10^3/uL (0.2-0.9); Monocytes % 8.1 %; Neutrophils # 3.48 10^3/uL (1.8-7.7); Neutrophils % 64.3 %; Nucleated Red Blood Cells % 0 %; Platelet Count 182 10^3/cmm (157-399); Red Blood Count 5.33 10^6/uL (3.85-5.65); Red Cell Distribution Width 12.5 % (12.1-15.1); White Blood Count 5.41 10^3/uL (3.29-11.43)
[2023-08-31 12:08] LABS: Alanine Aminotransferase 14 U/L (0-41); Alkaline Phosphatase 98 U/L (40-130); Aspartate Amino Transferase 21 U/L (0-40); Blood Urea Nitrogen 6 mg/dL (6-20); Calcium 8.8 mg/dL (8.5-10.5); Carbon Dioxide 28 mmol/L (22-29); Chloride 95 mmol/L (98-107); Globulin 2.9 g/dL (1.3-4.6); Glomerular Filtration Rate 117.1 mL/min (90-130); Glucose 105 mg/dL (65-115); Osmolality Calculated 272 mOsm/kg (285-295); Sodium 132 mmol/L (136-145); Total Bilirubin 1.3 mg/dL (0.15-1.2); Total Protein 6.9 g/dL (6.6-8.7)
[2023-08-31 12:14] LABS: Anion Gap 13.3 (5-19); Potassium 4.3 mmol/L (3.5-5.1)
== END 2023-09-24 23:59 | disposition home or self-care (01) ==
PROVIDERS: PCP Family Medicine; Visit Provider Internal Medicine Medical Oncology
DX: C41.9 Malignant neoplasm of bone and articular cartilage, unspecified (principal)
CPT/HCPCS: 36415; 80053; 85025

== ENCOUNTER 2024-02-22 12:12 | Outpatient (CLI) | payer OTHER, SELFPAY ==
--- NOTE | 2024-02-22 12:30 | CT_ITS ---
WS: [email or web address] CT CERVICAL SPINE with and without contrast HISTORY: surveillance, history of bone cancer. TECHNIQUE: Contiguous 2.0 mm axial imaging performed through the entire cervical spine. Sagittal and coronal reformats also performed. All CT scans at [facility] use at least one of these dose o ptimization techniques: automated exposure control; mA and/or kV adjustment per patient size (include s targeted exams where dose is matched to clinical indication); or iterative reconstruction. Postcontrast imaging Omnipaque 350. DLP: 528.83 mGy.cm COMPARISON: 08/07/2023 Extensive posterior fusion hardware extending from C4-T2. Posterior screws and vertical rods are pres ent. Reidentified is mild lucency surrounding the pedicle screws at C4. No additional lucency identified. Reidentified is the osteolytic bone lesion with sclerotic margins in C7 vertebral body extending into the pedicle and lamina on the LEFT. No interval change in the appearance of the lytic expansile bone lesion. No new lytic changes in the cervical spine. Reidentified is expansion of the LEFT C7/T1 fora men. Osteopenia at T1 and T2. Unchanged compression deformities at T2, T3 and T4. There is extensive artifact from the hardware but no obvious cord compression is identified. No adenopathy is identified along the cervical chain. No new mass or expansion of the lytic disease. CT/CT cervical spine wo/w [id number] IMPRESSION: 1. Previously described expansile bone lesion within the C7 and the posterior elements is reidentified. There is no evidence for progression or improvement s tomas 08/07/[address] 2. There is extensive posterior fusion hardware from C4-T2. 3. No change in the lucency surrounding the C4 facet screws. 4. Osteoporotic compression fractures at T2, T3 and T4 are unchanged.
[2024-02-22] MEDS: iohexol 350 mg/mL 500 mL Btl (per mL) IV (12:34)
== END 2024-02-22 12:13 | disposition home or self-care (01) ==
LOC: RAD 12:13
PROVIDERS: PCP Family Medicine; Visit Provider Nurse Practitioner Family
DX: C41.9 Malignant neoplasm of bone and articular cartilage, unspecified (principal); S22.020D Wedge compression fracture of second thoracic vertebra, subsequent encounter for fracture with routine healing; S14.11 Complete lesion of cervical spinal cord; M43.22 Fusion of spine, cervical region; X58.XXXA Exposure to other specified factors, initial encounter
CPT/HCPCS: 72127; Q9967

== ENCOUNTER 2024-02-28 11:44 | Oncology outpatient (recurring) (ONCR) | payer OTHER, SELFPAY ==
[2024-02-28 11:34] LABS: Basophils % 0.9 %; Eosinophils % 0.5 %; Hematocrit 49.4 % (37-53); Lymphocytes % 45.9 %; Mean Corpuscular HGB Conc 33.6 g/dL (30-55); Mean Corpuscular Hemoglobin 29.8 pg (27-33); Mean Corpuscular Volume 88.7 fl (82-101); Mean Platelet Volume 8.8 fL (7.4-10.4); Monocytes # 0.5 10^3/uL (0.2-0.9); Monocytes % 11.3 %; Neutrophils # 1.82 10^3/uL (1.8-7.7); Neutrophils % 41.2 %; Nucleated Red Blood Cells % 0 %; Platelet Count 170 10^3/cmm (157-399); Red Blood Count 5.57 10^6/uL (3.85-5.65); Red Cell Distribution Width 12.4 % (12.1-15.1); White Blood Count 4.42 10^3/uL (3.29-11.43)
[2024-02-28 11:54] LABS: Alanine Aminotransferase 13 U/L (0-41); Alkaline Phosphatase 108 U/L (40-130); Anion Gap 13.3 (5-19); Aspartate Amino Transferase 21 U/L (0-40); Blood Urea Nitrogen 4 mg/dL (6-20); Calcium 8.7 mg/dL (8.5-10.5); Carbon Dioxide 27 mmol/L (22-29); Chloride 99 mmol/L (98-107); Globulin 2.9 g/dL (1.3-4.6); Glomerular Filtration Rate 100.4 mL/min (90-130); Glucose 97 mg/dL (65-115); Osmolality Calculated 277 mOsm/kg (285-295); Potassium 4.3 mmol/L (3.5-5.1); Sodium 135 mmol/L (136-145); Total Bilirubin 1.1 mg/dL (0.15-1.2); Total Protein 6.9 g/dL (6.6-8.7)
== END 2024-03-25 23:59 | disposition home or self-care (01) ==
PROVIDERS: Nurse Practitioner Family; PCP Family Medicine; Visit Provider Internal Medicine Medical Oncology
DX: C41.9 Malignant neoplasm of bone and articular cartilage, unspecified (principal); Z53.9 Procedure and treatment not carried out, unspecified reason
CPT/HCPCS: 36415; 80053; 85025

== ENCOUNTER → 2024-03-12 14:30 | Outpatient (BNVA) | payer OTHER, SELFPAY | PROVIDERS: PCP Family Medicine; Visit Provider Orthopaedic Surgery | DX: M54.2 Cervicalgia (principal) | CPT/HCPCS: 72050 ==

== ENCOUNTER 2024-09-19 14:00 | Oncology outpatient (recurring) (ONCR) | payer OTHER, SELFPAY ==
--- NOTE | 2024-09-12 15:30 | CTR_ITS ---
PROCEDURE INFORMATION: Exam: CT Cervical Spine Without and With Contrast Exam date and time: 09/12/2024 3:37 PM Age: 54 years old Clinical indication: Condition or disease; Cancer of the cervical vertebrae; Prior surgery; Surgery date: 6+ months; Surgery type: C spine; Follow up bone cancer; Additional info: Surveillance, history of bone cancer TECHNIQUE: Imaging protocol: Computed tomography of the cervical spine without and with contrast. Radiation optimization: All CT scans at this facility use at least one of these dose optimization techniques: automated exposure control; mA and/or kV adjustment per patient size (includes targeted exams where dose is matched to clinical indication); or iterative reconstruction. Contrast material: OMNI 350; Contrast volume: 100 ml; Contrast route: INTRAVENOUS (IV); COMPARISON: CT cervical spin wo con* [id number] 06/08/2022 11:12 AM RADIATION DOSE METRICS: Total DLP (mGy-cm): 482.17 FINDINGS: Bones: Diffuse osteopenia. Moderate right C2-C3 primary facet osteoarthritis. Slight C3-C4 retrolisthesis. Slight C3-C4 retrolisthesis. Posterior bilateral cervicothoracic fixation (C4, C5, C6, T1, T2). Widening of the right C4 screw tract, new. Lytic lesion left C7 vertebral body, transverse process and pedicle, maximal dimensions 2.9 x 1.9 x 4.5 cm, stable. Lungs: Mosaic lung attenuation is present consistent with small airways or small vessels disease. Vasculature: Bilateral carotid atherosclerotic calcifications. Right transverse sinus 7.5 mm intravascular arachnoid granulation, normal variant. Soft tissues: No abnormal enhancement. CT/CT cervical spine wo/w [id number] IMPRESSION: 1. Postoperative changes as above. 2. Widening of the right C4 screw tract, new, suggesting loosening versus infection. Clinical correlation is recommended. 3. Lytic lesion left C7, stable. 4. Possible small airways/small vessels disease.
[2024-09-12] MEDS: iohexol 350 mg/mL 500 mL Btl (per mL) IV (15:57)
[2024-09-19 14:19] LABS: Basophils % 0.8 %; Eosinophils # 0.1 10^3/uL (0.0-0.8); Eosinophils % 1.2 %; Hematocrit 46.5 % (37-53); Lymphocytes # 1.7 10^3/uL (0.8-4.8); Lymphocytes % 33.3 %; Mean Corpuscular HGB Conc 33.5 g/dL (30-55); Mean Corpuscular Hemoglobin 30.3 pg (27-33); Mean Corpuscular Volume 90.3 fl (82-101); Mean Platelet Volume 8.6 fL (7.4-10.4); Monocytes # 0.3 10^3/uL (0.2-0.9); Monocytes % 6.6 %; Neutrophils # 2.98 10^3/uL (1.8-7.7); Neutrophils % 57.7 %; Nucleated Red Blood Cells % 0 %; Platelet Count 175 10^3/cmm (157-399); Red Blood Count 5.15 10^6/uL (3.85-5.65); Red Cell Distribution Width 12.7 % (12.1-15.1); White Blood Count 5.16 10^3/uL (3.29-11.43)
[2024-09-19 14:37] LABS: Alanine Aminotransferase 8 U/L (0-41); Albumin Level 4.4 g/dL (3.5-5.2); Alkaline Phosphatase 81 U/L (40-130); Anion Gap 14.3 (5-19); Aspartate Amino Transferase 17 U/L (0-40); Blood Urea Nitrogen 6 mg/dL (6-20); Carbon Dioxide 27 mmol/L (22-29); Chloride 95 mmol/L (98-107); Glomerular Filtration Rate 87.3 mL/min (90-130); Glucose 110 mg/dL (65-115); Osmolality Calculated 272 mOsm/kg (285-295); Potassium 4.3 mmol/L (3.5-5.1); Sodium 132 mmol/L (136-145); Total Bilirubin 1.3 mg/dL (0.15-1.2); Total Protein 7.4 g/dL (6.6-8.7)
== END 2024-09-23 23:59 | disposition home or self-care (01) ==
PROVIDERS: PCP Family Medicine; Visit Provider Nurse Practitioner Family
DX: Z53.9 Procedure and treatment not carried out, unspecified reason (principal); E87.1 Hypo-osmolality and hyponatremia
CPT/HCPCS: 36415; 72127; 80053; 85025

== ENCOUNTER 2025-02-03 02:26 | Inpatient (IN) | payer MEDICARE, SELFPAY ==
[2025-02-03] VITALS (51 sets, daily range): BP systolic 76–172; BP diastolic 60–98; PULSE 68–107; RESP 13–30; TEMP 36.9–37.3; O2SAT 89–98; BMI 28.8; BMI 27.3
--- NOTE | 2025-02-03 02:39 | ECG_ITS ---
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 Measurements Intervals [place] Rate: 65 P: 45 UT: 161 QRS: -8 QRSD: 102 T: 42 QT: 432 QTc: 450 Interpretive Statements SINUS RHYTHM INCOMPLETE RIGHT BUNDLE BRANCH BLOCK [90+ ms QRS DURATION, TERMINAL R IN V1/V2, 40+ ms S IN I/aVL/V4/V5/V6] POSSIBLE LEFT VENTRICULAR HYPERTROPHY [VOLTAGE CRITERIA PLUS LAE OR QRS WIDENING] TALL T-WAVES, SUGGESTS HYPERKALEMIA Compared to ECG 03/02/2022 15:29:27 Incomplete right bundle-branch block now present Sinus tachycardia no longer present Atrial abnormality no longer present ST (T wave) deviation no longer present Electronically Signed On 02-03-2025 22:45:28 CDT by Estee Kamara M.D. [id number]
--- NOTE | 2025-02-03 02:40 | W.ED.CHESTPA ---
HPI - Chest Pain General: Chief Complaint: Chest Pain Stated Complaint: CHEST PAIN Time Seen by Provider: 02/03/25 02:29 History of Present Illness: 54-year-old male with a history of alcohol use. He also has hypertension history. He presents with significant pain in his chest, radiating into his back, and into his shoulders. He has painful right arm and shoulder as well. It is painful to move. Mild shortness of breath. Nausea. He states that he has had 15 beers in the last 24 hours. Initial blood pressure was low. Related Data Previous Rx's ?Medication ?Instructions ?Recorded metoprolol tartrate 50 mg tablet See Rx Instructions .Route 09/04/24 .COMPLEX #180 tabs clonidine HCl 0.1 mg tablet See Rx Instructions .Route 10/21/24 .COMPLEX #60 tabs lorazepam 1 mg tablet 1 mg PO TID PRN anxiety #90 tabs 12/12/24 hydrocodone 5 mg-acetaminophen 325 1 - 2 tab PO .Q4-6H pain 1 month 02/03/25 mg tablet #240 tabs Allergies Allergy/AdvReac Type Severity Reaction Status Date / Time venom-wasp Allergy Severe ALGY-Swell Verified 12/12/24 11:35 Lip/Tongue/Throat [facility] PFSH: Medical History History of Clostridium difficile colitis Hypertension Osteosarcoma Mitral valve disorder Traumatic compression fracture of second thoracic vertebra Fracture of humeral head, left, closed Cervical disc disease Alcohol dependence (~01/2017) Surgical History Hx of cervical spine surgery (06/08/22) C4-T2 instrumentation and fusion with allograft and removal of hardware Hx of cervical spine surgery (03/09/22) C5-T2 instrumentation and fusion with allograft and biopsy of C7 vertebral body S/P ORIF (open reduction internal fixation) fracture (03/06/22) ORIF of left humeral head fracture dislocation and biceps tenotomy Family History Father CAD (coronary artery disease) Other Hypertension Denies family history of Diabetes Clotting disorder Dementia Hyperlipidemia Psychiatric illness Chronic kidney disease (CKD) Suicide Anesthesia complication Bleeding disorder Lung disease Cancer Stroke Social History Smoking and tobacco/nicotine status: unknown if used tobacco/nicotine Alcohol intake: current Substance/Drug Use: never Physical Exam Const: EXAM LIMITATIONS: altered mental status GENERAL APPEARANCE: cooperative, disheveled, lethargic and ill appearing ORIENTATION/CONSCIOUSNESS: Yes lethargic HENMT: COMMON NORMALS: normocephalic, atraumatic, external ears normal and Normal external nose present HEAD & SCALP: normocephalic and atraumatic; no hematoma NOSE: Normal external nose present EXTERNAL EAR: Yes external ears normal Eye: COMMON NORMALS: Equal, round and reactive pupils present and EOMs intact bilaterally PUPIL: Yes Equal, round and reactive pupils present Neck/C-Spine: COMMON NORMALS: full ROM Chest: CHEST: Yes Symmetrical chest wall rise Resp: COMMON NORMALS: normal respiratory effort and clear to auscultation bilaterally AUSCULTATION: clear to auscultation bilaterally Cardio: COMMON NORMALS: regular rate, regular rhythm and Peripheral pulses 2+ throughout RATE: regular rate RHYTHM: regular rhythm PERIPHERAL PULSES: Peripheral pulses 2+ throughout Neuro: SENSORIUM/ORIENTATION: Yes lethargic Course Vital Signs: Vital signs: Vital Signs Temperature 99.8 F H 02/04/25 19:00 Pulse Rate 72 02/04/25 21:11 Respiratory Rate 27 H 02/04/25 16:00 Blood Pressure 146/88 02/04/25 20:00 Pulse Oximetry 99 02/04/25 20:00 Oxygen Delivery Me thod Nasal Cannula 02/04/25 20:00 Oxygen Flow Rate 4 02/04/25 20:00 MDM - Chest Pain Medical Decision Making Initially the patient was quite hypotensive. This seemed to improve on its own. However, hemoglobin is concentrated at 18. White blood cell count is 15.6. His bicarb level is 16 with an anion gap of 28. With these numbers, we will order 30 mL/kg IV bolus. CT of the head is negative for acute change. His D-dimer is 13. CTA is pending. His alcohol level curiously is nondetectable. CTA of the chest reveals no PE. No infiltrate. There is an incompletely visualized right acute proximal humerus fracture. Also incompletely visualized of the left chronic proximal humerus fracture with evidence of vascular necrosis. Right humerus fracture reveals comminuted slightly displaced proximal humerus fracture. It is in joint on CT scan. Orthopedics has been consulted. Admit for lactic metabolic acidosis, dehydration. Patient's lactate is down in the fours now after fluid bolus. He is somewhat hypertensive at this point. Suspect the patient may have had a seizure to give him the significant lactic acidosis. Lab Data 02/04/25 02:20 02/04/25 02:[address] 02/03/25 02:41 IMPRESSION: 1. No acute abnormality of the brain. 2. Stable mild chronic white matter microangiopathic change. 3. Incidental/nonacute findings are listed in the report. Chest CTA 02/03/25 03:33 IMPRESSION: 1. No definite vascular intraluminal filling defects to suggest large or central acute pulmonary embolism. Nondiagnostic study for possible small or peripheral PE. 2. Mild bilateral atelectasis. 3. Atherosclerotic vascular disease including coronary artery disease. 4. Redemonstrated previous T1-2 posterior fusion with metallic hardware in place and old/chronic T3, T4 and T6 vertebral body compression fractures with superimposed more recent or acute minimal to mild T10, T11 and T12 superior endplate compression fractures. 5. Incompletely visualized recent or possibly acute displaced comminuted right humeral head fracture and old/chronic displaced comminuted left humeral head fracture dislocation. 6. Redemonstrated leftward C7 lytic bone lesion. Humerus X-Ray 02/03/25 05:37 IMPRESSION: Redemonstrated chronic nonunited displaced comminuted proximal left humerus fracture subluxation and associated inferior glenoid Bankart fracture. Abdomen/Pelvis CT 02/03/25 06:28 IMPRESSION: 1. Nonspecific bilateral perinephric fat stranding. Possible pyelonephritis/UTI should be considered. 2. Excreted contrast within distended urinary bladder. 3. Acute or recent minimal to mild T10, T11 and T12 superior endplate compression fractures with superior endplate concavity. 4. Redemonstrated chronic L1 and L2 superior endplate compression fractures with mild L1 anterior wedging. 5. Additional findings as described above. Hip/Pelvis X-Ray 02/03/25 06:28 IMPRESSION: 1. No evidence of acute fracture, dislocation or suspicious bone lesion. 2. Excreted contrast within distended urinary bladder. Cervical Spine CT 02/03/25 06:34 IMPRESSION: 1. Redemonstrated C7 destructive lytic lesion involving the leftward vertebral body, left pedicle, lamina, facet and transverse process. 2. No evidence of superimposed acute fracture or subluxation. 3. Diffuse bony demineralization, cervical spondylosis, multilevel bilateral facet arthrosis and degenerative changes as described. Shoulder CT 02/03/25 10:58 IMPRESSION: 1. Comminuted fracture through the RIGHT humeral head and anatomic neck with impaction. This extends to the greater tuberosity. 2. Inferior subluxation humeral head with joint effusion and soft tissue edema. 3. Chronic scapular fracture. Associated callus formation. 4. Few hazy groundglass opacities in the RIGHT upper lobe likely infectious or inflammatory. 2 visualized subcentimeter nodules measuring 4 to 5 mm. Recommend follow-up chest CT. Chest X-Ray 02/04/25 05:05 IMPRESSION: No acute findings. Laboratory Results WBC 15.63 10^3/uL (3.29-11.43) H 02/03/25 02:20 RBC 5.93 10^6/uL (3.85-5.65) H 02/03/25 02:20 Hgb 17.90 g/dL (11.27-16.99) H 02/03/25 02:20 Hct 51.5 % (37-53) 02/03/25 02:20 MCV 86.8 fl (82-101) 02/03/25 02:20 MCH 30.2 pg (27-33) 02/03/25 02:20 MCHC 34.8 g/dL (30-55) 02/03/25 02:20 RDW 12.7 % (12.1-15.1) 02/03/25 02:20 Plt Count 273 10^3/cmm (157-399) 02/03/25 02:20 MPV 8.8 fL (7.4-10.4) 02/03/25 02:20 Neut % (Auto) 80.9 % 02/03/25 02:20 Lymph % (Auto) 12.5 % 02/03/25 02:20 [place] % (Auto) 5.2 % 02/03/25 02:20 Eos % (Auto) 0.1 % 02/03/25 02:20 Baso % (Auto) 0.3 % 02/03/25 02:20 Neut # (Auto) 12.63 10^3/uL (1.8-7.7) H 02/03/25 02:20 Lymph # (Auto) 2.0 10^3/uL (0.8-4.8) 02/03/25 02:20 [place] # (Auto) 0.8 10^3/uL (0.2-0.9) 02/03/25 02:20 Eos # (Auto) 0.0 10^3/uL (0.0-0.8) 02/03/25 02:20 Baso # (Auto) 0.1 10^3/uL (0.0-0.1) 02/03/25 02:20 Nucleated RBC % (auto) 0 % 02/03/25 02:20 Nucleated RBCs # 0.0 /100WBC 02/03/25 02:20 ESR 2 mm/hr (0-10) 02/03/25 06:31 PT 13.70 SECONDS (12.1-14.9) 02/03/25 02:20 INR 0.98 (0.8-1.2) 02/03/25 02:20 APTT 29.6 SECONDS (23.9-36.7) 02/03/25 02:20 D-Dimer 12.52 ug/mLFEU (0-0.59) H 02/03/25 02:20 Sodium 131 mmol/L (136-145) L 02/03/25 02:20 Potassium 3.4 mmol/L (3.5-5.1) L 02/03/25 02:20 Chloride 90 mmol/L (98-107) L 02/03/25 02:20 Carbon Dioxide 16 mmol/L (22-29) L 02/03/25 02:20 Anion Gap 28.4 (5-19) H 02/03/25 02:20 BUN 3 mg/dL (6-20) L 02/03/25 02:20 Creatinine 0.7 mg/dL (0.7-1.2) 02/03/25 02:20 GFR Calculation 116.7 mL/min (90-130) 02/03/25 02:20 Glucose 114 mg/dL (65-115) 02/03/25 02:20 Estimat Average Glucose 97 02/03/25 06:31 Hemoglobin A1c 5.0 % (4.0-6.0) 02/03/25 06:31 Calculated Osmolality 269 mOsm/kg (285-295) L 02/03/25 02:20 Lactic Acid 9.5 mmol/L (0.5-2.2) H* 02/03/25 02:20 Lactic Acid (Sepsis) 4.4 mmol/L (0.5-2.2) H* 02/03/25 05:45 Calcium 9.9 mg/dL (8.5-10.5) 02/03/25 02:20 Magnesium 2.3 mg/dL (1.7-2.3) 02/03/25 02:20 Total Bilirubin 1.7 mg/dL (0.15-1.2) H 02/03/25 02:20 AST 35 U/L (0-40) 02/03/25 02:20 ALT 20 U/L (0-41) 02/03/25 02:20 Alkaline Phosphatase 86 U/L (40-130) 02/03/25 02:20 Creatine Kinase 161 U/L (39-308) 02/03/25 02:20 Troponin T Baseline 12 ng/L (0-15) 02/03/25 02:20 Troponin T 120 Minute 18.29 ng/L (0-15) H 02/03/25 05:25 Delta Troponin T 6.29 ABS# (0-10) 02/03/25 05:25 C-Reactive Protein 3.0 mg/L (0.0-4.9) 02/03/25 02:20 NT-Pro-B Natriuret Pep 650 pg/mL (0-125) H 02/03/25 02:20 Total Protein 8.6 g/dL (6.6-8.7) 02/03/25 02:20 Albumin 4.6 g/dL (3.5-5.2) 02/03/25 02:20 Globulin 4.0 g/dL (1.3-4.6) 02/03/25 02:20 Triglycerides 94 mg/dL (0-150) 02/03/25 02:20 Cholesterol 177 mg/dL (0-200) 02/03/25 02:20 LDL Cholesterol, Calc 84 mg/dL (50-129) 02/03/25 02:20 HDL Cholesterol 74 mg/dL (60-100) 02/03/25 02:20 LDL/HDL Ratio 1.14 RATIO (0.00-3.22) 02/03/25 02:20 Cholesterol/HDL Ratio 2.39 mg/dL (1.0-5.00) 02/03/25 02:20 Lipase 24 U/L (13-60) 02/03/25 02:20 Vitamin B12 534 pg/mL (232-1245) 02/03/25 02:20 Procalcitonin 0.07 ng/mL (0-0.5) 02/03/25 02:20 TSH 1.71 uIU/mL (0.27-4.20) 02/03/25 02:20 Urine Color Yellow (Yellow) 02/03/25 05:25 Urine Appearance Clear (CLEAR) 02/03/25 05:25 Urine pH 7.0 (5-7) 02/03/25 05:25 Ur Specific [place] 1.030 (1.005-1.030) 02/03/25 05:25 Urine Protein Trace (Negative) A 02/03/25 05:25 Urine Glucose (UA) Negative (Normal) 02/03/25 05:25 Urine Ketones 1+ (Negative) H 02/03/25 05:25 Urine Blood Trace (Negative) A 02/03/25 05:25 Urine Nitrate Negative (Negative) 02/03/25 05:25 Urine Bilirubin Negative (Negative) 02/03/25 05:25 Urine Urobilinogen 1.0 mg/dL (Negative) 02/03/25 05:25 Ur Leukocyte Esterase Negative (Negative) 02/03/25 05:25 Urine RBC 0-2 /hpf (0-2) 02/03/25 05:25 Urine WBC 0-5 /hpf (0-5) 02/03/25 05:25 Ur Squamous Epith Cells 0-5 /hpf (0-5) 02/03/25 05:25 Amorphous Sediment Not Reportable 02/03/25 05:25 Urine Bacteria None seen /hpf (NONE) 02/03/25 05:25 Hyaline Casts 1.65 /lpf 02/03/25 05:25 Urine Opiates Screen Positive ng/mL (Negative) H 02/03/25 05:25 Ur Barbiturates Screen Negative ng/mL (Negative) 02/03/25 05:25 Ur Phencyclidine Scrn Negative ng/mL (Negative) 02/03/25 05:25 Ur Amphetamines Screen Negative ng/mL (Negative) 02/03/25 05:25 U Benzodiazepines Scrn Negative ng/mL (Negative) 02/03/25 05:25 Urine Cocaine Screen Negative ng/mL (Negative) 02/03/25 05:25 U Marijuana (THC) Screen Negative ng/mL (Negative) 02/03/25 05:25 Ethyl Alcohol < 10 mg/dL (0-10) 02/03/25 02:20 All radiology interpretation(s) finalized by discharge Discharge Plan Discharge Patient Disposition: Admitted As Inpatient Admit Provider: Brent Espinoza Clinical Impression: Alcohol dependence, Fracture of proximal end of right humerus, Acidosis, lactic Condition: Stable Coding Level of Care Code ED Senior [employer] for [employer]
--- NOTE | 2025-02-03 02:41 | CTR_ITS ---
PROCEDURE INFORMATION: Exam: CT Head Without Contrast Exam date and time: 02/03/2025 3:28 AM Age: 54 years old Clinical indication: Other: General weakness; Additional info: Gen weakness TECHNIQUE: Imaging protocol: Computed tomography of the head without contrast. Sagittal and coronal reformatted images were also reviewed. Radiation optimization: All CT scans at this facility use at least one of these dose optimization techniques: automated exposure control; mA and/or kV adjustment per patient size (includes targeted exams where dose is matched to clinical indication); or iterative reconstruction. COMPARISON: CT head wo con* [id number] 03/02/2022 11:29 AM RADIATION DOSE METRICS: Total DLP (mGy-cm): 1113.88 FINDINGS: Brain: No acute intracranial hemorrhage. No acute infarct. No intra-axial or extra-axial masses. Espinoza-white matter differentiation is preserved. No cerebral edema. No extra-axial fluid collections. No midline shift. Stable mild cerebral volume loss. Stable mildly decreased attenuation in the deep white matter, consistent with mild chronic microangiopathic change. No evidence for Chiari 1 malformation. Cerebral ventricles: No hydrocephalus. Paranasal sinuses: Visualized sinuses are unremarkable. No fluid levels. Mastoid air cells: Unremarkable as visualized. Bones: Unremarkable. No acute fracture. Soft tissues: The extracranial soft tissues are unremarkable. Vasculature: Atherosclerotic changes in the visualized arteries. CT/CT head wo con* [id number] IMPRESSION: 1. No acute abnormality of the brain. 2. Stable mild chronic white matter microangiopathic change. 3. Incidental/nonacute findings are listed in the report.
--- NOTE | 2025-02-03 02:41 | XRR_ITS ---
PROCEDURE INFORMATION: Exam: XR Chest Exam date and time: 02/03/2025 2:42 AM Age: 54 years old Clinical indication: Chest pressure; Prior surgery; Surgery date: 6+ months; Surgery type: Cervical fusion; C/O chest pain. History of bone cancer. ; Additional info: Cp TECHNIQUE: Imaging protocol: Radiologic exam of the chest. Views: 1 view. COMPARISON: CT chest w con* [id number] 01/27/2023 3:27 PM FINDINGS: Lungs: Mild chronic interstitial change. No consolidation. Pleural spaces: Unremarkable. No pleural effusion. No pneumothorax. Heart/Mediastinum: Unremarkable. No cardiomegaly. Bones/joints: Irregularity right shoulder, suboptimally imaged. XR/XR chest 1V portable [id number] IMPRESSION: No acute cardiopulmonary process seen.
[2025-02-03 02:57] LABS: Hematocrit 51.5 % (37-53); Hemoglobin 17.90 g/dL (11.27-16.99); Mean Corpuscular HGB Conc 34.8 g/dL (30-55); Mean Corpuscular Hemoglobin 30.2 pg (27-33); Mean Corpuscular Volume 86.8 fl (82-101); Nucleated Red Blood Cells % 0 %; Platelet Count 273 10^3/cmm (157-399); Red Blood Count 5.93 10^6/uL (3.85-5.65); White Blood Count 15.63 10^3/uL (3.29-11.43)
[2025-02-03 03:11] LABS: INR 0.98 (0.8-1.2); Prothrombin Time 13.70 SECONDS (12.1-14.9)
[2025-02-03 03:12] LABS: Partial Thromboplastin Time 29.6 SECONDS (23.9-36.7)
[2025-02-03 03:20] LABS: Troponin(5th) Baseline 12 ng/L (0-15)
[2025-02-03 03:23] LABS: Alanine Aminotransferase 20 U/L (0-41); Albumin Level 4.6 g/dL (3.5-5.2); Alcohol Level < 10 mg/dL (0-10); Alkaline Phosphatase 86 U/L (40-130); Anion Gap 28.4 (5-19); Aspartate Amino Transferase 35 U/L (0-40); Blood Urea Nitrogen 3 mg/dL (6-20); Calcium 9.9 mg/dL (8.5-10.5); Carbon Dioxide 16 mmol/L (22-29); Chloride 90 mmol/L (98-107); Creatinine Clr Calc Pharmacy 129.6673; Globulin 4.0 g/dL (1.3-4.6); Glucose 114 mg/dL (65-115); Magnesium 2.3 mg/dL (1.7-2.3); NT Pro B Type Natriuretic Pept 650 pg/mL (0-125); Osmolality Calculated 269 mOsm/kg (285-295); Potassium 3.4 mmol/L (3.5-5.1); Sodium 131 mmol/L (136-145); Total Protein 8.6 g/dL (6.6-8.7)
--- NOTE | 2025-02-03 03:33 | CTR_ITS ---
PROCEDURE INFORMATION: Exam: CTA Chest With Contrast Exam date and time: 02/03/2025 3:37 AM Age: 54 years old Clinical indication: Pain and abnormal findings; Abnormal diagnostic tests; Elevated d-dimer; Chest pressure; Prior surgery; Surgery date: 6+ months; Surgery type: Cervical fusion; C/O chest pain. Hypotensive with dier 12.52. History of bone cancer. TECHNIQUE: Imaging protocol: Computed tomographic angiography of the chest with contrast. Exam focused on the arteries. 3D rendering (Not supervised by radiologist): MIP and/or 3D reconstructed images were created by the technologist. Radiation optimization: All CT scans at this facility use at least one of these dose optimization techniques: automated exposure control; mA and/or kV adjustment per patient size (includes targeted exams where dose is matched to clinical indication); or iterative reconstruction. Contrast material: OMNI 350; Contrast volume: 65 ml; Contrast route: INTRAVENOUS (IV); COMPARISON: CT chest w con* [id number] 01/27/2023 3:27 PM RADIATION DOSE METRICS: Total DLP (mGy-cm): 642.8 FINDINGS: Limitations: Mild motion artifact. Streak artifact. Pulmonary arteries: Suboptimal pulmonary artery opacification with limited enhancement and visualization of the small peripheral pulmonary arteries. No definite vascular intraluminal filling defects to suggest large or central acute pulmonary embolism. Aorta: Atherosclerotic tortuosity of the thoracic aorta. No aortic aneurysm or dissection. Lungs: Mild bilateral atelectasis. No consolidation. Small right upper lobe calcified granuloma. Pleural spaces: No pleural effusion. No pneumothorax. Heart: Heart size upper limits of normal. Coronary arteries: Coronary artery calcifications. Lymph nodes: Calcified mediastinal and hilar lymph nodes. Small nonspecific noncalcified mediastinal lymph nodes. Bones/joints: Redemonstrated previous T1-2 posterior fusion with metallic hardware in place and old/chronic T3, T4 and T6 vertebral body compression fractures with superimposed more recent or acute minimal to mild T10, T11 and T12 superior endplate compression fractures. Incompletely visualized chronic L1 superior endplate compression fracture. Incompletely visualized recent or possibly acute displaced comminuted right humeral head fracture and old/chronic displaced comminuted left humeral head fracture dislocation. Redemonstrated old inferior right scapula fracture with displaced and distracted nonunited fracture fragment. Redemonstrated leftward C7 lytic bone lesion. Soft tissues: No significant soft tissue abnormalities. CT/CT angio chest PE protcl [id number] IMPRESSION: 1. No definite vascular intraluminal filling defects to suggest large or central acute pulmonary embolism. Nondiagnostic study for possible small or peripheral PE. 2. Mild bilateral atelectasis. 3. Atherosclerotic vascular disease including coronary artery disease. 4. Redemonstrated previous T1-2 posterior fusion with metallic hardware in place and old/chronic T3, T4 and T6 vertebral body compression fractures with superimposed more recent or acute minimal to mild T10, T11 and T12 superior endplate compression fractures. 5. Incompletely visualized recent or possibly acute displaced comminuted right humeral head fracture and old/chronic displaced comminuted left humeral head fracture dislocation. 6. Redemonstrated leftward C7 lytic bone lesion.
[2025-02-03] MEDS: iohexol 350 mg/mL 500 mL Btl (per mL) IV (03:49)
[2025-02-03 04:09] LABS: Lactic Sepsis W/Reflex 9.5 mmol/L (0.5-2.2)
[2025-02-03 04:10] LABS: Reflex Lactate Order REFLEX LACTIC ORDERD
[2025-02-03] MEDS: ondansetron 2 mg/ML SDV 2 mL 4 MG IVP (04:48)
[2025-02-03] MEDS: morphine 4 mg/mL SDV 1 mL IVP (04:48)
--- NOTE | 2025-02-03 05:37 | XRR_ITS ---
PROCEDURE INFORMATION: Exam: XR Left Humerus Exam date and time: 02/03/2025 5:42 AM Age: 54 years old Clinical indication: Bilateral humeral head fractures noted on chest cta. History of bone cancer. ; Additional info: Left arm pain TECHNIQUE: Imaging protocol: Radiologic exam of the left humerus. Views: 2 or more views. COMPARISON: 1. CT angio chest PE protcl [id number] 02/03/2025 3:37 AM 2. CR XR shoulder LT min 2V 07/24/2023 2:35 PM 3. NM bone scan whole body* [id number] 03/07/2022 7:01 AM FINDINGS: Bones/joints: Redemonstrated chronic nonunited displaced comminuted proximal left humerus fracture subluxation and associated inferior glenoid Bankart fracture. Left humeral head fragment chronic sclerosis and deformity. No evidence of superimposed acute fracture. Intact mid and distal left humerus and elbow. Soft tissues: No significant soft tissue abnormalities. XR/[place] [id number] IMPRESSION: Redemonstrated chronic nonunited displaced comminuted proximal left humerus fracture subluxation and associated inferior glenoid Bankart fracture.
--- NOTE | 2025-02-03 05:37 | XRR_ITS ---
PROCEDURE INFORMATION: Exam: XR Right Humerus Exam date and time: 02/03/2025 5:45 AM Age: 54 years old Clinical indication: Bilateral humeral head fractures noted on chest cta. History of bone cancer. ; Additional info: Right arm pain TECHNIQUE: Imaging protocol: Radiologic exam of the right humerus. Views: 2 or more views. COMPARISON: NM bone scan whole body* [id number] 03/07/2022 7:01 AM FINDINGS: Bones/joints: Acute or recent displaced comminuted proximal right humerus fracture dislocation with multi segment fractures of the humeral head, greater tuberosity and surgical neck. Intact mid and distal right humerus and elbow. Old inferior right scapula fracture with displaced and distracted nonunited fracture fragment. Soft tissues: Right shoulder soft tissue swelling. XR/[place] [id number] IMPRESSION: 1. Acute or recent displaced comminuted proximal right humerus fracture dislocation with multi segment fractures of the humeral head, greater tuberosity and surgical neck. 2. Intact mid and distal right humerus and elbow. 3. Old inferior right scapula fracture with displaced and distracted nonunited fracture fragment.
[2025-02-03 05:46] LABS: Glucose Urine UA Negative (Normal); Nitrate Urine Negative (Negative); Specific Gravity, Urine 1.030 (1.005-1.030)
[2025-02-03 05:51] LABS: Add Urine Microscopic? YES
[2025-02-03 05:53] LABS: PCP Screen Urine Negative (Negative)
[2025-02-03 06:04] LABS: Troponin 5 2HR 18.29 ng/L (0-15); Troponin 5 2HR Delta 6.29 ABS# (0-10)
[2025-02-03 06:18] LABS: Lactic Acid level (Lactate) 4.4 mmol/L (0.5-2.2)
--- NOTE | 2025-02-03 06:26 | P.HP_ITS ---
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 Redman, history of cervical spine fusion with hardware loosening, medically managed by Dr. Perez, alcoholism, history of alcohol withdrawals, history of anxiety on lorazepam 1 mg p.o. 3 times daily as needed, history of left shoulder surgery, neck surgery, chronic pain, on hydrocodone 5-325 1 to 2 tablets every 4 to 6 hours as needed, last fill of lorazepam 01/08/2025 30 days 90 tablets, of hydrocodone 30 days 240 tablets. Patient presents [facility] due to complaints of diffuse musculoskeletal pain, bilateral shoulder pain, back pain, neck pain, chest pain. Patient tells me that he is on hydrocodone 5 for pain, he continues to have diffuse pain, he has been having severe withdrawals, he takes lorazepam for anxiety but at times he has to take it for his withdrawals, he tells me that sometimes he cannot take the lorazepam for his withdrawals or he will run out, so he thinks he has had a significant withdrawal episode over the last few days, h he has had about 15 beers in the last 24 hours, denies any falls, he is not exactly sure if he is had a seizure, denies prior history of seizures, denies any fevers, no chills. He tells me that what in addition brought him to the hospital with severe substernal chest pain, radiating to the back, no shortness of breath, the pain also radiated to his shoulders, denies any hematemesis, no blood or black stools, no history of esophageal varices, no history of liver cirrhosis, no dysuria, does have bilateral flank pain, does report generalized weakness, no focal weakness, no slurring of her words, no facial droop, no paresthesias Review of Systems 2 Const: Reports: fatigue and malaise Eyes: Denies: change in vision Card: Reports: chest pain Resp: Denies: dyspnea GI: Reports: abdominal pain and nausea; Denies: vomiting or coffee ground emesis : Reports: flank pain Musc: Reports: neck pain, back pain, extremity pain and joint pain Neuro: Reports: weakness in extremities; Denies: headache(s) or numbness in extremities Endo: Denies: polyuria Medications/Allergies Home Medications ?Medication ?Instructions ?Recorded ?Confirmed ?Last Taken ?Type metoprolol tartrate 50 mg tablet See Rx Instructions . Route 09/04/24 10/28/24 Unknown Rx .COMPLEX #180 tabs clonidine HCl 0.1 mg tablet See Rx Instructions .Route 10/21/24 10/28/24 Unknown Rx .COMPLEX #60 tabs lorazepam 1 mg tablet 1 mg PO TID PRN anxiety #90 tabs 12/12/24 12/12/24 Unknown Rx xlivxlth-visjyxywz-vhkdfjrcp 3.5 4 drp otic (ear) Q8H OE 10 days 12/13/24 Unknown Rx mg/mL-10,000 unit/mL-1 % ear #10 mL solution hydrocodone 5 mg-acetaminophen 325 1 - 2 tab PO .Q4-6H pain 1 month 02/03/25 Unknown Rx mg tablet #240 tabs Allergies Allergy/AdvReac Type Severity Reaction Status Date / Time venom-wasp Allergy Severe ALGY-Swell Verified 12/12/24 11:35 Lip/Tongue/Throat PFSH Acute 2 PFSH: Medical History History of Clostridium difficile colitis Hypertension Osteosarcoma Mitral valve disorder Traumatic compression fracture of second thoracic vertebra Fracture of humeral head, left, closed Cervical disc disease Alcohol dependence (~01/2017) Surgical History Hx of cervical spine surgery (06/08/22) C4-T2 instrumentation and fusion with allograft and removal of hardware Hx of cervical spine surgery (03/09/22) C5-T2 instrumentation and fusion with allograft and biopsy of C7 vertebral body S/P ORIF (open reduction internal fixation) fracture (03/06/22) ORIF of left humeral head fracture dislocation and biceps tenotomy Family History Father CAD (coronary artery disease) Other Hypertension Denies family history of Diabetes Clotting disorder Dementia Hyperlipidemia Psychiatric illness Chronic kidney disease (CKD) Suicide Anesthesia complication Bleeding disorder Lung disease Cancer Stroke Social History Smoking and tobacco/nicotine status: unknown if used tobacco/nicotine Alcohol intake: current Substance/Drug Use: never Vitals/I&O/Wt Last Vital Signs Temp 98.4 F 02/03/25 02:27 Pulse 85 02/03/25 04:52 Resp 18 02/03/25 04:52 BP 172/88 02/03/25 04:52 Pulse Ox 97 02/03/25 04:52 O2 Del Method Room Air 02/03/25 02:27 Weight last 48 hrs Weight 88.451 kg Physical Exam 2 Const: COMMON NORMALS: no acute distress and patient oriented x3 HENMT: COMMON NORMALS: normocephalic HEAD & SCALP: normocephalic Eye: COMMON NORMALS: Equal, round and reactive pupils present and EOMs intact bilaterally Neck/C-Spine: COMMON NORMALS: no JVD Resp: COMMON NORMALS: normal respiratory effort, No retractions, No use of accessory muscles and clear to auscultation bilaterally AUSCULTATION: clear to auscultation bilaterally Cardio: COMMON NORMALS: regular rate, regular rhythm, S1 normal heart sound present and S2 normal heart sound present RATE: regular rate RHYTHM: r egular rhythm HEART SOUNDS: S1 normal heart sound present and S2 normal heart sound present GI: COMMON NORMALS: Normal to inspection, nondistended, normoactive bowel sounds present, Soft to palpation and non-tender Extremity: COMMON NORMALS: no calf tenderness and no pedal edema Neuro: COMMON NORMALS: patient oriented x3 Psych: COMMON NORMALS: mental status grossly normal Data 02/03/25 02:20 02/03/25 02:20 A&P Assessment and plan 1. Amplified musculoskeletal pain, diffuse: 2. Fracture of both humeri with delayed healin. Acidosis, lactic: 4. Hypokalemia: 5. Hyperbilirubinemia: 6. Hyponatremia: 7. Hypertension: 8. Alcohol dependence: 9. Alcohol withdrawal seizure: 10. Fracture of proximal end of right humerus: 11. Closed left humeral fracture: 12. Traumatic compression fracture of fourth thoracic vertebra: 13. Traumatic compression fracture of third thoracic vertebra: 14. Traumatic compression fracture of sixth thoracic vertebra: 15. Closed T10 fracture: 16. Closed T11 fracture: 17. T12 vertebral fracture: 18. Chest pain: 19. Alcoholic ketoacidosis: 20. Increased anion gap metabolic acidosis: 21. Alcohol withdrawal: Plan: Bilateral humeral head fracture - Concerns for humeral head fractures bilaterally associated with alcohol withdrawal seizures - Concerns for humeral head fractures associated with falls - Patient has a history of left shoulder humeral head fracture, status post surgery Right humeral head XR/[place] [id number] IMPRESSION: 1. Acute or recent displaced comminuted proximal right humerus fracture dislocation with multi segment fractures of the humeral head, greater tuberosity and surgical neck. 2. Intact mid and distal right humerus and elbow. 3. Old inferior right scapula fracture with displaced and distracted nonunited fracture fragment Left humeral head fracture XR/[place] [id number] IMPRESSION: Redemonstrated chronic nonunited displaced comminuted proximal left humerus fracture subluxation and associated inferior glenoid Bankart fracture. Plan -Case will be discussed with orthopedic service, if this case can be managed here at [facility] versus transferred to tertiary level facility - Orthopedic service on consult - Continue home hydrocodone - Will add on Dilaudid as needed for breakthrough pain Alcohol withdrawals, alcohol withdrawal seizure - Sounds like patient is having alcohol withdrawals, with alcohol withdrawal seizure at some point given bilateral humeral head fractures, falls - He has a high tolerance to benzodiazepine as he is on lorazepam 1 mg p.o. at 3 times daily as needed Plan - Continue home lorazepam - Will add on Librium - Will move patient to the ICU if septic - CIWA protocol - Monitor in the ICU with CIWA protocol Alcoholic ketosis, increased anion gap metabolic acidosis, lactic acidosis -IV fluids Superimposed more recent or acute minimal to mild T10, T11, T12 superior endplate compression fractures - Associate with falls Old/chronic T3, T4, T6 vertebral compression fractures -Likely associate with falls History of T1-T2 posterior fusion, with metallic hardware, with old Diffuse abdominal pain, feeling nauseous -CT abdomen Osteosarcoma, C7 lytic bone lesion, with acute neck pain - Given acute neck pain CT of the neck Chest pain -Serial EKGs, serial troponins, telemetry monitoring -Cardiac echo Full code Lovenox for DVT prophylaxis PDMP PDMP Reviewed: Last Reviewed 02/03/25 06:18 by Brent Espinoza MD Attestations 2 Medical Necessity Statement*: Patient requires hospitalization, inpatient, greater than 2 midnights, for chest pain, bilateral humeral head fracture, T10 fracture, T11 fracture, T12 fracture, alcohol withdrawal, concern for alcohol withdrawal seizure, dehydration, alcoholic ketosis, increased anion gap metabolic acidosis, chest pain Diagnoses Amplified musculoskeletal pain, diffuse M79.18; G89.4 Fracture of both humeri with delayed healing S42.301G; S42.302G Acidosis, lactic E87.20 Hypokalemia E87.6 Hyperbilirubinemia E80.6 Hyponatremia E87.1 Hypertension I10 Alcohol dependence F10.20 Alcohol withdrawal seizure F10.939; R56.9 Fracture of proximal end of right humerus S42.201A Closed left humeral fracture S42.302A Traumatic compression fracture of fourth thoracic vertebra S22.040A Traumatic compression fracture of third thoracic vertebra S22.030A Traumatic compression fracture of sixth thoracic vertebra S22.050A Closed T10 fracture S22.079A Closed T11 fracture S22.089A T12 vertebral fracture S22.089A Chest pain R07.9 Alcoholic ketoacidosis E87.29 Increased anion gap metabolic acidosis E87.29 Alcohol withdrawal F10.939
--- NOTE | 2025-02-03 06:28 | CTR_ITS ---
PROCEDURE INFORMATION: Exam: CT Abdomen And Pelvis Without Contrast Exam date and time: 02/03/2025 6:43 AM Age: 54 years old Clinical indication: Abnormal findings; Abnormal lab test; Elevated wbc; Leukocytosis with elevated lactic acid and bilirubin. Recent falls. History of bone cancer. TECHNIQUE: Imaging protocol: Computed tomography of the abdomen and pelvis without contrast. Radiation optimization: All CT scans at this facility use at least one of these dose optimization techniques: automated exposure control; mA and/or kV adjustment per patient size (includes targeted exams where dose is matched to clinical indication); or iterative reconstruction. COMPARISON: 1. CT angio chest PE protcl [id number] 02/03/2025 3:37 AM 2. NM bone scan whole body* [id number] 03/07/2022 7:[address] chest w con* [id number] 01/27/2023 3:27 PM RADIATION DOSE METRICS: Total DLP (mGy-cm): 779.13 FINDINGS: Limitations: Mild motion artifact. Lungs: Lung bases and chest findings reported separately. Liver: No acute abnormality on noncontrast imaging. Gallbladder and biliary ducts: No acute abnormality. No calcified stones. No ductal dilation. Pancreas: No acute abnormality. No ductal dilation. Spleen: No acute abnormality. Adrenal glands: No significant or acute abnormality. Kidneys and ureters: Excreted contrast within bilateral renal collecting systems and ureters. No hydronephrosis or hydroureter. Nonspecific bilateral perinephric fat stranding. Stomach and bowel: No significant or disproportionate large or small bowel distention. No evidence of diverticulitis. Appendix: Grossly normal nondilated visualized appendix. Intraperitoneal space: No significant fluid collection. No free air. Vasculature: No acute abnormality. No abdominal aortic aneurysm. Lymph nodes: No enlarged lymph nodes. Urinary bladder: Excreted contrast within distended urinary bladder. Reproductive: Unremarkable as visualized. Bones/joints: Diffuse bony demineralization. Acute or recent minimal to mild T10, T11 and T12 superior endplate compression fractures with superior endplate concavity. Redemonstrated chronic L1 and L2 superior endplate compression fractures with mild L1 anterior wedging. Multilevel spondylosis and degenerative bony changes. Soft tissues: No significant soft tissue abnormalities. CT/CT abdomen pelvis wo con [id number] IMPRESSION: 1. Nonspecific bilateral perinephric fat stranding. Possible pyelonephritis/UTI should be considered. 2. Excreted contrast within distended urinary bladder. 3. Acute or recent minimal to mild T10, T11 and T12 superior endplate compression fractures with superior endplate concavity. 4. Redemonstrated chronic L1 and L2 superior endplate compression fractures with mild L1 anterior wedging. 5. Additional findings as described above.
--- NOTE | 2025-02-03 06:28 | XRR_ITS ---
PROCEDURE INFORMATION: Exam: XR Bilateral Hips Exam date and time: 02/03/2025 6:49 AM Age: 54 years old Clinical indication: Hip pain; Bilateral; HX of bone cancer TECHNIQUE: Imaging protocol: Radiologic exam of the bilateral hips. Views: 2 views of hips with pelvis when performed. COMPARISON: 1. CT abdomen pelvis wo con [id number] 02/03/2025 6:[address] angio chest PE protcl [id number] 02/03/2025 3:37 AM FINDINGS: Bones/joints: No acute osseous abnormality. No evidence of acute fracture, dislocation or suspicious bone lesion. Soft tissues: No significant soft tissue abnormalities. Organs: Excreted contrast within distended urinary bladder. XR/XR hip BI 2V wo/w pel [id number] IMPRESSION: 1. No evidence of acute fracture, dislocation or suspicious bone lesion. 2. Excreted contrast within distended urinary bladder.
--- NOTE | 2025-02-03 06:34 | CTR_ITS ---
PROCEDURE INFORMATION: Exam: CT Cervical Spine Without Contrast Exam date and time: 02/03/2025 6:40 AM Age: 54 years old Clinical indication: Prior surgery; Surgery date: 6+ months; Surgery type: Cervical fusion; C/O neck pain. History of osteosarcoma. ; Additional info: History of c7 osteosarcoma, now with neck pain TECHNIQUE: Imaging protocol: Computed tomography of the cervical spine without contrast. Radiation optimization: All CT scans at this facility use at least one of these dose optimization techniques: automated exposure control; mA and/or kV adjustment per patient size (includes targeted exams where dose is matched to clinical indication); or iterative reconstruction. COMPARISON: 1. CT angio chest PE protcl [id number] 02/03/2025 3:[address] cervical spine wo/w [id number] 09/12/2024 3:37 PM RADIATION DOSE METRICS: Total DLP (mGy-cm): 211.87 FINDINGS: Limitations: Mild motion artifact. Spinal hardware metallic streak artifact. Bones: Severe diffuse bony demineralization. Redemonstrated C7 destructive lytic lesion involving the leftward vertebral body, left pedicle, lamina, facet and transverse process. Cervicothoracic stabilization posterior fusion rods and pedicle screws in place C4-T2. Mild lucency along the C4 screw tracks suggestive of chronic loosening. No evidence of superimposed acute fracture or subluxation. Cervical spondylosis and multilevel bilateral facet arthrosis with degenerative bony changes. Chronic appearing mild T2 superior endplate compression deformity. Discs/Spinal canal/Neural foramina: No acute findings. No significant spinal stenosis. Lungs: Lung and chest findings reported separately. Soft tissues: No significant soft tissue abnormalities. CT/CT cervical spin wo con* [id number] IMPRESSION: 1. Redemonstrated C7 destructive lytic lesion involving the leftward vertebral body, left pedicle, lamina, facet and transverse process. 2. No evidence of superimposed acute fracture or subluxation. 3. Diffuse bony demineralization, cervical spondylosis, multilevel bilateral facet arthrosis and degenerative changes as described.
[2025-02-03] MEDS: folic acid 1 MG, multivitamin inj 10 ML, thiamine 100 MG in sodium chloride 0.9% 1,000 ML 252.8 MG IV (07:04)
[2025-02-03] MEDS: HYDROcodone-acetaminophen 5-325 mg Tablet PO ×5 (07:07→22:45)
[2025-02-03] MEDS: pantoprazole 40 mg SDV IVP ×2 (07:07→18:00)
[2025-02-03 07:09] LABS: Procalcitonin 0.07 ng/mL (0-0.5); Thyroid Stimulating Hormone 1.71 uIU/mL (0.27-4.20); Vitamin B12 534 pg/mL (232-1245)
[2025-02-03 07:20] LABS: Cholesterol 177 mg/dL (0-200); HDL Cholesterol 74 mg/dL (60-100); Lipase 24 U/L (13-60); Triglycerides 94 mg/dL (0-150)
[2025-02-03 07:20] LABS: Estmated Average Glucose 97; Hemoglobin A1C 5.0 % (4.0-6.0)
--- NOTE | 2025-02-03 08:15 | PC.NURSE ---
Pt arrived to ICU from ED. Banana bag, NS infusing. into left IV. Right shoulder swollen and tender.
[2025-02-03 08:58] LABS: Troponin 5 6HR 15.15 ng/L (0-15); Troponin 5 6HR Delta 3.15 ng/L (0-12)
[2025-02-03] MEDS: potassium chloride premix 100 ML 25 MEQ IV (09:51)
[2025-02-03] MEDS: multivitamin therapeutic Tablet 1 TAB PO (09:52)
--- NOTE | 2025-02-03 10:01 | ECG_ITS ---
ACTIVE Network Test Date: 2025-02-03 Pat Name: Dustin De Leon Department: Room: [facility] Gender: Male [employer] Dis[employer]: : 1970 Requested By: Kevin Foley Order Number: [id number] Reading MD: FABIAN JACOB Measurements Intervals [place] Rate: 78 P: 63 RI: 184 QRS: -21 QRSD: 102 T: 46 QT: 398 QTc: 456 Interpretive Statements SINUS RHYTHM BORDERLINE LEFT AXIS DEVIATION [QRS AXIS < -20] POSSIBLE RIGHT VENTRICULAR CONDUCTION DELAY [RSR (QR) IN V1/V2] Compared to ECG 03/02/2022 15:29:27 Sinus tachycardia no longer present Atrial abnormality no longer present Left ventricular hypertrophy no longer present ST (T wave) deviation no longer present Electronically Signed On 02-04-2025 20:08:44 CDT by FABIAN JACOB [email or web address]
--- NOTE | 2025-02-03 10:58 | CT_ITS ---
WS: [id number] TECHNIQUE: with coronal and sagittal reformatted images. CLINICAL INFORMATION: Fracture of right shoulder COMPARISON: None. DLP: 340.[address] scans at [facility] use at least one of these dose optimization techniques: automated exposure control; mA and/or kV adjustment per patient size (includes targeted exams where dose is matched to clinical indication); or iterative reconstruction. FINDINGS: Comminuted RIGHT humeral head fracture through the anatomic humeral neck. Soft tissue edema with hematoma and joint effusion with inferior subluxation. Impacted humeral head fracture with lateral subluxation of the proximal component. Fracture extension through the greater tuberosity. Glenoid appears intact. Clavicle appears intact. Partially visualized fusion in the cervical and upper thoracic spine. Visualized humeral shaft otherwise appears intact. Chronic appearing scapular fracture with callus formation. Normal-appearing AC joint. Moderate downsloping the acromion with mild narrowing of the subacromial space. A few hazy opacities in the RIGHT lung partially visualized. A few partially visualized nodules in the RIGHT upper lobe measuring 4 to 5 mm. Recommend follow-up chest CT. Recommend correlation for pneumonitis. CT/CT shoulder RT wo con* [id number] IMPRESSION: 1. Comminuted fracture through the RIGHT humeral head and anatomic neck with i mpaction. This extends to the greater tuberosity. 2. Inferior subluxation humeral head with joint effusion and soft tissue iron a. 3. Chronic scapular fracture. Associated callus formation. 4. Few hazy groundglass opacities in the RIGHT upper lobe likely infectious or inflammatory. 2 visualized subcentimeter nodules measuring 4 to 5 mm. Recommen d follow-up chest CT.
--- NOTE | 2025-02-03 12:04 | P.PN_ITS ---
Subjective 2 Subjective: Some tremors, no significant withdrawal this AM. Shoulder and back pain noted. Vitals/I&O/Wt Last Vital Signs Temp 99.1 F 02/03/25 08:30 Pulse 79 02/03/25 08:37 Resp 18 02/03/25 08:30 BP 157/93 02/03/25 09:52 Pulse Ox 94 02/03/25 09:59 O2 Del Method Room Air 02/03/25 09:59 Weight last 48 hrs Weight 84 kg Weight 88.451 kg Physical Exam 2 Const: COMMON NORMALS: patient oriented x3 HENMT: COMMON NORMALS: normocephalic and atraumatic HEAD & SCALP: n ormocephalic and atraumatic Eye: COMMON NORMALS: Equal, round and reactive pupils present and EOMs intact bilaterally PUPIL: Yes Equal, round and reactive pupils present Neck/C-Spine: COMMON NORMALS: supple Chest: COMMONS NORMALS: normal inspection of the chest Resp: COMMON NORMALS: normal respiratory effort, No retractions and clear to auscultation bilaterally AUSCULTATION: clear to auscultation bilaterally Cardio: COMMON NORMALS: regular rate, regular rhythm, No gallops present (Cardio), No clicks present (Cardio) and No rub (Cardio) RATE: regular rate RHYTHM: regular rhythm GI: COMMON NORMALS: Soft to palpation, non-tender and no masses PALPATION: Yes Soft to palpation Extremity: NARRATIVE EXTREMITY EXAM: Limited ROM especially RUE, mild UE tremor BL. Neuro: COMMON NORMALS: patient oriented x3, no focal motor deficits and no sensory deficits noted SENSORIUM/ORIENTATION: Yes other Data 02/03/25 02:20 02/03/25 02:20 Micro: Microbiology 02/03/25 06:31 Blood Culture - Preliminary Blood SPECIMEN COLLECTED 02/03/25 06:31 Blood Culture - Preliminary Blood SPECIMEN COLLECTED A&P Assessment and plan 1. Alcohol withdrawal: 2. Increased anion gap metabolic acidosis: 3. Alcoholic ketoacidosis: 4. Fracture of both humeri with delayed healin. Alcohol withdrawal seizure: 6. Fracture of proximal end of right humerus: Plan: 54 year old male presenting with diffuse MSK pain with fractures, severe withdrawals from EtOH and benzos, possible withdrawal seizures. 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 - orthopedics consulted - Continue home hydrocodone - Will add on Dilaudid as needed for breakthrough pain Alcohol withdrawals, alcohol withdrawal seizure - patient admits to 15 beers daily and is also on lorazepam for anxiety. - Continue home lorazepam - Librium added - cont. CIWA protocol - Monitor in the ICU with CIWA protocol Alcoholic ketosis, increased anion gap metabolic acidosis, lactic acidosis -IV fluids UTI/Pyelonephritis - start on IV rocephin Superimposed more recent or acute minimal to mild T10, T11, T12 superior endplate compression fractures - Associate with falls - ortho consulted Old/chronic T3, T4, T6 vertebral compression fractures -Likely associate with falls History of T1-T2 posterior fusion, with metallic hardware, with old Diffuse abdominal pain, feeling nauseous -CT abdomen possible UTI/pyelo Osteosarcoma, C7 lytic bone lesion, with acute neck pain - CT of the neck redemonstrated C7 destructive lytic lesions, no acute fractures, diffuse demineralization Chest pain -Serial EKGs, serial troponins, telemetry monitoring -Cardiac echo, he had normal EF in 2022 Full code Lovenox for DVT prophylaxis Disposition - monitor in ICU. PDMP PDMP Reviewed: Not Reviewed Attestations 2 Medical Necessity Statement*: Inpatient > 2 midnights anticipated for EtOH withdrawal, multiple fractures Time Spent in Patient Care: 16 - 35 minutes (>than 50% of time sp ent in counselling and/or direct pt care on unit) . Critical Care Time: > 30 minutes with ICU care for EtOH withdrawal, ketosis, multiple fractures Coding Level of Care Code Acute Code for Chg Fwd Diagnoses Alcohol withdrawal F10.939 Increased anion gap metabolic acidosis E87.29 Alcoholic ketoacidosis E87.29 Fracture of both humeri with delayed healing S42.301G; S42.302G Alcohol withdrawal seizure F10.939; R56.9 Fracture of proximal end of right humerus S42.201A
[2025-02-03] MEDS: HYDROmorphone 0.5 MG/0.5 ML INJ 1 MG IVP (12:05)
--- NOTE | 2025-02-03 12:21 | P.CONIM_ITS ---
Providers/Reason For Consult 2 Consulting Physician/Specialty*: Hospitalist Reason for Consult*: Proximal humerus fracture on the right Attending Physician: Amos Henson MD History of Present Illness History of Present Illness Dustin De Leon is a 54 year old male complaining of neck pain and shoulder pain. Patient's well-known to my service. I did spine surgery on him a couple years ago. He had an incident where he fell and fractured his left shoulder which Dr. Bobby was treating. At this point looks like he has a new fracture of his right shoulder. Patient does not recall injuring the shoulder. At this point I am going to get a CT scan of the shoulder to further evaluate if needs surgery. Review of Systems 2 Const: Reports: fatigue and malaise Eyes: Denies: change in vision Card: Reports: chest pain Resp: Denies: dyspnea GI: Reports: abdominal pain and nausea; Denies: vomiting or coffee ground emesis : Reports: flank pain Musc: Reports: neck pain, back pain, extremity pain and joint pain Neuro: Reports: weakness in extremities; Denies: headache(s) or numbness in extremities Endo: Denies: polyuria Medications/Allergies Home Medications ?Medication ?Instructions ?Recorded ?Confirmed ?Last Taken ?Type metoprolol tartrate 50 mg tablet See Rx Instructions . Route 09/04/24 02/03/25 02/02/25 Rx .COMPLEX #180 tabs clonidine HCl 0.1 mg tablet See Rx Instructions .Route 10/21/24 02/03/25 02/02/25 Rx .COMPLEX #60 tabs lorazepam 1 mg tablet 1 mg PO TID PRN anxiety #90 tabs 12/12/24 02/03/25 01/27/25 Rx hydrocodone 5 mg-acetaminophen 325 1 - 2 tab PO .Q4-6H pain 1 month 02/03/25 02/03/25 02/02/25 Rx mg tablet #240 tabs Allergies Allergy/AdvReac Type Severity Reaction Status Date / Time venom-wasp Allergy Severe ALGY-Swell Verified 12/12/24 11:35 Lip/Tongue/Throat Current Medications Generic Name Dose Route Start Last Admin Trade Name Freq PRN Reason Stop Dose Admin Hydrocodone Bitart/Acetaminophen 1 - 2 tab 02/03/25 06:30 02/03/25 09:51 Hydrocodone-Acetaminophen 5-325 Mg Tablet PO 1 tab Q4H ISAAC Administration Clonidine HCl 0.1 mg 02/03/25 09:00 02/03/25 09:52 Clonidine 0.1 Mg Tablet PO 0.1 mg BID ISAAC Administration Folic Acid 1 mg 02/03/25 09:00 02/03/25 09:52 Folic Acid 1 Mg Tablet PO 1 mg DAILY ISAAC Administration Hydromorphone HCl 1 mg 02/03/25 06:52 02/03/25 12:05 Hydromorphone 0.5 Mg/0.5 Ml Inj IVP 1 mg Q8H PRN Administration severe break trhough pain PAIN Sodium Chloride 1,000 mls @ 125 mls/hr 02/03/25 06:30 02/03/25 07:02 Sodium Chloride 0.9% IV 125 mls/hr .Q8H ISAAC Administration Potassium Chloride 100 mls @ 25 mls/hr 02/03/25 08:55 02/03/25 09:51 K-Jose IV 02/03/25 12:54 25 mls/hr ONCE ONE Administration Metoprolol Tartrate 50 mg 02/03/25 09:00 02/03/25 09:52 Metoprolol Tartrate 50 Mg Tablet PO 50 mg BID ISAAC Administration Multivitamins Therapeutic 1 tab 02/03/25 09:00 02/03/25 09:52 Multivitamin Therapeutic Tablet PO 1 tab DAILY ISAAC Administration Pantoprazole Sodium 40 mg 02/03/25 06:30 02/03/25 07:07 Pantoprazole 40 Mg Sdv IVP 40 mg Q12H ISAAC Administration Thiamine Mononitrate 100 mg 02/03/25 09:00 02/03/25 09:52 Thiamine 100 Mg Tablet PO 100 mg DAILY ISAAC Administration PFSH Acute 2 PFSH: Medical History (Updated 02/03/25 @ 12:23 by Addison Perez DO) History of Clostridium difficile colitis Hypertension Osteosarcoma Mitral valve disorder Traumatic compression fracture of second thoracic vertebra Fracture of humeral head, left, closed Cervical disc disease Alcohol dependence (~01/2017) Surgical History Hx of cervical spine surgery (06/08/22) C4-T2 instrumentation and fusion with allograft and removal of hardware Hx of cervical spine surgery (03/09/22) C5-T2 instrumentation and fusion with allograft and biopsy of C7 vertebral body S/P ORIF (open reduction internal fixation) fracture (03/06/22) ORIF of left humeral head fracture dislocation and biceps tenotomy Family History Father CAD (coronary artery disease) Other Hypertension Denies family history of Diabetes Clotting disorder Dementia Hyperlipidemia Psychiatric illness Chronic kidney disease (CKD) Suicide Anesthesia complication Bleeding disorder Lung disease Cancer Stroke Social History Smoking and tobacco/nicotine status: unknown if used tobacco/nicotine Alcohol intake: current Substance/Drug Use: never Vitals/I&O/Wt Last Vital Signs Temp 99.1 F 02/03/25 08:30 Pulse 79 02/03/25 08:37 Resp 18 02/03/25 08:30 BP 157/93 02/03/25 09:52 Pulse Ox 94 02/03/25 09:59 O2 Del Method Room Air 02/03/25 09:59 Weight last 48 hrs Weight 185 lb 3.013 oz Weight 195 lb Physical Exam 2 Narrative: Alert and oriented x 3 Head is normocephalic atraumatic Respirations are intact No evidence of any rashes or infection 5/5 strength in bilateral upper and lowe r extremities Sensation intact in all extremities Data 02/03/25 02:20 02/03/25 02:20 Micro: Microbiology 02/03/25 06:31 Blood Culture - Preliminary Blood SPECIMEN COLLECTED 02/03/25 06:31 Blood Culture - Preliminary Blood SPECIMEN COLLECTED A&P Assessment and plan 1. Closed fracture of anatomical neck of left humerus with routine healing, subsequent encounter: Will get CT to further determine if patient needs surgery of the right humerus. CT of cervical spine appears to be intact. The left shoulder has what looks like AVN of the shoulder. PDMP PDMP Reviewed: Not Reviewed Coding Level of Care Code Acute Code for Chg Fwd Diagnoses Closed fracture of anatomical neck of left humerus with routine healing, subsequent encounter S42.292D Encounter type: subsequent encounter Fracture type: closed Laterality: left Fracture healing: with routine healing
[2025-02-03] MEDS: cefTRIAXone 1,000 mg SDV 1000 MG IVP (14:42)
--- NOTE | 2025-02-03 17:00 | PC.NURSE ---
Pt used the incontinence brief to urinate in instead of the urinal this afternoon.
--- NOTE | 2025-02-03 18:41 | PC.NURSE ---
Shift summary: Pt has rested in bed this shift. He did go to CT for his shoulder. He has received Potassium IV replacement. IV fluids continue to infusing. Pt has received Hydrocodone /APA scheduled. He stated it seems to be helping his pain level. He did receive IV dilaudid 1 time this shift, prior to going to CT. He stays leaned over to the left in bed. He has decclined most of the repositioning offers. His right arm is elevated on pillow. He decided to just urinate in the incontinence pad instead of the urinal this shift. Discussed with him the urinal would probably hurt less than the repositioning to clean and change him, he agreed. He has ate about half of his meals. HIs parents had been at bedside most of the afternoon. They brought in his left hearing aid.
[2025-02-04] VITALS (28 sets, daily range): BP systolic 111–161; BP diastolic 77–102; PULSE 68–137; RESP 14–27; TEMP 37.1–38.1; O2SAT 88–100
[2025-02-04 02:40] LABS: Hematocrit 40.3 % (37-53); Hemoglobin 13.30 g/dL (11.27-16.99); Mean Corpuscular HGB Conc 33.0 g/dL (30-55); Mean Corpuscular Hemoglobin 30.1 pg (27-33); Mean Corpuscular Volume 91.2 fl (82-101); Nucleated Red Blood Cells % 0 %; Platelet Count 150 10^3/cmm (157-399); Red Blood Count 4.42 10^6/uL (3.85-5.65); White Blood Count 11.36 10^3/uL (3.29-11.43)
[2025-02-04 03:04] LABS: Alanine Aminotransferase 13 U/L (0-41); Albumin Level 3.4 g/dL (3.5-5.2); Alkaline Phosphatase 55 U/L (40-130); Anion Gap 13.0 (5-19); Aspartate Amino Transferase 32 U/L (0-40); Blood Urea Nitrogen 4 mg/dL (6-20); Calcium 8.1 mg/dL (8.5-10.5); Carbon Dioxide 22 mmol/L (22-29); Chloride 98 mmol/L (98-107); Creatinine Clr Calc Pharmacy 147.8167; Globulin 2.5 g/dL (1.3-4.6); Glucose 113 mg/dL (65-115); Magnesium 1.7 mg/dL (1.7-2.3); Osmolality Calculated 266 mOsm/kg (285-295); Potassium 4.0 mmol/L (3.5-5.1); Sodium 129 mmol/L (136-145); Total Protein 5.9 g/dL (6.6-8.7)
[2025-02-04] MEDS: HYDROcodone-acetaminophen 5-325 mg Tablet PO ×6 (03:12→23:02)
[2025-02-04] MEDS: LORazepam 1 MG/0.5 ML injection 2 MG IVP (05:00)
--- NOTE | 2025-02-04 05:05 | XRR_ITS ---
PROCEDURE INFORMATION: Exam: XR Chest Exam date and time: 02/04/2025 5:09 AM Age: 54 years old Clinical indication: Dyspnea; Additional info: Acute congestion TECHNIQUE: Imaging protocol: Radiologic exam of the chest. Views: 1 view. COMPARISON: CT angio chest PE protcl 04200 02/03/2025 3:37 AM FINDINGS: Lungs: Hypoventilatory changes at the left lung base. Pleural spaces: Unremarkable. No pleural effusion. No pneumothorax. Heart/Mediastinum: Borderline cardiomegaly. Bones/joints: Posterior fusion cervical and upper thoracic spine. XR/XR chest 1V portable [id number] IMPRESSION: No acute findings.
[2025-02-04] MEDS: pantoprazole 40 mg SDV IVP ×2 (05:30→17:45)
--- NOTE | 2025-02-04 05:51 | P.PN_ITS ---
Subjective 2 Subjective: 54-year-old male with witnesse d seizure by his nurse patient was stiff and breathing rapidly eyes deviated to the right but not having tonic-clonic jerking. Patient was given 2 mg of lorazepam IV. Lung sounds were coarse and chest x-ray was obtained showing moderate expansion but no infiltrate Patient with urinary incontinence Vitals/I&O/Wt Last Vital Signs Temp 98.8 F 02/04/25 00:00 Pulse 79 02/04/25 04:00 Resp 18 02/04/25 04:00 BP 132/85 02/04/25 04:00 Pulse Ox 97 02/04/25 04:00 O2 Del Method Nasal Cannula 02/04/25 01:00 O2 Flow Rate 2 02/04/25 01:00 02/03/25 02/03/25 02/04/25 14:59 22:59 06:59 Intake Total 1462.5 / 1462.5 2231.2 / 3693.7 Output Total 350 / 350 Balance 1462.5 / 1462.5 2231.2 / 3693.7 -350 / 3343.7 Weight last 48 hrs Weight 84 kg Weight 88.451 kg Physical Exam 2 Narrative: General well-developed muscular male tachypneic and tachycardic at the time of initial examination. This did improve CV regular tachycardic rhythm Lungs coarse inspiratory and expiratory breath sounds with moderate air movement Neuro initially just responding to name 15 minutes later he is aware that he is in a hospital and [place] that he has alcohol withdrawal seizures and is trying to quit alcohol Data 02/04/25 02:20 02/04/25 02:20 Micro: Microbiology 02/03/25 06:31 Blood Culture - Preliminary Blood SPECIMEN COLLECTED 02/03/25 06:31 Blood Culture - Preliminary Blood SPECIMEN COLLECTED A&P Assessment and plan 1. Alcohol withdrawal seizure: Patient given 2 mg of lorazepam. He has history of seizure and heavy drinking now trying to quit. Change Librium to 50 mg 3 times daily routine 2. Alcohol withdrawal: Add as needed lorazepam IV and oral. Continue with thiamine and clonidine 3. Hyponatremia: Add sodium and potassium containing fluid 4. Fracture of both humeri with delayed healing: Managed by Dr. Perez in injury attributed to seizures 5. Fracture of proximal end of right humerus: PDMP PDMP Reviewed: Not Reviewed Attestations 2 Medical Necessity Statement*: Patient leidy in the hospital with CIWA protocol and alcohol withdrawal seizures anticipated to require greater than 3 midnight Coding Level of Care Code 57638 Diagnoses Alcohol withdrawal seizure F10.939; R56.9 Alcohol withdrawal F10.939 Hyponatremia E87.1 Fracture of both humeri with delayed healing S42.301G; S42.302G Fracture of proximal end of right humerus S42.201A Time Spent (min) 40
--- NOTE | 2025-02-04 07:05 | PC.NURSE ---
Into room to get patient temp at approximately 458 am noted patient to be unresponsive with eyes deviated up and to right, no extremities rigidity or tremors noted. Patient with small amount of secretions noted at mouth and rapid rattling breathing. Called out for assistance. suctioned mouth and bag valve mask at bedside. o2 saturations wnl. Call placed to Dr. Mac- emergency ativan given iv with resolution of activity. Patient was noted to be incontinent of urine at that time. Dr. Mac at bedside for evaluation. Patient alert and response to baseline withing 20 minutes. Door and curtain of room left open to improve monitoring as no evidence of sz activity noted on cardiac or vital sign monitor.
[2025-02-04] MEDS: multivitamin therapeutic Tablet 1 TAB PO (08:31)
--- NOTE | 2025-02-04 12:02 | PC.OT ---
OT orders received. Patient is scheduled for surgery tomorrow on his R humeral fracture. Will hold until after surgery.
--- NOTE | 2025-02-04 12:25 | P.PN_ITS ---
Subjective 2 Subjective: Patient's parents are at bedside. Patient is get some bruising of his right shoulder discussed with them doing surgery on his right proximal humerus. He agreed to proceed. Vitals/I&O/Wt Last Vital Signs Temp 100.5 F H 02/04/25 08:00 Pulse 79 02/04/25 09:37 Resp 18 02/04/25 04:00 BP 144/80 02/04/25 08:31 Pulse Ox 96 02/04/25 09:37 O2 Del Method Nasal Cannula 02/04/25 09:37 O2 Flow Rate 2 02/04/25 09:37 02/03/25 02/04/25 02/04/25 22:59 06:59 14:59 Intake Total 2231.2 / 3693.7 360 / 360 Output Total 350 / 350 250 / 250 Balance 2231.2 / 3693.7 -350 / 3343.7 110 / 110 Weight last 48 hrs Weight 184 lb Weight 185 lb 3.013 oz Weight 195 lb Physical Exam 2 Narrative: Right arm is neurovasc intact Data 02/04/25 02:20 02/04/25 02:20 Micro: Microbiology 02/03/25 06:31 Blood Culture - Preliminary Blood NEGATIVE TO DATE 02/03/25 06:31 Blood Culture - Preliminary Blood NEGATIVE TO DATE A&P Assessment and plan 1. Other closed displaced fracture of proximal end of right humerus with routine healing, subsequent encounter: Plan on open reduction internal fixation of right proximal humerus tomorrow. PDMP PDMP Reviewed: Not Reviewed Attestations 2 Medical Necessity Statement*: Per primary service Coding Level of Care Code Acute Code for [facility] Fwd Diagnoses Other closed displaced fracture of proximal end of right humerus with routine healing, subsequent encounter S42.291D Encounter type: subsequent encounter Fracture type: closed Fracture morphology: other fracture Fracture alignment: displaced Fracture healing: with routine healing
[2025-02-04] MEDS: cefTRIAXone 1,000 mg SDV 1000 MG IVP (12:43)
--- NOTE | 2025-02-04 14:04 | P.PN_ITS ---
Subjective 2 Subjective: report of EtOH withdrawal seizure over night. Vitals/I&O/Wt Last Vital Signs Temp 100.5 F H 02/04/25 08:00 Pulse 89 02/04/25 13:00 Resp 20 H 02/04/25 13:00 BP 149/84 02/04/25 13:00 Pulse Ox 93 02/04/25 12:00 O2 Del Method Nasal Cannula 02/04/25 09:37 O2 Flow Rate 2 02/04/25 09:37 02/03/25 02/04/25 02/04/25 22:59 06:59 14:59 Intake Total 2231.2 / 3693.7 1600 / 1600 Output Total 350 / 350 250 / 250 Balance 2231.2 / 3693.7 -350 / 3343.7 1350 / 1350 Weight last 48 hrs Weight 83.461 kg Weight 84 kg Weight 88.451 kg Physical Exam 2 Const: COMMON NORMALS: patient oriented x3 HENMT: COMMON NORMALS: normocephalic and atraumatic HEAD & SCALP: n ormocephalic and atraumatic Eye: COMMON NORMALS: Equal, round and reactive pupils present and EOMs intact bilaterally PUPIL: Yes Equal, round and reactive pupils present Neck/C-Spine: COMMON NORMALS: supple Chest: COMMONS NORMALS: normal inspection of the chest Resp: COMMON NORMALS: normal respiratory effort, No retractions and clear to auscultation bilaterally AUSCULTATION: clear to auscultation bilaterally Cardio: COMMON NORMALS: regular rate, regular rhythm, No gallops present (Cardio), No clicks present (Cardio) and No rub (Cardio) RATE: regular rate RHYTHM: regular rhythm GI: COMMON NORMALS: Soft to palpation, non-tender and no masses PALPATION: Yes Soft to palpation Extremity: NARRATIVE EXTREMITY EXAM: Limited ROM especially RUE with ecchymosis in axilla, mild UE tremor BL. Neuro: COMMON NORMALS: patient oriented x3, no focal motor deficits and no sensory deficits noted SENSORIUM/ORIENTATION: Yes other Data 02/04/25 02:20 02/04/25 02:20 Micro: Microbiology 02/03/25 06:31 Blood Culture - Preliminary Blood NEGATIVE TO DATE 02/03/25 06:31 Blood Culture - Preliminary Blood NEGATIVE TO DATE A&P Assessment and plan 1. Alcohol withdrawal: 2. Alcoholic ketoacidosis: 3. Chest pain: 4. Fracture of both humeri with delayed healing: Plan: 54 year old male presenting with diffuse MSK pain with fractures, severe withdrawals from EtOH and benzos, possible withdrawal seizures. 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 - Continue home hydrocodone - Will add on Dilaudid as needed for breakthrough pain - ortho consulted: plan for ORIF in the AM. Alcohol withdrawals, alcohol withdrawal seizure - patient admits to 15 beers daily and is also on lorazepam for anxiety. - report of repeat withdrawal seizure O/N - Cont. Librium 50 TID - ativan PRN for withdrawal/seizures. - cont. CIWA protocol - Monitor in the ICU with CIWA protocol Alcoholic ketosis, increased anion gap metabolic acidosis, lactic acidosis -IV fluids UTI/Pyelonephritis - start on IV rocephin Superimposed more recent or acute minimal to mild T10, T11, T12 superior endplate compression fractures - Associate with falls - ortho consulted Old/chronic T3, T4, T6 vertebral compression fractures -Likely associate with falls History of T1-T2 posterior fusion, with metallic hardware, with old Diffuse abdominal pain, feeling nauseous -CT abdomen possible UTI/pyelo Osteosarcoma, C7 lytic bone lesion, with acute neck pain - CT of the neck redemonstrated C7 destructive lytic lesions, no acute fractures, diffuse demineralization Chest pain -Serial EKGs, serial troponins, telemetry monitoring -Cardiac echo, he had normal EF in 2022 Full code Lovenox for DVT prophylaxis Disposition - monitor in ICU. PDMP PDMP Reviewed: Not Reviewed Attestations 2 Medical Necessity Statement*: ongoing inpatient for alcohol withdrawal and fractures, ORIF in AM. Time Spent in Patient Care: 16 - 35 minutes (>than 50% of time sp ent in counselling and/or direct pt care on unit) . Coding Level of Care Code Acute Code for Chg Fwd Diagnoses Alcohol withdrawal F10.939 Alcoholic ketoacidosis E87.29 Chest pain R07.9 Fracture of both humeri with delayed healing S42.301G; S42.302G
[2025-02-04] MEDS: HYDROmorphone 0.5 MG/0.5 ML INJ 1 MG IVP (19:51)
[2025-02-05] VITALS (24 sets, daily range): BP systolic 107–187; BP diastolic 66–118; PULSE 64–95; RESP 12–23; TEMP 36.3–36.9; O2SAT 96–100
--- NOTE | 2025-02-05 | XR_ITS ---
WS: [id number] Right arm and humerus, 2 views, C-arm fluoroscopy views, 02/05/2025 Clinical Data: [facility] PICS Comparison: Right arm and humerus, 02/03/2025 Findings: Dr. Perez reduced the comminuted impacted right humeral head and neck fracture with a plate and screws. XR/[place] [id number] Impression: Internal fixation of right humeral head and neck fracture.
[2025-02-05] MEDS: HYDROcodone-acetaminophen 5-325 mg Tablet PO ×5 (01:29→21:56)
--- NOTE | 2025-02-05 02:30 | ANES.PROC ---
Anesthesia Procedures Procedure/Date: 02/05/25 Arterial Line: Time Out Performed: Yes Consent: requested by attending/covering physician Size (Gauge): 20 Technique Used: guide wire technique Post-Procedure: line sutured into place Patient Tolerated Procedure: well Complications: none Site: right and other (axillary) Additional Comments: I was called by Dr. Guevara who was covering ICU requesting assistance with arterial line. Upon arrival, they were having difficulty obtaining a noninvasive BP from patient. All extremities were extremely cold. Initial attempt to place a right radial arterial line with successful placement into right radial artery but no blood return. Decision was then made to place a right axillary arterial line given patient's extreme hypotension and vasopressor requirements. Successful placement into the right axillary artery performed. ABG drawn offline with a PO2 of 23. Pulsatile waveform on monitor however was not giving an accurate BP
[2025-02-05 03:35] LABS: Hematocrit 32.9 % (37-53); Hemoglobin 10.60 g/dL (11.27-16.99); Mean Corpuscular HGB Conc 32.2 g/dL (30-55); Mean Corpuscular Hemoglobin 30.1 pg (27-33); Mean Corpuscular Volume 93.5 fl (82-101); Nucleated Red Blood Cells % 0 %; Platelet Count 142 10^3/cmm (157-399); Red Blood Count 3.52 10^6/uL (3.85-5.65); White Blood Count 8.17 10^3/uL (3.29-11.43)
[2025-02-05 03:52] LABS: Alanine Aminotransferase 10 U/L (0-41); Albumin Level 3.0 g/dL (3.5-5.2); Alkaline Phosphatase 44 U/L (40-130); Anion Gap 12.5 (5-19); Aspartate Amino Transferase 33 U/L (0-40); Blood Urea Nitrogen 5 mg/dL (6-20); Calcium 7.8 mg/dL (8.5-10.5); Carbon Dioxide 23 mmol/L (22-29); Chloride 101 mmol/L (98-107); Creatinine Clr Calc Pharmacy 176.8769; Globulin 2.1 g/dL (1.3-4.6); Glucose 98 mg/dL (65-115); Magnesium 1.7 mg/dL (1.7-2.3); Osmolality Calculated 273 mOsm/kg (285-295); Potassium 3.5 mmol/L (3.5-5.1); Sodium 133 mmol/L (136-145); Total Protein 5.1 g/dL (6.6-8.7)
[2025-02-05] MEDS: pantoprazole 40 mg SDV IVP ×2 (05:40→18:33)
--- OUTSIDE RECORDS SUMMARY | 2025-02-05 08:01 | XMS_ITS | Encounter Summary ---
Author Organization [facility] Address [address] [place] [address] Care Team Providers Care Emc Storage Architect Name Role Phone Non-Staff, Physician Primary Care Provider Unava ilable Encounter Details Date Type Department Care Team (Latest Contact Info) Description 03/03/2003 Outpatient Historical [facility] Dimitri Macdonald Jr., MD [address] [place] [address] HYPERTENSION NOS (Primary Dx); Pure hypercholesterolem; STRESS REACT, EMOTIONAL Social History Tobacco Use Types Packs/Day Years Used Date Smoking Tobacco: Never Assessed Sex and Gender Information Value Date Recorded Sex Assigned at Not on file 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
--- OUTSIDE RECORDS SUMMARY | 2025-02-05 08:01 | XMS_ITS | Encounter Summary ---
Author Organization [facility] Address [address] [place] [address] Care Team Providers Care Communications Systems Engineer Name Role Phone Non-Staff, Physician Primary Care Provider Unava ilable Encounter Details Date Type Department Care Team (Latest Contact Info) Description 04/26/2001 Outpatient Historical [facility] Dimitri Macdonald Jr., MD [address] [place] [address] HYPERTENSION NOS (Primary Dx) Social History Tobacco Use Types Packs/Day Years Used Date Smoking Tobacco: Never Assessed Sex and Gender Information Value Date Recorded Sex Assigned at Not on file 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
--- OUTSIDE RECORDS SUMMARY | 2025-02-05 08:01 | XMS_ITS | Encounter Summary ---
Author Organization [facility] Address [address] [place] [address] Care Team Providers Care Chief Legal Officer Name Role Phone Non-Staff, Physician Primary Care Provider Unava ilable Encounter Details Date Type Department Care Team (Latest Contact Info) Description 07/08/2004 Outpatient Historical [facility] [phone] [place] [address] Shaw Hennessy DO NO ADDRESS ON FILE HYPERTENSION NOS (Primary Dx); ANXIETY STATE NOS Social History Tobacco Use Types Packs/Day Years Used Date Smoking Tobacco: Never Assessed Sex and Gender Information Value Date Recorded Sex Assigned at Not on file 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
--- OUTSIDE RECORDS SUMMARY | 2025-02-05 08:01 | XMS_ITS | Encounter Summary ---
Author Organization [facility] Address [address] [place] [address] Care Team Providers Care Computer Animator Name Role Phone Non-Staff, Physician Primary Care Provider Unava ilable Encounter Details Date Type Department Care Team (Late st Contact Info) Description 06/15/2007 Outpatient Historical [facility] Int [facility] [phone] [place] [address] Shaw Hennessy, DO NO ADDRESS ON FILE Social History Tobacco Use Types Packs/Day Years Used Date Smoking Tobacco: Never Assessed Sex and Gender Information Value Date Recorded Sex Assigned at Not on file 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
--- OUTSIDE RECORDS SUMMARY | 2025-02-05 08:01 | XMS_ITS | Encounter Summary ---
Author Organization [facility] Address [address] [place] [address] Care Team Providers Care Armed Security Officer Name Role Phone Non-Staff, Physician Primary Care Provider Unava ilable Encounter Details Date Type Department Care Team (Latest Contact Info) Description 08/06/2004 Outpatient Historical [facility] [address] [place] [id number] Shaw Hennessy DO NO ADDRESS ON FILE HYPERTENSION NOS (Primary Dx); ANXIETY STATE NOS Social History Tobacco Use Types Packs/Day Years Used Date Smoking Tobacco: Never Assessed Sex and Gender Information Value Date Recorded Sex Assigned at Not on file 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
--- OUTSIDE RECORDS SUMMARY | 2025-02-05 08:01 | XMS_ITS | Clinical Summary ---
Author Organization [facility] Address [address] [place] [address] Care Team Providers Care Body Technician Name Role Phone Non-Staff, Physician Primary Care Provider Unava ilable Allergies No known active allergies Medications TYLENOL PO Take by mouth PRN. Active PEPTO-BISMOL PO Take by mouth PRN. Active candesartan (ATACAND) 32 mg Oral Tab Take 1 Tab by mouth daily. needs to make an appointment to be seen 30 Tab 0 0 Active hydrochlorothia zide (MICROZIDE) 12.5 mg Oral capsule Take 12.5 mg by mouth daily. Unsure of mg Active Salicylic Acid (SALEX) 6 % Shampoo Use daily 177 mL prn 3 Active Betamethasone-C alcipotriene (TACLONEX) 0.005-0.064 % Suspension Apply 1 Gram to affected area daily at bedtime. 60 Gram prn 3 Active Active Problems Problem Noted Date Diagnosed Date Essential hypertension, benign Anxiety state, unspecified Panic disorder without agoraphobia Tobacco use disorder Family History Medical History Relation Name Comments Healthy Brother Healthy Child 1 Healthy Child 2 Other Father cardiovascular disease Hypertension Mother Hypertension Other grandparents Relation Name Status Comments Brother Child 1 Child 2 Father Mother Other Social History Tobacco Use Types Packs/Day Years Used Date Smoking Tobacco: Never Cigarettes Smokeless Tobacco: Current Chew Tobacco Cessation:Ready to Q uit: No; Counseling Given: No Comments:once a day Alcohol Use Standard Drinks/Week Comments Yes 0 (1 standard drink = 0.6 oz pur e alcohol) 6 pack a day Sex and Gender Information Value Date Recorded Sex Assigned at Not on file 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 Gender Identity Not on file Sexual Orientation Not on file Last Filed Vital Signs Vital Sign Reading Time Taken Comments Blood Pressure 169/109 06/13/2013 11:01 AM CABLE REELER Pulse 99 06/13/2013 11:01 AM CABLE REELER Temperature - - Respiratory Rate - - Oxygen Saturation - - Inhaled Oxygen Concentration - - Weight 92.5 kg (204 lb) 06/13/2013 11:01 AM CABLE REELER Height 176.5 cm (5' 9.5 ) 06/13/2013 11:01 AM CS T Body Mass Index 29.69 06/13/2013 11:01 AM CABLE REELER Plan of Treatment Health Maintenance Due Date Last Done Comments DTAP/TDAP/TD VACCINES (1 - Tdap) 1987 HEPATITIS B VACCINES (1 of 3 - 19+ 3-dose series) 12/1986 COLORECTAL SCREENING 2013 Colorectal Cancer Screening 2013 FIT-DNA Q 3 years 2013 FIT/FOBT Q 1 year 2013 Flex Sig/CT Colonography Q 5 years 2013 ZOSTER VACCINE (1 of 2) 2018 INFLUENZA VACCINE (#1) 2025 Care Teams Body Technician Relationship Specialty Start Date End Date Non-Staff, Physician NO ADDRESS ON FILE PCP - General 07/31/09
--- OUTSIDE RECORDS SUMMARY | 2025-02-05 08:01 | XMS_ITS ---
Author Organization [facility] Care Team Providers Care Blood Donor Unit Assistant Name Role Phone Shakila Munroe Unavailable Unavailable Yogesh Segovia Unavailable Unavailable Klarissa Burris Unavailable Unavailable Estephanie Segovia Unavailable Unavailable Jorge Alberto Contreras Unavailable Unavailable Allergies and adverse reactions No Known Allergies Care Team Name Role Address Phone Organization Dates Yogesh Segovia PCP [address] [place], [address], [facility] (Office): : [facility] 03/14/2022 - 04/22/2022 Shakila Munroe [address], [address], [facility] (Office): : [facility] 03/14/2022 - 04/22/2022 Klarissa Burris [address], [address], [facility] (Office): : [facility] 03/14/2022 - 04/22/2022 Estephanie Segovia [address] [place], [address], [facility] (Office): : : [facility] 03/14/2022 - 04/22/2022 Jorge Alberto Davisw [address] [place], [address], [facility] (Office): : : [phone] [facility] 03/14/2022 - 04/22/2022 Immunizations Immunization Status Vaccine Details Vaccine Code CodeSystem Bill e Notes Influenza cancelled Influenza, high-dose, split virus, quadrivalent, injectable, preservative free 197 CVX created date: 05/17/2022 consent date: 05/17/2022 Mental Status Section Date Assessment Total Score Description 04/22/2022 BIMS 15 cognitively int act CAM 0 No delirium ind icated PHQ-9 06 mild depression 03/18/2022 BIMS 15 cognitively int act CAM 0 No delirium ind icated PHQ-9 07 mild depression Problems Problem # Description Date of onset Resolved Date Code CodeSystem Concern Status 1 INSOMNIA, UNSPECIFIED 04/07/[address] active 2 ALLERGIC RHINITIS, UNSPECIFIED 03/21/[address] active 3 GASTRO-ESOPHAGEAL REFLUX DISEASE WITHOUT ESOPHAGITIS 03/21/[address] active 4 MELENA 03/21/[address] active 5 HYPOKALEMIA 03/17/[address] active 6 ACUTE KIDNEY FAILURE, UNSPECIFIED 03/14/[address] active 7 ALCOHOL DEPENDENCE, UNCOMPLICATED 03/14/[address] active 8 ALTERED MENTAL STATUS, UNSPECIFIED 03/14/[address] active 9 ANXIETY DISORDER, UNSPECIFIED 03/14/[address] active 10 CERVICAL DISC DISORDER AT C5-C6 LEVEL WITH RADICULOPATHY 03/14/20243023650 SNOMED CT active 11 CERVICAL DISC DISORDER, UNSPECIFIED, UNSPECIFIED CERVICAL REGION 03/14/[address] active 12 CONSTIPATION, UNSPECIFIED 03/14/[address] active 13 DIFFICULTY IN WALKING, NOT ELSEWHERE CLASSIFIED 03/14/[address] active 14 ENCOUNTER FOR IMMUNIZATION 03/14/[address] active 15 ENTEROCOLITIS DUE TO CLOSTRIDIUM DIFFICILE, NOT SPECIFIED RECURRENT 03/14/20 22 03/14/[address] completed 16 ENTEROCOLITIS DUE TO CLOSTRIDIUM DIFFICILE, RECURRENT 03/14/[address] active 17 ESSENTIAL (PRIMARY) HYPERTENSION 03/14/[address] active 18 FRACTURE OF UNSPECIFIED PART OF NECK OF LEFT FEMUR, SUBSEQUENT ENCOUNTER FOR CLOSED FRACTURE WITH ROUTINE HEALING 03/14/[address] active 19 HYPO-OSMOLALITY AND HYPONATREMIA 03/14/[address] active 20 MALIGNANT NEOPLASM OF BONE AND ARTICULAR CARTILAGE, UNSPECIFIED 03/14/[address] active 21 MUSCLE WEAKNESS (GENERALIZED) 03/14/[address] active 22 NEED FOR ASSISTANCE WITH PERSONAL CARE 03/14/[address] active 23 PAIN, UNSPECIFIED 03/14/[address] active 24 RHABDOMYOLYSIS 03/14/[address] active 25 UNSPECIFIED DISLOCATION OF LEFT SHOULDER JOINT, SUBSEQUENT ENCOUNTER 03/14/[address] active 26 UNSPECIFIED DISPLACED FRACTURE OF SURGICAL NECK OF RIGHT HUMERUS, SUBSEQUENT ENCOUNTER FOR FRACTURE WITH ROUTINE HEALING 03/14/[address] active 27 UNSPECIFIED FRACTURE OF SHAFT OF HUMERUS, LEFT ARM, INITIAL ENCOUNTER FOR CLOSED FRACTURE 03/14/20 22 03/14/[address] completed 28 UNSPECIFIED FRACTURE OF SHAFT OF HUMERUS, LEFT ARM, SUBSEQUENT ENCOUNTER FOR FRACTURE WITH ROUTINE HEALING 03/14/[address] active 29 WEDGE COMPRESSION FRACTURE OF FOURTH THORACIC VERTEBRA, SUBSEQUENT ENCOUNTER FOR FRACTURE WITH ROUTINE HEALING 03/14/[address] active 30 WEDGE COMPRESSION FRACTURE OF SECOND THORACIC VERTEBRA, SUBSEQUENT ENCOUNTER FOR FRACTURE WITH ROUTINE HEALING 03/14/[address] active 31 WEDGE COMPRESSION FRACTURE OF T5-T6 VERTEBRA, INITIAL ENCOUNTER FOR CLOSED FRACTURE 03/14/20 22 03/14/[address] completed 32 WEDGE COMPRESSION FRACTURE OF T5-T6 VERTEBRA, SUBSEQUENT ENCOUNTER FOR FRACTURE WITH ROUTINE HEALING 03/14/[address] active 33 WEDGE COMPRESSION FRACTURE OF THIRD THORACIC VERTEBRA, SUBSEQUENT ENCOUNTER FOR FRACTURE WITH ROUTINE HEALING 03/14/[address] active Reason for Referral No Reasons for Referral Entered Social History Social History Observation Description Start Date End Date Code Code System Current Smoking Status Never smoked tobacco 433734861 SNOMED CT Sex Assigned At Male 1970 20449-5 [facility] Gender Identity Male 60271124825160 [address] Vital Signs Code Code System Vitals Name Values and Units Timing Information 9279-1 [facility] Respiratory Rate Value=18.0 Units=/m in 04/22/2022 8462-4 [facility] Blood Pressure-Diastolic Value=86 Un its=mmHg 04/22/2022 8480-6 [facility] Blood Pressure-Systolic Sgjcw=173 Un its=mmHg 04/22/2022 8310-5 [facility] Body Temperature Value=98.0 Units= F 04/22/2022 8867-4 [facility] Heart rate Value=80.0 Units=/min 09769-3 [facility] O2 % BldC Oximetry Value=97.0 Units= % 04/22/2022 29923-0 [facility] Pain Level Value=5.0 04/22/2022 81968-0 [facility] Weight Qrchy=433.0 Units=Lbs 8302-2 [facility] Height Value=69.0 Units=Inches 03/16/2022
--- OUTSIDE RECORDS SUMMARY | 2025-02-05 08:01 | XMS_ITS | Encounter Summary ---
Author Organization [facility] Address [address] [place] [address] Care Team Providers Care Career Orientation Teacher Name Role Phone Non-Staff, Physician Primary Care Provider Unava ilable Encounter Details Date Type Department Care Team (Latest Contact Info) Description 04/18/2003 Outpatient Historical [facility] Dimitri Macdonald Jr., MD [address] [place] [address] HYPERTENSION NOS (Primary Dx); Inhibited sex excitement Social History Tobacco Use Types Packs/Day Years Used Date Smoking Tobacco: Never Assessed Sex and Gender Information Value Date Recorded Sex Assigned at Not on file 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
--- OUTSIDE RECORDS SUMMARY | 2025-02-05 08:01 | XMS_ITS | Clinical Summary ---
Author Organization [facility] Address [address] Munizn: Epic Prelude ADT [place] [address] Care Team Providers Care Structural Steel Trades Worker Name Role Phone Non-Staff, Physician Primary Care Provider Unava ilable Allergies No known active allergies Active Problems Problem Noted Date Diagnosed Date Anxiety state, unspecified Essential hypertension, benign Tobacco use disorder Panic disorder without agoraphobia Family History Medical History Relation Name Comments Healthy Brother Healthy Child 1 Healthy Child 2 Other Father cardiovascular disease Hypertension Mother Hypertension Other grandparents Relation Name Status Comments Brother Child 1 Child 2 Father Mother Other Social History Tobacco Use Types Packs/Day Years Used Date Smoking Tobacco: Never Smokeless Tobacco: Current Comments:Quit smoking: once a day Alcohol Use Standard Drinks/Week Comments Yes 0 (1 standard drink = 0.6 oz pur e alcohol) Sex and Gender Information Value Date Recorded Sex Assigned at Not on file 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[employer] Gender Identity Not on file Sexual Orientation Not on file Plan of Treatment Health Maintenance Due Date Last Done Comments DTAP/TDAP/TD VACCINES (1 - Tdap) 1987 HEPATITIS B VACCINES (1 of 3 - 19+ 3-dose series) 12/1986 COLORECTAL SCREENING 2013 Colorectal Cancer Screening 2013 FIT-DNA Q 3 years 2013 FIT/FOBT Q 1 year 2013 Flex Sig/CT Colonography Q 5 years 2013 ZOSTER VACCINE (1 of 2) 2018 INFLUENZA VACCINE (#1) 2025 Insurance [employer] [id number] [id number] Care Teams Structural Steel Trades Worker Relationship Specialty Start Date End Date Non-Staff, Physician NO ADDRESS ON FILE PCP - General 07/31/09
--- OUTSIDE RECORDS SUMMARY | 2025-02-05 08:01 | XMS_ITS | Encounter Summary ---
Author Organization [facility] Address [address] [place] [address] Care Team Providers Care Advertising Account Executive Name Role Phone Non-Staff, Physician Primary Care Provider Unava ilable Encounter Details Date Type Department Care Team (Latest Contact Info) Description 01/17/2001 Outpatient Historical [facility] Dimitri Macdonald Jr., MD [address] [place] [address] Unspecified essential hypertension (Primary Dx) Social History Tobacco Use Types Packs/Day Years Used Date Smoking Tobacco: Never Assessed Sex and Gender Information Value Date Recorded Sex Assigned at Not on file 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
--- OUTSIDE RECORDS SUMMARY | 2025-02-05 08:01 | XMS_ITS | Encounter Summary ---
Author Organization [facility] Address [address] [place] [address] Care Team Providers Care Soaker Meat Name Role Phone Non-Staff, Physician Primary Care Provider Unava ilable Encounter Details Date Type Department Care Team (Latest Contact Info) Description 09/29/2000 Outpatient Historical [facility] Dimitri Macdonald Jr., MD [address] [place] [address] Unspecified essential hypertension (Primary Dx); Anxiety state, unspecified Social History Tobacco Use Types Packs/Day Years Used Date Smoking Tobacco: Never Assessed Sex and Gender Information Value Date Recorded Sex Assigned at Not on file 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
--- NOTE | 2025-02-05 08:11 | PC.OT ---
OT evaluation continues to be on hold as patient is having surgery today. Will evaluate tomorrow if appropriate.
[2025-02-05] MEDS: multivitamin therapeutic Tablet 1 TAB PO (08:54)
--- NOTE | 2025-02-05 11:30 | P.PN_ITS ---
Subjective 2 Subjective: ORIF today. Vitals/I&O/Wt Last Vital Signs Temp 99.8 F H 02/04/25 19:00 Pulse 74 02/05/25 11:00 Resp 14 02/05/25 09:00 BP 161/98 02/05/25 11:00 Pulse Ox 100 02/05/25 11:00 O2 Del Method Room Air 02/05/25 10:00 O2 Flow Rate 2 02/05/25 10:00 02/04/25 02/05/25 02/05/25 22:59 06:59 14:59 Intake Total 1240 / 2840 1000 / 3840 60 / 60 Output Total 675 / 925 Balance 565 / 1915 1000 / 2915 60 / 60 Weight last 48 hrs Weight 82.554 kg Weight 83.461 kg Physical Exam 2 Const: COMMON NORMALS: patient oriented x3 HENMT: COMMON NORMALS: normocephalic and atraumatic HEAD & SCALP: n ormocephalic and atraumatic Eye: COMMON NORMALS: Equal, round and reactive pupils present and EOMs intact bilaterally PUPIL: Yes Equal, round and reactive pupils present Neck/C-Spine: COMMON NORMALS: supple Chest: COMMONS NORMALS: normal inspection of the chest Resp: COMMON NORMALS: normal respiratory effort, No retractions and clear to auscultation bilaterally AUSCULTATION: clear to auscultation bilaterally Cardio: COMMON NORMALS: regular rate, regular rhythm, No gallops present (Cardio), No clicks present (Cardio) and No rub (Cardio) RATE: regular rate RHYTHM: regular rhythm GI: COMMON NORMALS: Soft to palpation, non-tender and no masses PALPATION: Yes Soft to palpation Extremity: NARRATIVE EXTREMITY EXAM: Limited ROM especially RUE with ecchymosis in axilla, mild UE tremor BL. Neuro: COMMON NORMALS: patient oriented x3, no focal motor deficits and no sensory deficits noted SENSORIUM/ORIENTATION: Yes other Data 02/05/25 03:02 02/05/25 03:02 Micro: Microbiology 02/03/25 06:31 Blood Culture - Preliminary Blood NEGATIVE TO DATE 02/03/25 06:31 Blood Culture - Preliminary Blood NEGATIVE TO DATE A&P Assessment and plan 1. Alcohol withdrawal: 2. Fracture of both humeri with delayed healin. Amplified musculoskeletal pain, diffuse: Plan: 54 year old male presenting with diffuse MSK pain with fractures, severe withdrawals from EtOH and benzos, possible withdrawal seizures. 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 - Continue home hydrocodone - Will add on Dilaudid as needed for breakthrough pain - ortho consulted: plan for ORIF this AM. Alcohol withdrawals, alcohol withdrawal seizure - patient admits to 15 beers daily and is also on lorazepam for anxiety. - no further seizures, minimal signs of withdrawal this AM. - Cont. Librium 50 TID - ativan PRN for withdrawal/seizures. - cont. CIWA protocol - Monitor in the ICU with CIWA protocol Alcoholic ketosis, increased anion gap metabolic acidosis, lactic acidosis -IV fluids UTI/Pyelonephritis - start on IV rocephin Superimposed more recent or acute minimal to mild T10, T11, T12 superior endplate compression fractures - Associate with falls - ortho consulted Old/chronic T3, T4, T6 vertebral compression fractures -Likely associate with falls History of T1-T2 posterior fusion, with metallic hardware, with old Diffuse abdominal pain, feeling nauseous -CT abdomen possible UTI/pyelo Osteosarcoma, C7 lytic bone lesion, with acute neck pain - CT of the neck redemonstrated C7 destructive lytic lesions, no acute fractures, diffuse demineralization Chest pain -Serial EKGs, serial troponins, telemetry monitoring -Cardiac echo, he had normal EF in 2022 Full code Lovenox for DVT prophylaxis Disposition - monitor in ICU. - ORIF today. PDMP PDMP Reviewed: Not Reviewed Attestations 2 Medical Necessity Statement*: ongoing inpatient need for ORIF, withdrawal Time Spent in Patient Care: 16 - 35 minutes (>than 50% of time sp ent in counselling and/or direct pt care on unit) . Coding Level of Care Code Acute Code for Chg Fwd Diagnoses Alcohol withdrawal F10.939 Fracture of both humeri with delayed healing S42.301G; S42.302G Amplified musculoskeletal pain, diffuse M79.18; G89.4
[2025-02-05] MEDS: cefTRIAXone 1,000 mg SDV 1000 MG IVP (12:27)
--- NOTE | 2025-02-05 12:57 | ANES.PROC ---
Anesthesia Procedures Procedure/Date: 02/05/25 Arterial Line: Time Out Performed: Yes Consent: requested by attending/covering physician Size (Gauge): 20 Technique Used: guide wire technique Post-Procedure: dry sterile dressing placed Patient Tolerated Procedure: well Complications: none Site: left and radial Additional Comments: Left radial arterial line placed per request of Dr. Espinoza.
--- NOTE | 2025-02-05 14:48 | ANES.PREANE2 ---
Pre-Anesthetic Assessment Height/Weight: Height 5 ft 9 in Weight 182 lb Temp Pulse Resp BP Pulse Ox O2 Del Method O2 Flow Rate 98.4 F 82 16 181/93 98 Nasal Cannula 2 02/05/25 12:00 02/05/25 14:00 02/05/25 14:00 02/05/25 14:00 02/05/25 14:00 02/05/25 14:00 02/05/25 14:00 Preop Diagnosis: Humeral fracture Operation Date: 02/05/25 15:15 Proposed Procedures p ORIF Humerus(Right) - Addison Perez, DO Was Beta Gurwinder taken within 24 hours: N/A Was Clonidine taken within 24 hours: N/A Last intake: Intake Last Liquid Date 02/05/25 Last Liquid Time 14:30 Social Alcohol Exam alert, oriented x 3 and regular rate & rhythm Airway Submandibular: within normal limits Cervical ROM: within normal limits Mallampati: Class III Dentition: full Anesthetic Plan ASA status: 4 Anesthesia: General Other: Patient initially admitted for chest pain and alcohol withdrawal Patient has bilateral humeral fractures Per chart review patient had about 15 beers a 24-hour period prior to arrival to the hospital History of hypertension on metoprolol Patient is currently on 2 L O2 with SpO2 of 100%. Breath sounds clear T10-T12 superior endplate compression fractures as well with old T3, T4, T6 vertebral compression fractures Labs reviewed from today, hemoglobin 10.6. Platelet 142. NA 133 Prior echo showing preserved EF with PA pressure of 35 Plan for general anesthesia with preop nerve block Medications/Allergies Home Medications ?Medication ?Instructions ?Recorded ?Confirmed ?Last Taken ?Type metoprolol tartrate 50 mg tablet See Rx Instructions .Route 09/04/24 02/03/25 02/02/25 Rx .COMPLEX #180 tabs clonidine HCl 0.1 mg tablet See Rx Instructions .Route 10/21/24 02/03/25 02/02/25 Rx .COMPLEX #60 tabs lorazepam 1 mg tablet 1 mg PO TID PRN anxiety #90 tabs 12/12/24 02/03/25 01/27/25 Rx hydrocodone 5 mg-acetaminophen 325 1 - 2 tab PO .Q4-6H pain 1 month 02/03/25 02/03/25 02/02/25 Rx mg tablet #240 tabs Allergies Allergy/AdvReac Type Severity Reaction Status Date / Time venom-wasp Allergy Severe ALGY-Swell Verified 12/12/24 11:35 Lip/Tongue/Throat Current Medications Generic Name Dose Route Start Last Admin Trade Name Linette PRN Reason Stop Dose Admin Hydrocodone Bitart/Acetaminophen 1 - 2 tab 02/03/25 06:30 02/05/25 14:38 Hydrocodone-Acetaminophen 5-325 Mg Tablet PO 1 tab Q4H ISAAC Administration Ceftriaxone Sodium 1,000 mg 02/03/25 12:30 02/05/25 12:27 Ceftriaxone 1,000 Mg Sdv IVP 1,000 mg Q24H ISAAC Administration Protocol Chlordiazepoxide 50 mg 02/04/25 05:52 02/05/25 13:59 Chlordiazepoxide 25 Mg Capsule PO 50 mg Q8H ISAAC Administration Protocol Clonidine HCl 0.1 mg 02/04/25 09:00 02/05/25 08:55 Clonidine 0.1 Mg Tablet PO 0.1 mg Q8H ISAAC Administration Enoxaparin Sodium 40 mg 02/03/25 18:00 02/04/25 17:45 Enoxaparin 40 Mg/0.4 Ml Syringe SUBCUT 40 mg Q24H ISAAC Administration Folic Acid 1 mg 02/03/25 09:00 02/05/25 08:54 Folic Acid 1 Mg Tablet PO 1 mg DAILY ISAAC Administration Hydromorphone HCl 1 mg 02/03/25 06:52 02/04/25 19:51 Hydromorphone 0.5 Mg/0.5 Ml Inj IVP 1 mg Q8H PRN Administration severe break trhough pain PAIN Sodium Chloride 1,000 mls @ 125 mls/hr 02/03/25 06:30 02/05/25 12:27 Sodium Chloride 0.9% IV 125 mls/hr .Q8H ISAAC Administration Metoprolol Tartrate 50 mg 02/03/25 09:00 02/05/25 08:55 Metoprolol Tartrate 50 Mg Tablet PO 50 mg BID ISAAC Administration Multivitamins Therapeutic 1 tab 02/03/25 09:00 02/05/25 08:54 Multivitamin Therapeutic Tablet PO 1 tab DAILY ISAAC Administration Pantoprazole Sodium 40 mg 02/03/25 06:30 02/05/25 05:40 Pantoprazole 40 Mg Sdv IVP 40 mg Q12H ISAAC Administration Potassium Phosphate 250 mg 02/04/25 09:00 02/05/25 08:55 Phosphorus 250 Mg Tablet PO 250 mg BID ISAAC Administration Thiamine Mononitrate 100 mg 02/03/25 09:00 02/05/25 08:55 Thiamine 100 Mg Tablet PO 100 mg DAILY ISAAC Administration [facility] Anesthesia Medical History (Updated 02/04/25 @ 12:26 by Addison Perez DO) History of Clostridium difficile colitis Hypertension Osteosarcoma Mitral valve disorder Traumatic compression fracture of second thoracic vertebra Fracture of humeral head, left, closed Cervical disc disease Alcohol dependence (~01/2017) Surgical History Hx of cervical spine surgery (06/08/22) C4-T2 instrumentation and fusion with allograft and removal of hardware Hx of cervical spine surgery (03/09/22) C5-T2 instrumentation and fusion with allograft and biopsy of C7 vertebral body S/P ORIF (open reduction internal fixation) fracture (03/06/22) ORIF of left humeral head fracture dislocation and biceps tenotomy Family History Father CAD (coronary artery disease) Other Hypertension Denies family history of Diabetes Clotting disorder Dementia Hyperlipidemia Psychiatric illness Chronic kidney disease (CKD) Suicide Anesthesia complication Bleeding disorder Lung disease Cancer Stroke Social History Smoking and tobacco/nicotine status: unknown if used tobacco/nicotine Alcohol intake: current Substance/Drug Use: never Data Anesthesia 02/05/25 03:02 02/05/25 03:02 Short CBC 02/04/25 02/05/25 Range/Units 02:20 03:02 WBC 11.36 8.17 (3.29-11.43) 10^3/uL Hgb 13.30 10.60 L (11.27-16.99) g/dL Hct 40.3 32.9 L (37-53) % MCV 91.2 D 93.5 (82-101) fl Plt Count 150 L D 142 L (157-399) 10^3/cmm Neut % (Auto) 85.6 66.8 % Neut # (Auto) 9.73 H 5.45 (1.8-7.7) 10^3/uL BMP 02/04/25 02/05/25 02:20 03:02 Sodium 129 L 133 L Potassium 4.0 3.5 Chloride 98 101 Carbon Dioxide 22 23 BUN 4 L 5 L Creatinine 0.6 L 0.5 L Glucose 113 98 Calcium 8.1 L 7.8 L Liver Function 02/04/25 02/05/25 Range/Units 02:20 03:02 Total Bilirubin 1.5 H 1.2 (0.15-1.2) mg/dL AST 32 33 (0-40) U/L ALT 13 10 (0-41) U/L Alkaline Phosphatase 55 44 (40-130) U/L Albumin 3.4 L 3.0 L (3.5-5.2) g/dL Cardiac Studies: Echocardiogram 07/07/22
--- NOTE | 2025-02-05 15:10 | W.PM.OPSUD ---
Surgery/Procedure H&P Update DATE OF PROCEDURE: February 05, 2025 DATE H&P PERFORMED: 02/03/25 H&P UPDATE INFORMATION: I have reviewed H&P completed within last 30 days, I have examined patient prior to procedure and No changes to prior documentation PREOP DIAGNOSIS: Humeral fracture PLANNED PROCEDURE: Operation Date: 02/05/25 15:15 Proposed Procedures p ORIF Humerus(Right) - Addison Perez DO
--- NOTE | 2025-02-05 15:11 | PC.NURSE ---
Dr. Samuel to bedside, nerve block done to right upper extremity. Tolerated well.
--- NOTE | 2025-02-05 15:14 | ANES.PROC ---
Anesthesia Procedures Procedure/Date: 02/05/25 Right interscalene peripheral nerve block for postoperative pain control Nerve Block ^: Nerve Block 1: Main Anesthesia: other (100 mcg fentanyl and 2 mg Versed) Time Out Performed: Yes Consent: requested by attending/covering physician and from patient Laterality: Right Nerve block location: interscalene Anesthesia monitors applied: pulse oximetry, EKG, BP cuff and oxygen Nerve block position: supine Anesthetic Used: ropivicaine 0.5% Amount of anesthesia used (mL): 30 Ultrasound used to: recognize landmarks Nerve Stimulator Used?: Yes Interscalene/Femoral BLK: other needle (pjunk 4inch) Injection: neg aspiration of heme Patient Tolerated Procedure: well Complications: none
--- NOTE | 2025-02-05 15:22 | PC.NURSE ---
To OR via bed with Dr. Samuel and RN at bedside. V/S stable.
--- NOTE | 2025-02-05 18:23 | ANE.PACU2 ---
Inpatient post-anesthesia follow up: Airway intact: Yes Vital signs: Temperature 98.4 F Pulse Rate 75 Respiratory Rate 23 Blood Pressure 168/99 Pulse Oximetry 100 Oxygen Delivery Me thod [ Nasal Cannula Current Rate & Del gabriele] Oxygen Delivery Me thod Nasal Cannula Oxygen Flow Rate [ Current Rate 2 & Delivery] Oxygen Flow Rate 2 Fraction of Inspir ed Oxygen Hydration adequate: Yes Nausea and vomiting: No Pain level: 1 Mental status: Baseline
--- NOTE | 2025-02-05 18:23 | PM.OP ---
Operative Report Date of procedure: February 05, 2025 Pre-op diagnosis: Right three-part proximal humerus fracture Post-op diagnosis: same Procedure done: Open reduction internal fixation of right three-part proximal humerus fracture Surgeon: Addison Perez DO Estimated blood loss (mL): 150 Procedure: Right three-part proximal humerus fracture open reduction internal fixation Patient brought to the operative suite after undergoing anesthesia patient was placed in the supine position in the beachchair position. All areas impingement well-padded. Patient's prepped and draped in Roso fashion. Skin incisions were made using deltopectoral approach. The greater tuberosity was difficult to expose at this position so I did add mini open incision off the acromion plate. The incision was only couple millimeters long the humerus was identified a fibular strut graft was placed down the center of the fibula left prominent this allowed for me to elevate the articular surface out of the impacted position. And then is able to bring down the tuberosity and pinned in position. Multiple K wires used to hold the fracture is in position. Then FiberWire was suture through the rotator cuff both anteriorly and posteriorly. The plate was then positioned onto the bone. A cortical screw was placed initially in the center hole of the plate to suck it down to bone and then multiple locking screws were placed in the proximal part of the plate. And then cortical screw was placed into the shaft. To suck the plate down to the bone distally and in prop up the joint surface. More locking screws were placed proximally. All the screw holes were filled with locking screws. And then to use cortical screws were placed distally. Sutures were FiberWire sutures were tied to the plate. AP lateral fluoroscopy ensured that the hardware and fracture in good position. Wounds were irrigated and the deltoid on the acromion was repaired. And then the wound was closed in a layered fashion with 2-0 Vicryl and Monocryl suture. Sterile dressings were applied and patient is transferred to the PACU in stable condition.
--- NOTE | 2025-02-05 18:25 | PC.NURSE ---
Returned from OR via bed. Remains sleeping with even and unlabored respirations. Oral airway in place with simple mask with O2 5L NC. No signs or symptoms or pain or discomfort. Dressing clean, dry, and intact to right shoulder. sling/immobilizer inplace to right arm.
--- NOTE | 2025-02-05 20:22 | PC.NURSE ---
Neuro assessment performed, expense clerk to left greater than right secondary to fx and surgical repair.
[2025-02-06] VITALS (20 sets, daily range): BP systolic 133–178; BP diastolic 75–101; PULSE 68–85; RESP 12–28; TEMP 36.6–37; O2SAT 95–100
[2025-02-06] MEDS: HYDROcodone-acetaminophen 5-325 mg Tablet PO ×6 (01:51→21:47)
[2025-02-06 03:59] LABS: Hematocrit 33.7 % (37-53); Hemoglobin 11.00 g/dL (11.27-16.99); Mean Corpuscular HGB Conc 32.6 g/dL (30-55); Mean Corpuscular Hemoglobin 31.3 pg (27-33); Mean Corpuscular Volume 95.7 fl (82-101); Nucleated Red Blood Cells % 0 %; Platelet Count 148 10^3/cmm (157-399); Red Blood Count 3.52 10^6/uL (3.85-5.65); White Blood Count 7.24 10^3/uL (3.29-11.43)
[2025-02-06 04:20] LABS: Anion Gap 13.9 (5-19); Blood Urea Nitrogen 7 mg/dL (6-20); Calcium 7.7 mg/dL (8.5-10.5); Carbon Dioxide 22 mmol/L (22-29); Chloride 101 mmol/L (98-107); Creatinine Clr Calc Pharmacy 220.0380; Glucose 141 mg/dL (65-115); Osmolality Calculated 276 mOsm/kg (285-295); Potassium 3.9 mmol/L (3.5-5.1); Sodium 133 mmol/L (136-145)
[2025-02-06] MEDS: pantoprazole 40 mg SDV IVP ×2 (06:21→17:47)
[2025-02-06] MEDS: multivitamin therapeutic Tablet 1 TAB PO (08:15)
--- NOTE | 2025-02-06 10:28 | P.PN_ITS ---
Subjective 2 Subjective: Patient is doing well is postop day #1 right proximal femur ORIF. Pain is controlled block seems to still be working. Vitals/I&O/Wt Last Vital Signs Temp 98.5 F 02/06/25 08:00 Pulse 72 02/06/25 10:00 Resp 17 02/06/25 10:00 BP 144/92 02/06/25 10:00 Pulse Ox 100 02/06/25 10:00 O2 Del Method Nasal Cannula 02/06/25 10:00 O2 Flow Rate 2 02/06/25 10:00 02/05/25 02/06/25 02/06/25 22:59 06:59 14:59 Intake Total 2540 / 3575 1120 / 4695 400 / 400 Output Total 1250 / 1900 1400 / 3300 Balance 1290 / 1675 -280 / 1395 400 / 400 Weight last 48 hrs Weight 186 lb 4.65 oz Weight 182 lb Physical Exam 2 Narrative: Patient is doing well we will radial ulnar median nerve are intact his hand. He still has numbness over his entire shoulder to touch. Data 02/06/25 03:44 02/06/25 03:44 A&P Assessment and plan 1. Other closed displaced fracture of proximal end of left humerus with routine healing, subsequent encounter: Patient is postop day #1 open reduction internal fixation of left proximal humerus. Discharge planning from orthopedic standpoint PDMP PDMP Reviewed: Not Reviewed Attestations 2 Medical Necessity Statement*: Per primary service Procedures Arterial Line Size (Gauge): 20 Coding Level of Care Code Acute Code for Chg Fwd Diagnoses Other closed displaced fracture of proximal end of left humerus with routine healing, subsequent encounter S42.292D Encounter type: subsequent encounter Humerus Location: proximal Fracture morphology: other fracture Fracture alignment: displaced Fracture healing: with routine healing
--- NOTE | 2025-02-06 11:36 | PC.OT ---
OT evaluation attempted though patient was attempting to use bedpan. Will attempt later when able.
[2025-02-06] MEDS: cefTRIAXone 1,000 mg SDV 1000 MG IVP (12:19)
--- NOTE | 2025-02-06 12:48 | P.PN_ITS ---
Subjective 2 Subjective: s/p ORIF. Vitals/I&O/Wt Last Vital Signs Temp 98.5 F 02/06/25 08:00 Pulse 72 02/06/25 10:00 Resp 17 02/06/25 10:00 BP 144/92 02/06/25 10:00 Pulse Ox 100 02/06/25 10:00 O2 Del Method Nasal Cannula 02/06/25 10:00 O2 Flow Rate 2 02/06/25 10:00 02/05/25 02/06/25 02/06/25 22:59 06:59 14:59 Intake Total 2540 / 3575 1120 / 4695 400 / 400 Output Total 1250 / 1900 1400 / 3300 750 / 750 Balance 1290 / 1675 -280 / 1395 -350 / -350 Weight last 48 hrs Weight 84.5 kg Weight 82.554 kg Physical Exam 2 Const: COMMON NORMALS: patient oriented x3 HENMT: COMMON NORMALS: normocephalic and atraumatic HEAD & SCALP: n ormocephalic and atraumatic Eye: COMMON NORMALS: Equal, round and reactive pupils present and EOMs intact bilaterally PUPIL: Yes Equal, round and reactive pupils present Neck/C-Spine: COMMON NORMALS: supple Chest: COMMONS NORMALS: normal inspection of the chest Resp: COMMON NORMALS: normal respiratory effort, No retractions and clear to auscultation bilaterally AUSCULTATION: clear to auscultation bilaterally Cardio: COMMON NORMALS: regular rate, regular rhythm, No gallops present (Cardio), No clicks present (Cardio) and No rub (Cardio) RATE: regular rate RHYTHM: regular rhythm GI: COMMON NORMALS: Soft to palpation, non-tender and no masses PALPATION: Yes Soft to palpation Extremity: NARRATIVE EXTREMITY EXAM: S/P right ORIF of humerus fracture. Immobilizer in place. Neuro: COMMON NORMALS: patient oriented x3, no focal motor deficits and no sensory deficits noted SENSORIUM/ORIENTATION: Yes other Data 02/06/25 03:44 02/06/25 03:44 A&P Assessment and plan 1. Alcohol withdrawal: 2. Alcoholic ketoacidosis: 3. Fracture of both humeri with delayed healing: Plan: 54 year old male presenting with diffuse MSK pain with fractures, severe withdrawals from EtOH and benzos, possible withdrawal seizures. 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 - Continue home hydrocodone - Will add on Dilaudid as needed for breakthrough pain - ortho consulted: now s/p ORIF on 02/05. Alcohol withdrawals, alcohol withdrawal seizure - patient admits to 15 beers daily and is also on lorazepam for anxiety. - no further seizures, minimal signs of withdrawal this AM. - reduce Librium to 25 TID - ativan PRN for withdrawal/seizures. - cont. CIWA protocol Alcoholic ketosis, increased anion gap metabolic acidosis, lactic acidosis - can monitor off IV fluids UTI/Pyelonephritis - start on IV rocephin Superimposed more recent or acute minimal to mild T10, T11, T12 superior endplate compression fractures - Associate with falls - ortho consulted Old/chronic T3, T4, T6 vertebral compression fractures -Likely associate with falls History of T1-T2 posterior fusion, with metallic hardware, with old Diffuse abdominal pain, feeling nauseous -CT abdomen possible UTI/pyelo Osteosarcoma, C7 lytic bone lesion, with acute neck pain - CT of the neck redemonstrated C7 destructive lytic lesions, no acute fractures, diffuse demineralization Chest pain - EKGs have been benign, serial troponins minimally elevated on admission, no ACS -, telemetry monitoring - he had normal EF in 2022 Full code Lovenox for DVT prophylaxis Disposition - s/p ORIF, outside serious withdrawal window. - Downgrade to med/surgery PDMP PDMP Reviewed: Not Reviewed Attestations 2 Medical Necessity Statement*: ongoing inpatient for EtOH withdrawal, fractures Time Spent in Patient Care: 16 - 35 minutes (>than 50% of time sp ent in counselling and/or direct pt care on unit) . Procedures Arterial Line Size (Gauge): 20 Coding Level of Care Code Acute Code for Chg Fwd Diagnoses Alcohol withdrawal F10.939 Alcoholic ketoacidosis E87.29 Fracture of both humeri with delayed healing S42.301G; S42.302G
--- NOTE | 2025-02-06 17:22 | PC.NURSE ---
Addendum entered by Erin Hutson RN 02/06/25 17:32: In report pt had been unable to urinate this afternoon. Straight cath provided. urine out out greater than 700ml. Original Note: Pt arrives to [facility] from ICU. Left forearm IV noted. Heart monitor. MS 28 applied. Room, call light and bed control orientation provided. Education and encouragement on getting up out of bed tomorrow and moving around provided.
--- NOTE | 2025-02-06 17:24 | PC.NURSE ---
Report given to MAURO Khan. Transferred to room 258 via bed. Tolerated well.
--- NOTE | 2025-02-06 17:31 | XRR_ITS ---
PROCEDURE INFORMATION: Exam: XR Right Shoulder Exam date and time: 02/06/2025 7:58 PM Age: 54 years old Clinical indication: Other: Post op; Prior surgery; Surgery date: Post-operative (0-2 days); Surgery type: RT shoulder TECHNIQUE: Imaging protocol: Radiologic exam of the right shoulder. Views: 1 view. COMPARISON: CR (UP EXM, ) 02/03/2025 5:45 AM FINDINGS: Bones/joints: Status post ORIF and bone graft of proximal right humeral fracture. There is slight inferior subluxation of the humeral head with respect of the glenoid process. Soft tissues: Normal. XR/XR shoulder RT 1V [id number] IMPRESSION: Status post ORIF and bone graft of proximal right humeral fracture.
[2025-02-07] VITALS (11 sets, daily range): BP systolic 138–161; BP diastolic 76–90; PULSE 54–84; RESP 14–18; TEMP 36.4–37.1; O2SAT 96–98
[2025-02-07] MEDS: HYDROcodone-acetaminophen 5-325 mg Tablet PO (02:26)
[2025-02-07 04:48] LABS: Hematocrit 28.5 % (37-53); Hemoglobin 9.50 g/dL (11.27-16.99); Mean Corpuscular HGB Conc 33.3 g/dL (30-55); Mean Corpuscular Hemoglobin 30.2 pg (27-33); Mean Corpuscular Volume 90.5 fl (82-101); Nucleated Red Blood Cells % 0 %; Platelet Count 169 10^3/cmm (157-399); Red Blood Count 3.15 10^6/uL (3.85-5.65); White Blood Count 7.37 10^3/uL (3.29-11.43)
[2025-02-07 05:16] LABS: Anion Gap 11.0 (5-19); Blood Urea Nitrogen 6 mg/dL (6-20); Calcium 7.8 mg/dL (8.5-10.5); Carbon Dioxide 26 mmol/L (22-29); Chloride 102 mmol/L (98-107); Creatinine Clr Calc Pharmacy 177.8467; Glucose 117 mg/dL (65-115); Osmolality Calculated 281 mOsm/kg (285-295); Potassium 3.0 mmol/L (3.5-5.1); Sodium 136 mmol/L (136-145)
[2025-02-07] MEDS: pantoprazole 40 mg SDV IVP ×2 (05:46→17:06)
[2025-02-07] MEDS: multivitamin therapeutic Tablet 1 TAB PO (08:30)
--- NOTE | 2025-02-07 08:33 | PC.NURSE ---
HR 50s, Dr Rivera advised to hold po metoprolol
--- NOTE | 2025-02-07 10:08 | P.PN_ITS ---
Subjective 2 Subjective: Pain control right shoulder Vitals/I&O/Wt Last Vital Signs Temp 97.6 F 02/07/25 08:10 Pulse 54 L 02/07/25 08:10 Resp 16 02/07/25 08:10 BP 155/78 02/07/25 08:30 Pulse Ox 98 02/07/25 08:10 O2 Del Method Nasal Cannula 02/07/25 08:10 O2 Flow Rate 2 02/06/25 16:00 02/06/25 02/07/25 02/07/25 22:59 06:59 14:59 Intake Total 1840 / 2490 240 / 2730 240 / 240 Output Total 500 / 1250 Balance 1840 / 1740 -260 / 1480 240 / 240 Weight last 48 hrs Weight 200 lb 1 oz Weight 186 lb 4.65 oz Physical Exam 2 Narrative: Patient able to move his fingers radial ulnar median nerve intact in right upper extremity. Neurovascular intact Data 02/07/25 04:33 02/07/25 04:33 A&P Assessment and plan 1. Other closed displaced fracture of proximal end of left humerus with routine healing, subsequent encounter: Postop day #2 right ORIF proximal humerus. Follow-up Ortho clinic in 2 weeks Nonweightbearing right upper extremity PDMP PDMP Reviewed: Not Reviewed Attestations 2 Medical Necessity Statement*: Per primary service Procedures Arterial Line Size (Gauge): 20 Coding Level of Care Code Acute Code for Chg Fwd Diagnoses Other closed displaced fracture of proximal end of left humerus with routine healing, subsequent encounter S42.292D Encounter type: subsequent encounter Humerus Location: proximal Fracture morphology: other fracture Fracture alignment: displaced Fracture healing: with routine healing
[2025-02-07] MEDS: cefTRIAXone 1,000 mg SDV 1000 MG IVP (12:05)
--- NOTE | 2025-02-07 13:19 | P.PN_ITS ---
Subjective 2 Subjective: S/P ORIF. No withdrawal. Vitals/I&O/Wt Last Vital Signs Temp 98.8 F 02/07/25 11:59 Pulse 79 02/07/25 11:59 Resp 14 02/07/25 11:59 BP 147/76 02/07/25 11:59 Pulse Ox 96 02/07/25 11:59 O2 Del Method Room Air 02/07/25 11:59 O2 Flow Rate 2 02/06/25 16:00 02/06/25 02/07/25 02/07/25 22:59 06:59 14:59 Intake Total 1840 / 2490 240 / 2730 240 / 240 Output Total 500 / 1250 Balance 1840 / 1740 -260 / 1480 240 / 240 Weight last 48 hrs Weight 90.747 kg Weight 84.5 kg Physical Exam 2 Const: COMMON NORMALS: patient oriented x3 HENMT: COMMON NORMALS: normocephalic and atraumatic HEAD & SCALP: n ormocephalic and atraumatic Eye: COMMON NORMALS: Equal, round and reactive pupils present and EOMs intact bilaterally PUPIL: Yes Equal, round and reactive pupils present Neck/C-Spine: COMMON NORMALS: supple Chest: COMMONS NORMALS: normal inspection of the chest Resp: COMMON NORMALS: normal respiratory effort, No retractions and clear to auscultation bilaterally AUSCULTATION: clear to auscultation bilaterally Cardio: COMMON NORMALS: regular rate, regular rhythm, No gallops present (Cardio), No clicks present (Cardio) and No rub (Cardio) RATE: regular rate RHYTHM: regular rhythm GI: COMMON NORMALS: Soft to palpation, non-tender and no masses PALPATION: Yes Soft to palpation Extremity: NARRATIVE EXTREMITY EXAM: S/P right ORIF of humerus fracture. Immobilizer in place. Neuro: COMMON NORMALS: patient oriented x3, no focal motor deficits and no sensory deficits noted SENSORIUM/ORIENTATION: Yes other Data 02/07/25 04:33 02/07/25 04:33 A&P Assessment and plan 1. Alcohol withdrawal: 2. Alcoholic ketoacidosis: 3. Other closed displaced fracture of proximal end of right humerus with routine healing, subsequent encounter: Plan: 54 year old male presenting with diffuse MSK pain with fractures, severe withdrawals from EtOH and benzos, possible withdrawal seizures. 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 - Continue home hydrocodone - D/C IV analgesics. - ortho consulted: now s/p ORIF on 02/05. Alcohol withdrawals, alcohol withdrawal seizure - patient admits to 15 beers daily and is also on lorazepam for anxiety. - no further seizures, minimal signs of withdrawal this AM. - reduce Librium to 25 BID - ativan PRN for withdrawal/seizures. - cont. CIWA protocol Alcoholic ketosis, increased anion gap metabolic acidosis, lactic acidosis - can monitor off IV fluids UTI/Pyelonephritis - start on IV rocephin - convert to oral at time of discharge. Superimposed more recent or acute minimal to mild T10, T11, T12 superior endplate compression fractures - Associate with falls - ortho consulted Old/chronic T3, T4, T6 vertebral compression fractures -Likely associate with falls History of T1-T2 posterior fusion, with metallic hardware, with old Diffuse abdominal pain, feeling nauseous -CT abdomen possible UTI/pyelo Osteosarcoma, C7 lytic bone lesion, with acute neck pain - CT of the neck redemonstrated C7 destructive lytic lesions, no acute fractures, diffuse demineralization Chest pain - EKGs have been benign, serial troponins minimally elevated on admission, no ACS -, telemetry monitoring - he had normal EF in 2022 Full code Lovenox for DVT prophylaxis Disposition - s/p ORIF, outside serious withdrawal window. - Downgrade to med/surgery, looking into placement options for discharge. PDMP PDMP Reviewed: Not Reviewed Attestations 2 Medical Necessity Statement*: Ongoing inpatient for ETOH withdrawal, ORIF. Time Spent in Patient Care: 16 - 35 minutes (>than 50% of time sp ent in counselling and/or direct pt care on unit) . Procedures Arterial Line Size (Gauge): 20 Coding Level of Care Code Acute Code for Chg Fwd Diagnoses Alcohol withdrawal F10.939 Alcoholic ketoacidosis E87.29 Other closed displaced fracture of proximal end of right humerus with routine healing, subsequent encounter S42.291D Encounter type: subsequent encounter Fracture alignment: displaced Fracture healing: with routine healing Fracture morphology: other fracture Fracture type: closed
[2025-02-07] MEDS: HYDROcodone-acetaminophen 5-325 mg Tablet 1 TAB PO (14:46)
[2025-02-08] VITALS (11 sets, daily range): BP systolic 127–160; BP diastolic 62–87; PULSE 67–88; RESP 16–18; TEMP 36.7–37.1; O2SAT 92–97
[2025-02-08 05:29] LABS: Hematocrit 29.5 % (37-53); Hemoglobin 9.90 g/dL (11.27-16.99); Mean Corpuscular HGB Conc 33.6 g/dL (30-55); Mean Corpuscular Hemoglobin 30.7 pg (27-33); Mean Corpuscular Volume 91.6 fl (82-101); Nucleated Red Blood Cells % 0 %; Platelet Count 182 10^3/cmm (157-399); Red Blood Count 3.22 10^6/uL (3.85-5.65); White Blood Count 6.08 10^3/uL (3.29-11.43)
[2025-02-08] MEDS: pantoprazole 40 mg SDV IVP ×2 (05:35→17:37)
[2025-02-08] MEDS: HYDROcodone-acetaminophen 5-325 mg Tablet 1 TAB PO ×2 (05:40→17:40)
[2025-02-08 06:08] LABS: Anion Gap 10.9 (5-19); Blood Urea Nitrogen 4 mg/dL (6-20); Calcium 7.9 mg/dL (8.5-10.5); Carbon Dioxide 29 mmol/L (22-29); Chloride 101 mmol/L (98-107); Creatinine Clr Calc Pharmacy 183.6772; Glucose 98 mg/dL (65-115); Osmolality Calculated 283 mOsm/kg (285-295); Sodium 138 mmol/L (136-145)
[2025-02-08 06:14] LABS: Potassium 2.9 mmol/L (3.5-5.1)
[2025-02-08] MEDS: multivitamin therapeutic Tablet 1 TAB PO (09:50)
--- NOTE | 2025-02-08 11:48 | P.PN_ITS ---
Subjective 2 Subjective: No new issues. Looking into rehab on D/C Vitals/I&O/Wt Last Vital Signs Temp 98.3 F 02/08/25 07:38 Pulse 67 02/08/25 07:38 Resp 16 02/08/25 07:38 BP 147/87 02/08/25 09:54 Pulse Ox 92 02/08/25 07:38 O2 Del Method Room Air 02/07/25 16:00 O2 Flow Rate 2 02/06/25 16:00 02/07/25 02/08/25 02/08/25 22:59 06:59 14:59 Intake Total 720 / 1200 240 / 1440 480 / 480 Output Total 400 / 400 900 / 1300 900 / 900 Balance 320 / 800 -660 / 140 -420 / -420 Weight last 48 hrs Weight 90.747 kg Weight 90.747 kg Physical Exam 2 Const: COMMON NORMALS: patient oriented x3 HENMT: COMMON NORMALS: normocephalic and atraumatic HEAD & SCALP: n ormocephalic and atraumatic Eye: COMMON NORMALS: Equal, round and reactive pupils present and EOMs intact bilaterally PUPIL: Yes Equal, round and reactive pupils present Neck/C-Spine: COMMON NORMALS: supple Chest: COMMONS NORMALS: normal inspection of the chest Resp: COMMON NORMALS: normal respiratory effort, No retractions and clear to auscultation bilaterally AUSCULTATION: clear to auscultation bilaterally Cardio: COMMON NORMALS: regular rate, regular rhythm, No gallops present (Cardio), No clicks present (Cardio) and No rub (Cardio) RATE: regular rate RHYTHM: regular rhythm GI: COMMON NORMALS: Soft to palpation, non-tender and no masses PALPATION: Yes Soft to palpation Extremity: NARRATIVE EXTREMITY EXAM: S/P right ORIF of humerus fracture. Immobilizer in place. Neuro: COMMON NORMALS: patient oriented x3, no focal motor deficits and no sensory deficits noted SENSORIUM/ORIENTATION: Yes other Data 02/08/25 04:31 02/08/25 04:31 Micro: Microbiology 02/03/25 06:31 Blood Culture - Final Blood NO GROWTH AFTER 5 DAYS 02/03/25 06:31 Blood Culture - Final Blood NO GROWTH AFTER 5 DAYS A&P Assessment and plan 1. Alcohol withdrawal: 2. Alcoholic ketoacidosis: 3. Fracture of both humeri with delayed healing: Plan: 54 year old male presenting with diffuse MSK pain with fractures, severe withdrawals from EtOH and benzos, possible withdrawal seizures. 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 - Continue home hydrocodone - D/C IV analgesics. - ortho consulted: now s/p ORIF on 02/05. Alcohol withdrawals, alcohol withdrawal seizure - patient admits to 15 beers daily and is also on lorazepam for anxiety. - no further seizures, minimal signs of withdrawal this AM. - reduce Librium to 25 mg daily, can stop in AM. - ativan PRN for withdrawal/seizures. - cont. CIWA protocol Alcoholic ketosis, increased anion gap metabolic acidosis, lactic acidosis - can monitor off IV fluids UTI/Pyelonephritis - start on IV rocephin - convert to oral at time of discharge. Superimposed more recent or acute minimal to mild T10, T11, T12 superior endplate compression fractures - Associate with falls - ortho consulted Old/chronic T3, T4, T6 vertebral compression fractures -Likely associate with falls History of T1-T2 posterior fusion, with metallic hardware, with old Diffuse abdominal pain, feeling nauseous -CT abdomen possible UTI/pyelo Osteosarcoma, C7 lytic bone lesion, with acute neck pain - CT of the neck redemonstrated C7 destructive lytic lesions, no acute fractures, diffuse demineralization Chest pain - EKGs have been benign, serial troponins minimally elevated on admission, no ACS -, telemetry monitoring - he had normal EF in 2022 Full code Lovenox for DVT prophylaxis Disposition - s/p ORIF, outside serious withdrawal window. - continue on med/surgery, looking into placement options for discharge. PDMP PDMP Reviewed: Not Reviewed Attestations 2 Medical Necessity Statement*: Ongoing inpatient care for withdrawal, ORIF. Time Spent in Patient Care: 16 - 35 minutes (>than 50% of time sp ent in counselling and/or direct pt care on unit) . Procedures Arterial Line Size (Gauge): 20 Coding Level of Care Code Acute Code for Chg Fwd Diagnoses Alcohol withdrawal F10.939 Alcoholic ketoacidosis E87.29 Fracture of both humeri with delayed healing S42.301G; S42.302G
[2025-02-08] MEDS: cefTRIAXone 1,000 mg SDV 1000 MG IVP (12:22)
[2025-02-08 14:37] LABS: Potassium 3.4 mmol/L (3.5-5.1)
[2025-02-09] VITALS (10 sets, daily range): BP systolic 109–173; BP diastolic 64–88; PULSE 63–100; RESP 16–18; TEMP 36.6–37; O2SAT 91–97
[2025-02-09] MEDS: HYDROcodone-acetaminophen 5-325 mg Tablet 1 TAB PO ×4 (01:30→17:21)
[2025-02-09] MEDS: pantoprazole 40 mg SDV IVP ×2 (05:15→17:21)
[2025-02-09 06:07] LABS: Hematocrit 31.5 % (37-53); Hemoglobin 10.00 g/dL (11.27-16.99); Mean Corpuscular HGB Conc 31.7 g/dL (30-55); Mean Corpuscular Hemoglobin 30.0 pg (27-33); Mean Corpuscular Volume 94.6 fl (82-101); Nucleated Red Blood Cells % 0 %; Platelet Count 209 10^3/cmm (157-399); Red Blood Count 3.33 10^6/uL (3.85-5.65); White Blood Count 6.13 10^3/uL (3.29-11.43)
[2025-02-09 06:38] LABS: Anion Gap 14.1 (5-19); Blood Urea Nitrogen 6 mg/dL (6-20); Calcium 8.4 mg/dL (8.5-10.5); Carbon Dioxide 29 mmol/L (22-29); Chloride 98 mmol/L (98-107); Glucose 107 mg/dL (65-115); Magnesium 1.5 mg/dL (1.7-2.3); Osmolality Calculated 284 mOsm/kg (285-295); Potassium 3.1 mmol/L (3.5-5.1); Sodium 138 mmol/L (136-145)
[2025-02-09 06:51] LABS: Creatinine Clr Calc Pharmacy 182.8036
[2025-02-09] MEDS: multivitamin therapeutic Tablet 1 TAB PO (09:23)
--- NOTE | 2025-02-09 11:27 | P.PN_ITS ---
Subjective 2 Subjective: ongoing back pain. Vitals/I&O/Wt Last Vital Signs Temp 98.2 F 02/09/25 10:57 Pulse 87 02/09/25 10:57 Resp 18 02/09/25 10:57 BP 141/86 02/09/25 10:57 Pulse Ox 97 02/09/25 10:57 O2 Del Method Room Air 02/09/25 10:57 O2 Flow Rate 2 02/06/25 16:00 02/08/25 02/09/25 02/09/25 22:59 06:59 14:59 Intake Total 480 / 1200 240 / 1440 240 / 240 Output Total 0 / 900 100 / 1000 Balance 480 / 300 140 / 440 240 / 240 Weight last 48 hrs Weight 89.811 kg Weight 90.747 kg Physical Exam 2 Const: COMMON NORMALS: patient oriented x3 HENMT: COMMON NORMALS: normocephalic and atraumatic HEAD & SCALP: n ormocephalic and atraumatic Eye: COMMON NORMALS: Equal, round and reactive pupils present and EOMs intact bilaterally PUPIL: Yes Equal, round and reactive pupils present Neck/C-Spine: COMMON NORMALS: supple Chest: COMMONS NORMALS: normal inspection of the chest Resp: COMMON NORMALS: normal respiratory effort, No retractions and clear to auscultation bilaterally AUSCULTATION: clear to auscultation bilaterally Cardio: COMMON NORMALS: regular rate, regular rhythm, No gallops present (Cardio), No clicks present (Cardio) and No rub (Cardio) RATE: regular rate RHYTHM: regular rhythm GI: COMMON NORMALS: Soft to palpation, non-tender and no masses PALPATION: Yes Soft to palpation Extremity: NARRATIVE EXTREMITY EXAM: S/P right ORIF of humerus fracture. Immobilizer in place. Neuro: COMMON NORMALS: patient oriented x3, no focal motor deficits and no sensory deficits noted SENSORIUM/ORIENTATION: Yes other Data 02/09/25 04:41 02/09/25 04:41 Micro: Microbiology 02/03/25 06:31 Blood Culture - Final Blood NO GROWTH AFTER 5 DAYS 02/03/25 06:31 Blood Culture - Final Blood NO GROWTH AFTER 5 DAYS A&P Assessment and plan 1. Alcohol withdrawal: 2. Alcoholic ketoacidosis: 3. Fracture of both humeri with delayed healing: Plan: 54 year old male presenting with diffuse MSK pain with fractures, severe withdrawals from EtOH and benzos, possible withdrawal seizures. 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 - Continue home hydrocodone - D/C IV analgesics. - ortho consulted: now s/p ORIF on 02/05. Alcohol withdrawals, alcohol withdrawal seizure - patient admits to 15 beers daily and is also on lorazepam for anxiety. - no further seizures, minimal signs of withdrawal this AM. - reduce Librium to 25 mg daily, can stop in AM. - ativan PRN for withdrawal/seizures. - cont. CIWA protocol Alcoholic ketosis, increased anion gap metabolic acidosis, lactic acidosis - can monitor off IV fluids UTI/Pyelonephritis - start on IV rocephin - convert to oral at time of discharge. Superimposed more recent or acute minimal to mild T10, T11, T12 superior endplate compression fractures - Associate with falls - ortho consulted Old/chronic T3, T4, T6 vertebral compression fractures -Likely associate with falls History of T1-T2 posterior fusion, with metallic hardware, with old Diffuse abdominal pain, feeling nauseous -CT abdomen possible UTI/pyelo Osteosarcoma, C7 lytic bone lesion, with acute neck pain - CT of the neck redemonstrated C7 destructive lytic lesions, no acute fractures, diffuse demineralization Chest pain - EKGs have been benign, serial troponins minimally elevated on admission, no ACS -, telemetry monitoring - he had normal EF in 2022 Full code Lovenox for DVT prophylaxis Disposition - s/p ORIF, outside serious withdrawal window. - continue on med/surgery, looking into placement options for discharge. - he has been talking with his insurance rep as well. Case mgmt back on Mon. PDMP PDMP Reviewed: Not Reviewed Attestations 2 Medical Necessity Statement*: Ongoing inpatient for ORIF, EtOH withdrawal, alcoholic ketoacidosis. Time Spent in Patient Care: 16 - 35 minutes (>than 50% of time sp ent in counselling and/or direct pt care on unit) . Procedures Arterial Line Size (Gauge): 20 Coding Level of Care Code Acute Code for Chg Fwd Diagnoses Alcohol withdrawal F10.939 Alcoholic ketoacidosis E87.29 Fracture of both humeri with delayed healing S42.301G; S42.302G
--- NOTE | 2025-02-09 11:33 | PC.NURSE ---
This nurse placed clonidine patch to patients right upper shoulder. This nurse check patient's back and did not visualize any other patch. Nurse asked patient if he had one on and he said no it has been several days . This nurse initialed and dated patch placed today.
[2025-02-09] MEDS: cefTRIAXone 1,000 mg SDV 1000 MG IVP (12:15)
[2025-02-09 12:59] LABS: Vitamin B1(Thiamin) Plas/Ser 102 nmol/L (8-30)
[2025-02-10] VITALS (11 sets, daily range): BP systolic 125–149; BP diastolic 78–90; PULSE 70–77; RESP 16–17; TEMP 36.3–37; O2SAT 92–98
[2025-02-10] MEDS: HYDROcodone-acetaminophen 5-325 mg Tablet 1 TAB PO ×2 (01:58→07:25)
[2025-02-10 05:22] LABS: Hematocrit 32.8 % (37-53); Hemoglobin 10.50 g/dL (11.27-16.99); Mean Corpuscular HGB Conc 32.0 g/dL (30-55); Mean Corpuscular Hemoglobin 30.5 pg (27-33); Mean Corpuscular Volume 95.3 fl (82-101); Nucleated Red Blood Cells % 0 %; Platelet Count 207 10^3/cmm (157-399); Red Blood Count 3.44 10^6/uL (3.85-5.65); White Blood Count 5.49 10^3/uL (3.29-11.43)
[2025-02-10 05:55] LABS: Anion Gap 10.2 (5-19); Blood Urea Nitrogen 8 mg/dL (6-20); Calcium 8.4 mg/dL (8.5-10.5); Carbon Dioxide 28 mmol/L (22-29); Chloride 98 mmol/L (98-107); Creatinine Clr Calc Pharmacy 181.9571; Glucose 104 mg/dL (65-115); Osmolality Calculated 275 mOsm/kg (285-295); Potassium 3.2 mmol/L (3.5-5.1); Sodium 133 mmol/L (136-145)
[2025-02-10] MEDS: pantoprazole 40 mg SDV IVP ×2 (06:07→16:47)
[2025-02-10] MEDS: multivitamin therapeutic Tablet 1 TAB PO (09:04)
[2025-02-10 09:36] LABS: Alanine Aminotransferase 15 U/L (0-41); Aspartate Amino Transferase 24 U/L (0-40); Lactate (Lactic Acid level) 1.1 mmol/L (0.5-2.2)
--- NOTE | 2025-02-10 10:13 | PC.SOCIAL ---
IMM Update Pg. 2 of IMM Updated with patient. Copy provided at bedside.
[2025-02-10] MEDS: cefTRIAXone 1,000 mg SDV 1000 MG IVP (11:42)
[2025-02-10] MEDS: HYDROcodone-acetaminophen 5-325 mg Tablet PO ×2 (11:43→16:13)
[2025-02-10] MEDS: magnesium sulfate premix 2 GM/50 ML PIGGYBACK IV (15:20)
[2025-02-10 15:57] LABS: Lactate (Lactic Acid level) 1.3 mmol/L (0.5-2.2)
--- NOTE | 2025-02-10 16:57 | PM.DCS ---
Discharge Providers Date of Admission: 02/03/25 06:38 Date of Discharge: February 10, 2025 Attending Provider at Admission: Brent Espinoza MD Attending Provider at Discharge: Rajat Martins MD Diagnoses at Discharge Discharge Diagnosis 1. Alcohol withdrawal: 2. Alcoholic ketoacidosis: 3. 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 Redman, history of cervical spine fusion with hardware loosening, medically managed by Dr. Perez, alcoholism, history of alcohol withdrawals, history of anxiety on lorazepam 1 mg p.o. 3 times daily as needed, history of left shoulder surgery, neck surgery, chronic pain, on hydrocodone 5-325 1 to 2 tablets every 4 to 6 hours as needed, last fill of lorazepam 01/08/2025 30 days 90 tablets, of hydrocodone 30 days 240 tablets. Patient presents [facility] due to complaints of diffuse musculoskeletal pain, bilateral shoulder pain, back pain, neck pain, chest pain. Patient tells me that he is on hydrocodone 5 for pain, he continues to have diffuse pain, he has been having severe withdrawals, he takes lorazepam for anxiety but at times he has to take it for his withdrawals, he tells me that sometimes he cannot take the lorazepam for his withdrawals or he will run out, so he thinks he has had a significant withdrawal episode over the last few days, h he has had about 15 beers in the last 24 hours, denies any falls, he is not exactly sure if he is had a seizure, denies prior history of seizures, denies any fevers, no chills. He tells me that what in addition brought him to the hospital with severe substernal chest pain, radiating to the back, no shortness of breath, the pain also radiated to his shoulders, denies any hematemesis, no blood or black stools, no history of esophageal varices, no history of liver cirrhosis, no dysuria, does have bilateral flank pain, does report generalized weakness, no focal weakness, no slurring of her words, no facial droop, no paresthesias. Hospital Course Hospital Course The patient came with diffuse musculoskeletal pain with fractures and severe withdrawals from ethanol benzos. Regarding concerns of bilateral humeral fracture the patient had history of left shoulder humeral head fracture and was s/p surgery. And he was having acute right humerus fracture with dislocation. He was seen by the orthopedics and the further management was done with follow-up with Ortho in 2 weeks. The patient admitted that he drinks 15 beers daily and was kept on Librium taper successfully and received Ativan as needed for withdrawal and seizures. His hospital course was uncomplicated. He was continue on IV fluids. He was also find to have UA suggestive of UTI/pyelonephritis and was started on ceftriaxone that was converted to cefixime for further 7 days at the time of discharge. He was discharged with home health and to follow-up with the rehab. The patient was informed about his plan of care at every point and agreed with it without any language. Physical Exam Narrative: General: Alert oriented x3, patient seen sitting comfortably on the chair, with mild distress due to pain on the right shoulder s/p surgery HEENT: Normocephalic, atraumatic, EOMI, breathing at room air Cardio: Regular rate rhythm, normal S1-S2, no murmurs rubs gallops, JVD normal Respiratory: Good bilateral air entry, no wheezes no rhonchi appreciated GI: Abdomen soft, nontender, nondistended, normoactive bowel sounds present all 4 quadrants, Neuro: Cranial nerves II to XII intact, strength 5/5, sensation 5/5, no gross neurological deficit Behavior: Appropriate and cooperative Extremities: Pulses 2+, no edema, no cyanosis Skin: Unremarkable exam Discharge Data Studies Completed and Pending Completed Studies During Hospitalization Category Date Time Status CT abdomen pelvis wo con [id number] Stat Cat Scan 02/03/25 06:[address] angio chest PE protcl [id number] Urgent Cat Scan 02/03/25 03:[address] cervical spin wo con* [id number] Stat Cat Scan 02/03/25 06:[address] head wo con* [id number] Stat Cat Scan 02/03/25 02:[address] shoulder RT wo con* [id number] Routine Cat Scan 02/03/25 10:58 Completed XR chest 1V portable [id number] Stat Exams 02/03/25 02:41 Completed XR chest 1V portable [id number] Stat Exams 02/04/25 05:05 Completed XR hip BI 2V wo/w pel [id number] Stat Exams 02/03/25 06:28 [place] [id number] Stat Exams 02/03/25 05:37 [place] [id number] Routine Exams 02/05/25 00:00 [place] [id number] Stat Exams 02/03/25 05:37 Completed XR shoulder RT 1V [id number] Routine Exams 02/06/25 17:31 Completed Pending at discharge Category Date Time Status CBC Auto Diff [Complete Blood Count w/Auto] AM LABS Lab 02/11/25 04:00 Ordered CMP [Comprehensive Metabolic Panel] AM LABS Lab 02/11/25 04:00 Ordered Lactate (Lactic Acid level) AM LABS Lab 02/11/25 04:00 Ordered Radiology Impressions Head CT 02/03/25 02:41 IMPRESSION: 1. No acute abnormality of the brain. 2. Stable mild chronic white matter microangiopathic change. 3. Incidental/nonacute findings are listed in the report. Chest CTA 02/03/25 03:33 IMPRESSION: 1. No definite vascular intraluminal filling defects to suggest large or central acute pulmonary embolism. Nondiagnostic study for possible small or peripheral PE. 2. Mild bilateral atelectasis. 3. Atherosclerotic vascular disease including coronary artery disease. 4. Redemonstrated previous T1-2 posterior fusion with metallic hardware in place and old/chronic T3, T4 and T6 vertebral body compression fractures with superimposed more recent or acute minimal to mild T10, T11 and T12 superior endplate compression fractures. 5. Incompletely visualized recent or possibly acute displaced comminuted right humeral head fracture and old/chronic displaced comminuted left humeral head fracture dislocation. 6. Redemonstrated leftward C7 lytic bone lesion. Abdomen/Pelvis CT 02/03/25 06:28 IMPRESSION: 1. Nonspecific bilateral perinephric fat stranding. Possible pyelonephritis/UTI should be considered. 2. Excreted contrast within distended urinary bladder. 3. Acute or recent minimal to mild T10, T11 and T12 superior endplate compression fractures with superior endplate concavity. 4. Redemonstrated chronic L1 and L2 superior endplate compression fractures with mild L1 anterior wedging. 5. Additional findings as described above. Hip/Pelvis X-Ray 02/03/25 06:28 IMPRESSION: 1. No evidence of acute fracture, dislocation or suspicious bone lesion. 2. Excreted contrast within distended urinary bladder. Cervical Spine CT 02/03/25 06:34 IMPRESSION: 1. Redemonstrated C7 destructive lytic lesion involving the leftward vertebral body, left pedicle, lamina, facet and transverse process. 2. No evidence of superimposed acute fracture or subluxation. 3. Diffuse bony demineralization, cervical spondylosis, multilevel bilateral facet arthrosis and degenerative changes as described. Shoulder CT 02/03/25 10:58 IMPRESSION: 1. Comminuted fracture through the RIGHT humeral head and anatomic neck with impaction. This extends to the greater tuberosity. 2. Inferior subluxation humeral head with joint effusion and soft tissue edema. 3. Chronic scapular fracture. Associated callus formation. 4. Few hazy groundglass opacities in the RIGHT upper lobe likely infectious or inflammatory. 2 visualized subcentimeter nodules measuring 4 to 5 mm. Recommend follow-up chest CT. Chest X-Ray 02/04/25 05:05 IMPRESSION: No acute findings. Humerus X-Ray 02/05/25 00:00 Impression: Internal fixation of right humeral head and neck fracture. Shoulder X-Ray 02/06/25 17:31 IMPRESSION: Status post ORIF and bone graft of proximal right humeral fracture. Laboratory Results WBC 5.49 10^3/uL (3.29-11.43) 02/10/25 04:51 RBC 3.44 10^6/uL (3.85-5.65) L 02/10/25 04:51 Hgb 10.50 g/dL (11.27-16.99) L 02/10/25 04:51 Hct 32.8 % (37-53) L 02/10/25 04:51 MCV 95.3 fl (82-101) 02/10/25 04:51 MCH 30.5 pg (27-33) 02/10/25 04:51 MCHC 32.0 g/dL (30-55) 02/10/25 04:51 RDW 13.9 % (12.1-15.1) 02/10/25 04:51 Plt Count 207 10^3/cmm (157-399) 02/10/25 04:51 MPV 9.0 fL (7.4-10.4) 02/10/25 04:51 Neut % (Auto) 61.4 % 02/10/25 04:51 Lymph % (Auto) 22.8 % 02/10/25 04:51 Beaver % (Auto) 9.8 % 02/10/25 04:51 Eos % (Auto) 3.5 % 02/10/25 04:51 Baso % (Auto) 0.7 % 02/10/25 04:51 Neut # (Auto) 3.37 10^3/uL (1.8-7.7) 02/10/25 04:51 Lymph # (Auto) 1.3 10^3/uL (0.8-4.8) 02/10/25 04:51 Beaver # (Auto) 0.5 10^3/uL (0.2-0.9) 02/10/25 04:51 Eos # (Auto) 0.2 10^3/uL (0.0-0.8) 02/10/25 04:51 Baso # (Auto) 0.0 10^3/uL (0.0-0.1) 02/10/25 04:51 Nucleated RBC % (auto) 0 % 02/10/25 04:51 Nucleated RBCs # 0.0 /100WBC 02/10/25 04:51 ESR 2 mm/hr (0-10) 02/03/25 06:31 PT 13.70 SECONDS (12.1-14.9) 02/03/25 02:20 INR 0.98 (0.8-1.2) 02/03/25 02:20 APTT 29.6 SECONDS (23.9-36.7) 02/03/25 02:20 D-Dimer 12.52 ug/mLFEU (0-0.59) H 02/03/25 02:20 Sodium 133 mmol/L (136-145) L 02/10/25 04:51 Potassium 3.2 mmol/L (3.5-5.1) L 02/10/25 04:51 Chloride 98 mmol/L (98-107) 02/10/25 04:51 Carbon Dioxide 28 mmol/L (22-29) 02/10/25 04:51 Anion Gap 10.2 (5-19) 02/10/25 04:51 BUN 8 mg/dL (6-20) 02/10/25 04:51 Creatinine 0.5 mg/dL (0.7-1.2) L 02/10/25 04:51 GFR Calculation 172.0 mL/min (90-130) H 02/10/25 04:51 Glucose 104 mg/dL (65-115) 02/10/25 04:51 Estimat Average Glucose 97 02/03/25 06:31 Hemoglobin A1c 5.0 % (4.0-6.0) 02/03/25 06:31 Calculated Osmolality 275 mOsm/kg (285-295) L 02/10/25 04:51 Lactic Acid 9.5 mmol/L (0.5-2.2) H* 02/03/25 02:20 Lactic Acid (Sepsis) 4.4 mmol/L (0.5-2.2) H* 02/03/25 05:45 Lactate 1.3 mmol/L (0.5-2.2) 02/10/25 13:28 Calcium 8.4 mg/dL (8.5-10.5) L 02/10/25 04:51 Phosphorus 3.2 mg/dL (2.5-4.5) 02/09/25 04:41 Magnesium 1.5 mg/dL (1.7-2.3) L 02/09/25 04:41 Total Bilirubin 1.2 mg/dL (0.15-1.2) 02/05/25 03:02 GGT 42 U/L (8-61) 02/10/25 09:08 AST 24 U/L (0-40) 02/10/25 09:08 ALT 15 U/L (0-41) 02/10/25 09:08 Alkaline Phosphatase 44 U/L (40-130) 02/05/25 03:02 Lactate Dehydrogenase 194 U/L (135-225) 02/10/25 09:08 Creatine Kinase 161 U/L (39-308) 02/03/25 02:20 Troponin T Baseline 12 ng/L (0-15) 02/03/25 02:20 Troponin T 120 Minute 18.29 ng/L (0-15) H 02/03/25 05:25 Delta Troponin T 6.29 ABS# (0-10) 02/03/25 05:25 Troponin T Hi Sens 6Hr 15.15 ng/L (0-15) H 02/03/25 08:16 Troponin T Hi Sens 6Hr Delta 3.15 ng/L (0-12) 02/03/25 08:16 C-Reactive Protein 3.0 mg/L (0.0-4.9) 02/03/25 02:20 NT-Pro-B Natriuret Pep 650 pg/mL (0-125) H 02/03/25 02:20 Total Protein 5.1 g/dL (6.6-8.7) L 02/05/25 03:02 Albumin 3.0 g/dL (3.5-5.2) L 02/05/25 03:02 Globulin 2.1 g/dL (1.3-4.6) 02/05/25 03:02 Triglycerides 94 mg/dL (0-150) 02/03/25 02:20 Cholesterol 177 mg/dL (0-200) 02/03/25 02:20 LDL Cholesterol, Calc 84 mg/dL (50-129) 02/03/25 02:20 HDL Cholesterol 74 mg/dL (60-100) 02/03/25 02:20 LDL/HDL Ratio 1.14 RATIO (0.00-3.22) 02/03/25 02:20 Cholesterol/HDL Ratio 2.39 mg/dL (1.0-5.00) 02/03/25 02:20 Lipase 24 U/L (13-60) 02/03/25 02:20 Vitamin B1 102 nmol/L (8-30) H 02/05/25 10:38 Vitamin B12 534 pg/mL (232-1245) 02/03/25 02:20 Procalcitonin 0.07 ng/mL (0-0.5) 02/03/25 02:20 TSH 1.71 uIU/mL (0.27-4.20) 02/03/25 02:20 Urine Color Yellow (Yellow) 02/03/25 05:25 Urine Appearance Clear (CLEAR) 02/03/25 05:25 Urine pH 7.0 (5-7) 02/03/25 05:25 Ur Specific Garber 1.030 (1.005-1.030) 02/03/25 05:25 Urine Protein Trace (Negative) A 02/03/25 05:25 Urine Glucose (UA) Negative (Normal) 02/03/25 05:25 Urine Ketones 1+ (Negative) H 02/03/25 05:25 Urine Blood Trace (Negative) A 02/03/25 05:25 Urine Nitrate Negative (Negative) 02/03/25 05:25 Urine Bilirubin Negative (Negative) 02/03/25 05:25 Urine Urobilinogen 1.0 mg/dL (Negative) 02/03/25 05:25 Ur Leukocyte Esterase Negative (Negative) 02/03/25 05:25 Urine RBC 0-2 /hpf (0-2) 02/03/25 05:25 Urine WBC 0-5 /hpf (0-5) 02/03/25 05:25 Ur Squamous Epith Cells 0-5 /hpf (0-5) 02/03/25 05:25 Amorphous Sediment Not Reportable 02/03/25 05:25 Urine Bacteria None seen /hpf (NONE) 02/03/25 05:25 Hyaline Casts 1.65 /lpf 02/03/25 05:25 Urine Opiates Screen Positive ng/mL (Negative) H 02/03/25 05:25 Ur Barbiturates Screen Negative ng/mL (Negative) 02/03/25 05:25 Ur Phencyclidine Scrn Negative ng/mL (Negative) 02/03/25 05:25 Ur Amphetamines Screen Negative ng/mL (Negative) 02/03/25 05:25 U Benzodiazepines Scrn Negative ng/mL (Negative) 02/03/25 05:25 Urine Cocaine Screen Negative ng/mL (Negative) 02/03/25 05:25 U Marijuana (THC) Screen Negative ng/mL (Negative) 02/03/25 05:25 Ethyl Alcohol < 10 mg/dL (0-10) 02/03/25 02:20 Vitals Last Vital Signs Temp 97.8 F 02/10/25 16:48 Pulse 73 02/10/25 16:48 Resp 17 02/10/25 16:48 BP 125/81 02/10/25 16:48 Pulse Ox 96 02/10/25 16:48 O2 Del Method Room Air 02/10/25 04:00 O2 Flow Rate 92 02/10/25 04:00 Discharge Plan Discharge Patient Disposition: Home Health Service Condition: Stable Prescriptions: New capsaicin 0.025 % Cream 1 applic topical QID PRN (Reason: Pain) 120 Days Qty: 120 0RF cefixime [Suprax] 400 mg capsule 400 mg PO DAILY 7 Days Qty: 7 0RF lidocaine 5 % Adhesive Patch,Medicated 1 patch topical [id number] 5 Days Qty: 5 0RF thiamine mononitrate (vit B1) [Vitamin B-1 (mononitrate)] 100 mg Tablet 100 mg PO DAILY 120 Days Qty: 120 0RF multivitamin with folic acid [Thera] 400 mcg Tablet 1 tab PO DAILY 120 Days Qty: 120 0RF Continued lorazepam 1 mg tablet 1 mg PO TID PRN (Reason: anxiety) Qty: 90 5RF metoprolol tartrate 50 mg tablet See Rx Instructions .ROUTE .COMPLEX Qty: 180 3RF Dose Instruction: TAKE 1 TABLET BY MOUTH TWICE A DAY FOR BLOOD PRESSURE Rx Instructions: TAKE 1 TABLET BY MOUTH TWICE A DAY FOR BLOOD PRESSURE clonidine HCl 0.1 mg tablet See Rx Instructions .ROUTE .COMPLEX Qty: 60 5RF Dose Instruction: TAKE 1 TABLET BY MOUTH TWICE A DAY FOR BLOOD PRESSURE Rx Instructions: TAKE 1 TABLET BY MOUTH TWICE A DAY FOR BLOOD PRESSURE hydrocodone-acetaminophen 5-325 mg tablet 1 - 2 tab PO .Q4-6H 30 Days Qty: 240 0RF Bath Mix Operator OK for DC: Orthopedics Discharge Order = DC NOW: Discharge Order (Routine); Ordered 02/10/25 Ordered By: Rajat Martins Other Ambulatory Orders: DME: [employer] (Order) Location: None Selected Ordered By: Rajat Martins DME: Miscellaneous (Order) Location: None Selected Ordered By: Rajat Martins DME: Miscellaneous (Order) Location: None Selected Ordered By: Rajat Martins Referrals: [facility] [Outside] Addison Perez DO [Physician, Orthopedics] Referral Note: We have notified your physician's clinic of the need for a follow-up appointment to be scheduled. If you have not heard from them within the next 2 business days, please call them directly. Troy Ambrosio DO [Staff Physician, Family Practice] Referral Note: We have notified your physician's clinic of the need for a follow-up appointment to be scheduled. If you have not heard from them within the next 2 business days, please call them directly. Discharge Diet: Advance as tolerated Discharge Activity: Resume usual activity and Limit activity as instructed Patient Instructions: Alcohol Withdrawal, Cefixime (By mouth) (Suprax), Thiamine (By mouth) ([facility] Vitamin B1, Nature's..., Capsaicin (On the skin) (Axsain, Capsin, Diclofex DC, Tratamiento..., Lidocaine Patch (On the skin) (Lidoderm, Novaplus Lidocaine), Chest Pain (DC), Acute Wound Care (DC), Metabolic Acidosis (GEN), Chest Pain Stoplight, Opioid Safety, Post Anesthesia Care, Patient Portal & Chilo Instructions Activity Restrictions/Additional Instructions: Follow-up orthopedic clinic in 2 weeks. Nonweightbearing right upper extremity Keep dressing clean dry and intact Discharge Attestations Time Spent in Discharge Care*: less than 30 min Specific Discharge Activities: educating patient, educating and/or supporting family/caregiver, discussing with pcp/other providers, discussing with disability case manager/social workers/dc planners, documenting/other paperwork and evaluating patient/reviewing data Status at Discharge: Cognitive status at discharge: cognitively intact, Behavioral status at discharge: cooperative, Functional status at discharge: other assisted ambulation, Overall status at discharge: patient is back to baseline Quality Metrics Clinical Quality Measures [ No reported AMI, CVA or VTE this stay] Coding Level of Care Code Acute Code for Chg Fwd Diagnoses Alcohol withdrawal F10.939 Alcoholic ketoacidosis E87.29 Fracture of both humeri with delayed healing S42.301G; S42.302G
== END 2025-02-10 17:58 | disposition home health service (06) | DRG 493 ==
LOC: ER 06:30 → ER IP 06:48 → ICU 07:18 → MEDSURG 02-06 17:02
PROVIDERS: Internal Medicine; Orthopaedic Surgery; Admitting Provider Family Medicine; Emergency Provider Emergency Medicine; Visit Provider Student in an Organized Health Care Education/Training Program
PROC: 0PSF04Z Reposition Right Humeral Shaft with Internal Fixation Device, Open Approach (ICD-10-PCS; principal; 2025-02-05 14:55)
DX: S42.201A Unspecified fracture of upper end of right humerus, initial encounter for closed fracture (principal); E87.1 Hypo-osmolality and hyponatremia; S22.079A Unspecified fracture of T9-T10 vertebra, initial encounter for closed fracture; S22.089A Unspecified fracture of T11-T12 vertebra, initial encounter for closed fracture; E87.29 Other acidosis; S42.202K Unspecified fracture of upper end of left humerus, subsequent encounter for fracture with nonunion; F10.239 Alcohol dependence with withdrawal, unspecified; F13.239 Sedative, hypnotic or anxiolytic dependence with withdrawal, unspecified; N12 Tubulo-interstitial nephritis, not specified as acute or chronic; X58.XXXA Exposure to other specified factors, initial encounter; T42.4X5A Adverse effect of benzodiazepines, initial encounter; F41.9 Anxiety disorder, unspecified; I10 Essential (primary) hypertension; E87.6 Hypokalemia; E80.6 Other disorders of bilirubin metabolism; E86.0 Dehydration; G89.29 Other chronic pain; Z85.830 Personal history of malignant neoplasm of bone; Z98.1 Arthrodesis status
CPT/HCPCS: 36415; 51702; 70450; 71045; 71275; 72125; 73020; 73060; 73200; 73521; 74176; 76000; 80048; 80053; 80061; 80306; 80307; 81001; 82550; 82607; 82977; 83036; 83605; 83615; 83690; 83735; 83880; 84100; 84132; 84145; 84425; 84443; 84450; 84460; 84484; 85025; 85378; 85610; 85651; 85730; 86140; 87040; 93005; 94664; 96372; 96374; 96375; 96376; 97110; 97161; 97164; 97165; 97530; 97535; 99285; C1713; C1762; J0696; J1100; J1171; J1650; J2060; J2270; J2371; J2405; J2470; J2704; J3010; J3411; J3475; J3480; J3490; J7030; J7040; J9999

== ENCOUNTER → 2025-02-18 10:30 | Outpatient (BNVA) | payer MEDICARE, SELFPAY | PROVIDERS: PCP Family Medicine; Visit Provider Orthopaedic Surgery | DX: Z98.890 Other specified postprocedural states (principal); M54.9 Dorsalgia, unspecified; Z48.89 Encounter for other specified surgical aftercare | CPT/HCPCS: 72100; 73030; 73060; 99024 ==

== ENCOUNTER 2025-03-03 13:39 | Outpatient (CLI) | payer MEDICARE, SELFPAY ==
--- NOTE | 2025-03-03 13:45 | MR_ITS ---
WS: [id number] MRI LUMBAR SPINE NONCONTRAST HISTORY: Back Pain COMPARISON: 03/02/2022 TECHNIQUE: Sagittal and axial multisequence imaging is submitted. Increased focal kyphosis centered in the upper thoracic spine with multiple compression fractures. Compression deformities at T2, T3 and T4. By concave fracture at T6. Age indeterminate but acute to subacute fractures at T10, T11 and T12. There is marrow edema and loss of height. 2 mm retropulsion of the posterior superior endplate of T12. Thoracic spine fractures at T10, T11 and T12 were not present on the CT of 02/03/2025. Mild increase in lumbar lordosis. Mild anterior wedging of the L1. No marrow edema in the L1 vertebral body. L2 hemangioma. Very slight loss of height involving the L2 vertebral body. Disc spaces are narrowed and mildly desiccated. 2 mm anterolisthesis of L5. Conus terminates normally at L1-2 disc level. L1-L2: No stenosis. L2-L3: Mild disc bulging with mild facet and ligamentum flavum hypertrophy. Mild disc contact on the traversing L3 nerve roots. Small foraminal disc protrusions and/or disc bulging. L3-L4: Mild annular disc bulging encroaching upon the subarticular recesses, RIGHT greater than LEFT. Mild facet disease. Mild bilateral foraminal stenosis. L4-L5: Mild disc bulging with ligamentum flavum and facet arthritis. Mild foraminal stenosis, RIGHT greater than LEFT. L5-S1: Mild disc bulging. Mild facet arthritis. Paravertebral soft tissues are negative. MR/MR lumbar spine wo con* [id number] IMPRESSION: 1. No high-grade central or foraminal stenosis within the lumbar spine. 2. Mild loss of height involving L1 and L2 with no marrow edema. 3. New fractures within T10, T11 and T12 since 02/03/2025. 2 mm retropulsion po sterior superior endplate of T12. Follow-up MRI thoracic spine would provide ad ditional information concerning these fractures and nerve root encroachment. 4. Mild disc contact on the traversing L3 nerve roots and small foraminal disc protrusions at L2-3. 5. Mild foraminal stenosis at L3-4 and L4-5.
== END 2025-03-03 13:40 | disposition home or self-care (01) ==
LOC: RAD 13:40
PROVIDERS: PCP Family Medicine; Visit Provider Orthopaedic Surgery
DX: M51.9 Unspecified thoracic, thoracolumbar and lumbosacral intervertebral disc disorder (principal); M48.061 Spinal stenosis, lumbar region without neurogenic claudication; M51.370 Other intervertebral disc degeneration, lumbosacral region with discogenic back pain only; M47.897 Other spondylosis, lumbosacral region
CPT/HCPCS: 72148

== ENCOUNTER → 2025-03-04 14:40 | Outpatient (BNVA) | payer MEDICARE, SELFPAY | PROVIDERS: PCP Family Medicine; Visit Provider Orthopaedic Surgery | DX: Z98.890 Other specified postprocedural states (principal) | CPT/HCPCS: 73030; 99024 ==

== ENCOUNTER → 2025-03-24 13:42 | Outpatient (BNVA) | payer MEDICARE, SELFPAY | PROVIDERS: PCP Family Medicine; Referring Provider Orthopaedic Surgery; Visit Provider Anesthesiology Pain Medicine | DX: M54.50 Low back pain, unspecified (principal); M54.2 Cervicalgia | CPT/HCPCS: 99205 ==

== ENCOUNTER 2025-04-15 11:30 | Oncology outpatient (recurring) (ONCR) | payer MEDICARE, SELFPAY ==
[2025-04-11] MEDS: iohexol 350 mg/mL 500 mL Btl (per mL) IV (12:24)
--- NOTE | 2025-04-11 12:30 | CTR_ITS ---
PROCEDURE INFORMATION: Exam: CT Cervical Spine Without and With Contrast Exam date and time: 04/11/2025 12:17 PM Age: 55 years old Clinical indication: Condition or disease; Other: Malignant neoplasm vertebral column; Prior surgery; Surgery date: 6+ months; Surgery type: C spine x 2; HX of osteosarcoma; Additional info: Surveillance TECHNIQUE: Imaging protocol: Computed tomography of the cervical spine without and with contrast. Radiation optimization: All CT scans at this facility use at least one of these dose optimization techniques: automated exposure control; mA and/or kV adjustment per patient size (includes targeted exams where dose is matched to clinical indication); or iterative reconstruction. Contrast material: OMNI 350; Contrast volume: 100 ml; Contrast route: INTRAVENOUS (IV); COMPARISON: CT cervical spin wo con* [id number] 02/03/2025 6:40 AM RADIATION DOSE METRICS: Total DLP (mGy-cm): 307.77 FINDINGS: Bones: Redemonstration of stable osteolytic lesion localized in the left C7 vertebral body, pedicle, lamina, facet and transverse process. Redemonstration of posterior fusion instrumentation including rods and screws starting at C4 and extending caudally to T2. Redemonstration of radiolucency around the screws at C4, slightly increased compared to the last exam consistent with loosening. Hardware is intact. No fractures. Normally patent canal and adequately patent foramina. Moderate stable osteopenia. Redemonstration of chronic mild superior endplate collapse at T2 that is unchanged from the prior study. Lungs: Lung apices are normal. Soft tissues: Unremarkable. CT/CT cervical spine wo/w [id number] IMPRESSION: 1. Stable osteolytic lesion at C7 as above. 2. No acute fracture or new subluxation. 3. Increased radiolucency around screws at C4 likely indicates loosening.
[2025-04-15 11:46] LABS: Hematocrit 43.2 % (37-53); Hemoglobin 13.70 g/dL (11.27-16.99); Mean Corpuscular HGB Conc 31.7 g/dL (30-55); Mean Corpuscular Hemoglobin 27.6 pg (27-33); Mean Corpuscular Volume 86.9 fl (82-101); Nucleated Red Blood Cells % 0 %; Platelet Count 194 10^3/cmm (157-399); Red Blood Count 4.97 10^6/uL (3.85-5.65); White Blood Count 4.14 10^3/uL (3.29-11.43)
[2025-04-15 11:58] LABS: Alanine Aminotransferase 6 U/L (0-41); Albumin Level 3.9 g/dL (3.5-5.2); Alkaline Phosphatase 105 U/L (40-130); Anion Gap 15.9 (5-19); Aspartate Amino Transferase 15 U/L (0-40); Blood Urea Nitrogen 8 mg/dL (6-20); Calcium 8.9 mg/dL (8.5-10.5); Carbon Dioxide 23 mmol/L (22-29); Chloride 101 mmol/L (98-107); Creatinine Clr Calc Pharmacy 103.4803; Globulin 2.7 g/dL (1.3-4.6); Glucose 85 mg/dL (65-115); Osmolality Calculated 280 mOsm/kg (285-295); Potassium 3.9 mmol/L (3.5-5.1); Sodium 136 mmol/L (136-145); Total Protein 6.6 g/dL (6.6-8.7)
== END 2025-04-25 23:59 | disposition home or self-care (01) ==
PROVIDERS: PCP Family Medicine; Visit Provider Nurse Practitioner Family
DX: C41.9 Malignant neoplasm of bone and articular cartilage, unspecified; M89.8X8 Other specified disorders of bone, other site; Z98.1 Arthrodesis status; Z53.9 Procedure and treatment not carried out, unspecified reason
CPT/HCPCS: 36415; 72127; 80053; 85025; 99214

== ENCOUNTER → 2025-04-28 14:06 | Outpatient (BNVA) | payer MEDICARE, SELFPAY | PROVIDERS: PCP Family Medicine; Visit Provider Anesthesiology Pain Medicine | DX: M54.50 Low back pain, unspecified (principal); M54.2 Cervicalgia | CPT/HCPCS: 99214 ==

== ENCOUNTER → 2025-05-26 13:22 | Outpatient (BNVA) | payer MEDICARE, SELFPAY | PROVIDERS: PCP Family Medicine; Visit Provider Anesthesiology Pain Medicine | DX: M54.50 Low back pain, unspecified (principal); M54.2 Cervicalgia; Z87.891 Personal history of nicotine dependence | CPT/HCPCS: 99214 ==

== ENCOUNTER → 2025-06-03 09:54 | Outpatient (BNVA) | payer MEDICARE, SELFPAY | PROVIDERS: PCP Family Medicine; Visit Provider Family Medicine | DX: I10 Essential (primary) hypertension (principal); I05.9 Rheumatic mitral valve disease, unspecified; R06.00 Dyspnea, unspecified | CPT/HCPCS: 80053; 85025 ==

== ENCOUNTER → 2025-06-04 15:41 | Outpatient (BNVA) | payer MEDICARE, SELFPAY | PROVIDERS: PCP Family Medicine; Visit Provider Internal Medicine Cardiovascular Disease | DX: R07.9 Chest pain, unspecified (principal); I34.0 Nonrheumatic mitral (valve) insufficiency; I10 Essential (primary) hypertension; R06.00 Dyspnea, unspecified | CPT/HCPCS: 93005; 99204; J3490; J9999 ==